=== PATIENT | female | born 2000 | race Caucasian/White ===

== ENCOUNTER → 2019-09-06 09:42 | Outpatient (CLI) | payer OTHER, SELFPAY ==
--- NOTE | 2019-09-06 09:43 | US_ITS ---
PROCEDURE: US OB BIOPHYSICAL PROFILE CLINICAL INDICATION: SGA Small for gestational TECHNIQUE: Age FINDINGS: The following parameters are obtained: Average ultrasound age is Average 36weeks 2days Estimated due date by ultrasound is 10/02/2019. Estimated weight is 2,866g.. This is 15th percentile BPD: 8.90cm 36weeks 1day OFD: 11.32cm 38weeks 2days HC: 36 weeks 1 day AC: 36 weeks 2 days FL: 7.05cm 36weeks 1day heart rate: 125bpm bpm. HC/AC: 0.99 Cephalic index: 0.79 FL/BPD: 0.79 FL/AC: 0.22 Amniotic fluid index: 11.77cm Qualitative AFV: 2 breathing movements: 2 Gross body movements: 2 Tone: 2 Biophysical profile score: 8 The fetus is in cephalic presentation. The cervix is closed measuring 3 cm. Placenta is anterior and grade 2. IMPRESSION: Live IUP which is in cephalic presentation with an average ultrasound age 36 weeks 2 days and an estimated weight of 2866 g which is 15th percentile. Normal amniotic fluid volume with a biophysical profile 8 of 8. Please see above for detail Dictated by: Jose Mcgill MD 09/07/2019 10:26 Electronically signed by Jose Mcgill MD in [place] 09/07/2019 10:26
[2019-09-06 10:41] LABS: Basophils % 0.3 % (0.1-2.0); Eosinophils # 0.2 K/mm3 (0.0-0.4); Eosinophils % 1.7 % (0.1-12.0); Hematocrit 32.4 % (37.0-47.0); Hemoglobin 10.9 g/dL (12.2-16.2); Lymphocytes # 2.3 K/mm3 (0.7-4.5); Lymphocytes % 21.4 % (10-50); Mean Corpuscular HGB Conc 33.6 g/dL (31.8-35.4); Mean Corpuscular Hemoglobin 31.5 pg (27.0-31.2); Mean Corpuscular Volume 93.8 fl (81-99); Mean Platelet Volume 9.4 fl (7.4-10.4); Monocytes # 0.5 K/mm3 (0.1-1.0); Monocytes % 4.3 % (1.7-9.3); Neutrophils # 7.8 K/mm3 (1.8-7.8); Neutrophils % 72.2 % (37.0-80.0); Platelet Count 218 K/mm3 (142-424); Red Blood Count 3.46 M/mm3 (4.20-5.40); Red Cell Distribution Width 13.4 % (11.5-17.5); White Blood Count 10.8 K/mm3 (4.8-10.8)
[2019-09-07 10:01] LABS: HIV Screen 4th Generation wRfx Non Reactive (Non Reactive)
[2019-09-07 12:26] LABS: Hepatitis B Surface Antigen Negative (Negative); Hepatitis C Antibody <0.1 s/co ratio (0.0-0.9); Rapid Plasma Reagin Ab Titer Non Reactive (NonRea<1:1); Rubella Antibodies, IgG 1.25 index (Immune >0.99)
== END ==
PROVIDERS: PCP Family Medicine; Visit Provider Nurse Practitioner Obstetrics & Gynecology
DX: O36.5990 Maternal care for other known or suspected poor fetal growth, unspecified trimester, not applicable or unspecified (principal); Z3A.37 37 weeks gestation of pregnancy
CPT/HCPCS: 36415; 76816; 76819; 85025; 86592; 86703; 86762; 86850; 87340; 87380; G0432

== ENCOUNTER → 2019-09-15 18:06 | Outpatient (CLI) | payer OTHER, SELFPAY | PROVIDERS: Visit Provider Nurse Practitioner Obstetrics & Gynecology | DX: Z34.90 Encounter for supervision of normal pregnancy, unspecified, unspecified trimester (principal) | CPT/HCPCS: 86403 ==

== ENCOUNTER 2019-09-19 07:39 | Outpatient (CLI) | payer OTHER, SELFPAY ==
[2019-09-19 08:00] VITALS: BP 111/67; PULSE 107; RESP 20; TEMP 36.7; O2SAT 100; BMI 29.4
[2019-09-19 08:26] LABS: Microscopic, Urine URINE MICROSCOPIC (MICROSCOPIC)
[2019-09-19 08:27] LABS: Appearance,Urine CLEAR (Clear); Bilirubin,Urine Negative (Negative); Blood, Urine Negative (Negative); Color,Urine YELLOW (Yellow); Glucose,Urine (UA) Negative (Negative); Ketones,Urine Negative (Negative); Leukocyte Esterase,Urine Negative (Negative); Nitrate,Urine Negative (Negative); PH,Urine 6.5 (5.0-8.5); Protein,Urine Negative (Negative); Specific Gravity, Urine 1.025 (1.005-1.030); Urobilinogen,Urine 0.2 EU/dl (0.2)
[2019-09-19 08:34] LABS: Bacteria,Urine 1+ /lpf; Calcium Oxalate Crystals,Urine 1+ /lpf; WBC,Urine Occasional #/hpf (0-3)
[2019-09-19 08:39] LABS: Barbiturates Screen,Urine Negative ng/ml (<200)
[2019-09-19 08:40] LABS: Amphetamine/Metha Screen,Urine Negative ng/ml (<1000); Benzodiazepines Screen,Urine Negative ng/ml (<200)
[2019-09-19 08:41] LABS: Methadone Screen,Urine Negative ng/ml (<300)
[2019-09-19 08:42] LABS: Cannabinoid Screen,Urine Positive ng/ml (<50); Cocaine Screen,Urine Negative ng/ml (<300)
[2019-09-19 08:43] LABS: Opiate Screen,Urine Negative ng/ml (<300)
[2019-09-19 08:44] LABS: Phencyclidine Screen,Urine Negative ng/ml (<25)
== END 2019-09-19 08:45 | disposition home or self-care (01) ==
LOC: OBOUT 07:42 → OB 07:44
PROVIDERS: PCP Family Medicine; Visit Provider Nurse Practitioner Obstetrics & Gynecology
DX: Z34.90 Encounter for supervision of normal pregnancy, unspecified, unspecified trimester (principal)
CPT/HCPCS: 59025; 80305; 81001

== ENCOUNTER 2019-09-20 13:44 | Inpatient (IN) | payer OTHER, SELFPAY ==
[2019-09-20 13:01] VITALS: RESP 20; TEMP 37; O2SAT 100; BMI 29.2
[2019-09-20 13:30] LABS: Basophils % 0.2 % (0.1-2.0); Eosinophils # 0.1 K/mm3 (0.0-0.4); Eosinophils % 0.9 % (0.1-12.0); Hemoglobin 11.8 g/dL (12.2-16.2); Lymphocytes % 15.2 % (10-50); Mean Corpuscular HGB Conc 34.6 g/dL (31.8-35.4); Mean Corpuscular Hemoglobin 32.4 pg (27.0-31.2); Mean Corpuscular Volume 93.8 fl (81-99); Mean Platelet Volume 8.7 fl (7.4-10.4); Monocytes # 0.4 K/mm3 (0.1-1.0); Monocytes % 2.8 % (1.7-9.3); Neutrophils # 10.5 K/mm3 (1.8-7.8); Neutrophils % 80.9 % (37.0-80.0); Platelet Count 307 K/mm3 (142-424); Red Blood Count 3.63 M/mm3 (4.20-5.40); Red Cell Distribution Width 13.9 % (11.5-17.5)
--- NOTE | 2019-09-20 13:56 | HMH.LABNOT ---
Labor Note - Subjective: Date: 09/20/19 Time: 13:56 regular contraction - Objective: NST:: Reactive Contractions:: every 2-3 minutes Cervical Dilation:: 4-5 Effacement:: 100% Station: -1 Membranes: spontaneously ruptured - Fetus: Monitoring?: Yes monitoring type:: Internal and External Comment:: iupc inserted - Assessment: Labor progressing?: Yes Cephalopelvic disproportion?: No Patient Problems: All Active Problems (Acute) - Plan: Anesthesia for epidural?: No Continue to labor down?: Yes Plan for ?: No Continue to monitor?: Yes Start pushing?: No Additional information:: came in in active labor, membranes ruptured at home this am
[2019-09-20 14:07] LABS: Coronavirus 19 IgG Antibody Negative (Negative); Coronavirus 19 IgM Antibody Negative (Negative)
--- NOTE | 2019-09-20 15:09 | HMH.ANESCL ---
[facility] Anesthesia Checklist - Patient Identification Patient Identification: Arm Band - Structural Data Admitted From: Home Planned Operative Procedure/s: labor epidural Consent for Planned Operative Procedure(s) Verified: Yes Verified Documents: Surgical Consent, History and Physical - NPO Status Verified Time NPO: 00:00 - Additional verifications Anesthesia Reactions: No - Airway Assessment C-Spine Mobility Assessed: Yes TMJ Mobility Assessed: Yes Dentition: Good Dentition - Neurological Assessment Level of Consciousness: Awake, Alert - Anesthesia Plan Anesthesia Risk discussed: Yes Anesthesia Plan: Verified ASA Class: II Anesthesia Type: Epidural [facility] History I have reviewed the patient's past medical history: Yes *Have you ever received a pneumonia vaccine?: No *Have you received a flu vaccine this season?: No Anesthesia experience/problems:: nac Other Surgeries: No: Amputation: No Fractures: No - *Social History Smoking Status: Current every day smoker Alcohol Intake: current Alcohol Intake Frequency:: holidays/special occasions only Substance Use Type: marijuana *Occupational Status:: other *Travel in the last 8 weeks: None Family Hx:: No significant family history Para: 0
--- NOTE | 2019-09-20 16:04 | HMH.LABNOT ---
Labor Note - Subjective: Date: 09/20/19 Time: 16:04 regular contraction - Objective: NST:: Reactive Contractions:: every 2-3 minutes Cervical Dilation:: 9-10 Effacement:: 100% Station: +1 Membranes: spontaneously ruptured - Fetus: Monitoring?: Yes monitoring type:: Internal and External - Assessment: Labor progressing?: Yes Cephalopelvic disproportion?: No Patient Problems: All Active Problems (Acute) - Plan: Anesthesia for epidural?: Yes Continue to labor down?: Yes Plan for ?: No Continue to monitor?: Yes Start pushing?: No Comment:: She has an anterior lip. She is progressing well. We will expect a vaginal delivery.
--- NOTE | 2019-09-20 16:05 | HMH.OBAPHP ---
OB - H&P: HPI Antepartum - History of Present Illness Chief complaint: Contractions and ruptured membranes, meconium History of present illness: She is a 19-year-old 1 now para 0 at 40+ weeks gestational age. Her due date was September 17. She complains of contractions. She came in over the weekend with contractions and since this morning has been leaking meconium stained fluid. She has had regular contractions since about midnight. - History of Present Criteria for establishing EDC:: LMP confirmed by 2nd trimester US care: limited care Ultrasounds: normal mid trimester US Obstetrical complications: none Medical complications: none [facility] History I have reviewed the patient's past medical history: Yes *Have you ever received a pneumonia vaccine?: No *Have you received a flu vaccine this season?: No Anesthesia experience/problems:: nac Other Surgeries: No: Amputation: No Fractures: No - *Social History Smoking Status: Current every day smoker Alcohol Intake: current Alcohol Intake Frequency:: holidays/special occasions only Substance Use Type: marijuana *Occupational Status:: other *Travel in the last 8 weeks: None Family Hx:: No significant family history Para: 0 Review of Systems - Review of Systems Review of systems:: pertinent systems reviewed and negative unless documented below Meds Home Medications Medication Instructions Recorded Confirmed Type No Known Home Medications 09/20/19 09/20/19 History Allergies Allergy/AdvReac Type Severity Reaction Status Date / Time ibuprofen Allergy Mild Verified 09/20/19 15:34 Penicillins Allergy Mild Verified 09/20/19 15:36 prednisone Allergy Mild Verified 09/20/19 15:35 red dye Allergy Mild Verified 09/20/19 15:35 OB - H&P: Exam - Physical Exam Vital signs: Temp Resp Pulse Ox 98.6 F 20 100 09/20/19 13:01 09/20/19 13:01 09/20/19 13:01 - Constitutional no acute distress - Routine HEENT Exam Head: Present: normocephalic Eye: Present: EOMI, PERRL ENT: Present: mucous membranes moist - Routine Neck Exam Present: supple, full ROM - Routine Respiratory Exam Absent: accessory muscle use (good air entry bilaterally), respiratory distress, wheezes, crackles - Routine Cardiovascular Exam Present: RRR. Absent: murmur - Routine Abdominal Exam Present: soft, normoactive bowel sounds. Absent: tenderness, distended, guarding - Routine Rectal Exam Patient deferred: visual exam, digital exam - Routine Exam Patient deferred: external exam, groin exam, perineal exam - Routine Extremities Exam Present: full ROM. Absent: cyanosis, edema - Routine Skin Exam Present: intact. Absent: cyanosis - Routine Neurological Exam Present: alert, oriented X3 - Routine Psychiatric Exam Present: normal affect OB - Results - Labs Labs: Short CBC 09/20/19 Range/Units 13:15 WBC 13.0 H (4.8-10.8) K/mm3 Hgb 11.8 L (12.2-16.2) g/dL Hct 34.0 L (37.0-47.0) % Plt Count 307 (142-424) K/mm3 OB - A/P Antepartum (1) Normal delivery Current visit: Yes Status: Acute (2) Meconium stained amniotic fluid, delivered, current hospitalization Current visit: Yes Status: Acute - Additional Plan Planning to breastfeed?: No Plan: expectant management Additional Information:: She is an active labor. She was initially 4 cm on arrival. She is now 9 cm. We will expect a vaginal delivery.
[2019-09-20 16:39] LABS: Microscopic, Urine URINE MICROSCOPIC (MICROSCOPIC)
[2019-09-20 16:50] LABS: Appearance,Urine CLEAR (Clear); Bilirubin,Urine Negative (Negative); Blood, Urine TRACE-I (Negative); Color,Urine YELLOW (Yellow); Glucose,Urine (UA) Negative (Negative); Ketones,Urine Negative (Negative); Leukocyte Esterase,Urine Negative (Negative); Nitrate,Urine Negative (Negative); PH,Urine 7.5 (5.0-8.5); Protein,Urine Negative (Negative); Specific Gravity, Urine 1.015 (1.005-1.030); Urobilinogen,Urine 0.2 EU/dl (0.2)
[2019-09-20 16:55] LABS: Amphetamine/Metha Screen,Urine Negative ng/ml (<1000); Benzodiazepines Screen,Urine Negative ng/ml (<200)
[2019-09-20 16:56] LABS: Barbiturates Screen,Urine Negative ng/ml (<200); RBC,Urine Occasional #/hpf (0-3)
[2019-09-20 16:57] LABS: Cannabinoid Screen,Urine Positive ng/ml (<50); Methadone Screen,Urine Negative ng/ml (<300)
[2019-09-20 16:58] LABS: Cocaine Screen,Urine Negative ng/ml (<300)
[2019-09-20 16:59] LABS: Opiate Screen,Urine Negative ng/ml (<300); Phencyclidine Screen,Urine Negative ng/ml (<25)
--- NOTE | 2019-09-20 19:04 | HMH.DN ---
- Delivery Note Delivery Date:: 09/20/19 Delivery Time:: 18:23 Anesthesia Type: Epidural Was labor medically induced?: No Induction method: none Gestational age (weeks): 40 delivered prior to 39 weeks?: No Justification for early elective delivery:: Active Labor Gender: Male at 1 minute: 8 at 5 minutes: 9 Suction Catheter Type: Sterile Catheter AF:: meconium LAC or MLE?: LAC Delivery Procedure:: She is a 19-year-old 1 now para 0 at 40 and 2 weeks gestational age. She came in in active labor with ruptured membranes. It is not clear how long her membranes had been she thinks she may have ruptured them early this morning. She says she has been leaking for well. The fluid was thick meconium-stained. She was augmented with oxytocin under labor epidural progressed to full dilation. She pushed and was having some deep decelerations with prolonged decelerations into the 50s and 60s. As result of that I elected to place padded Gill forceps in the direct OA position. The bladder was empty. She was at station +4. The baby's head was visible on the perineum with pushing. Using 1 long pull I was able to easily deliver the baby's head. The oropharynx and nasopharynx were suctioned with DeLee suction. I retrieved about 2 cc of thick meconium stained fluid. The baby then cried spontaneously. I further suctioned the baby. The cord was doubly clamped and cut and the infant was handed off to Dr. Salas who assigned Apgars of 8 at 1 minute and 9 at 5 minutes. We then obtained cord blood as well as cord pH. She received IV oxytocin and using gentle traction on the cord and countertraction the fundus I was able to easily deliver the placenta intact. He had a normal three-vessel cord. She had fourth degree tear. I closed the rectum mucosa using interrupted 3-0 Vicryl Rapide suture in a mattress suture style. I then placed 2-0 Vicryl sutures interrupted above this layer reapproximating the muscles. I then closed the vaginal mucosa using running 2-0 Vicryl suture in a locked fashion. The sphincter was then grasped with Allis clamps and I reapproximated the sphincter using interrupted 2-0 PDS suture. I placed 1 suture anteriorly 1 superiorly and one inferiorly. These were individually placed and then tied in the order in which they were placed. I then closed the perineum using interrupted 2-0 Vicryl suture in a subcuticular fashion. I then performed a rectal examination and once again assured that the rectum was completely closed. She has O Rh+ blood, she is rubella immune and was group B streptococcus negative. Her label operator Dr. Salas. Estimated blood loss was approximately 600 cc. All sponge, instrument and needle counts were correct. Laceration:: vaginal Placental Delivery Description: Spontaneous
[2019-09-20 20:00] VITALS: BMI 29.0
[2019-09-21 06:52] LABS: Hematocrit 31.1 % (37.0-47.0)
[2019-09-21 06:53] LABS: Hemoglobin 10.6 g/dL (12.2-16.2)
[2019-09-21 08:00] VITALS: BP 115/59; PULSE 91; RESP 16; TEMP 36.9; O2SAT 99
--- NOTE | 2019-09-21 08:29 | HMH.ACPN2 ---
Internal Medicine - PN: Rocael *Date: 09/21/19 *Time: 08:29 Interval history: She is doing well this morning. She is eating and drinking and ambulating. She is bottlefeeding. Her lochia is normal. Exam Vital signs and Labs for Last 24 Hours: Temp Resp Pulse Ox 98.6 F 20 100 09/20/19 13:01 09/20/19 13:01 09/20/19 13:01 Laboratory Results - last 24 hr 09/20/19 13:15: WBC 13.0 H, RBC 3.63 L, Hgb 11.8 L, Hct 34.0 L, MCV 93.8, MCH 32.4 H, MCHC 34.6, RDW 13.9, Plt Count 307, MPV 8.7, Neut % (Auto) 80.9 H, Lymph % (Auto) 15.2, [place] % (Auto) 2.8, Eos % (Auto) 0.9, Baso % (Auto) 0.2, Neut # (Auto) 10.5 H, Lymph # (Auto) 2.0, [place] # (Auto) 0.4, Eos # (Auto) 0.1, Baso # (Auto) 0.0 09/20/19 13:15: Blood Type O Positive, Antibody Screen Negative 09/20/19 13:15: SARS-CoV-2 IgG Ab (Rapid) Negative, SARS-CoV-2 IgM Ab (Rapid) Negative 09/20/19 16:00: Urine Color Yellow, Urine Appearance Clear, Urine pH 7.5, Ur Specific Ladora 1.015, Urine Protein Negative, Urine Glucose (UA) Negative, Urine Ketones Negative, Urine Blood Trace-i, Urine Nitrate Negative, Urine Bilirubin Negative, Urine Urobilinogen 0.2, Ur Leukocyte Esterase Negative, Urine RBC Occasional, Urine WBC 3-5, Ur Squamous Epith Cells 3-5, Urine Bacteria None 09/20/19 16:00: Urine Opiates Screen Negative, Urine Methadone Screen Negative, Ur Barbituates Screen Negative, Ur Phencyclidine Scrn Negative, Ur Amphetamines Screen Negative, U Benzodiazepines Scrn Negative, Urine Cocaine Screen Negative, U Marijuana (THC) Screen Positive H 09/20/19 18:35: Cord ABG pH 7.30 L 09/21/19 06:21: Hgb 10.6 L D, Hct 31.1 L I & O for Last 24 hours: Intake & Output 09/18/19 09/19/19 09/20/19 09/21/19 11:59 11:59 11:59 11:59 Weight 159 lb - Constitutional no acute distress - *Routine HEENT Exam Head: Present: normocephalic Eye: Present: EOMI, PERRL ENT: Present: mucous membranes moist Assessment and Plan (1) Normal delivery Current visit: Yes Status: Acute Category: Medical Code(s): O80 - Encounter for full-term uncomplicated delivery (2) Meconium stained amniotic fluid, delivered, current hospitalization Current visit: Yes Status: Acute Category: Medical Code(s): O77.0 - Labor and delivery complicated by meconium in amniotic fluid - Assessment and plan all Dx Assessment and Plan for all problems:: She continues to do well. We will plan to send her home tomorrow.
--- NOTE | 2019-09-21 11:09 | SW/DCPLANNER ---
Addendum entered by Karely Duong 09/22/19 09:36: MADE A REPORT TO [facility] AND SPOKE WITH SOHAM AND ID# [id number].... I HAVE INFORMED HER NURSE THAT THE REFERRAL WAS CALLED AND WE ARE WAITING TO SEE IF THEY ARE GOING TO TAKE IT FOR AN INVESTIGATION.... PATIENT IS GOING TO DISCHARGE BUT NOT SURE ABOUT INFANT... Original Note: RECEIVED REFERRAL FOR THIS PATINET THAT ONLY HAD 7 VISITS ADN + FOR THC.... MS NEGRON PRESENTED INTO [facility] IN LABOR AND DELIVERED A LIVE BORN MALE VIA VAGINAL DELIVERY... THIS IS MS NEGRON'S FIRST CHILD, SHE HAD A + FOR THC WHEN SHE PRESENTED IN... SHE NAMED HER ROC ROMERO.... SHE STATED SHE PLANS TO BOTTLE FEED AND IS INTERESTED IN THE HANDS PROGRAM, SHE STATED SHE WAS ENROLLED AND DIDN'T CARE FOR THE HANDS NURSE BUT IS WILLING TO LET THEM TRY AGAIN.. SHE ALSO RECEIVES FOOD STAMPS AND STATED SHE AND BABY'S FATHER ARE LIVING WITH HIS DAD AT THE CURRENT TIME. SHE SAID THEY HAVE EVERYTHING THEY NEED TO TAKE THE INFANT HOME.. SHE HAS A CAR SEAT, BABY BED, DIAPERS AND CLOTHES... SHE HAS CHOSEN DR WATERS THE BABY'S MICROFILM PROCESSOR... 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 I AM CURRENTLY WAITING ON A URINE ON THE INFANT AND IF ITS POSITIVE IT WILL BE REPORTED FOR INVESTIGATION IF ACCEPTED.. ANTICIPATED DISCHARGE FOR PATIENT IS IN THE AM.... PENDING UDS RESULTS....
[2019-09-21 12:00] VITALS: BP 130/81; PULSE 94; O2SAT 100
--- NOTE | 2019-09-22 09:30 | P.DS_ITS ---
General - General Admission date:: 09/20/19 Discharge date: 09/22/19 HPI HPI: She is a 19-year-old 1 now para 1 who was 40 and 2 weeks gestational age. She came in with ruptured membranes and meconium. She was having regular contractions. Hospital Course Hospital Course: She was augmented with oxytocin and progressed to full dilation under labor epidural. She delivered with the assistance of outlet forceps a liveborn male child at 6:23 PM in the evening of September 20, 2019. The baby had Apgars of 8 at 1 minute and 9 at 5 minutes. She had 1/4 degree perineal laceration. She has done well and has remained afebrile throughout her hospitalization. She is eating and drinking and ambulating. She is bottlefeeding. She would like Depo-Provera for control prior to discharge. She will also continue with her Colace. She has O+ blood, she is rubella immune and was group B streptococcus negative. Her irrigation installation specialist is Dr. Livingston. She is discharged home to follow-up with me in approximately 2 weeks time. She was given the usual instructions with respect to limiting her activity, driving and sexual activity. She will continue with her vitamins and iron. Her condition on discharge is stable and improved. Objective Vital signs: Temp Pulse Resp BP Pulse Ox 98.5 F 94 H 16 130/81 100 09/21/19 08:00 09/21/19 12:00 09/21/19 08:00 09/21/19 12:00 09/21/19 12:00 no acute distress - *Routine HEENT Exam Head: Present: normocephalic Eye: Present: EOMI, PERRL ENT: Present: mucous membranes moist DS: Diagnosis - Discharge Diagnosis (1) Normal delivery Status: Acute (2) Meconium stained amniotic fluid, delivered, current hospitalization Status: Acute Discharge Plan - Patient Discharge Instructions ACTIVITY: No heavy lifting DIET: continue same diet Additional Instructions: FOLLOW-UP WITH DR. AVELAR ON NOTHING IN VAGINA FOR 6 WEEKS NO HEAVY LIFTING OR STRENUOUS ACTIVITY NO DRIVING IF TAKING PAIN MEDICATION Patient Instructions: Pre-eclampsia, Depression, Hemorrhage, DI for Labor and Delivery, Vaginal , Preventing the Spread of Coronavirus Discharge Instructions, Post Discharge Instructions - Follow up Plan Disposition: Home, Self-Assisted Medications: Home Medications Medication Instructions Recorded Confirmed Type No Known Home Medications 09/20/19 09/20/19 History Docusate Sodium [Colace 250mg 250 mg PO DAILY #30 cap 09/22/19 Rx capsule] Prescriptions/Medication Reconciliation: New Docusate Sodium [Colace 250mg capsule] 250 mg PO DAILY #30 cap No Action No Known Home Medications - Problem Reconciliation Problems Reviewed?: Yes
== END 2019-09-22 18:03 | disposition home or self-care (01) | DRG 768 ==
LOC: OBOUT 13:44 → OB 13:44
PROVIDERS: Admitting Provider Nurse Practitioner Obstetrics & Gynecology; Visit Provider Nurse Practitioner Obstetrics & Gynecology
DX: O70.3 Fourth degree perineal laceration during delivery (principal); Z37.0 Single live birth; Z3A.40 40 weeks gestation of pregnancy; O66.5 Attempted application of vacuum extractor and forceps; O76 Abnormality in fetal heart rate and rhythm complicating labor and delivery; O77.0 Labor and delivery complicated by meconium in amniotic fluid
CPT/HCPCS: 59409; 36415; 59025; 80305; 81001; 82800; 85014; 85018; 85025; 86328; 86850; C1758; J0595; J1050; J2405

== ENCOUNTER 2023-04-22 12:16 | Outpatient (CLI) | payer OTHER, SELFPAY ==
[2023-04-22 13:55] LABS: HCG,Quantitative < 2 mIU/ml (0-5.42)
[2023-04-23 04:09] LABS: Progesterone 0.2 ng/mL (.)
== END 2023-04-22 23:59 ==
LOC: LAB 12:18
PROVIDERS: Visit Provider Nurse Practitioner Obstetrics & Gynecology
DX: Z32.00 Encounter for pregnancy test, result unknown (principal); N92.6 Irregular menstruation, unspecified
CPT/HCPCS: 36415; 84144; 84702

== ENCOUNTER 2024-04-08 14:56 | Outpatient (CLI) | payer OTHER, SELFPAY ==
--- NOTE | 2024-04-08 15:03 | US_ITS ---
PROCEDURE: US OB <= 14 WEEKS FETUS CLINICAL INDICATION: Dates and Confirmation COMPARISON: No exams were available for comparison FINDINGS: Transvaginal sonographic images of the pelvis were obtained. Her last menstrual period is unknown. The uterus is retroverted. An intrauterine gestational sac is present with a pole with a crown-rump length of 2.43cm This correlates to a gestational age of 9weeks 2days. GEOVANNA 11/09/2024 heart tones are present with an FHR of 169bpm. Yolk sac is noted. The yolk sac measures 5.9mm. A small subchorionic hemorrhage is noted. The right ovary is seen and appears normal. There is a corpus luteum measuring 1.9 cm x 1.2 cm x1.7cm. The left ovary is not visualized. There is no fluid in the cul-de-sac. IMPRESSION: 1. Viable embryo within the uterine cavity. heart rate activity is seen. 2. The uterus is retroverted. 3. Embryo measures 9 weeks 2 days and the GEOVANNA will be 11/09/2024. 4. The left ovary is not visualized. The right ovary contains a corpus luteum measuring 1.9 cm. 5. No fluid in the cul-de-sac. Dictated by: Martell Hsu MD 04/09/2024 09:34 Martell Hsu MD in [facility] 04/09/2024 09:34
[2024-04-08 15:55] LABS: Basophils # 0.1 K/mm3 (0-0.2); Basophils % 0.6 % (0.1-2.0); Eosinophils # 0.1 K/mm3 (0.0-0.4); Eosinophils % 1.6 % (0.1-12.0); Hematocrit 36.7 % (37.0-47.0); Hemoglobin 12.4 g/dL (12.2-16.2); Lymphocytes # 2.1 K/mm3 (0.7-4.5); Lymphocytes % 25.6 % (10-50); Mean Corpuscular HGB Conc 33.8 g/dL (31.8-35.4); Mean Corpuscular Volume 94.6 fl (81-99); Mean Platelet Volume 9.6 fl (7.4-10.4); Monocytes # 0.6 K/mm3 (0.1-1.0); Monocytes % 7.5 % (1.7-9.3); Neutrophils # 5.4 K/mm3 (1.8-7.8); Neutrophils % 64.3 % (37.0-80.0); Platelet Count 275 K/mm3 (142-424); Red Blood Count 3.88 M/mm3 (4.20-5.40); Red Cell Distribution Width 12.1 % (11.5-17.5); White Blood Count 8.3 K/mm3 (4.8-10.8)
[2024-04-08 17:02] LABS: HIV Combo NEGATIVE (Negative)
[2024-04-08 17:10] LABS: Hepatitis C Ab Qual. W/ RFX NEGATIVE (Negative)
[2024-04-08 19:17] LABS: RPR W/RFX Titers Nonreactive (Nonreactive)
[2024-04-09 08:23] LABS: Hepatitis B Surface Antigen Negative (Negative); Rubella Antibodies, IgG 1.54 index (Immune >0.99)
== END 2024-04-08 23:59 | disposition home or self-care (01) ==
PROVIDERS: Visit Provider Nurse Practitioner Obstetrics & Gynecology
DX: Z36.87 Encounter for antenatal screening for uncertain dates (principal); Z36.89 Encounter for other specified antenatal screening; Z3A.09 9 weeks gestation of pregnancy
CPT/HCPCS: 36415; 76801; 85025; 86592; 86762; 86803; 86850; 87340; 87389

== ENCOUNTER 2024-05-27 12:50 | Emergency (ER) | payer OTHER, SELFPAY ==
[2024-05-27 12:52] VITALS: BP 123/68; PULSE 96; RESP 18; TEMP 36.7; O2SAT 100; BMI 25.5
[2024-05-27 13:16] LABS: Microscopic, Urine URINE MICROSCOPIC (MICROSCOPIC)
[2024-05-27 13:18] LABS: Appearance,Urine SL CLOUDY (Clear); Bilirubin,Urine Negative (Negative); Blood, Urine Negative (Negative); Color,Urine ORANGE (Yellow); Glucose,Urine (UA) Negative (Negative); Ketones,Urine 15 (Negative); Leukocyte Esterase,Urine SMALL (Negative); Nitrate,Urine Negative (Negative); Protein,Urine Negative (Negative); Specific Gravity, Urine 1.015 (1.005-1.030); Urobilinogen,Urine 0.2 EU/dl (0.2)
[2024-05-27 13:23] LABS: Bacteria,Urine Trace /lpf; WBC,Urine Occasional #/hpf (0-3)
[2024-05-27 13:57] LABS: Basophils # 0.1 K/mm3 (0-0.2); Basophils % 0.7 % (0.1-2.0); Eosinophils # 0.1 K/mm3 (0.0-0.4); Eosinophils % 1.1 % (0.1-12.0); Hemoglobin 11.6 g/dL (12.2-16.2); Lymphocytes # 1.6 K/mm3 (0.7-4.5); Mean Corpuscular HGB Conc 35.2 g/dL (31.8-35.4); Mean Corpuscular Volume 93.8 fl (81-99); Monocytes # 0.4 K/mm3 (0.1-1.0); Monocytes % 6.1 % (1.7-9.3); Neutrophils # 4.8 K/mm3 (1.8-7.8); Neutrophils % 68.7 % (37.0-80.0); Platelet Count 303 K/mm3 (142-424); Red Blood Count 3.52 M/mm3 (4.20-5.40); Red Cell Distribution Width 12.3 % (11.5-17.5)
[2024-05-27 14:00] VITALS: BP 134/82; PULSE 126; O2SAT 100
--- NOTE | 2024-05-27 14:07 | US_ITS ---
PROCEDURE INFORMATION: Exam: US Duplex Artery and Vein of the Abdominal and/or Reproductive Organs. Complete Ovaries Exam date and time: 05/27/2024 2:08 PM Clinical indication: complicated by abdominal or pelvic pain; Lower; Second trimester (14 weeks 0 days to 27 weeks 6 days); Gestational age or lmp: 16w2d; ; Additional info: Severe lower abd pain/cramping, eval baby/torsion TECHNIQUE: Imaging protocol: Real-time duplex ultrasound scan of the arterial and venous flow with color Doppler flow and spectral waveform analysis with image documentation. Duplex exam was performed to evaluate for torsion and other vascular conditions. COMPARISON: No relevant prior studies available. FINDINGS: Right ovary/adnexa: Duplex color and spectral Doppler demonstrate normal ovarian arterial and venous blood flow. Left ovary/adnexa: Duplex color and spectral Doppler demonstrate normal ovarian arterial and venous blood flow. IMPRESSION: No evidence of ovarian torsion. PROCEDURE INFORMATION: Exam: US After First Trimester, Transabdominal and US , Transvaginal Exam date and time: 05/27/2024 2:08 PM Age: 24 years old Clinical indication: complicated by abdominal or pelvic pain; Lower; Second trimester (14 weeks 0 days to 27 weeks 6 days); Gestational age or lmp: 16w2d; ; Additional info: Severe lower abd pain/cramping, eval baby/torsion TECHNIQUE: Imaging protocol: Real-time transabdominal obstetrical ultrasound of the maternal pelvis and a second or third trimester with image documentation. Transvaginal imaging was used for better evaluation of the fetus, adnexa, and/or cervix. COMPARISON: US OB <= 14 WEEKS FETUS 04/08/2024 3:07 PM FINDINGS: Gestation: Single intrauterine gestation. heart rate: 150 bpm. presentation and position: Breech. Placenta: Placenta is posterior. No evidence of subchorionic hemorrhage. Amniotic fluid (Qualitative): Amniotic fluid is clear and anechoic. Amniotic fluid volume is within normal limits for gestational age. BIOMETRY: Estimated due date (AUA): Estimated due date (LMP): 11/09/2024. MATERNAL: Uterus: Ill-defined retroplacental area of hypoechoic soft tissue thickening in the lower right lateral uterus that appears compatible with a uterine contraction, although was not demonstrated to resolve during the exam. Color Doppler appears to demonstrate no vascularity in a part of this area (series 1, images 17, 18 and 22). The area measures approximately 4 x 3 x 2 cm. Cervix: Cervix measures 3.6 cm in length. No evidence of cervical effacement. Right ovary/adnexa: Right ovary is normal in size for age. Color Doppler demonstrates blood flow in the ovary. Left ovary/adnexa: Left ovary is normal in size for age. Color Doppler demonstrates blood flow in the ovary. IMPRESSION: 1. Single live intrauterine gestation. 2. Ill-defined retroplacental area of hypoechoic soft tissue thickening in the lower right lateral uterus that could represent a transient uterine contraction or partial abruption. Favor uterine contraction, although abruption cannot be excluded.
--- NOTE | 2024-05-27 14:08 | ED_ITS ---
Discharge Plan Disposition Patient Disposition: Left Against Medical Advice Chief Complaint: Abdominal Pain Prescriptions Prescriptions: No Action ondansetron 4 mg tablet,disintegrating 4 mg PO HS Patient Comments: DISSOLVE 1 TABLET ON THE TONGUE EVERY 6 HOURS NEEDED FOR NAUSEA promethazine 12.5 mg suppository 12.[address] Q6H PRN (Reason: nausea and vomiting) Qty: 12 2RF Referrals Follow up/Referrals: Provider,Referral, MD [Primary Care Provider] - See instructions Clinical Impressions Clinical Impression: Abdominal pain affecting Instructions Patient Instructions: DI for Acute Abdominal Pain Print Language Print Language: Luxembour[place] Discharge ED Provider: Kit Moise General Adult HPI <Rachel Haney DO - Last Filed: 05/27/24 15:27> General Chief complaint: Abdominal Pain Stated complaint: 16 weeks -bad cramping Time Seen by Provider: 05/27/24 13:46 Mode of Arrival: Ambulatory Source of Information: Patient Description of Symptoms (Recalled from ER Triage Doc. by RN): Pt presents for evaluation of abdominal cramping that started suddenly at 0200 today. Pt states the pain has been constant and varies from sharp and pressure/cramping. Pt states this is her 4th and has had 2 miscarriages in the past History of Present Illness HPI narrative: This patient is a 24-year-old female at estimated 16 weeks gestation presenting to the emergency department for evaluation concern for severe abdominal cramping that started around 2:00 this morning. She notes that it is all across her lower pelvis on both sides. She states that it is constant and feels like sharp pressure. She notes she was having some pressure yesterday, but this is much more severe. No abnormal vaginal bleeding, she is not sure if she has had any leakage of fluid or not. She notes nausea and vomiting as well. No fevers, diarrhea, constipation, dysuria, hematuria, polyuria, or other concerns. No prior surgical abdominal history. Related Data Home Medications ?Medication ?Instructions ?Recorded ?Confirmed ondansetron 4 mg disintegrating 4 mg PO HS 03/30/24 05/27/24 tablet Previous Rx's ?Medication ?Instructions ?Recorded promethazine 12.5 mg rectal [address] Q6H PRN nausea and 04/20/24 suppository vomiting #12 ea Allergies Allergy/AdvReac Type Severity Reaction Status Date / Time ibuprofen Allergy Mild Other Verified 05/27/24 12:58 Penicillins Allergy Mild Anaphylaxis Verified 05/27/24 12:58 prednisone Allergy Mild Hives Verified 05/27/24 12:58 red dye Allergy Mild Hives Verified 05/27/24 12:58 PFSH <Rachel Haney DO - Last Filed: 05/27/24 15:27> [facility] Disclaimer: The information contained in this section may have been updated after the patient was seen, as this information can be updated by other users. Medical History No significant past medical history Surgical History No significant past surgical history Social History Smoking Status: Never smoker alcohol intake: current alcohol intake frequency: holidays/special occasions only substance use type: marijuana current occupational status: other Travel in the last 8 weeks: None Have you lived/traveled outside [place] in past 30 days?: No Contact w/someone who lives/traveled outside US past 30 days?: No Exposure to someone with infectious disease in past 14 days?: No Do you have a fever (greater than 100.4 F or 38 C)?: No Have you tested positive for COVID-19: No Exposed to someone with COVID-19 in past 14 days?: No Do you have a sore throat?: No Do you have a cough?: No Do you have any weakness?: No Do you have any diarrhea?: No Are you experiencing any unusual bleeding?: No Do you have any muscle aches/pain?: No Do you have any abdominal pain?: Yes Are you experiencing loss of taste or smell?: No Other Medical History Have you received the Flu Vaccine for this season: No Have you received the Pneumonia Vaccine: No <Rachel Haney DO - Last Filed: 05/27/24 15:27> ROS Obtained: Yes All systems reviewed & no additional complaints except as documented Physical Exam <Rachel Haney DO - Last Filed: 05/27/24 15:27> General General appearance: alert and anxious Comment: Actively panicking, very anxious appearing Head Head exam: atraumatic and normocephalic Eye Eye exam: Present normal appearance, PERRL and EOMI ENT ENT exam: Present normal exam, normal oropharynx, mucous membranes moist and normal external ear exam Neck Neck exam: Present normal inspection, full ROM and trachea midline; Absent tenderness Chest Chest inspection: Present normal inspection and symmetric chest wall rise; Absent tenderness Respiratory Respiratory exam: Present normal lung sounds bilaterally; Absent respiratory distress, wheezes, stridor or accessory muscle use Cardiovascular Cardiovascular exam: Present normal rhythm and tachycardia Abdominal Exam Abdominal exam: Present soft and tenderness (All across lower abdomen); Absent distention, guarding, rebound or rigidity Extremities Exam Extremities exam: Present normal inspection, full ROM and normal capillary refill; Absent tenderness or edema Back Exam Back exam: Present normal inspection and full ROM; Absent tenderness Neurological Exam Neurological exam: Present alert, oriented X3, CN II-XII intact and normal gait; Absent motor sensory deficit Psychiatric Psychiatric exam: Present normal affect and normal mood Skin Skin exam: Present warm and dry Medical Decision Making <Rachel Haney, DO - Last Filed: 05/27/24 15:27> Medical Records Medical records reviewed: Yes I reviewed the patient's medical records. Screening: Per USPSTF and CDC recommendations, given the prevalence of disease in our region, it is our hospital?s policy to screen for HIV and viral Hepatitis for all patients aged 18 and over and those with ongoing risk factors. Chuck Inquiry Pt receiving controlled substance: No Vital Signs: 05/27/24 12:52 05/27/24 14:00 05/27/24 15:26 Temperature 98.0 F Temperature Source Temporal Artery Scan Pulse Rate 126 H 88 Pulse Rate [Right] 96 H Respiratory Rate 18 Blood Pressure 134/82 102/51 L Blood Pressure [Right Arm] 123/68 Blood Pressure Mean [Right Arm] 86 Blood Pressure Source [Right Arm] Automatic Cuff Blood Pressure Position [Right Arm] Sitting 02 Sat by Pulse Oximetry 100 100 100 Oxygen Delivery Method Room Air Room Air Room Air 05/27/24 15:30 Temperature Temperature Source Pulse Rate 80 Pulse Rate [Right] Respiratory Rate Blood Pressure 91/57 L Blood Pressure [Right Arm] Blood Pressure Mean [Right Arm] Blood Pressure Source [Right Arm] Blood Pressure Position [Right Arm] 02 Sat by Pulse Oximetry 100 Oxygen Delivery Method Room Air Lab Data Lab results reviewed: Yes I reviewed the patient's lab results. Lab Results 05/27/24 13:02: Urine Color [place], Urine Appearance Sl cloudy, Urine pH 8.0, Ur Specific [place] 1.015, Urine Protein Negative, Urine Glucose (UA) Negative, Urine Ketones 15, Urine Blood Negative, Urine Nitrate Negative, Urine Bilirubin Negative, Urine Urobilinogen 0.2, Ur Leukocyte Esterase Small, Urine RBC None, Urine WBC Occasional, Ur Squamous Epith Cells 5-10, Urine Bacteria Trace, Urine Opiates Screen Negative, Ur Phencyclidine Scrn Negative 05/27/24 13:50: WBC 7.0, RBC 3.52 L, Hgb 11.6 L, Hct 33.0 L, MCV 93.8, MCH 33.0 H, MCHC 35.2, RDW 12.3, Plt Count 303, MPV 10.0, Neut % (Auto) 68.7, Lymph % (Auto) 23.0, [place] % (Auto) 6.1, Eos % (Auto) 1.1, Baso % (Auto) 0.7, Neut # (Auto) 4.8, Lymph # (Auto) 1.6, [place] # (Auto) 0.4, Eos # (Auto) 0.1, Baso # (Auto) 0.1, Sodium 138, Potassium 4.0, Chloride 104, Carbon Dioxide 25, Anion Gap 13.0, BUN 6 L, Creatinine 0.60, Estimated Creat Clear 142, Estimated GFR 121, Est GFR ( Amer) 146, Glucose 97, Calcium 9.9, Total Bilirubin 0.3, AST 23, ALT 11 L, Alkaline Phosphatase 52, Total Protein 7.6, Albumin 4.5, Globulin 3.1, Albumin/Globulin Ratio 1.5, Lipase 29 05/27/24 14:10: C-Reactive Protein 14.7 H 05/27/24 13:50 05/27/24 13:50 Orders (Tests/Meds): ED MEDICATIONS Discontinued Medications Generic Name Dose Route Start Last Admin Trade Name Freq PRN Reason Stop Dose Admin Acetaminophen 1,000 mg 05/27/24 14:07 05/27/24 15:05 Acetaminophen 1,000mg/100ml Vial IV 05/27/24 14:08 Not Given ONCE ONE Lactated Ringer's 1,000 mls @ 999 mls/hr 05/27/24 14:07 05/27/24 15:01 Lactated Ringer's 1000 Ml Bag IV 05/27/24 15:07 999 mls/hr .Q1H1M ONE Administration Ondansetron HCl 4 mg 05/27/24 14:07 05/27/24 15:01 Ondansetron 4mg/2ml Vial IV 05/27/24 14:08 4 mg ONCE ONE Administration ORDERS Category Date Time Status Consult Local Government Legislator [CONS] Routine Cons 05/27/24 15:05 Active CRP [C-Reactive Protein] Stat Lab 05/27/24 14:10 Completed Complete Blood Count Auto Diff Stat Lab 05/27/24 13:50 Completed Comprehensive Metabolic Panel Stat Lab 05/27/24 13:50 Completed Lipase Stat Lab 05/27/24 13:50 Completed UDS [Drug Screen,Urine] Stat Lab 05/27/24 13:02 Results Urinalysis and Microscopic Stat Lab 05/27/24 13:02 Completed Urine Chlam/Gono/Trich, RACHEL Stat Lab 05/27/24 13:22 Received Urine Culture Stat Micro 05/27/24 13:02 Received US OB >= 14 weeks Fetus Stat Ultrasound 05/27/24 14:07 Completed Medical Decision Narrative: In summary, this patient is a 24-year-old female presenting to the Emergency Department for evaluation of lower abdominal pain in the setting of . Differential diagnoses considered include but are not limited to normal physiologic changes of , placental abruption, ovarian cyst, cystitis, appendicitis, ruling out the most morbid conditions drove assessment. I reviewed patient's past medical records and noted ultrasound in April confirming IUP, estimated 9 weeks at the beginning of April at time of ultrasound. Noted blood type is Rh+, no indication for RhoGAM.. On exam, the patient is lying in bed, very anxious appearing and panicking. She initially was panicking about abdominal pain, but after failed attempted IV sticks, her biggest concern was left arm pain. She seems to have hyperalgesia. Lower abdominal exam is actually benign with no localizable tenderness or guarding, exam very reassuring. No abnormal vaginal discharge or bleeding noted per the patient. She is also had no fevers or infectious symptoms. Workup included CBC, CMP, urine gonorrhea, urine chlamydia, urinalysis, pelvic ultrasound to evaluate for possible ovarian/obstetric pathology. Low concern for appendicitis based on reassuring abdominal exam with no significant right lower quadrant tenderness. Patient was given a bolus of IV fluids as well as IV Tylenol and Zofran for symptomatic improvement. Labs obtained demonstrated reassuring CBC with no significant leukocytosis, she does have mild anemia in the setting of which is not concerning. Chemistry is reassuring with normal kidney function, normal liver enzymes, normal bilirubin, normal lipase. Urinalysis is contaminated squamous cells and has trace bacteria in the setting of contamination, occasional white blood cells and small leukocyte esterase but negative nitrates. Patient care signed out to the oncoming provider, Dr. Moise, pending ultrasound and reassessment. <Kit Moise MD - Last Filed: 05/27/24 16:29> Vital Signs: 05/27/24 12:52 05/27/24 14:00 05/27/24 15:26 Temperature 98.0 F Temperature Source Temporal Artery Scan Pulse Rate 126 H 88 Pulse Rate [Right] 96 H Respiratory Rate 18 Blood Pressure 134/82 102/51 L Blood Pressure [Right Arm] 123/68 Blood Pressure Mean [Right Arm] 86 Blood Pressure Source [Right Arm] Automatic Cuff Blood Pressure Position [Right Arm] Sitting 02 Sat by Pulse Oximetry 100 100 100 Oxygen Delivery Method Room Air Room Air Room Air 05/27/24 15:30 Temperature Temperature Source Pulse Rate 80 Pulse Rate [Right] Respiratory Rate Blood Pressure 91/57 L Blood Pressure [Right Arm] Blood Pressure Mean [Right Arm] Blood Pressure Source [Right Arm] Blood Pressure Position [Right Arm] 02 Sat by Pulse Oximetry 100 Oxygen Delivery Method Room Air Lab Data Lab Results 05/27/24 13:02: Urine Color [place], Urine Appearance Sl cloudy, Urine pH 8.0, Ur Specific [place] 1.015, Urine Protein Negative, Urine Glucose (UA) Negative, Urine Ketones 15, Urine Blood Negative, Urine Nitrate Negative, Urine Bilirubin Negative, Urine Urobilinogen 0.2, Ur Leukocyte Esterase Small, Urine RBC None, Urine WBC Occasional, Ur Squamous Epith Cells 5-10, Urine Bacteria Trace, Urine Opiates Screen Negative, Ur Phencyclidine Scrn Negative 05/27/24 13:50: WBC 7.0, RBC 3.52 L, Hgb 11.6 L, Hct 33.0 L, MCV 93.8, MCH 33.0 H, MCHC 35.2, RDW 12.3, Plt Count 303, MPV 10.0, Neut % (Auto) 68.7, Lymph % (Auto) 23.0, [place] % (Auto) 6.1, Eos % (Auto) 1.1, Baso % (Auto) 0.7, Neut # (Auto) 4.8, Lymph # (Auto) 1.6, [place] # (Auto) 0.4, Eos # (Auto) 0.1, Baso # (Auto) 0.1, Sodium 138, Potassium 4.0, Chloride 104, Carbon Dioxide 25, Anion Gap 13.0, BUN 6 L, Creatinine 0.60, Estimated Creat Clear 142, Estimated GFR 121, Est GFR ( Amer) 146, Glucose 97, Calcium 9.9, Total Bilirubin 0.3, AST 23, ALT 11 L, Alkaline Phosphatase 52, Total Protein 7.6, Albumin 4.5, Globulin 3.1, Albumin/Globulin Ratio 1.5, Lipase 29 05/27/24 14:10: C-Reactive Protein 14.7 H Orders (Tests/Meds): ED MEDICATIONS Discontinued Medications Generic Name Dose Route Start Last Admin Trade Name Freq PRN Reason Stop Dose Admin Acetaminophen 1,000 mg 05/27/24 14:07 05/27/24 15:05 Acetaminophen 1,000mg/100ml Vial IV 05/27/24 14:08 Not Given ONCE ONE Lactated Ringer's 1,000 mls @ 999 mls/hr 05/27/24 14:07 05/27/24 15:01 Lactated Ringer's 1000 Ml Bag IV 05/27/24 15:07 999 mls/hr .Q1H1M ONE Administration Ondansetron HCl 4 mg 05/27/24 14:07 05/27/24 15:01 Ondansetron 4mg/2ml Vial IV 05/27/24 14:08 4 mg ONCE ONE Administration ORDERS Category Date Time Status Consult Local Government Legislator [CONS] Routine Cons 05/27/24 15:05 Active CRP [C-Reactive Protein] Stat Lab 05/27/24 14:10 Completed Complete Blood Count Auto Diff Stat Lab 05/27/24 13:50 Completed Comprehensive Metabolic Panel Stat Lab 05/27/24 13:50 Completed Lipase Stat Lab 05/27/24 13:50 Completed UDS [Drug Screen,Urine] Stat Lab 05/27/24 13:02 Results Urinalysis and Microscopic Stat Lab 05/27/24 13:02 Completed Urine Chlam/Gono/Trich, RACHEL Stat Lab 05/27/24 13:22 Received Urine Culture Stat Micro 05/27/24 13:02 Received US OB >= 14 weeks Fetus Stat Ultrasound 05/27/24 14:07 Completed Medical Decision Narrative: In summary, this patient is a 24-year-old female presenting to the Emergency Department for evaluation of lower abdominal pain in the setting of . Differential diagnoses considered include but are not limited to normal physiologic changes of , placental abruption, ovarian cyst, cystitis, appendicitis, ruling out the most morbid conditions drove assessment. I reviewed patient's past medical records and noted ultrasound in April confirming IUP, estimated 9 weeks at the beginning of April at time of ultrasound. Noted blood type is Rh+, no indication for RhoGAM.. On exam, the patient is lying in bed, very anxious appearing and panicking. She initially was panicking about abdominal pain, but after failed attempted IV sticks, her biggest concern was left arm pain. She seems to have hyperalgesia. Lower abdominal exam is actually benign with no localizable tenderness or guarding, exam very reassuring. No abnormal vaginal discharge or bleeding noted per the patient. She is also had no fevers or infectious symptoms. Workup included CBC, CMP, urine gonorrhea, urine chlamydia, urinalysis, pelvic ultrasound to evaluate for possible ovarian/obstetric pathology. Low concern for appendicitis based on reassuring abdominal exam with no significant right lower quadrant tenderness. Patient was given a bolus of IV fluids as well as IV Tylenol and Zofran for symptomatic improvement. Labs obtained demonstrated reassuring CBC with no significant leukocytosis, she does have mild anemia in the setting of which is not concerning. Chemistry is reassuring with normal kidney function, normal liver enzymes, normal bilirubin, normal lipase. Urinalysis is contaminated squamous cells and has trace bacteria in the setting of contamination, occasional white blood cells and small leukocyte esterase but negative nitrates. Patient care signed out to the oncoming provider, Dr. Moise, pending ultrasound and reassessment. [place]: I assumed primary responsibility for this patient after signout from previous physician. On independent to rotation, patient appears very well, but he is in pain, seems to be out of proportion to her physical exam. She is nontachycardic, normotensive and does not appear to be in any acute distress. Workup unremarkable nonactionable CBC or chemistry. Patient's toxicology negative. Transvaginal ultrasound with area of fluid collection versus early abruption, OB was contacted. I spoke to Dr. Rose, she was agreeable to admission for observation and potential serial ultrasounds. I relayed this to patient, she voiced understanding, but wanted to leave and get affairs in order at home prior to admission. It was stated that she will need to leave AMA. The patient left AGAINST MEDICAL ADVICE after a thorough discussion of the risks of doing so, including a discussion of potential alternative plans. These risks include but are not limited to clinical decompensation, shelter disability and . The patient appears capable of making this decision. I have advised the patient to immediately return if there are any further problems or if they change their mind about seeking further care. Patient voiced understanding, I contacted DIRECTOR OF WOMEN'S SERVICES, they are agreeable to patient returning after airing things out at home and being direct admitted to OB Procedures <Rachel Haney DO - Last Filed: 05/27/24 15:27> Miscellaneous Procedure Procedure Performed: PROCEDURE NOTE: IV Placement under Ultrasound Guidance Performed by: Rachel Haney DO Indication: IV access required. Multiple attempts at peripheral IV placement were made by the nursing staff without success Procedure: The area was prepped in the usual fashion. The [R] cephalic was cannulated with a 20 gauge angiocath with use of dynamic ultrasound to identify the vein. The patient tolerated the procedure well. Complications: None Critical Care <Rachel Haney DO - Last Filed: 05/27/24 15:27> Critical Care Time Critical Care Time: No
--- NOTE | 2024-05-27 14:13 | PC.NURSE ---
IV PLACED VIA US BY DR MAYES RIGHT UPPER ARM
[2024-05-27 14:25] LABS: Albumin Level 4.5 g/dl (3.5-5.0); Chloride 104 mmol/L (98-107); Sodium 138 mmol/L (136-145)
[2024-05-27 14:28] LABS: Alanine Aminotransferase 11 U/L (12-78); Albumin/Globulin Ratio 1.5 (1.1-1.8); Alkaline Phosphatase 52 U/L (38-126); Aspartate Amino Transferase 23 U/L (14-36); Bilirubin,Total 0.3 mg/dl (0.2-1.3); Blood Urea Nitrogen 6 mg/dl (7-17); Calcium 9.9 mg/dl (8.4-10.2); Carbon Dioxide 25 mmol/L (22.0-30.0); Creatinine Clearance Estimated 142 mL/min (50-200); Estimated Glomerular Filt Rate 121 ml/min (>60); GFR (African American) 146 ML/MIN (>60); Globulin 3.1 g/dL (1.3-3.2); Glucose 97 mg/dl (74-100); Lipase 29 U/L (23-300); Total Protein,Serum 7.6 g/dl (6.3-8.2)
[2024-05-27 14:34] LABS: C-Reactive Protein 14.7 mg/L (0-4)
--- NOTE | 2024-05-27 14:51 | PC.NURSE ---
pt transported to ultrasound via wheelchair and registered radiologic technologist
--- NOTE | 2024-05-27 14:56 | PC.NURSE ---
PT RETURNED FROM US
[2024-05-27] MEDS: ONDANSETRON 4MG/2ML VIAL 4 MG IV (15:01)
[2024-05-27] MEDS: LACTATED RINGERS 1000ML 1,000 ML 999 ML IV (15:01)
[2024-05-27 15:26] VITALS: BP 102/51; PULSE 88; O2SAT 100
[2024-05-27 15:30] VITALS: BP 91/57; PULSE 80; O2SAT 100
--- NOTE | 2024-05-27 15:44 | PC.NURSE ---
GENNY called to speak with Dr Haney about this pt
[2024-05-27 16:05] LABS: Phencyclidine Screen,Urine Negative ng/ml (<25)
[2024-05-27 16:06] LABS: Opiate Screen,Urine Negative ng/ml (<300)
[2024-05-27 16:48] LABS: Amphetamine/Metha Screen,Urine Negative ng/ml (<1000); Barbiturates Screen,Urine Negative ng/ml (<200)
[2024-05-27 16:49] LABS: Benzodiazepines Screen,Urine Negative ng/ml (<200)
[2024-05-27 16:50] LABS: Cannabinoid Screen,Urine Positive ng/ml (<50); Cocaine Screen,Urine Negative ng/ml (<300)
[2024-05-27 16:51] LABS: Methadone Screen,Urine Negative ng/ml (<300)
--- NOTE | 2024-05-27 16:51 | PC.NURSE ---
discussed plan of care with patient and patient is signing out AMA, going home to get affairs in order and will come back and be directly admitted to OB per . OB and registration aware. IV removed AMA form signed and patient left. pt has been crying tearful and anxious throughout whole ER visit
[2024-05-27 16:54] VITALS: BP 134/79; PULSE 80; RESP 20; TEMP 36.8; O2SAT 98
[2024-05-28 15:25] LABS: Chlamydia trachomatis Negative (Negative); Neisseria gonorrhoeae Negative (Negative); Trichomonas vaginalis Negative (Negative)
--- NOTE | 2024-05-30 10:16 | PC.NURSE ---
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
--- NOTE | 2024-05-31 10:47 | PEERSUPPORT ---
Peer Support Note Patient Information Patient Information: DOS: 05/27/2024 Reason: ED Peer Support Consult Building Rapport: Pt tearfully stated she is very stressed and scared, having pain in stomach. She is with second child, and scared after ultra sound wondering if they heard a heat beat. Doctor is wanting her to admit into the hospital but pt is not able to due to needing to make sure her toddler son his where he needs to be and taken care of by family. She stated she will return to hospital once she has everything in place later this evening. Pt discloses situations and circumstances that are bringing stress to her life. Ps shares personal experience relevant to situation bringing awareness to mental health and emotional health that affects physical health encouraging connection to services for mental and behavioral health for support. Ps informs pt of [facility]. Pt is receptive to ps, stated she is interested in outpatient services and agrees to follow up phone calls with peer support for ongoing support. Pt leaves AMA due to needing to prioritize childcare for her son. Support System: Father; who pt lives with who is supportive. 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 -Ps to follow up through phone calls for positive support and resources. -Pt to discuss with family member to make aware of situation and plan to return to hospital. -Pt has contact information to ps to use as needed or desired.
--- NOTE | 2024-06-02 09:30 | PC.NURSE ---
I notified of urine results suggesting contamination. No changes needed for treatment.
== END 2024-05-27 16:55 | disposition left against medical advice (07) ==
PROVIDERS: Emergency Medicine; Emergency Provider Emergency Medicine; PCP Family Medicine
DX: O26.899 Other specified pregnancy related conditions, unspecified trimester (principal); R10.9 Unspecified abdominal pain; R11.2 Nausea with vomiting, unspecified; Z53.29 Procedure and treatment not carried out because of patient's decision for other reasons; Z3A.16 16 weeks gestation of pregnancy
CPT/HCPCS: 76805; 80053; 80307; 81001; 83690; 85025; 86140; 87086; 87088; 87491; 87591; 87661; 96361; 96374; 96375; 99283; J0131; J2405; J7120

== ENCOUNTER 2024-06-23 13:33 | Outpatient (CLI) | payer OTHER, SELFPAY ==
--- NOTE | 2024-06-23 13:00 | US_ITS ---
PROCEDURE: US OB /MATERNAL DETAIL CLINICAL INDICATION: 20 week Anatomy Scan-US OB Complete COMPARISON: US US OB <= 14 WEEKS FETUS from 04/08/2024 US US OB >= 14 WEEKS FETUS from 05/27/2024 FINDINGS: Transabdominal sonographic images of the pelvis were obtained. From her established due date she is 20 weeks 1 day. Single viable intrauterine gestation. Breech position. Placenta: Posteriorplacenta grade 1. There is an average amount of fluid. The cervix appears satisfactory. Closed and measuring 3.21 cm in length. Complete survey performed and was unremarkable on the submitted images as in PACS. No discrete anomalies identified on survey imaging by technologist. Active fetus. Three-vessel cord with satisfactory umbilical cord insertion. 4- chamber heart noted. Situs, aortic arch, LVOT, RVOT, three-vessel view appear normal. Survey of brain & ventricles Unremarkable. Cerebellum, thalamus, choroid plexus, cisterna magna appear normal. Face and neck survey unremarkable. Profile, nasion, lips and nose appeared normal. Diaphragm and chest views unremarkable. Abdomen: Both kidneys noted and unremarkable. Stomach and bladder noted and satisfactory. Spine: Survey of the spine satisfactory with no anomalies identified nor imaged. Cervical, thoracic, lower spine appear normal. Both arms and legs noted. Amniotic Fluid: Adequate. MVP 3.62 cm Measurements: Average ultrasound age 19weeks 5days. Estimated due date by ultrasound age 0911/12/2024. Estimated weight 313g BPD = 19weeks 3days HC = 19weeks 2days AC = 20weeks 0 days FL = 19weeks 6days Growth Percentile= 27 Heart Rate = 134bpm Cerebellum = 19weeks 1day Humerus = 20weeks 6days HC/AC is 1.12 FL/BPD is 0.71 FL/AC is 0.22 IMPRESSION: 1. Viable fetus in the breech presentation with a posterior placenta grade 1. 2. The fluid is within normal limits with an MVP 3.62 cm. 3. Anatomical scan appears normal. 4. biometry is consistent with the dates. Dictated by: Martell Hsu MD 06/24/2024 04:41 Martell Hsu MD in OV 06/24/2024 04:41
== END 2024-06-23 23:59 | disposition home or self-care (01) ==
LOC: RAD 13:34
PROVIDERS: PCP Family Medicine; Visit Provider Nurse Practitioner Obstetrics & Gynecology
DX: Z36.3 Encounter for antenatal screening for malformations (principal); O26.892 Other specified pregnancy related conditions, second trimester; R10.9 Unspecified abdominal pain; Z3A.20 20 weeks gestation of pregnancy
CPT/HCPCS: 76811

== ENCOUNTER 2024-09-22 12:47 | Outpatient (CLI) | payer MEDICAID, SELFPAY ==
--- OUTSIDE RECORDS SUMMARY | 2003-09-02 | XMS_ITS | Encounter Summary ---
Author Organization [facility] Address [address] [place] [address] Care Team Providers Care Database Tester Name Role Phone Unavailable Primary Care Provider Unavailabl e Encounter Details Date Type Department Care Team (Late st Contact Info) Description 09/02/2003 Hospital Encounter [facility] Department of Radiology [address] [place] [phone] Social History Tobacco Use Types Packs/Day [...]
--- OUTSIDE RECORDS SUMMARY | 2024-09-05 19:18 | XMS_ITS | Encounter Summary ---
Author Organization [place] [address] Care Team Providers Care Risk Control Officer Name Role Phone Mary Greer MD Primary Care Provider +1- [phone] Reason for Visit * Reason Comments Abdominal Pain Encounter Details Date Type Department Care Team (Late st Contact Info) Description 09/05/2024 7:18 PM EDT - 09/05/2024 7:19 PM EDT Emergency [facility] [place] [id number] Discharge Disposition: Left Without Being Seen Social History Tobacco Use Types Packs/Day Years Used Date Smoking Tobacco: Former Cigarettes Smokeless Tobacco: Never Alcohol Use Standard Drinks/Week Comments No 0 (1 standard drink = 0.6 oz pur e alcohol) [facility] Utilities Answer Date Recorded In the past 12 months has [employer] electric, gas, oil, or water company threatened to shut off services in your home? No 02/27/2024 Overall Financial Resource Strain (CARDIA) Answe r Date Recorded How hard is it for you to pa y for the very basics like food, housing, medical care, and heating? Not hard at all 02/27/2024 PHQ-2 Answer Date Recorded PHQ-2 Total Score 0 09/05/2024 [facility] [place] of Occupat ional Health - Occupational Stress [...] things needed for daily living? No 03/28/2020 [facility] IP Transportation Answer D ate Recorded In [...] on filedocumented in this encounter Care Teams Risk Control Officer Relationship Specialty Start Date End Date Mary Greer MD [address] [place] [address] PCP - General Family Medicine 06/14/14 documented as of this encounter
--- OUTSIDE RECORDS SUMMARY | 2024-09-05 19:23 | XMS_ITS | Encounter Summary ---
Author Organization [place] [address] Care Team Providers Care Site Surveyor Name Role Phone Mary Greer MD Primary Care Provider +1- [phone] Reason for Visit * Reason Comments Abdominal Pain [address] Carrillo at [facility] Encounter Details Date Type Department Care Team (Latest Contact Info) Description 09/05/2024 7:23 PM EDT - 09/05/2024 9:31 PM EDT Hospital [facility] [place] [address] Julia Wellington MD [address] [place] [address] Discharge Disposition: Home or Self Care Social History Tobacco Use Types Packs/Day Years Used Date Smoking Tobacco: Former Cigarettes Smokeless Tobacco: Never Alcohol Use Standard Drinks/Week Comments No 0 (1 standard drink = 0.6 oz pur e alcohol) [facility] Utilities Answer Date Recorded In the past 12 months has [employer], gas, oil, or water [employer] threatened to shut off services in your home? No 02/27/2024 Overall Financial Resource Strain (CARDIA) Answe r Date Recorded How hard is it for you to pa y for the very basics like food, housing, medical care, and heating? Not hard at all 02/27/2024 PHQ-2 Answer Date Recorded PHQ-2 Total Score 0 09/05/2024 [facility] of Occupat ional Health - Occupational Stress [...] things needed for daily living? No 03/28/2020 [facility] IP Transportation Answer D ate [...] 09/05/2024 7:47 PM Lynn Fields RN * [place] Suicide Severity Rating Scale (Q shift for [...] Yes Multiple births? N Uterine Activity Mode Palpation;[place] Contraction Frequency 0 Contraction Intensity N/A Resting [...] at , triage anytime prn. Martha Rosario [facility] OB Triage Progress Note S: Pt [...] OB office visit upcoming on 09/08/24 at [facility]YN. Denies LOF and VB. Reports [...] Ibuprofen Hives Omnicef [Cefdinir] Rash Prednisone Rash [place] hyper Antihist [Diphenhydramine Hcl] Naproxen Hives, Itching [...] Ox3; judgement and insight intact; memory both intermediate designer and short term intact. Moodand affect are [...] and discomfort after PO meds. records from [facility] not available in CareEverywhere. Pt seems to be a reliable historian, and does not display drug-seeking behaviors. Reviewed warnings, strongly encouraged to make dietary changes to lessen incidence of acute episodes - she understands the importance of non-fatty and plain, bland foods until surgery . Keep appointment at [facility] 09/08/24 as scheduled. Return to triage [...] POC Yellow Color 09/05/2024 7:40 PM EDT [facility] UA Appear POC Clear Clear 09/05/2024 7:40 PM EDT [facility] UA Blood POC Negative Negative 09/05/2024 7:40 PM EDT [facility] UA pH POC 6.0 5.0 - 8.0 pH 09/05/2024 7:40 PM EDT [facility] UA Urobilinogen POC 0.2 0.2, 1.0 09/05/2024 7:40 PM EDT [facility] UA Nitrite POC Negative Negative 09/05/2024 7:40 PM EDT [facility] UA Leuk Est POC Negative Negative 7:40 PM EDT [facility] UA SG POC >=1.030 1.001 - 1.035 no units 09/05/2024 7:40 PM EDT [facility] UA Gluc POC Negative Negative mg/dL 09/05/2024 7:40 PM EDT [facility] UA Protein POC Negative Negative mg/dL 09/05/2024 7:40 PM EDT [facility] UA Ketones POC Negative Negative mg/dL 09/05/2024 7:40 PM EDT [facility] Urine STRUCTURE OF URINARY TRACT PROPER / Unknown 09/05/2024 7:37 PM EDT 09/05/2024 7:40 PM EDT us Julia March MD POINT OF CARE TEST ORDERA BLES Final Result [facility] [address] [place] [address] documented in this encounter Visit Diagnoses Not [...] 09/05/2024 documented in this encounter Care Teams Site Surveyor Relationship Specialty Start Date End Date Mary Greer MD [address] [place] [address] PCP - General Family Medicine 06/14/14 documented as of this encounter
--- OUTSIDE RECORDS SUMMARY | 2024-09-22 12:50 | XMS_ITS | Encounter Summary ---
Author Organization [facility] Address [address] [place] [address] [place] [address] Phone Care Team Providers Care Horse Stud Worker Name Role Phone Unavailable Primary Care Provider Unavailabl e Reason for Referral * Radiology Services (Routine) - Closed Specialty Diagnoses / Procedures Referred By Kwasi roland Referred To Contact Procedures OB US STANDARD FIRST TRIMESTER HISTORICAL MED Referral ID Status Reason Start Date Expiration Date V isits Requested Visits Authorized [id number] Closed Specialty Services Required 04/03/2019 04/02/2020 150 150 Encounter Details Date Type Department Care Team (Late st Contact Info) Description 04/03/2019 SCAN [facility] [address] [place] [id number] Social History Tobacco Use Types Packs/Day Years Used Date Smoking Tobacco: Never Assessed Comments Unknown Sex and Gender Information Value Date Recorded Sex Assigned at Not on file Legal Sex Female 11:50 AM EST Gender Identity Not on file Sexual Orientation Not on file documented as of this encounter Plan of Treatment Not on file documented as of this encounter Procedures Procedure Name Priority Date/Time Associated Diagnosis Comments OB US STANDARD FIRST TRIMESTER Routine 02/16/2019 documented in this encounter Results * OB US STANDARD FIRST TRIMESTER (02/16/2019) Anatomical Region Laterality Modality Abdomen, Pelvis Ultrasound us Historical Med OBUS Final Result documented in this encounter Visit Diagnoses Not on filedocumented in this encounter
--- OUTSIDE RECORDS SUMMARY | 2024-09-22 12:50 | XMS_ITS | Referral Summary ---
Author Organization [facility] Address [address] [place] [phone] Phone Care Team Providers Care Herbicide Sprayer Name Role Phone Unavailable Primary Care Provider Unavailabl e Social History Tobacco Use Types Packs/Day Years Used Date Smoking Tobacco: Never Assessed Comments Unknown Sex and Gender Information Value Date Recorded Sex Assigned at Not on file Legal Sex Female 11:50 AM EST Gender Identity Not on file Sexual Orientation Not on file Plan of Treatment Not on file
--- OUTSIDE RECORDS SUMMARY | 2024-09-22 12:50 | XMS_ITS | Clinical Summary ---
Author Organization [facility] Address [place] [address] Phone Care Team Providers Care Occupational Health Physician Name Role Phone Mary Greer MD Primary Care Provider [phone] Allergies Active Allergy Reactions Criticality Noted Date Comments Diphenhydramine Hcl Ibuprofen Hives High 11/02/2014 Naproxen Hives,Itching,Rash 11/02/2014 Cefdinir Rash Medium 05/12/2010 Penicillins Rash 03/08/2010 Prednisone Rash Medium 11/07/2015 Harned hyper Red Dye 06/16/2009 Olanzapine Nausea Only 07/25/2015 Medications BREO ELLIPTA 200-25 mcg/dose Inhl Disk with DeviceIndication s:Mild persistent asthma with acute exacerbation INHALE 1 PUFF INTO THE LUNGS ONCE DAILY 60 Each 0 Active Additional Information Patient not taking.Reported on 06/02/2024 omeprazole (PRILOSEC OTC) 20 mg Oral Tablet, Delayed Release (E.C.)Indication s:Abdominal pain, RUQ (right upper quadrant) Take 1 Tab by mouth daily. 30 Tab 2 1 Active Additional Information Patient not taking.Reported on 06/02/2024 diclofenac sodium (VOLTAREN) 50 mg Oral Tablet, Delayed Release (E.C.) Take 1 Tablet by mouth 3 times daily (with meals). 40 Tablet 1 2 Active Additional Information Patient not taking.Reason: Therapy Completed, Reported on 06/02/2024 albuterol (PROVENTIL HFA;VENTOLIN HFA) 90 mcg/actuation Inhl HFA Aerosol InhalerIndicatio ns:Mild persistent asthma with acute exacerbation Inhale 2 Puffs into the lungs every 6 hours as needed. for wheezing 18 g 5 3 Active Additional Information Patient not taking.Reason: Pt electing to not take the medication, Reported on 06/02/2024 loratadine (CLARITIN) 10 mg Oral TabletIndication s:Mild persistent asthma with acute exacerbation Take 1 Tablet by mouth daily as needed (allergies). 30 Tablet 5 3 Active Additional Information Patient not taking.Reported on 06/02/2024 montelukast (SINGULAIR) 10 mg Oral TabletIndication s:Seasonal allergic rhinitis due to pollen,Mild persistent asthma without complication Take 1 Tablet by mouth nightly. 30 Tablet 5 3 Active Additional Information Patient not taking.Reported on 06/02/2024 buPROPion (WELLBUTRIN XL) 150 mg Oral Tablet Sustained Release 24 hrIndications:St ress Take 1 Tablet by mouth every morning. 90 Tablet 1 Active Additional Information Patient not taking.Reported on 06/02/2024 Active Problems Patient Care Coordination No te Formatting of this note migh t be different from the original. CSTA 11/08/11 STIM 11/08/11 Utilization audit completed by Rayne Davidson RN on 06/19/2021. Problem Noted Date Diagnosed Date NST (non-stress test) reactive 09/05/2024 Gallstones 09/05/2024 , location unknown 02/28/2024 Elevated serum hCG 02/28/2024 Abdominal pain 02/27/2024 Assessment & Plan (02/27/2024 7:54 AM EST): US Shows R ovarian abnormality -BHCG slightly above normal -MRI pending -ward assistant eval -Morphine/Zofran PRN -NPO Bilious vomiting with nausea 02/27/2024 Assessment & Plan (02/27/2024 7:54 AM EST): IVF -Morphine Zofran PRN Dental abscess 08/23/2021 Tobacco dependence 02/11/2019 Overview (02/11/2019): Enc cessation during pg Cannabis abuse 02/11/2019 Overview (08/26/2019): Last use 01/28/19-->advised continued cessation during pg + UDS--> re-screen in 3rd trimester-->+cannabis Chronic nonseasonal allergic rhinitis due to sherry crystal 05/29/2017 Mild persistent asthma without complication 05/2016 Assessment & Plan (12/07/2020 2:38 PM EDT): Doing well albuterol needed < 2-3 X/week No longer smoking. Bipolar depression 02/14/2012 Assessment & Plan (01/03/2017 8:15 AM EDT): Doing well even off medication Depression with anxiety 12/07/2011 Assessment & Plan (01/03/2017 8:15 AM EDT): Doing well even off medication Estimated Date of Delivery Comme nts Yes 11/08/2024 Based on Other B asis, GEOVANNA based on pt reporting Resolved Problems Problem Noted Date Diagnosed Date Resolved Date Insufficient care 08/12/2019 0 09/07/2019 Overview (08/12/2019): Several gaps in care. Noncompliant patient 08/12/2019 09/07/2019 Overview (08/26/2019): PNLs + Gct not obtained as of 34 wks(pt contacted) Transferring care as of 36 wks-see note Encounter for supervision of normal first in first trimester 02/11/2019 03/16/2021 Overview (06/21/2019): CNM pt GS:undecided PNLs not done GEOVANNA by approx LMP - changed to US GEOVANNA Anatomy normal GCT ordered related nausea, antepartum 02/11/2019 06/21/2019 Overview (02/11/2019): Phenergan Rx'd PRN Seasonal allergic rhinitis due to pollen 05/29/2017 06/21/2019 Encounter for surveillance o f injectable contraceptive 07/18/2016 02/11/2019 Allergy to NSAIDs 11/02/2014 06/21/2019 ADD (attention deficit disorder) 12/07/2011 Encounters Date Type Department Care Team Description 09/05/2024 7:23 PM EDT - 09/05/2024 9:31 PM EDT Hospital Encounter [facility] [place] [address] [address] Julia Wellington MD Discharge Disposition: Home or Self Care 09/05/2024 7:18 PM EDT - 09/05/2024 7:19 PM EDT Emergency [place] [facility] [place] [address] [address] Discharge Disposition: Left Without Being Seen from Last 3 Months Immunizations Immunization Administration Dates Next Due DTaP 10/13/2002, 0,1998,07/06,1998 HPV Quadrivalent 02/19/2016,09/26/2010 Hepatitis A, Ped/Adol, 2 Dose 02/19/2016 Hepatitis B, Ped/Adol 03/08/1999,1998 Hepatitis B, Unspecified Formulation 03/08/1999, 1998,1998 HiB (PRP-T) 1998 HiB, Unspecified Formulation 06/11/1999, 1998,1998,04/07 IPV 10/13/2002, 9,1998,04/07 Influenza Vaccine Quadrivalent 03/12/2014 Influenza Vaccine, Unspecifi ed Formulation 12/07/2011,01/05/2011 MMR 10/13/2002,06/11/1999 Meningococcal Conjugate 02/19/2016 Meningococcal Polysaccharide 09/26/2010 OPV 1998,1998,1998 Tdap 09/26/2010 Varicella 09/26/2010,03/08/1999 Surgical History Surgery Date Site/Laterality Comments MOUTH SURGERY Medical History Medical History Date Comments ADD (attention deficit disorder) Family History Medical History Relation Name Comments No Known Problems Father Other Maternal Aunt PTSD Cancer Maternal Grandfather Heart Failure Maternal Grandfather Kidney Disease Maternal Grandfather Relation Name Status Comments Father Alive Maternal Aunt Maternal Grandfather Mother Alive Social History Tobacco Use Types Packs/Day Years Used Date Smoking Tobacco: Former Cigarettes Smokeless Tobacco: Never Tobacco Cessation:Counseling Given: Not Answered Alcohol Use Standard Drinks/Week Comments No 0 (1 standard drink = 0.6 oz pur e alcohol) [facility] Utilities Answer Date Recorded In the past 12 months has th e electric, gas, oil, or water company threatened to shut off services in your home? No 02/27/2024 Overall Financial Resource Strain (CARDIA) Answe r Date Recorded How hard is it for you to pa y for the very basics like food, housing, medical care, and heating? Not hard at all 02/27/2024 PHQ-2 Answer Date Recorded PHQ-2 Total Score 0 09/05/2024 [facility] - Occupational Stress [...] things needed for daily living? No 03/28/2020 [facility] IP Transportation Answer D ate [...] on file Sexual Orientation Not on file Obstetrics History Para Term AB IAB SAB Ectopic Multiple Livin g Live Births 2 Date Outcome GA Total Labor Labor/2nd/3rd Weight Sex Type Anes PTL Yolis A1 A5 Name Clin 2020 Vag-Spo nt Current Summary Episode Dates Number of Fetuses Estimated Date of Delivery 09/05/2024 - Present (09/22/2024) 1 11/08/2024 (set by Lynn Cordova RN on 09/05/2024 based on Other Basis) Dating Summary Based On GEOVANNA GA Diff Other Basis 11/08/2024 Working Comment:GEOVANNA based on pt repo rting Last Menstrual Period on 12/25/2023 (Approximate ) 09/30/2024 +5w4d Comment:normally irregular Vitals Date GA Fund Present FHR Mvmt BP Weight Edema Alb Glu Ket Dil/ Eff/Sta 5 30w6d Inpatient data not displayed here. See encounter summary. Notes Progress Notes - Hospital En counter - 09/05/2024 - GA:30w6d 09/06/2024 - 31w0d - Lynn Cordova RN After completion of the Medical Screening Evaluation, it has been determined that a medical emergency does not exist and the patient is not in active labor, and therefore the patient may be discharged home. 09/06/2024 - 31w0d - Lynn Cordova RN Pt presents for abdominal pain, states she has a history of gallstones.In town visiting her dad and was concered with the abdominal pain. denies any VB or LOF. +FM noted. Efm and toco placed. Provider aware of pt arrival. Last Filed Vital Signs Vital Sign Reading Time Taken Comments Blood Pressure 129/48 06/02/2024 7:42 PM EDT Pulse 107 06/06/2024 6:21 AM EDT Temperature 36.7 C (98 F) 09/05/2024 7:35 PM EDT Respiratory Rate 20 09/05/2024 7:35 PM EDT Oxygen Saturation 99% 06/06/2024 6:21 AM EDT Inhaled Oxygen Concentration - - Weight 63.5 kg (140 lb) 06/06/2024 6:21 AM EDT Height 160 cm (5' 3 ) 06/06/2024 6:21 AM EDT Body Mass Index 24.8 06/06/2024 6:21 AM EDT Plan of Treatment Health Maintenance Due Date Last Done Comments Annual Wellness Exam 2001 Pneumococcal Vaccine 0-49 (1 of 2 - PCV) 2017 DTaP/TDaP/Td (7 - Td or Tdap) 09/26/2020 09/26/2010, 10/13/2002, 06/11/1999, Additional history exists Cervical Cancer Screening 02/11/2022 Pap Smear 02/11/2022 02/11/2019 COVID-19 Vaccine ( season) 2023 Influenza Vaccine (#1) 2024 7 (Declined), 12/06/2015 (Declined), 03/12/2014, Additional history exists Hepatitis B Vaccine Completed 03/08/1999, 03/08/1999, 1998, Additional history exists HPV Completed 02/19/2016, 09/26/2010 Chlamydia Screening Discontinued 08/23/2021, 02/11/2019, 03/12/2016, Additional history exists Meningococcal B Vaccine Aged Out No l onger eligible based on patient's age to complete this topic RSV or 60+ (No Doses Required) Completed Goals Goal Patient Goal Type Associated Problems Recent Progress Patient-Stated? Author Maintain a healthy diet, exercise regularly and maintain an ideal body weight General No Monique Weston RMA Stay Tobacco Free Lifestyle No Monique Weston RMA Procedures Procedure Name Priority Date/Time Associated Diagnosis Comments URINALYSIS POC Routine 09/05/2024 7:37 PM EDT CHLAMYDIA/GC BY TMA Routine 08/23/2021 2 :21 PM EDT Screening for chlamydial disease LOSS PREVENTION AUDITOR CYTOLOGY REQUEST (PAP ONLY) Routine 02/11/2019 2:41 PM EST Encounter for supervision of normal first in first trimester from Last 3 Months or Most Recently Relevant to Health Maintenance Results * URINALYSIS POC (09/05/2024 7:37 PM EDT) UA Color POC Yellow Color 09/05/2024 7:40 PM EDT [facility] UA Appear POC Clear Clear 09/05/2024 7:40 PM EDT [facility] UA Blood POC Negative Negative 09/05/2024 7:40 PM EDT [facility] UA pH POC 6.0 5.0 - 8.0 pH 09/05/2024 7:40 PM EDT [facility] UA Urobilinogen POC 0.2 0.2, 1.0 09/05/2024 7:40 PM EDT [facility] UA Nitrite POC Negative Negative 09/05/2024 7:40 PM EDT [facility] UA Leuk Est POC Negative Negative 7:40 PM EDT [facility] UA SG POC >=1.030 1.001 - 1.035 no units 09/05/2024 7:40 PM EDT [facility] UA Gluc POC Negative Negative mg/dL 09/05/2024 7:40 PM EDT [facility] UA Protein POC Negative Negative mg/dL 09/05/2024 7:40 PM EDT [facility] UA Ketones POC Negative Negative mg/dL 09/05/2024 7:40 PM EDT [facility] Urine STRUCTURE OF URINARY TRACT PROPER / Unknown 09/05/2024 7:37 PM EDT 09/05/2024 7:40 PM EDT us Julia March MD POINT OF CARE TEST ORDERA BLES Final Result [facility] [address] [id number] * CHLAMYDIA/GC BY TMA (08/23/2021 2:21 PM EDT) Chlamydia trachomatis Not Detected Not Detected 08/24/2021 3:50 AM EDT [facility] Neisseria gonorrhoeae Not Detected Not Detected 08/24/2021 3:50 AM EDT [facility] Urine URINE SPECIMEN COLLECTION / Unknown 08/23/2021 2:21 PM EDT 08/23/2021 2:21 PM EDT Narrative PREFERRED [facility] - 08/24/2021 3:50 AM EDT Testing methodology is company truck driver mediated amplification (TMA) using the Aptima Combo 2 assay from [employer]. A negative result does not completely rule out a Chlamydia trachomatis or Neisseria gonorrhoeae infection due to potential inhibitors or levels present below the limit of detection by this assay. Results are dependent on proper collection and transport of specimen. This test is indicated for medical purposes only and should not be used for legal or forensic purposes. The performance characteristics of this assay were validated by the testing laboratory. This assay is FDA cleared to test the following specimens: clinician-collected endocervical, vaginal, male urethral swab specimens, rectal swabs, and throat/pharyngeal swabs; patient collected vaginal specimens within a clinic setting; Thin Prep Specimens in PreservCyt Solution; and first-stream, unpreserved male and female urine specimens. Detailed methodology is available upon request. Malvin Yeboah MD MICROBIOLOGY - GENERAL ORDERA BLES Final Result [facility] [address] [facility] , [place] [address] * LOSS PREVENTION AUDITOR CYTOLOGY REQUEST (PAP ONLY) (02/11/2019 2:41 PM EST) CASE REPORT Gynecologic Cytology Report Case: [id number] Authorizing Provider: Myriam Guillen, Collected: 02/11/2019 1441 BIOLOGY RESEARCH ASSISTANT Ordering Location: [facility] Received: 02/11/2019 1441 First Screen: Neha Lockwood, NO Specimen: LIQUID-BASED PAP - CERVICAL/ENDOCERV ICAL, Cervix, Endocervical 02/15/2019 2:21 PM EST [facility] PAP FINAL DIAGNOSIS Negative for intraepithelial lesion or malignancy 02/15/2019 2:21 PM EST [facility] at 1421 EST MICROSCOPIC DESCRIPTION Microscopic examination is performed and the findings corroborate the diagnosis. 02/15/2019 2:21 PM EST [facility] PAP SMEAR ADEQUACY Satisfactory for evaluation 02/15/2019 2:21 PM EST [facility] PAP ORGANISMS NOTED Fungal organisms present consistent with josesito. 02/15/2019 2:21 PM EST [facility] ENDOCERVICAL T-ZONE Transformation zone present 02/15/2019 2:21 PM EST [facility] EMBEDDED IMAGES 9 2:21 PM EST [facility] PAP DISCLAIMER The Pap Smear is a screening test that aids in the detection of cervical cancer and cancer precursors. Both false positive and false negative results can occur. The test should be used at regular intervals, and positive results should be confirmed before definitive therapy. Processed using the [employer]keeper System[employer] Web User Experience Strategist Automated cytology screening device ([employer]Beam). 02/15/2019 2:21 PM EST [facility] Thin Prep ENDOCERVICAL STRUCTURE / Unknown 02/11/2019 2:41 PM EST 02/11/2019 2:41 PM EST Myriam Guillen BIOLOGY RESEARCH ASSISTANT CYTOLOGY ORDERABLES Fi nal Result [facility] [address] [place] [address] from Last 3 Months or Most Recently Relevant to Health Maintenance Advance Directives For more information, please contact: [phone] * Full Code (Latest Code Status on File) Date Activated Date Inactivated Comments 02/27/2024 5:52 AM 02/29/2024 1:40 AM Care Teams Occupational Health Physician Relationship Specialty Start Date End Date Mary Greer MD [address] [place] [address] PCP - General Family Medicine 06/14/14
--- OUTSIDE RECORDS SUMMARY | 2024-09-22 12:50 | XMS_ITS | Clinical Summary ---
Author Organization [facility] Address [address] [place] [id number] Care Team Providers Care Licensed Massage Therapist Name Role Phone Unavailable Primary Care Provider Unavailabl e Source Comments [facility] is fully rolled out with thefollowing exceptions:General Clinical Research [facility] Social History Tobacco Use Types Packs/Day Years Used Date Smoking Tobacco: Never Assessed Comments Unknown Sex and Gender Information Value Date Recorded Sex Assigned at Not on file Legal Sex Female 5:16 AM EST Gender Identity Not on file Sexual Orientation Not on file Plan of Treatment Health Maintenance Due Date Last Done Comments MMR IMMUNIZATION (1 of 1 - S tandard series) 1999 DTAP/Tdap/Td IMMUNIZATION (1 - Tdap) 2005 VARICELLA IMMUNIZATION (1 of 2 - 13+ 2-dose series) 2011 HPV IMMUNIZATION (1 - 3-dose series) 2013 HEPATITIS B IMMUNIZATION (1 of 3 - 19+ 3-dose series) 2017 COVID-19 Vaccine (2023-2 5 season) 2023 AMB SEASONAL FLU VACCINE (#1) 11/01/2024 HIB IMMUNIZATION Aged Out No longer e ligible based on patient's age to complete this topic IPV IMMUNIZATION Aged Out No longer e ligible based on patient's age to complete this topic MCV4 IMMUNIZATION Aged Out No longer eligible based on patient's age to complete this topic MENINGOCOCCAL B VACCINE Aged Out No l onger eligible based on patient's age to complete this topic PNEUMOCOCCAL IMMUNIZATION Aged Out No longer eligible based on patient's age to complete this topic Respiratory Syncytial Virus (RSV) <20mo Aged Out No longer eligible b ased on patient's age to complete this topic
--- OUTSIDE RECORDS SUMMARY | 2024-09-22 12:50 | XMS_ITS | Clinical Summary ---
Author Organization [facility] Address [address] [place] [address] Phone Care Team Providers Care Political Science Instructor Name Role Phone Unavailable Primary Care Provider Unavailabl e Social History Tobacco Use Types Packs/Day Years Used Date Smoking Tobacco: Never Assessed Comments Unknown Sex and Gender Information Value Date Recorded Sex Assigned at Not on file Legal Sex Female 11:50 AM EST Gender Identity Not on file Sexual Orientation Not on file Plan of Treatment Health Maintenance Due Date Last Done Comments Pap Screening 2019 DTap,Tdap,and Td (7 - Td or Tdap) 09/26/2020 09/26/2010, 10/13/2002, 06/11/1999, Additional history exists Influenza Vaccine (#1) 2024 12/07/2011, 2010 RSV Vaccine (60+ or ) (1 - 1-dose 75+ series) 2073 HPV Completed 02/19/2016, 09/26/2010 Meningococcal conjugate valent 4 (MCV4) Aged Out 02/19/2016, 09/26/2010 No longer eligibl e based on patient's age to complete this topic Meningococcal B (MenB) Aged Out No lo nger eligible based on patient's age to complete this topic Pneumococcal 0-49 Aged Out No longer eligible based on patient's age to complete this topic RSV Immunization (<20 months) Aged Out No longer eligible based on patient's age to complete this topic
--- NOTE | 2024-09-22 14:15 | US_ITS ---
PROCEDURE: US OB BIOPHYSICAL PROFILE CLINICAL INDICATION: SGA COMPARISON: US US OB <= 14 WEEKS FETUS from 04/08/2024 US US OB >= 14 WEEKS FETUS from 05/27/2024 US US OB /MATERNAL DETAIL from 06/23/2024 FINDINGS: Transabdominal sonographic images of the uterus were obtained. From her established due date she is 33weeks 1day. The following parameters are obtained: Viable Fetus in the cephalic presentation with a posterior placenta grade 1. A placental Cardona is seen. Average ultrasound age is 31weeks 1day Estimated weight 1,705g, 3 lb 12 oz Cervix measures 2.96 cm. Measurements: heart Rate = 136bpm BPD = 30weeks 3days, <2 percentile HC = 30weeks 6days, <2 percent AC = 31weeks 0 days, 4 percent FL = 31weeks 6days, 10 percentile HC/AC is 1.05 FL/BPD is 0.81 FL/AC is 0.23 4 percentile Amniotic fluid index: 10.77cm, MVP 4.47 cm Qualitative AFV:2 Breathing movements: 2 Gross Body Movements: 2 Tone: 2 Biophysical profile score: 8 Doppler evaluation of the umbilical artery: SD ratio: 3.54-3.74(2.59-3.68 normal) Resistive index: 0.72 No obvious anomalies evident.Kidneys, stomach, bladder, four-chamber heart, three-vessel cord appear normal. IMPRESSION: 1. Viable fetus in the cephalic presentation with a posterior placenta grade 1. A placental Cardona is seen. 2. The fluid is within normal limits with an amniotic fluid index 10.77 cm, MVP 4.47 cm. 3. Biophysical profile is 8/8 with good breathing movement and movement seen. 4. SD ratio is normal 3.54-3.70. 5. Fetus is symmetrically growth restricted and measures 4th percentile. Suggest a maternal medicine consult. 6. Limited anatomical scan appears normal. Dictated by: Martell Hsu MD 09/23/2024 11:59 Martell Hsu MD in OV 09/23/2024 11:59
[2024-09-22 15:00] LABS: Hematocrit 30.8 % (37.0-47.0); Hemoglobin 10.5 g/dL (12.2-16.2); Immature Granulocytes % 0.5 %; Mean Corpuscular HGB Conc 34.1 g/dL (31.8-35.4); Mean Corpuscular Hemoglobin 32.7 pg (27.0-31.2); Mean Corpuscular Volume 96.0 fl (81-99); Nucleated Red Blood Cells % 0 %; Platelet Count 215 K/mm3 (142-424); Red Blood Count 3.21 M/mm3 (4.20-5.40); Red Cell Distribution Width-SD 43.0 fL; White Blood Count 9.4 K/mm3 (4.8-10.8)
[2024-09-22 15:01] LABS: Glucose 1 Hour 105 mg/dL (74-100)
[2024-09-23 12:08] LABS: RPR W/RFX Titers Nonreactive (Nonreactive)
[2024-09-27 05:08] LABS: HSV-1 DNA Negative (Negative); HSV-2 DNA Negative (Negative)
== END 2024-09-22 23:59 | disposition home or self-care (01) ==
LOC: RAD 12:48
PROVIDERS: Obstetrics & Gynecology; PCP Family Medicine; Visit Provider Nurse Practitioner Obstetrics & Gynecology
DX: O36.5930 Maternal care for other known or suspected poor fetal growth, third trimester, not applicable or unspecified (principal); O99.333 Smoking (tobacco) complicating pregnancy, third trimester; F17.200 Nicotine dependence, unspecified, uncomplicated; Z3A.33 33 weeks gestation of pregnancy; Z20.2 Contact with and (suspected) exposure to infections with a predominantly sexual mode of transmission
CPT/HCPCS: 36415; 76816; 76819; 76820; 82947; 85025; 86592; 87389; 87529

== ENCOUNTER 2024-09-29 14:46 | Outpatient (CLI) | payer MEDICAID, SELFPAY ==
--- OUTSIDE RECORDS SUMMARY | 2003-09-02 | XMS_ITS | Encounter Summary ---
Author Organization [facility] Address [address] [place] [address] Care Team Providers Care Services Rep Name Role Phone Unavailable Primary Care Provider Unavailabl e Encounter Details Date Type Department Care Team (Late st Contact Info) Description 09/02/2003 Hospital Encounter [facility] Department of Radiology [address] [place] [phone] Social History Tobacco Use Types Packs/Day [...]
--- OUTSIDE RECORDS SUMMARY | 2024-09-05 19:18 | XMS_ITS | Encounter Summary ---
Author Organization [place] [address] Care Team Providers Care Emergency Room Physician Name Role Phone Mary Greer MD Primary Care Provider [phone]- [phone] Reason for Visit * Reason Comments Abdominal Pain Encounter Details Date Type Department Care Team (Late st Contact Info) Description 09/05/2024 7:18 PM EDT - 09/05/2024 7:19 PM EDT [facility] [place] [id number] Discharge Disposition: Left Without Being Seen Social History Tobacco Use Types Packs/Day Years Used Date Smoking Tobacco: Former Cigarettes Smokeless Tobacco: Never Alcohol Use Standard Drinks/Week Comments No 0 (1 standard drink = 0.6 oz pur e alcohol) [facility] Utilities Answer Date Recorded In the past 12 months has [employer] electric, gas, oil, or water company threatened to shut off services in your home? No 02/27/2024 Overall Financial Resource Strain (CARDIA) Answe r Date Recorded How hard is it for you to pa y for the very basics like food, housing, medical care, and heating? Not hard at all 02/27/2024 PHQ-2 Answer Date Recorded PHQ-2 Total Score 0 09/05/2024 [facility] [place] of Occupat ional Health - Occupational Stress Questionnaire Answer Date Recorded Do you feel stress - tense, restless, nervous, or anxious, or unable to sleep at night because your mind is troubled all the time - these days? Only a little 02/27/2024 Exercise Vital Sign Answer Date Recorde d On average, how many days pe r week do you engage in moderate to strenuous exercise (like a brisk walk)? 3 days 02/27/2024 On average, how many minutes do you engage in exercise at this level? 20 min 02/27/2024 Hunger Vital Sign Answer Date Recorded Within the past 12 months, y ou worried that your food would run out before you got the money to buy more. Never true 02/27/20 24 Within the past 12 months, t he food you bought just didn't last and you didn't have money to get more. Never true 02/27/2024 PRAPARE - Transportation Answer Date Re corded In the past 12 months, has l ack of transportation kept you from medical appointments or from getting medications? No 03/04 In the past 12 months, has l ack of transportation kept you from meetings, work, or from getting things needed for daily living? No 03/28/2020 [facility] IP Transportation Answer D ate Recorded In the past 12 months, has l ack of reliable transportation kept you from medical appointments, meetings, work or from getting things needed for daily living? No 02/27/2024 Sexually Active Control Partners Comments Yes Male Estimated Date of Delivery Comme nts Yes 11/08/2024 Based on Other B asis, GEOVANNA based on pt reporting Sex and Gender Information Value Date Recorded Sex Assigned at Not on file Legal Sex Female 12:49 AM EDT Gender Identity Not on file Sexual Orientation Not on file documented as of this encounter Functional Status * Is the person deaf or does he/she have serious difficulty hearing? Answer Date of Assessment Author No 08/23/2021 2:16 PM ROHANT Jacklyn Bennett MA * Is the person blind or does he/she have serious difficulty seeing even when wearing glasses? Answer Date of Assessment Author No 08/23/2021 2:16 PM EDT Jacklyn Bennett MA * Does this person have serious difficulty walking or climbing stairs? Answer Date of Assessment Author No 08/23/2021 2:16 PM ROHANT Jacklyn Bennett MA * Does this person have difficulty dressing or bathing? Answer Date of Assessment Author No 08/23/2021 2:16 PM ROHANT Jacklyn Bennett MA * Because of a physical, mental or emotional condition, does this person have difficulty doing errands alone such as visiting a doctor's office or shopping? Answer Date of Assessment Author No 08/23/2021 2:16 PM EDT Jacklyn Bennett MA documented as of this encounter Mental Status * Because of a physical, mental or emotional condition, does this person have serious difficulty concentrating, remembering or making decisions? Answer Entry Date Author No 08/23/2021 2:16 PM EDT Jacklyn Bennett MA documented in this encounter Medications at Time of Discharge albuterol (PROVENTIL HFA;VENTOLIN HFA) 90 mcg/actuation Inhl HFA Aerosol InhalerIndications :Mild persistent asthma with acute exacerbation Inhale 2 Puffs into the lungs every 6 hours as needed. for wheezing 18 g 5 05/15/2022 BREO ELLIPTA 200-25 mcg/dose Inhl Disk with DeviceIndications: Mild persistent asthma with acute exacerbation INHALE 1 PUFF INTO THE LUNGS ONCE DAILY 60 Each 06/03/2019 buPROPion (WELLBUTRIN XL) 150 mg Oral Tablet Sustained Release 24 hrIndications:Stre ss Take 1 Tablet by mouth every morning. 90 Tablet 1 05/15/2022 diclofenac sodium (VOLTAREN) 50 mg Oral Tablet, Delayed Release (E.C.) Take 1 Tablet by mouth 3 times daily (with meals). 40 Tablet 1 08/23/2021 loratadine (CLARITIN) 10 mg Oral TabletIndications: Mild persistent asthma with acute exacerbation Take 1 Tablet by mouth daily as needed (allergies). 30 Tablet 5 05/15/2022 montelukast (SINGULAIR) 10 mg Oral TabletIndications: Seasonal allergic rhinitis due to pollen,Mild persistent asthma without complication Take 1 Tablet by mouth nightly. 30 Tablet 5 05/15/2022 omeprazole (PRILOSEC OTC) 20 mg Oral Tablet, Delayed Release (E.C.)Indications: Abdominal pain, RUQ (right upper quadrant) Take 1 Tab by mouth daily. 30 Tab 2 03/11/2020 documented as of this encounter Discharge Disposition Disposition Code Departure Means Destination Left Without Being Seen Home documented in this encounter Plan of Treatment Not on file documented as of this encounter Goals Goal Patient Goal Type Associated Problems Recent Progress Patient-Stated? Author Maintain a healthy diet, exercise regularly and maintain an ideal body weight General No Monique Weston, RMA Stay Tobacco Free Lifestyle No Monique Weston RMA documented as of this encounter Visit Diagnoses Not on filedocumented in this encounter Care Teams Emergency Room Physician Relationship Specialty Start Date End Date Mary Greer MD [address] [place] [address] PCP - General Family Medicine 06/14/14 documented as of this encounter
--- OUTSIDE RECORDS SUMMARY | 2024-09-05 19:23 | XMS_ITS | Encounter Summary ---
Author Organization [place] [address] Care Team Providers Care Movie Critic Name Role Phone Mary Greer MD Primary Care Provider +1- [phone] Reason for Visit * Reason Comments Abdominal Pain [address] Carrillo at [facility] Encounter Details Date Type Department Care Team (Latest Contact Info) Description 09/05/2024 7:23 PM EDT - 09/05/2024 9:31 PM EDT Hospital [facility] [address] Julia Wellington MD [address] [place] [address] Discharge Disposition: Home or Self Care Social History Tobacco Use Types Packs/Day Years Used Date Smoking Tobacco: Former Cigarettes Smokeless Tobacco: Never Alcohol Use Standard Drinks/Week Comments No 0 (1 standard drink = 0.6 oz pur e alcohol) [facility] Utilities Answer Date Recorded In the past 12 months has [employer]), gas, oil, or water [employer] threatened to shut off services in your home? No 02/27/2024 Overall Financial Resource Strain (CARDIA) Answe r Date Recorded How hard is it for you to pa y for the very basics like food, housing, medical care, and heating? Not hard at all 02/27/2024 PHQ-2 Answer Date Recorded PHQ-2 Total Score 0 09/05/2024 [facility] [place] of Occupat ional Health - Occupational Stress [...] for daily living? No 03/28/2020 [facility] IP Transportation Answer D ate Recorded [...] 09/05/2024 7:47 PM Lynn Fields RN * [place] Suicide Severity Rating Scale (Q shift for [...] Yes Multiple births? N Uterine Activity Mode Palpation;[place] Contraction Frequency 0 Contraction Intensity N/A Resting [...] at , triage anytime prn. Martha Rosario [facility] OB Triage Progress Note S: [...] OB office visit upcoming on 09/08/24 at [facility] OBGYN. Denies LOF and [...] Ibuprofen Hives Omnicef [Cefdinir] Rash Prednisone Rash [place] hyper Antihist [Diphenhydramine Hcl] Naproxen Hives, Itching [...] Ox3; judgement and insight intact; memory both lobsterman and short term intact. Moodand affect are [...] and discomfort after PO meds. records from [facility] not available in CareEverywhere. Pt seems to be a reliable historian, and does not display drug-seeking behaviors. Reviewed warnings, strongly encouraged to make dietary changes to lessen incidence of acute episodes - she understands the importance of non-fatty and plain, bland foods until surgery . Keep appointment at [facility] 09/08/24 as scheduled. Return to triage PRN. [...] POC Yellow Color 09/05/2024 7:40 PM EDT [facility] UA Appear POC Clear Clear 09/05/2024 7:40 PM EDT [facility] UA Blood POC Negative Negative 09/05/2024 7:40 PM EDT [facility] UA pH POC 6.0 5.0 - 8.0 pH 09/05/2024 7:40 PM EDT [facility] UA Urobilinogen POC 0.2 0.2, 1.0 09/05/2024 7:40 PM EDT [facility] UA Nitrite POC Negative Negative 09/05/2024 7:40 PM EDT [facility] UA Leuk Est POC Negative Negative 7:40 PM EDT [facility] UA SG POC >=1.030 1.001 - 1.035 no units 09/05/2024 7:40 PM EDT [facility] UA Gluc POC Negative Negative mg/dL 09/05/2024 7:40 PM EDT [facility] UA Protein POC Negative Negative mg/dL 09/05/2024 7:40 PM EDT [facility] UA Ketones POC Negative Negative mg/dL 09/05/2024 7:40 PM EDT [facility] Urine STRUCTURE OF URINARY TRACT PROPER / Unknown 09/05/2024 7:37 PM EDT 09/05/2024 7:40 PM EDT us Julia March MD POINT OF CARE TEST ORDERA BLES Final Result [facility] [address] [place] [address] documented in this encounter Visit Diagnoses Not [...] 09/05/2024 documented in this encounter Care Teams Movie Critic Relationship Specialty Start Date End Date Mary Greer MD [address] [place] [address] PCP - General Family Medicine 06/14/14 documented as of this encounter
--- OUTSIDE RECORDS SUMMARY | 2024-09-28 11:32 | XMS_ITS | Encounter Summary ---
Author Organization [facility] Address [address] [place] [address] Care Team Providers Care Pharmacist Per Diem Name Role Phone Provider, No Known Primary Care Provider Unavail able Reason for Referral * Diagnostic Imaging (Routine) - Closed Specialty Diagnoses / Procedures Referred By Kwasi t Referred To Contact Radiology Diagnoses IUGR (intrauterine growth restriction) affecting care of mother, third trimester, fetus 1 , unspecified gestational age Procedures [facility] [place] Sacha Avelar MD [address] [place] [address] Phone: tel: fax: [facility] US PER DIAG CTR [address] [facility] [address] Phone: tel: Referral ID Status Reason Start Date Expiration Date Visits Re quested Visits Authorized [id number] Closed 09/27/2024 12/27/2025 1 1 Reason for Visit * Diagnostic Imaging (Routine) - Closed Specialty Diagnoses / Procedures Referred By Contac t Referred To Contact Radiology Diagnoses IUGR (intrauterine growth restriction) affecting care of mother, third trimester, fetus 1 , unspecified gestational age Procedures [facility] [place] Sacha Avelar MD [address] [place] [address] Phone: tel: fax: [facility] US PER DIAG CTR [address] [place] [address] Phone: tel: Referral ID Status Reason Start Date Expiration Date Visits Re quested Visits Authorized [id number] Closed 09/27/2024 12/27/2025 1 1 Encounter Details Date Type Department Care Team (Latest Contact Info) Description 09/28/2024 11:32 AM EDT - 09/28/2024 11:59 PM EDT Hospital Encounter [facility] PER DIAG CTR [address] [place] [address] IUGR (intrauterine growth restriction) affecting [...] this encounter Medications at Time of Discharge [place]-3 Fatty Acids (fish oil) 1000 MG capsule [...] Description 10/12/2024 7:30 AM EDT Office Visit [facility] MATERNAL MEDICINE [address] [place] [address] 10/12/2024 7:30 AM EDT Appointment [facility] PER DIAG CTR [address] [place] [address] 10/26/2024 8:45 AM EDT Office Visit [facility] [address] [facility] [address] [place] [address] 10/26/2024 8:45 AM EDT Appointment [facility] US PER DIAG CTR [address] [place] [address] 11/09/2024 7:30 AM EDT Office Visit [facility] [address] [facility] [address] [place] [address] 11/09/2024 7:30 AM EDT Appointment [facility] US PER DIAG CTR [address] [place] [address] documented as of this encounter Procedures Procedure Name Priority Date/Time Associated Diagnosis Comments [facility] Routine 09/28/2024 1:22 PM EDT IUGR (intrauterine growth restriction) affecting care of mother, third trimester, fetus 1 , unspecified gestational age documented in this encounter Results * [facility] (09/28/2024 1:22 PM EDT) Anatomical Region Laterality Modality Ultrasound 09/28/2024 12:3 4 PM EDT Narrative 09/28/2024 1:40 PM EDT PAT NAME: DAVID KHAN [facility] REC#: [id number] DA: [id number] PAT GEND: F PAT TYPE: O EXAM JOSSY: [id number] REF PHYS TORREY AVELARK Comparison Studies There [...] EFW (oz) 4 oz EFW by: Hadlock (CCM-QW-HC-FL) Extended Tibia 51.5 mm 30w 5d 1% Cheryl Fibula 50.1 mm 30w 4d 19% Cheryl Foot 64.2 mm 10% Chitty Radius 44.5 mm 31w 4d 34% Cheryl Ulna 47.1 mm 30w 0d <1% Cheryl Cav. septi pel. tr 6.7 mm Supervisor Border Department 5.1 mm CM 6.4 mm 23% Nicolaides [...] normal IVC: normal 3-vessel view: Appears normal 9-fbemfb-qwasqzg view: Appears normal Rt lung: Appears normal [...] testing in your office. Coding ======= Description: 73190-31 Detailed Ultrasound Description: 31675-49 BPP without NST Description: 18667-85 Doppler Umbilical Artery Drying Machine Operator: Xiomara Garcia RDMS Physician: Luigi Ramos MD, FACOG Electronically signed by: Luigi Ramos MD, FACOG at: 13:40 Procedure Note Luigi Ramos MD - 09/28/2024 PAT NAME: DAVID KHAN [facility] REC#: [id number] DA: [id number] PAT GEND: F PAT TYPE: O EXAM JOSSY: [id number] REF PHYS AVELARSACHA Comparison Studies There are no relevant prior studies to which this study is beingcompared Patient Status Outpatient Indication ======== IUGR Maternal Assessment Uuophk246 cm Height (ft)5 ft Height (in)3 in Aflgup18 kg Weight (lb)172 lb BMI30.09 kg/m Method ======= Transabdominal ultrasound examination. View: Adequate view ========= Aguirre . Number of fetuses: 1 Dating ====== Method of dating:based on stated GEOVANNA GA by prior bobjvlvqsy57 w + 0 d GEOVANNA by prior assessment:11/09/2024 Ultrasound examination on:09/28/2024 GA by U/S based upon:AC, BPD, Femur, HC GA by U/S31 w + 6 d GEOVANNA by U/S:11/24/2024 Assigned:based on stated GEOVANNA, selected on 09/28/2024 Assigned GA34 w + 0 d Assigned GEOVANNA:11/09/2024 gunubm690 d Biometry Standard BPD78.8 mm 31w 4d 3% Hadlock ZSJ953.1 mm 33w 4d 42% Cheryl HC289.0 mm 31w 6d <1% Hadlock Cerebellum tr45.0 mm 34w 4d 41% Hill AC288.4 mm 32w 6d 21% Hadlock Femur60.2 mm 31w 2d 1% Hadlock Bbhqnat24.1 mm 29w 6d <1% Cheryl HC / AC1.00 EFW1,920 g 31w 6d 7% Hadlock EFW (lb)4 lb EFW (oz)4 oz EFW by:Hadlock (TFD-KE-KN-FL) Extended Tibia51.5 mm 30w 5d 1% Cheryl Wzreii07.1 mm 30w 4d 19% Cheryl Foot64.2 mm 10% Chitty Yhiywj08.5 mm 31w 4d 34% Cheryl Ulna47.1 mm 30w 0d <1% Cheryl Cav. septi pel. tr6.7 mm Vp5.1 mm CM6.4 mm 23% Nicolaides Nasal bone12.1 mm Head / Face / Neck Cephalic index0.76 12% Nicolaides Extremities / Bony Struc FL / BPD0.76 FL / HC0.21 FL / AC0.21 Other Structures KIZ459 bpm General Evaluation Cardiac activity present. FHR [...] view:Appears normal SVC:normal IVC:normal 3-vessel view:Appears normal 3-cirvks-garlfcf view:Appears normal Rt lung:Appears normal Lt lung:normal [...] Structures Uterus / Cervix Cervix:Visualized Approach:Transabdominal Cervical woutst26.9 mm Ovaries / Tubes / Adnexa Rt [...] twice weekly testing inyour office. Coding ======= Description:10533-36 Detailed Ultrasound Description:15299-17 BPP without NST Description:31461-52 Doppler Umbilical Artery Drying Machine Operator: Xiomara Garcia RDMS Physician: Luigi Ramos MD, FACOG Electronically signed by: Luigi Ramos MD, FACOG at: 13:40 us Sacha Avelar MD IMG US ORDERABLES Final Resul t documented in this encounter Visit Diagnoses Diagnosis IUGR (intrauterine growth restriction) affecting care of mother, third trimester, fetus 1 , unspecified gestational age documented in this encounter Care Teams Pharmacist Per Diem Relationship Specialty Start Date End Date Provider, [place] [address] PCP - General 09/27/24 documented as of this encounter
--- OUTSIDE RECORDS SUMMARY | 2024-09-28 12:30 | XMS_ITS | Encounter Summary ---
Author Organization [facility] Address [address] [place] [address] Care Team Providers Care Food Truck Caterer Name Role Phone Provider, No Known Primary Care Provider Unavail able Reason for Referral * Diagnostic Imaging (Routine) - Authorized Specialty Diagnoses / Procedures Referred By Contac t Referred To Contact Radiology Diagnoses Poor growth affecting management of mother in third trimester, single or unspecified fetus Procedures [facility] Casie Ramos MD [address] [facility] [address] [place] [address] Phone: tel: fax: Referral ID Status Reason Start Date Expiration Date V isits Requested Visits Authorized Authorized 09/28/2024 12/28/2025 1 1 Reason for Visit * Reason Comments IUGR Encounter Details Date Type Department Care Team (Late st Contact Info) Description 09/28/2024 12:30 PM EDT Office Visit [facility] [address] [place] [address] Casie Ramos MD [address] [facility] [address] [place] [phone] Poor growth affecting management of mother in [...] advanced gestational age. Patient previously declined gen [facility] testing. We discussed how management of growth [...] reports she has had a lot of [place]- Nails contractions,but nothing regular. Pt endorses normal [...] tablet by mouth Daily., Disp: , Rfl: [place]-3 Fatty Acids (fish oil) 1000 MG capsule [...] CVS. Casie Ramos MD, FACOG Maternal Medicine, [facility] documented in this encounter Plan of Treatment Upcoming Encounters Date Type Department Care Team (Late st Contact Info) Description 10/12/2024 7:30 AM EDT Office Visit [facility] [address] [place] [address] 10/12/2024 7:30 AM EDT Appointment [facility] [address] [place] [address] 10/26/2024 8:45 AM EDT Office Visit [facility] [address] [place] [address] 10/26/2024 8:45 AM EDT [facility] [address] [place] [address] 11/09/2024 7:30 AM EDT Office Visit [facility] [address] [facility] [address] [place] [address] 11/09/2024 7:30 AM EDT Appointment [facility] [address] [place] [address] Scheduled Orders Name Type Priority Associated Diagnoses Orde r Schedule [facility] Imaging Routine Poor growth affecting management of mother in third trimester, single or unspecified fetus Expected: 10/03/2024 (Approximate), Expires: 09/28/2025 documented as of this encounter Visit Diagnoses Diagnosis Poor growth affecting management of mother in third trimester, single or unspecified fetus- Primary documented in this encounter Care Teams Food Truck Caterer Relationship Specialty Start Date End Date Provider, [place] [address] PCP - General 09/27/24 documented as of this encounter
--- OUTSIDE RECORDS SUMMARY | 2024-09-29 14:49 | XMS_ITS | Encounter Summary ---
Author Organization [facility] Address [address] [place] [address] Care Team Providers Care Carbon Coating Machine Operator Name Role Phone Provider, No Known Primary Care Provider Unavail able Encounter Details Date Type Department Care Team (Latest Contact Info) Description 09/28/2024 Travel Social History Tobacco Use Types Packs/Day Years [...] Description 10/12/2024 7:30 AM EDT Office Visit [facility] MEDICINE [address] [facility] [address] 10/12/2024 7:30 AM EDT Appointment [facility] US PER DIAG CTR [address] [facility] [place] [address] 10/26/2024 8:45 AM EDT Office Visit [facility] MATERNAL MEDICINE [address] [address] 10/26/2024 8:45 AM EDT Appointment [facility] PER [facility] [address] [facility] [place] [address] 11/09/2024 7:30 AM EDT Office Visit [facility] MATERNAL MEDICINE [address] [place] [address] 11/09/2024 7:30 AM EDT Appointment [facility] US PER DI[facility] [address] [place] [address] documented as of this encounter Visit Diagnoses Not on filedocumented in this encounter Care Teams Carbon Coating Machine Operator Relationship Specialty Start Date End Date Provider, [place] [address] PCP - General 09/27/24 documented as of this encounter
--- OUTSIDE RECORDS SUMMARY | 2024-09-29 14:49 | XMS_ITS | Encounter Summary ---
Author Organization [facility] Address [address] [place] [address] [place] [address] Phone Care Team Providers Care Lumpia Wrapper Maker Name Role Phone Unavailable Primary Care Provider Unavailabl e Reason for Referral * Radiology Services (Routine) - Closed Specialty Diagnoses / Procedures Referred By Kwasi roland Referred To Contact Procedures OB US STANDARD [facility] Referral ID Status Reason Start Date Expiration Date V isits Requested Visits Authorized [id number] Closed Specialty Services Required 04/03/2019 04/02/2020 150 150 Encounter Details Date Type Department Care Team (Late st Contact Info) Description 04/03/2019 SCAN [facility] [address] [place] [phone] Social History Tobacco Use Types Packs/Day Years [...]
--- OUTSIDE RECORDS SUMMARY | 2024-09-29 14:49 | XMS_ITS | Clinical Summary ---
Author Organization [facility] Address [address] [place] [address] Care Team Providers Care Network Operations Technician Name Role Phone Unavailable Primary Care Provider Unavailabl e Source Comments [facility] is fully rolled out with thefollowing exceptions:General Clinical Research [facility] Social History Tobacco Use Types Packs/Day Years [...]
--- OUTSIDE RECORDS SUMMARY | 2024-09-29 14:49 | XMS_ITS | Clinical Summary ---
Author Organization [facility] Address [address] [place] [address] Phone Care Team Providers Care Mushroom Cutter Name Role Phone Unavailable Primary Care Provider [...]
--- OUTSIDE RECORDS SUMMARY | 2024-09-29 14:49 | XMS_ITS | Clinical Summary ---
Author Organization [facility] Address [address] [place] [address] Care Team Providers Care Medical Services Assistant Name Role Phone Provider, No Known Primary Care Provider Unavail able Allergies Active Allergy Reactions Criticality Noted Date Comments Cefdinir Rash Medium 05/12/2010 Diphenhydramine Hcl Anaphylaxis High 09/28/2024 Ibuprofen Hives High 11/02/2014 Naproxen Hives,Itching,Rash Low 11/02/2014 Olanzapine Nausea Only 07/25/2015 Penicillins Anaphylaxis High 03/08/2010 Red Dye #17 (Leonard Red) Anaphylaxis High 06/16/2009 In medication only, pt reports it is ok in food Medications terconazole (TERAZOL 7) 0.4 % vaginal cream Insert 1 applicator into the vagina Every Night. Active Vit-Fe Fumarate-FA ( vitamin 27-0.8) 27-0.8 MG tablet tablet Take 1 tablet by mouth Daily. Active [place]-3 Fatty Acids (fish oil) 1000 MG capsule capsule Take 1 capsule by mouth Daily With Breakfast. Active Active Problems Problem Noted Date Diagnosed Date Poor growth affecting management of mother in third trimester 09/28/2024 Assessment & Plan (09/28/2024 1:29 PM EDT): Growth today reveals overall EFW at 7%ile, though AC at 21%ile giving diagnosis of growth restriction, some long bones and head measurements are <1%ile skewing the EFW. Reassuringly the amniotic fluid and umbilical artery cord Doppler are both normal today. We discussed the various etiologies for growth restriction including: Infection, genetic factors such as aneuploidy, placental abnormalities, constitutional, and maternal vascular/autoimmune disease. No sonographic markers for infection were seen today. No congenital anomalies were seen today however anatomic survey was limited secondary to advanced gestational age. Patient previously declined genetic testing. We discussed how management of growth restriction is essentially the same regardless of etiology with close monitoring. Plan for follow up in 2 weeks. We discussed potential improvement with increased nutrition, decreased activity and smoking cessation. We discussed careful return precautions regarding decreased movement. Recommend continue twice-weekly testing in your office. We discussed recommendation for delivery will be made with next visit giving somewhat conflicting growth parameters noted today Estimated Date of Delivery Comme nts Yes 11/09/2024 Date entered flavio or to episode creation Encounters Date Type Department Care Team Description 09/28/2024 12:30 PM EDT [facility] [address] [facility] [address] [place] [address] Luigi Ramos MD Poor growth affecting management of mother in third trimester, single or unspecified fetus (Primary Dx) 09/28/2024 11:32 AM EDT - 09/28/2024 11:59 PM EDT Hospital Encounter [facility] US PER DIAG CTR [address] [place] [phone] IUGR (intrauterine growth restriction) affecting care of mother, third trimester, fetus 1; , unspecified gestational age Discharge Disposition: Home or Self Care 09/28/2024 Travel from Last 3 Months Social History Tobacco Use Types Packs/Day Years [...] on file Sexual Orientation Not on file Last Filed Vital Signs Vital Sign Reading [...] Mass Index 29.99 09/28/2024 12:22 PM EDT Plan of Treatment Upcoming Encounters Date Type Department Care Team (Late st Contact Info) Description 10/12/2024 7:30 AM EDT Office Visit [facility]NAL MEDICINE [address] [facility] [address] [place] [address] 10/12/2024 7:30 AM EDT Appointment [facility] US PER DIAG CTR [address] [place] [address] 10/26/2024 8:45 AM EDT Office Visit [facility] MATERNAL MEDICINE [address] [address] 10/26/2024 8:45 AM EDT Appointment [facility] US PER DIAG CTR [address] [place] [address] 11/09/2024 7:30 AM EDT Office Visit [facility] [address] [facility] [address] 11/09/2024 7:30 AM EDT Appointment [facility] US PER DIAG CTR [address] [place] [address] Health Maintenance Due Date Last Done Comments Annual Gynecologic Pelvic an d Breast Exam 1998 Pneumococcal Vaccine 0-49 (1 of 2 - PCV) 2017 TDAP/TD VACCINES (2 - Td or Tdap) 09/26/2020 011 PAP SMEAR 02/11/2022 02/11/2019 COVID-19 Vaccine (1 - 2023-2 5 season) 2023 ANNUAL PHYSICAL 09/27/2024 HEPATITIS C SCREENING 09/27/2024 INFLUENZA VACCINE 12/01/2024 03/12/2014, , 01/05/2011, Additional history exists HPV VACCINES Completed 02/19/2016, 09/26/2010 RSV Vaccine - Adults (No Dos es Required) Completed Procedures Procedure Name Priority Date/Time Associated Diagnosis Comments [facility] Routine 09/28/2024 1:22 PM EDT IUGR (intrauterine growth restriction) affecting care of mother, third trimester, fetus 1 , unspecified gestational age from Last 3 Months Results * [facility] (09/28/2024 1:22 PM EDT) Anatomical Region Laterality Modality Ultrasound 09/28/2024 12:3 4 PM EDT Narrative 09/28/2024 1:40 PM EDT PAT NAME: RO KHAN [facility] REC#: [id number] DA: [id number] PAT GEND: F PAT TYPE: O EXAM JOSSY: [id number] REF PHYS SACHA AVELAR Comparison Studies There [...] EFW (oz) 4 oz EFW by: Hadlock (BPS-BY-MJ-FL) Extended Tibia 51.5 mm 30w 5d 1% Cheryl Fibula 50.1 mm 30w 4d 19% Cheryl Foot 64.2 mm 10% Chitty Radius 44.5 mm 31w 4d 34% Cheryl Ulna 47.1 mm 30w 0d <1% Cheryl Cav. septi pel. tr 6.7 mm Assistant Produce Manager 5.1 mm CM 6.4 mm 23% [...] normal IVC: normal 3-vessel view: Appears normal 6-jgraxz-fxcjcjq view: Appears normal Rt lung: Appears normal [...] testing in your office. Coding ======= Description: 93897-55 Detailed Ultrasound Description: 63846-89 BPP without NST Description: 91924-55 Doppler Umbilical Artery Collect On Delivery Clerk: Xiomara Garcia RDMS Physician: Luigi Ramos MD, FACOG Electronically signed by: Luigi Ramos MD, FACOG at: 13:40 Procedure Note Luigi Ramos MD - 09/28/2024 PAT NAME: RO KHAN [facility] REC#: [id number] DA: [id number] PAT GEND: F PAT TYPE: O EXAM JOSSY: [id number] REF PHYS SACHA AVELAR Comparison Studies There are no relevant prior studies to which this study is beingcompared Patient Status Outpatient Indication ======== IUGR Maternal Assessment Tvbdsg540 cm Height (ft)5 ft Height (in)3 in Cxqtfz46 kg Weight (lb)172 lb BMI30.09 kg/m Method ======= Transabdominal ultrasound examination. View: Adequate view ========= Aguirre . Number of fetuses: 1 Dating ====== Method of dating:based on stated GEOVANNA GA by prior [id number] w + 0 d GEOVANNA by prior assessment:11/09/2024 Ultrasound examination on:09/28/2024 GA by U/S based upon:AC, BPD, Femur, HC GA by U/S31 w + 6 d GEOVANNA by U/S:11/24/2024 Assigned:based on stated GEOVANNA, selected on 09/28/2024 Assigned GA34 w + 0 d Assigned GEOVANNA:11/09/2024 [id number] d Biometry Standard BPD78.8 mm 31w 4d 3% Hadlock KQZ394.1 mm 33w 4d 42% Cheryl HC289.0 mm 31w 6d <1% Hadlock Cerebellum tr45.0 mm 34w 4d 41% Hill AC288.4 mm 32w 6d 21% Hadlock Femur60.2 mm 31w 2d 1% Hadlock Njtpmew08.1 mm 29w 6d <1% Cheryl HC / AC1.00 EFW1,920 g 31w 6d 7% Hadlock EFW (lb)4 lb EFW (oz)4 oz EFW by:Hadlock (LWS-NI-AD-FL) Extended Tibia51.5 mm 30w 5d 1% Cheryl Kcviod72.1 mm 30w 4d 19% Cheryl Foot64.2 mm 10% Chitty Gpnetu31.5 mm 31w 4d 34% Cheryl Ulna47.1 mm 30w 0d <1% Cheryl Cav. septi pel. tr6.7 mm Vp5.1 mm CM6.4 mm 23% Nicolaides Nasal bone12.1 mm Head / Face / Neck Cephalic index0.76 12% Nicolaides Extremities / Bony Struc FL / BPD0.76 FL / HC0.21 FL / AC0.21 Other Structures VIN016 bpm General Evaluation Cardiac activity present. FHR [...] view:Appears normal SVC:normal IVC:normal 3-vessel view:Appears normal 1-uycvmz-skyzfhu view:Appears normal Rt lung:Appears normal Lt lung:normal [...] Structures Uterus / Cervix Cervix:Visualized Approach:Transabdominal Cervical epxnom72.9 mm Ovaries / Tubes / Adnexa Rt [...] twice weekly testing inyour office. Coding ======= Description:04355-35 Detailed Ultrasound Description:57235-96 BPP without NST Description:05762-38 Doppler Umbilical Artery Collect On Delivery Clerk: Xiomara Garcia RDMS Physician: Luigi Ramos MD, FACOG Electronically signed by: Luigi Ramos MD, FACOG at: 13:40 us Sacha Avelar MD [facility] ORDERABLES Final Resul t from Last 3 Months Insurance [employer] [address] Care Teams Medical Services Assistant Relationship Specialty Start Date End Date Provider, No Known [facility] [place] [address] PCP - General 09/27/24
--- OUTSIDE RECORDS SUMMARY | 2024-09-29 14:49 | XMS_ITS | Clinical Summary ---
Author Organization [facility] Address [place] [address] Phone Care Team Providers Care Zigzag Topstitcher Name Role Phone Mary Greer MD Primary Care Provider +1- [phone] Allergies Active Allergy Reactions Criticality Noted Date Comments Diphenhydramine Hcl Ibuprofen Hives High 11/02/2014 Naproxen Hives,Itching,Rash 11/02/2014 Cefdinir Rash Medium 05/12/2010 Penicillins Rash 03/08/2010 Prednisone Rash Medium 11/07/2015 [place] hyper Red Dye 06/16/2009 Olanzapine Nausea Only [...] abnormality -BHCG slightly above normal -MRI pending -dimensional integration engineer eval -Morphine/Zofran PRN -NPO Bilious vomiting with [...] Encounters Date Type Department Care Team Description 09/23/2024 Abstract SEP [facility] [address] [place] [address] Monique Ozuna MA 09/05/2024 7:23 PM EDT - 09/05/2024 9:31 PM EDT Hospital Encounter EDG [facility]DRP [facility] [address] [place] [id number] Julia Wellington MD Discharge Disposition: Home or Self Care 09/05/2024 7:18 PM EDT - 09/05/2024 7:19 PM EDT Emergency [place] [facility] [place] [address] Discharge Disposition: Left Without Being Seen from [...] drink = 0.6 oz pur e alcohol) [facility] Utilities Answer Date Recorded In the past [...] Date Recorded PHQ-2 Total Score 0 09/05/2024 [facility] of Occupat ional Health - Occupational Stress [...] things needed for daily living? No 03/28/2020 [facility] IP Transportation Answer D ate Recorded [...] Estimated Date of Delivery 09/05/2024 - Present (09/29/2024) 1 11/08/2024 (set by Lynn Cordova RN [...] Procedure Name Priority Date/Time Associated Diagnosis Comments CBC Routine 09/22/2024 URINALYSIS POC Routine 09/05/2024 7:37 PM EDT CHLAMYDIA/GC BY TMA Routine 08/23/2021 2 :21 PM EDT Screening for chlamydial disease NURSING INFORMATICS SPECIALIST CYTOLOGY REQUEST (PAP ONLY) Routine 02/11/2019 2:41 PM EST Encounter for supervision of normal first in first trimester from Last 3 Months or Most Recently Relevant to Health Maintenance Results * (ABNORMAL) CBC (09/22/2024) WBC 9.4 X10(3)/MCL SEP OFFICE RBC 3.21(A) 4.00 - 5.20 X10(6)/MCL SEP OFFICE Hgb 10.5(A) 12.0 - 16.0 GM/DL SEP OFFICE Hct 30.8(A) 36 - 46 % SEP OFFICE MCV 96.0 82.0 - 108.0 FL SEP OFFICE MCH 32.7 26.0 - 34.0 PG SEP OFFICE MCHC 34 30 - 37 GM/DL SEP OFFICE Platelet 215 150 - 399 X10(3)/MCL SEP OFFICE Blood VENOUS BLOOD / Unknown 09/22/2024 us Historical Provider HEMATOLOGY ORDERABLES Final Result SEP OFFICE * URINALYSIS POC (09/05/2024 7:37 PM EDT) UA Color POC Yellow Color 09/05/2024 7:40 PM EDT [facility] UA Appear POC Clear Clear 09/05/2024 7:40 PM EDT [facility] UA Blood POC Negative Negative 09/05/2024 7:40 PM EDT [facility] UA pH POC 6.0 5.0 - 8.0 pH 09/05/2024 7:40 PM EDT [facility] UA Urobilinogen POC 0.2 0.2, 1.0 09/05/2024 7:40 PM EDT [facility] UA Nitrite POC Negative Negative 09/05/2024 7:40 PM EDT [facility] UA Leuk Est POC Negative Negative 7:40 PM EDT [facility] UA SG POC >=1.030 1.001 - 1.035 no units 09/05/2024 7:40 PM EDT [facility] UA Gluc POC Negative Negative mg/dL 09/05/2024 7:40 PM EDT [facility] UA Protein POC Negative Negative mg/dL 09/05/2024 7:40 PM EDT [facility] UA Ketones POC Negative Negative mg/dL 09/05/2024 7:40 PM EDT [facility] Urine STRUCTURE OF URINARY TRACT PROPER / Unknown 09/05/2024 7:37 PM EDT 09/05/2024 7:40 PM EDT us Julia March MD POINT OF CARE TEST [place] [address] * CHLAMYDIA/GC BY TMA (08/23/2021 2:21 PM EDT) Pathologist [facility] Chlamydia trachomatis Not Detected Not Detected 08/24/2021 3:50 AM EDT [facility] Neisseria gonorrhoeae Not Detected Not Detected 08/24/2021 3:50 AM EDT [facility] Urine URINE SPECIMEN COLLECTION / Unknown 08/23/2021 2:21 PM EDT 08/23/2021 2:21 PM EDT Narrative [facility] - 08/24/2021 3:50 AM EDT Testing methodology is shuttleless loom weaver mediated amplification (TMA) using the Aptima Combo 2 assay from [employer]. A negative result does not completely rule [...] MICROBIOLOGY - GENERAL ORDERA BLES Final Result [facility]REFERRED [email or web address] [address] [facility] , [address] [place], [place] [id number] * NURSING INFORMATICS SPECIALIST CYTOLOGY REQUEST (PAP ONLY) (02/11/2019 2:41 PM EST) CASE REPORT Gynecologic Cytology Report Case: [id number] Authorizing Provider: Myriam Guillen, Collected: 02/11/2019 1441 SKIDWAY MAN Ordering Location: [facility] Received: 02/11/2019 1441 First Screen: Neha Lockwood CT Specimen: LIQUID-BASED PAP - CERVICAL/ENDOCERV ICAL, Cervix, Endocervical 02/15/2019 2:21 PM EST [facility] PAP FINAL DIAGNOSIS Negative for intraepithelial lesion or malignancy 02/15/2019 2:21 PM [facility] at 1421 EST MICROSCOPIC DESCRIPTION Microscopic examination is performed and the findings corroborate the diagnosis. 02/15/2019 2:21 PM EST [facility] PAP SMEAR ADEQUACY Satisfactory for evaluation 02/15/2019 2:21 PM [facility] PAP ORGANISMS NOTED Fungal organisms present consistent with josesito. 02/15/2019 2:21 PM EST [facility] ENDOCERVICAL T-ZONE Transformation zone present 02/15/2019 2:21 PM [facility] EMBEDDED IMAGES 9 2:21 PM [facility] PAP DISCLAIMER The Pap Smear is a screening test that aids in the detection of cervical cancer and cancer precursors. Both false positive and false negative results can occur. The test should be used at regular intervals, and positive results should be confirmed before definitive therapy. Processed using the Perfect[employer] Splitting Machine Tender Automated cytology screening device ([employer]). 02/15/2019 2:21 PM EST [facility] Thin Prep ENDOCERVICAL STRUCTURE / Unknown 02/11/2019 2:41 PM EST 02/11/2019 2:41 PM EST us Myriam Floresrazasanjay SKIDWAY MAN CYTOLOGY ORDERABLES Fi nal Result [facility] [address] [place] [address] from Last 3 Months or Most Recently Relevant to Health Maintenance Advance Directives For more information, please contact: [phone] * Full Code (Latest Code Status on File) Date Activated Date Inactivated Comments 02/27/2024 5:52 AM 02/29/2024 1:40 AM Care Teams Zigzag Topstitcher Relationship Specialty Start Date End Date Mary Greer MD [address] [place] [address] PCP - General Family Medicine 06/14/14
--- OUTSIDE RECORDS SUMMARY | 2024-09-29 14:49 | XMS_ITS | Encounter Summary ---
Author Organization [place] [address] Care Team Providers Care Finish Mill Operator Name Role Phone aMry Greer MD Primary Care Provider +1- [phone] Encounter Details Date Type Department Care Team (Late st Contact Info) Description 09/23/2024 Abstract SEP [facility] [address] [place] [id number] Monique Ozuna MA Social History Tobacco Use Types Packs/Day Years Used Date Smoking Tobacco: Former Cigarettes Smokeless Tobacco: Never Alcohol Use Standard Drinks/Week Comments No 0 (1 standard drink = 0.6 oz pur e alcohol) [facility] Utilities Answer Date Recorded In the past 12 months has [employer] electric, gas, oil, or water company threatened to shut off services in your home? No 02/27/2024 Overall Financial Resource Strain (CARDIA) Answe r Date Recorded How hard is it for you to pa y for the very basics like food, housing, medical care, and heating? Not hard at all 02/27/2024 PHQ-2 Answer Date Recorded PHQ-2 Total Score 0 09/05/2024 [facility] of Occupat ional Health - Occupational Stress [...] things needed for daily living? No 03/28/2020 [facility] IP Transportation Answer D ate Recorded In [...] Entry Date Author No 08/23/2021 2:16 PM Jacklyn Daigle MA documented in this encounter Plan of Treatment [...] Date/Time Associated Diagnosis Comments CBC Routine 09/22/2024 documented in this encounter Results * (ABNORMAL) CBC (09/22/2024) WBC 9.4 [...] Provider HEMATOLOGY ORDERABLES Final Result SEP OFFICE documented in this encounter Visit Diagnoses Not on filedocumented in this encounter Care Teams Finish Mill Operator Relationship Specialty Start Date End Date Mary Greer MD [address] [place] [address] PCP - General Family Medicine 06/14/14 documented as of this encounter
--- OUTSIDE RECORDS SUMMARY | 2024-09-29 14:49 | XMS_ITS | Referral Summary ---
Author Organization [facility] Address [address] [place] [phone] Phone Care Team Providers Care Jacket Changer Name Role Phone Unavailable Primary Care Provider [...]
[2024-09-29 15:01] VITALS: BP 110/66; PULSE 66; RESP 18; TEMP 37.1; O2SAT 100; BMI 13.6; BMI 30.2
[2024-09-29 15:10] LABS: Microscopic, Urine URINE MICROSCOPIC (MICROSCOPIC)
[2024-09-29 15:28] LABS: Bilirubin,Urine Negative (Negative); Color,Urine YELLOW (Yellow); Glucose,Urine (UA) Negative (Negative); Ketones,Urine 1+ (Negative); Leukocyte Esterase,Urine Negative (Negative); PH,Urine 7.0 (5.0-8.5); Protein,Urine Negative (Negative); Specific Gravity, Urine 1.020 (1.005-1.030); Urobilinogen,Urine 0.2 EU/dl (0.2)
[2024-09-29 15:55] LABS: Bacteria,Urine 2+ /lpf; Squamous Epithelial Cell,Urine 20-50 #/hpf (0-5)
--- NOTE | 2024-09-29 15:57 | US_ITS ---
PROCEDURE INFORMATION: Exam: US Biophysical Profile Without Non-Stress Test Exam date and time: 09/29/2024 4:04 PM Age: 24 years old Clinical indication: Other: Dec movement; ; Additional info: Decreased movement, iugr TECHNIQUE: Imaging protocol: US biophysical profile without non-stress testing. COMPARISON: US OB BIOPHYSICAL PROFILE 09/22/2024 1:36 PM FINDINGS: Gestation: Aguirre living intrauterine gestation. heart rate: 135 bpm Amniotic fluid index: DANO is 10.51 cm. BIOPHYSICAL PROFILE: breathing (BPP): 2 /2 gross body movement (BPP): 2 /2 tone (BPP): 2 /2 Amniotic fluid (BPP): 2 /2 Biophysical profile score (BPP): 8 /8 IMPRESSION: 1. Aguirre living intrauterine gestation. 2. DANO and BPP within normal limits.
[2024-09-29] MEDS: LACTATED RINGERS 1000ML 1,000 ML 999 ML IV (16:15)
== END 2024-09-29 17:00 | disposition home or self-care (01) ==
LOC: OBOUT 14:47 → OB 14:48
PROVIDERS: PCP Family Medicine; Visit Provider Obstetrics & Gynecology
DX: O36.8130 Decreased fetal movements, third trimester, not applicable or unspecified (principal); O36.5930 Maternal care for other known or suspected poor fetal growth, third trimester, not applicable or unspecified; O99.333 Smoking (tobacco) complicating pregnancy, third trimester; Z72.51 High risk heterosexual behavior; Z3A.33 33 weeks gestation of pregnancy
CPT/HCPCS: 59025; 76819; 81001; 87086; 96360; J7120

== ENCOUNTER 2024-09-30 11:08 | Outpatient (CLI) | payer MEDICAID, SELFPAY ==
--- OUTSIDE RECORDS SUMMARY | 2003-09-02 | XMS_ITS | Encounter Summary ---
Author Organization [facility] Address [address] [place] [address] Care Team Providers Care Injection Molding Operator Name Role Phone Unavailable Primary Care Provider Unavailabl e Encounter Details Date Type Department Care Team (Late st Contact Info) Description 09/02/2003 Hospital Encounter [facility] Department of Radiology [address] [place] [phone] Social History Tobacco Use Types Packs/Day [...]
--- OUTSIDE RECORDS SUMMARY | 2024-09-05 19:18 | XMS_ITS | Encounter Summary ---
Author Organization [place] [address] Care Team Providers Care Industrial Gas Fitter Helper Name Role Phone Mary Greer MD Primary Care Provider +1- [phone] Reason for Visit * Reason Comments Abdominal Pain Encounter Details Date Type Department Care Team (Late st Contact Info) Description 09/05/2024 7:18 PM EDT - 09/05/2024 7:19 PM EDT Emergency [facility] [place] [id number] Discharge Disposition: Left Without Being Seen Social History Tobacco Use Types Packs/Day Years Used Date Smoking Tobacco: Former Cigarettes Smokeless Tobacco: Never Alcohol Use Standard Drinks/Week Comments No 0 (1 standard drink = 0.6 oz pur e alcohol) [facility] Utilities Answer Date Recorded In the past 12 months has [employer] electric, gas, oil, or water company threatened to shut off services in your home? No 02/27/2024 Overall Financial Resource Strain (CARDIA) Answe r Date Recorded How hard is it for you to pa y for the very basics like food, housing, medical care, and heating? Not hard at all 02/27/2024 PHQ-2 Answer Date Recorded PHQ-2 Total Score 0 09/05/2024 [facility] [place] of Occupat ional Health - Occupational Stress [...] things needed for daily living? No 03/28/2020 [facility] IP Transportation Answer D ate Recorded In [...] on filedocumented in this encounter Care Teams Industrial Gas Fitter Helper Relationship Specialty Start Date End Date Mary Greer MD [address] [place] [address] PCP - General Family Medicine 06/14/14 documented as of this encounter
--- OUTSIDE RECORDS SUMMARY | 2024-09-05 19:23 | XMS_ITS | Encounter Summary ---
Author Organization [place] [address] Care Team Providers Care Gas Dispatcher Name Role Phone Mary Greer MD Primary Care Provider [phone]- [phone] Reason for Visit * Reason Comments Abdominal Pain [address] Carrillo at [facility] Encounter Details Date Type Department Care Team (Latest Contact Info) Description 09/05/2024 7:23 PM EDT - 09/05/2024 9:31 PM EDT Hospital [facility] [place] [address] Julia Wellington MD [address] [place] [address] Discharge Disposition: Home or Self Care Social History Tobacco Use Types Packs/Day Years Used Date Smoking Tobacco: Former Cigarettes Smokeless Tobacco: Never Alcohol Use Standard Drinks/Week Comments No 0 (1 standard drink = 0.6 oz pur e alcohol) [facility] Utilities Answer Date Recorded In the past 12 months has [employer], gas, oil, or water [employer] threatened to shut off services in your home? No 02/27/2024 Overall Financial Resource Strain (CARDIA) Answe r Date Recorded How hard is it for you to pa y for the very basics like food, housing, medical care, and heating? Not hard at all 02/27/2024 PHQ-2 Answer Date Recorded PHQ-2 Total Score 0 09/05/2024 [facility] [place] of Occupat ional Health - Occupational Stress [...] things needed for daily living? No 03/28/2020 [facility] IP Transportation Answer D ate Recorded In [...] on file documented as of this encounter Last Filed Vital Signs Vital Sign Reading Time Taken Comments Blood Pressure - - Pulse - - Temperature 36.7 C (98 F) 09/05/2024 7:35 PM EDT Respiratory Rate 20 09/05/2024 7:35 PM EDT Oxygen Saturation - - Inhaled Oxygen Concentration - - Weight - - Height - - Body Mass Index - - documented in this encounter Functional Status * Alcohol Screening Score Answer Date of Assessment Author 0 09/05/2024 7:46 PM EDT Lynn Cordova, NIDA * Drug Screening Score Answer Date of Assessment Author 0 09/05/2024 7:46 PM EDT Lynn Cordova, NIDA * Question Answer Date of Assessment Author How often do you have a drin k containing alcohol? 0 09/05/2024 7:46 PM EDT Lynn Cordova RN How many drinks containing alcohol do you have on a typical day when you are drinking? 0 09/05/2024 7:46 PM EDT Lynn Cordova RN How often do you have six or more drinks on one occasion? 0 09/05/2024 7:46 PM EDT Lynn Cordova RN AUDIT-C to Determine Rows 4-10 0 09/05/2024 7:46 PM EDT Lynn Cordova RN * Is the person deaf or does he/she have serious difficulty hearing? Answer Date of Assessment Author No 08/23/2021 2:16 PM EDT Jacklyn Bennett MA * Is the person [...] 2:16 PM EDT Jacklyn Bennett MA * Because of a physical, mental or emotional condition, does this person have difficulty doing errands alone such as visiting a doctor's office or shopping? Answer Date of Assessment Author No 08/23/2021 2:16 PM EDT Jacklyn Bennett MA * PHQ-9 Total Score Answer Date of Assessment Author 0 09/05/2024 7:47 PM EDT Lynn Cordova RN * Question Answer Date of Assessment Author Little interest or pleasure in doing things 0 09/05/2024 7:47 PM ROHANT Lynn Cordova RN Feeling down, depressed, or hopeless 0 09/05/2024 7:47 PM EDT Lynn Cordova RN PHQ-2 Total Score 0 09/05/2024 7:47 PM EDT Lynn Cordova RN * PHQ-2 Total Score Answer Date of Assessment Author 0 09/05/2024 7:47 PM ROHANT Lynn Cordova RN * Question Answer Date of Assessment Author Feeling Nervous, Anxious, or on Edge 0 09/05/2024 7:47 PM EDT Lynn Cordova RN Not Being Able to Stop or Control Worrying 0 09/05/2024 7:47 PM EDT Lynn Cordova RN Worrying too Much About Different Things 0 09/05/2024 7:47 PM ROHANT Lynn Cordova RN Trouble Relaxing 0 09/05/2024 7:47 PM EDT Lynn Sesay RN Being so Restless That it is Hard to Sit Still 0 09/05/2024 7:47 PM EDT Lynn Cordova RN Becoming Easily Annoyed or Irritable 0 09/05/2024 7:47 PM EDT Lynn Cordova RN Feeling Afraid as if Something Awful Might Happen 0 09/05/2024 7:47 PM ROHANT Lynn Cordova RN CARRIE-7 Total Score 0 09/05/2024 7:47 PM EDT Lynn Cordova RN * Suicide Severity Rating Answer Date of Assessment Author No Risk 09/05/2024 7:47 PM Lynn Fields RN * [place] Suicide Severity Rating Scale (Q shift for moderate and high) Question Answer Date of Assessment Author 1. In the past month, have you wished you were or wished you could go to sleep and not wake up? 0 09/05/2024 7:47 PM Lynn Fields RN 2. In the past month, have you actually had any thoughts of killing yourself? (If no, skip to question 6) 0 09/05/2024 7:47 PM Lynn Fields RN 6. Have you ever done anything, started to do anything, or prepared to do anything to end your life? 0 09/05/2024 7:47 PM ROHANT Jacklyn Cordova RN documented as of this encounter Mental Status [...] Discharge Disposition Disposition Code Departure Means Destination Comment s Home or Self Care Car Home documented in this encounter Progress Notes * Lynn Cordova RN - 09/05/2024 9:30 PM EDT After completion of the Medical Screening Evaluation, it has been determined that a medical emergency does not exist and the patient is not in active labor, and therefore the patient may be discharged home. * Lynn Cordova RN - 09/05/2024 8:12 PM EDT Pt presents for abdominal pain, states she has a history of gallstones.In town visiting her dad andwas concered with the abdominal pain. denies any VB or LOF. +FM noted. Efm and toco placed. Provider aware of pt arrival. * Martha Rosario CNM - 09/05/2024 7:56 PM EDT 09/05/241954 Heart Rate Mode External US Baseline Rate 125 bpm Baseline Classification Normal Variability Moderate Pattern A Movement Present RN assessed heart tracing? Yes Multiple births? N Uterine Activity Mode Palpation;[place] Contraction Frequency 0 Contraction Intensity N/A Resting Tone Palpated Soft NST NST Performed? Yes $ NST charge Yes Nonstress Test Uterine Findings Uterine Irritability No Contractions Not present Nonstress Test Fetus A Variability Moderate Decelerations None Accelerations Yes Acoustic Stimulator No Interpretation Fetus A Nonstress Test Interpretation Reactive Cosigned by Julia Wellington MD at 09/06/2024 1:37 AM EDT Associated attestation - Julia Wellington MD - 09/06/2024 1:37 AM EDT Nst interpretation per BEA documented in this encounter Nursing Notes * Martha Rosario CNM - 09/05/2024 9:20 PM EDT Pt seen and evaluated with Sriram BURTON. I agree with his assessment and we jointly developed the plan. Ro feeling significantly better after zofran and dilaudid 2mg. Reviewed warnings, fm, 3rd tri, and importance of dietary changes to decrease acute episodes. She verbalized understanding. Has f/u at , triage anytime prn. Martha Rosario [facility] OB Triage Progress Note S: Pt is a 24 y.o. at 30w6d with Estimated Date of Delivery: 11/08/24 presents to triage c/o abdominal pain. Pt reports a history of gallstones and gallbladder issues prior to current , but unable to perform any procedures due to . Reports this episode of abdominal pain occurred after eating a largely fatty meal during the holidays while visiting father. Reports next OB office visit upcoming on 09/08/24 at [facility]. Denies LOF and VB. Reports good movement, denies contractions.Reports has taken Zofran PRN and has received Dilaudid for acute pain. OB History 2 Para Term AB Living SAB IAB Ectopic Multiple Live Births Prior to Admission medications Medication Sig Start Date End Date Last Dose Authorizing Provider albuterol (PROVENTIL HFA;VENTOLIN HFA) 90 mcg/actuation Inhl HFA Aerosol Inhaler Inhale 2 Puffs into the lungs every 6 hours as needed. for wheezing Patient not taking: Reported on 06/02/2024 05/15/22 Mary Greer MD BREO ELLIPTA 200-25 mcg/dose Inhl Disk with Device INHALE 1 PUFF INTO THE LUNGS ONCE DAILY Patient not taking: Reported on 06/02/2024 06/03/19 Mary Greer MD buPROPion (WELLBUTRIN XL) 150 mg Oral Tablet Sustained Release 24 hr Take 1 Tablet by mouth every morning. Patient not taking: Reported on 06/02/2024 05/15/22 Mary Greer MD diclofenac sodium (VOLTAREN) 50 mg Oral Tablet, Delayed Release (E.C.) Take 1 Tablet by mouth 3 times daily (with meals). Patient not taking: Reported on 10/15/2023 08/23/21 Malvin Yeboah MD loratadine (CLARITIN) 10 mg Oral Tablet Take 1 Tablet by mouth daily as needed (allergies). Patient not taking: Reported on 06/02/2024 05/15/22 Mary Greer MD montelukast (SINGULAIR) 10 mg Oral Tablet Take 1 Tablet by mouth nightly. Patient not taking: Reported on 06/02/2024 05/15/22 Mary Greer MD omeprazole (PRILOSEC OTC) 20 mg Oral Tablet, Delayed Release (E.C.) Take 1 Tab by mouth daily. Patient not taking: Reported on 06/02/2024 03/11/20 Mary Greer MD Past Medical History: Diagnosis Date ADD (attention deficit disorder) Past Surgical History: Procedure Laterality Date MOUTH SURGERY reports that she has quit smoking. Her smoking use included cigarettes. She has never used smokeless tobacco. She reports current drug use. Frequency: 2.00 times per week. Drug: Marijuana. She reports that she does not drink alcohol. Family History Problem Relation Age of Onset Other Maternal Aunt PTSD No Known Problems Father Cancer Maternal Grandfather Heart Failure Maternal Grandfather Kidney Disease Maternal Grandfather Allergies Allergen Reactions Ibuprofen Hives Omnicef [Cefdinir] Rash Prednisone Rash [place] hyper Antihist [Diphenhydramine Hcl] Naproxen Hives, Itching and Rash Penicillins Rash Red Dye Zyprexa [Olanzapine] Nausea Only ROS: No vaginal bleeding, leakage of fluid. Patient reports good movement. All other ROS reviewed and reported as negative. O: Temp 98 ??F (36.7 ??C) (Oral) Resp 20 LMP 12/25/2023 (Approximate) Comment: normally irregular Gen: alert, appears stated age, and cooperative, appears uncomfortable Abd: soft, gravid; FHT present Psych: A & Ox3; judgement and insight intact; memory both supervisor intermediates and short term intact. Moodand affect are appropriate. Heart Tones: Baseline: 125 bpm, Variability: moderate, Accelerations: Reactive, and Decelerations: Absent Uterine Activity: Frequency: not in labor Cervix: deferred UA POC: Lab Results Component Value Date UACOLORPOC Yellow 09/05/2024 UAAPPEARPOC Clear 09/05/2024 UAGLUCPOC Negative 09/05/2024 UAKETONESPOC Negative 09/05/2024 UABLOODPOC Negative 09/05/2024 UAPHPOC 6.0 09/05/2024 UAPROTEINPOC Negative 09/05/2024 UALEUKESTPOC Negative 09/05/2024 UASGPOC >=1.030 09/05/2024 Speculum: Not done A/P: 24 y.o. 30w6d Pt presents with abdominal pain after eating, hx of gallbladder issues, given Zofran and dilaudid 2mg PO. Significant improvement in pain and discomfort after PO meds. records from [facility] not available in CareEverywhere. Pt seems to be a reliable historian, and does not display drug-seeking behaviors. Reviewed warnings, strongly encouraged to make dietary changes to lessen incidence of acute episodes - she understands the importance of non-fatty and plain, bland foods until surgery . Keep appointment at [facility] 09/08/24 as scheduled. Return to triage PRN. After completion of the Medical Screening Evaluation, it has been determined that a medical emergency does not exist and the patient is not in active labor, and therefore the patient may be discharged home. Sriram Gifford, Medical Student documented in this encounter Plan of Treatment Not on file documented as of this encounter Goals Goal Patient Goal Type Associated Problems Recent Progress Patient-Stated? Author Maintain a healthy diet, exercise regularly and maintain an ideal body weight General No Monique Weston RMA Stay Tobacco Free Lifestyle No Monique Weston RMA documented as of this encounter Procedures Procedure Name Priority Date/Time Associated Diagnosis Comments URINALYSIS POC Routine 09/05/2024 7:37 PM EDT documented in this encounter Results * URINALYSIS POC (09/05/2024 7:37 PM EDT) UA Color POC Yellow Color 09/05/2024 7:40 PM EDT [facility] UA Appear POC Clear Clear 09/05/2024 7:40 PM EDT [facility] UA Blood POC Negative Negative 09/05/2024 7:40 PM EDT [facility] UA pH POC 6.0 5.0 - 8.0 pH 09/05/2024 7:40 PM EDT [facility] UA Urobilinogen POC 0.2 0.2, 1.0 09/05/2024 7:40 PM EDT [facility] UA Nitrite POC Negative Negative 09/05/2024 7:40 PM EDT [facility] UA Leuk Est POC Negative Negative 7:40 PM EDT [facility] UA SG POC >=1.030 1.001 - 1.035 no units 09/05/2024 7:40 PM EDT [facility] UA Gluc POC Negative Negative mg/dL 09/05/2024 7:40 PM EDT [facility] UA Protein POC Negative Negative mg/dL 09/05/2024 7:40 PM EDT [facility] UA Ketones POC Negative Negative mg/dL 09/05/2024 7:40 PM EDT [facility] Urine STRUCTURE OF URINARY TRACT PROPER / Unknown 09/05/2024 7:37 PM EDT 09/05/2024 7:40 PM EDT us Julia March MD POINT OF CARE TEST ORDERA BLES Final Result [facility] [address] [place] [address] documented in this encounter Visit Diagnoses Not on filedocumented in this encounter Administered Medications Inactive Administered Medications - up to 1 most recent administrations Medication Order MAR Action Action Date Dose Rate Site HYDROmorphone (DILAUDID) tablet 2 mg 2 mg, Oral, ONCE, 1 dose, On 09/05/24 at 2014 Given 09/05/2024 8:58 PM EDT 2 mg ondansetron (ZOFRAN) tablet 8 mg 8 mg, Oral, ONCE, 1 dose, On 09/05/24 at 2014 Given 09/05/2024 8:25 PM EDT 8 mg documented in this encounter Active and Recently Administered Medications Times are shown in EDT. Scheduled Medication Order 09/03/2024 09/04/2024 09/05/2024 HYDROmorphone (DILAUDID) tablet 2 mg (COMPLETED) 2 mg, Oral, ONCE, 1 dose, On 09/05/24 at 2014 2057 (Given - Provid er: Lynn Cordova RN) ondansetron (ZOFRAN) tablet 8 mg (COMPLETED) 8 mg, Oral, ONCE, 1 dose, On 09/05/24 at 2014 2024 (Given - Provid er: Lynn Cordova RN) documented in this encounter Orders Discharge Count Last Ordered Date First Orde red Date DISCHARGE PATIENT 1 09/05/2024 documented in this encounter Care Teams Gas Dispatcher Relationship Specialty Start Date End Date Mary Greer MD [address] [place] [address] PCP - General Family Medicine 06/14/14 documented as of this encounter
--- OUTSIDE RECORDS SUMMARY | 2024-09-28 11:32 | XMS_ITS | Encounter Summary ---
Author Organization [facility] Address [address] [place] [address] Care Team Providers Care Aviculturist Name Role Phone Provider, No Known Primary Care Provider Unavail able Reason for Referral * Diagnostic Imaging (Routine) - Closed Specialty Diagnoses / Procedures Referred By Kwasi t Referred To Contact Radiology Diagnoses IUGR (intrauterine growth restriction) affecting care of mother, third trimester, fetus 1 , unspecified gestational age Procedures US [facility] Diagnostic [place] Sacha Avelar MD [address] [place] [address] Phone: tel: fax: [facility] US PER DIAG CTR [address] [facility] [place] [place] [address] Phone: tel: Referral ID Status Reason Start Date Expiration Date Visits Re quested Visits Authorized [id number] Closed 09/27/2024 12/27/2025 1 1 Reason for Visit * Diagnostic Imaging (Routine) - Closed Specialty Diagnoses / Procedures Referred By Contac t Referred To Contact Radiology Diagnoses IUGR (intrauterine growth restriction) affecting care of mother, third trimester, fetus 1 , unspecified gestational age Procedures US [facility] Diagnostic [place] Sacha Avelar MD [address] [place] [address] Phone: tel: fax: [facility] US PER DIAG CTR [address] [place] [address] Phone: tel: Referral ID Status Reason Start Date Expiration Date Visits Re quested Visits Authorized [id number] Closed 09/27/2024 12/27/2025 1 1 Encounter Details Date Type Department Care Team (Latest Contact Info) Description 09/28/2024 11:32 AM EDT - 09/28/2024 11:59 PM EDT Hospital Encounter [facility] PER DIAG CTR [address] [place] [address] IUGR (intrauterine growth restriction) affecting care of mother, third trimester, fetus 1; , unspecified gestational age Discharge Disposition: Home or Self Care Social History Tobacco Use Types Packs/Day Years Used Date Smoking Tobacco: Every Day Cigarettes 1 13.6 Started: 03/03/2011 Smokeless Tobacco: Never Alcohol Use Standard Drinks/Week Comments Not Currently 0 (1 standard drink = 0.6 oz pur e alcohol) Estimated Date of Delivery Comme nts Yes 11/09/2024 Date entered flavio or to episode creation Sex and Gender Information Value Date Recorded Sex Assigned at Not on file Legal Sex Female 3:31 PM EDT Gender Identity Not on file Sexual Orientation Not on file documented as of this encounter Medications at Time of Discharge [place]-3 Fatty Acids (fish oil) 1000 MG capsule capsule Take 1 capsule by mouth Daily With Breakfast. Vit-Fe Fumarate-FA ( vitamin 27-0.8) 27-0.8 MG tablet tablet Take 1 tablet by mouth Daily. terconazole (TERAZOL 7) 0.4 % vaginal cream Insert 1 applicator into the vagina Every Night. 09/15/2024 documented as of this encounter Plan of Treatment Upcoming Encounters Date Type Department Care Team (Late st Contact Info) Description 10/12/2024 7:30 AM EDT Office Visit [facility] MATERNAL MEDICINE [address] [place] [address] 10/12/2024 7:30 AM EDT Appointment [facility] PER DIAG CTR [address] [place] [address] 10/26/2024 8:45 AM EDT Office Visit [facility] [address] [facility] [address] [place] [address] 10/26/2024 8:45 AM EDT Appointment [facility] US PER DIAG CTR [address] [place] [address] 11/09/2024 7:30 AM EDT Office Visit [facility] [address] [facility] [address] [address] [place] [address] 11/09/2024 7:30 AM EDT Appointment [facility] US PER DIAG CTR [address] [place] [address] documented as of this encounter Procedures Procedure Name Priority Date/Time Associated Diagnosis Comments [facility] Routine 09/28/2024 1:22 PM EDT IUGR (intrauterine growth restriction) affecting care of mother, third trimester, fetus 1 , unspecified gestational age documented in this encounter Results * [facility] (09/28/2024 1:22 PM EDT) Anatomical Region Laterality Modality Ultrasound 09/28/2024 12:3 4 PM EDT Narrative 09/28/2024 1:40 PM EDT PAT NAME: DAVID KHAN [facility] REC#: [id number] DA: [id number] PAT GEND: F PAT TYPE: O EXAM JOSSY: [id number] REF PHYS TORREY AVELARK Comparison Studies There are no relevant prior studies to which this study is being compared Patient Status Outpatient Indication ======== IUGR Maternal Assessment Height 161 cm Height (ft) 5 ft Height (in) 3 in Weight 78 kg Weight (lb) 172 lb BMI 30.09 kg/m Method ======= Transabdominal ultrasound examination. View: Adequate view ========= Aguirre . Number of fetuses: 1 Dating ====== Method of dating: based on stated GEOVANNA GA by prior assessment 34 w + 0 d GEOVANNA by prior assessment: 11/09/2024 Ultrasound examination on: 09/28/2024 GA by U/S based upon: AC, BPD, Femur, HC GA by U/S 31 w + 6 d GEOVANNA by U/S: 11/24/2024 Assigned: based on stated GEOVANNA, selected on 09/28/2024 Assigned GA 34 w + 0 d Assigned GEOVANNA: 11/09/2024 length 280 d Biometry Standard BPD 78.8 mm 31w 4d 3% Hadlock OFD 103.1 mm 33w 4d 42% Cheryl HC 289.0 mm 31w 6d <1% Hadlock Cerebellum tr 45.0 mm 34w 4d 41% Hill AC 288.4 mm 32w 6d 21% Hadlock Femur 60.2 mm 31w 2d 1% Hadlock Humerus 51.1 mm 29w 6d <1% Cheryl HC / AC 1.00 EFW 1,920 g 31w 6d 7% Hadlock EFW (lb) 4 lb EFW (oz) 4 oz EFW by: Hadlock (PAL-LV-HW-FL) Extended Tibia 51.5 mm 30w 5d 1% Cheryl Fibula 50.1 mm 30w 4d 19% Cheryl Foot 64.2 mm 10% Chitty Radius 44.5 mm 31w 4d 34% Cheryl Ulna 47.1 mm 30w 0d <1% Cheryl Cav. septi pel. tr 6.7 mm Ob/Gyn Doctor 5.1 mm CM 6.4 mm 23% Nicolaides Nasal bone 12.1 mm Head / Face / Neck Cephalic index 0.76 12% Nicolaides Extremities / Bony Struc FL / BPD 0.76 FL / HC 0.21 FL / AC 0.21 Other Structures FHR 143 bpm General Evaluation Cardiac activity present. FHR 143 bpm. movements present. Presentation cephalic. Placenta Placental site: posterior. Umbilical cord Cord vessels: 3 vessel cord. Insertion site: placental insertion: normal. Amniotic fluid Amount of AF: normal. MVP 3.5 cm. DANO 12.4 cm. Q1 3.0 cm, Q2 3.0 cm, Q3 3.0 cm, Q4 3.5 cm. Anatomy Cranium: Appears normal Midline falx: Appears normal Cavum septi pellucidi: Appears normal Cerebellum: Appears normal Cisterna magna: Appears normal Head / Neck Rt lateral ventricle: Appears normal Lt lateral ventricle: Appears normal Rt choroid plexus: Appears normal Lt choroid plexus: Appears normal Vermis: Appears normal Neck: Appears normal Lips: Appear normal Profile: Appears normal Nose: Appears normal Face Nose: Nasal bone present Palate: Appears normal Orbits: Appears normal Lens: Normal 4-chamber view: Appears normal RVOT view: Appears normal LVOT view: Appears normal Heart / Thorax Aortic arch view: Appears normal Ductal arch view: Appears normal SVC: normal IVC: normal 3-vessel view: Appears normal 5-umvzfd-lbxvlsd view: Appears normal Rt lung: Appears normal Lt lung: normal Diaphragm: Appears normal Diaphragm: Intact Cord insertion: Appears normal Stomach: Appears normal Bladder: Appears normal Abdomen Rt kidney: normal Lt kidney: normal Liver: normal Small bowel: normal Large bowel: normal Cervical spine: Appears normal Thoracic spine: Appears normal Lumbar spine: Appears normal Sacral spine: Appears normal Arms: Appears normal Legs: Appears normal Rt upper arm: Appears normal Rt forearm: Appears normal Rt hand: Appears normal Lt upper arm: Appears normal Lt forearm: Appears normal Lt hand: Appears normal Rt upper leg: Appears normal Rt lower leg: Appears normal Rt foot: Appears normal Lt upper leg: Appears normal Lt lower leg: Appears normal Lt foot: Appears normal Gender: female Wants to know gender: yes Doppler Arterial Umbilical A PI 1.26 97% Get Umbilical A RI 0.71 92% Get Umbilical A PS 53.15 cm/s 68% Ebbing Umbilical A ED 17.85 cm/s Umbilical A TAmax 29.84 cm/s 32% Ebbing Umbilical A MD 14.65 cm/s Umbilical A S / D 3.54 93% Get Umbilical A HR 153 bpm Biophysical Profile 2: breathing movements 2: Gross body movements 2: tone 2: Amniotic fluid volume 10/08 Biophysical profile score Maternal Structures Uterus / Cervix Cervix: Visualized Approach: Transabdominal Cervical length 46.9 mm Ovaries / Tubes / Adnexa Rt ovary: Visualized Lt ovary: Visualized Consultation / Office Visit Office note to follow Impression Today's exam reveals a SIUP in cephalic presentation with biometry inconsistent with dates, EFW at the 7%ile. Small EFW driven by small head measurements and small long bone measurements (though do not reflect a particular pattern). Limited anatomic survey appears normal. The DANO, UA dopplers and BPP are normal. Recommendation Follow up here in 2 weeks. Recommend twice weekly testing in your office. Coding ======= Description: 27484-06 Detailed Ultrasound Description: 68220-78 BPP without NST Description: 76711-04 Doppler Umbilical Artery Communications Intern: Xiomara Garcia RDMS Physician: Luigi Ramos MD, FACOG Electronically signed by: Luigi Ramos MD, FACOG at: 13:40 Procedure Note Luigi Ramos MD - 09/28/2024 PAT NAME: DAVID KHAN [facility] REC#: [id number] DA: [id number] PAT GEND: F PAT TYPE: O EXAM JOSSY: [id number] REF PHYS AVELARSACHA Comparison Studies There are no relevant prior studies to which this study is beingcompared Patient Status Outpatient Indication ======== IUGR Maternal Assessment Ezudtg991 cm Height (ft)5 ft Height (in)3 in Ilglgd34 kg Weight (lb)172 lb BMI30.09 kg/m Method ======= Transabdominal ultrasound examination. View: Adequate view ========= Aguirre . Number of fetuses: 1 Dating ====== Method of dating:based on stated GEOVANNA GA by prior [id number] w + 0 d GEOVANNA by prior assessment:11/09/2024 Ultrasound examination on:09/28/2024 GA by U/S based upon:AC, BPD, Femur, HC GA by U/S31 w + 6 d GEOVANNA by U/S:11/24/2024 Assigned:based on stated GEOVANNA, selected on 09/28/2024 Assigned GA34 w + 0 d Assigned GEOVANNA:11/09/2024 [id number] d Biometry Standard BPD78.8 mm 31w 4d 3% Hadlock KWF822.1 mm 33w 4d 42% Cheryl HC289.0 mm 31w 6d <1% Hadlock Cerebellum tr45.0 mm 34w 4d 41% Hill AC288.4 mm 32w 6d 21% Hadlock Femur60.2 mm 31w 2d 1% Hadlock Nuhltrb48.1 mm 29w 6d <1% Cheryl HC / AC1.00 EFW1,920 g 31w 6d 7% Hadlock EFW (lb)4 lb EFW (oz)4 oz EFW by:Hadlock (WBN-LI-LN-FL) Extended Tibia51.5 mm 30w 5d 1% Cheryl Nnanaq99.1 mm 30w 4d 19% Cheryl Foot64.2 mm 10% Chitty Qgzkpq89.5 mm 31w 4d 34% Cheryl Ulna47.1 mm 30w 0d <1% Cheryl Cav. septi pel. tr6.7 mm Vp5.1 mm CM6.4 mm 23% Nicolaides Nasal bone12.1 mm Head / Face / Neck Cephalic index0.76 12% Nicolaides Extremities / Bony Struc FL / BPD0.76 FL / HC0.21 FL / AC0.21 Other Structures RAJ163 bpm General Evaluation Cardiac activity present. FHR 143 bpm. movements present. Presentation cephalic. Placenta Placental site: posterior. Umbilical cord Cord vessels: 3 vessel cord. Insertion site: placentalinsertion: normal. Amniotic fluid Amount of AF: normal. MVP 3.5 cm. DANO 12.4 cm. Q1 3.0 cm,Q2 3.0 cm, Q3 3.0 cm, Q4 3.5 cm. Anatomy Cranium:Appears normal Midline falx:Appears normal Cavum septi pellucidi:Appears normal Cerebellum:Appears normal Cisterna magna:Appears normal Head / Neck Rt lateral ventricle:Appears normal Lt lateral ventricle:Appears normal Rt choroid plexus:Appears normal Lt choroid plexus:Appears normal Vermis:Appears normal Neck:Appears normal Lips:Appear normal Profile:Appears normal Nose:Appears normal Face Nose:Nasal bone present Palate:Appears normal Orbits:Appears normal Lens:Normal 4-chamber view:Appears normal RVOT view:Appears normal LVOT view:Appears normal Heart / Thorax Aortic arch view:Appears normal Ductal arch view:Appears normal SVC:normal IVC:normal 3-vessel view:Appears normal 8-hcxsya-pjnnyqw view:Appears normal Rt lung:Appears normal Lt lung:normal Diaphragm:Appears normal Diaphragm:Intact Cord insertion:Appears normal Stomach:Appears normal Bladder:Appears normal Abdomen Rt kidney:normal Lt kidney:normal Liver:normal Small bowel:normal Large bowel:normal Cervical spine:Appears normal Thoracic spine:Appears normal Lumbar spine:Appears normal Sacral spine:Appears normal Arms:Appears normal Legs:Appears normal Rt upper arm:Appears normal Rt forearm:Appears normal Rt hand:Appears normal Lt upper arm:Appears normal Lt forearm:Appears normal Lt hand:Appears normal Rt upper leg:Appears normal Rt lower leg:Appears normal Rt foot:Appears normal Lt upper leg:Appears normal Lt lower leg:Appears normal Lt foot:Appears normal Gender:female Wants to know gender:yes Doppler Arterial Umbilical A PI1.26 97% Get Umbilical A RI0.71 92% Get Umbilical A PS53.15 cm/s 68% Ebbing Umbilical A ED17.85 cm/s Umbilical A TAmax29.84 cm/s 32% Ebbing Umbilical A MD14.65 cm/s Umbilical A S / D3.54 93% Get Umbilical A HR153 bpm Biophysical Profile 2: breathing movements 2: Gross body movements 2: tone 2: Amniotic fluid volume 10/08 Biophysical profile score Maternal Structures Uterus / Cervix Cervix:Visualized Approach:Transabdominal Cervical yedooh98.9 mm Ovaries / Tubes / Adnexa Rt ovary:Visualized Lt ovary:Visualized Consultation / Office Visit Office note to follow Impression Today's exam reveals a SIUP in cephalic presentation with biometryinconsistent with dates, EFW at the 7%ile. Small EFW driven by small headmeasurements and small long bone measurements (though do not reflect a particular pattern).Limited anatomic survey appears normal. The DANO, UA dopplers and BPPare normal. Recommendation Follow up here in 2 weeks. Recommend twice weekly testing inyour office. Coding ======= Description:39669-93 Detailed Ultrasound Description:30568-76 BPP without NST Description:51939-78 Doppler Umbilical Artery Communications Intern: Xiomraa Garcia RDMS Physician: Luigi Ramos MD, FACOG Electronically signed by: Luigi Ramos MD, FACOG at: 13:40 us Sacha Avelar MD IMG US ORDERABLES Final Resul t documented in this encounter Visit Diagnoses Diagnosis IUGR (intrauterine growth restriction) affecting care of mother, third trimester, fetus 1 , unspecified gestational age documented in this encounter Care Teams Aviculturist Relationship Specialty Start Date End Date Provider, [place] [address] PCP - General 09/27/24 documented as of this encounter
--- OUTSIDE RECORDS SUMMARY | 2024-09-28 12:30 | XMS_ITS | Encounter Summary ---
Author Organization [facility] Address [address] [place] [address] Care Team Providers Care Cane Flume Watcher Name Role Phone Provider, No Known Primary Care Provider Unavail able Reason for Referral * Diagnostic Imaging (Routine) - Authorized Specialty Diagnoses / Procedures Referred By Contac t Referred To Contact Radiology Diagnoses Poor growth affecting management of mother in third trimester, single or unspecified fetus Procedures [facility] Casie Ramos MD [address] [facility] [address] [place] [address] Phone: tel: fax: Referral ID Status Reason Start Date Expiration Date V isits Requested Visits Authorized Authorized 09/28/2024 12/28/2025 1 1 Reason for Visit * Reason Comments IUGR Encounter Details Date Type Department Care Team (Late st Contact Info) Description 09/28/2024 12:30 PM EDT Office Visit [facility] [address] [place] [address] Casie Ramos MD [address] [facility] [address] [place] [id number] Poor growth affecting management of mother in third trimester, single or unspecified fetus (Primary Dx) Social History Tobacco Use Types Packs/Day Years Used Date Smoking Tobacco: Every Day Cigarettes 1 13.6 Started: 03/03/2011 Smokeless Tobacco: Never Tobacco Cessation:Ready to Q uit: Yes; Counseling Given: Yes Alcohol Use Standard Drinks/Week Comments Not Currently [...] Sign Reading Time Taken Comments Blood Pressure 98/55 09/28/2024 12:22 PM EDT Pulse - - Temperature - - Respiratory Rate - - Oxygen Saturation - - Inhaled Oxygen Concentration - - Weight 78 kg (172 lb) 09/28/2024 12:22 PM EDT Height 161.3 cm (5' 3.5 ) 09/28/2024 12:25 PM ED T Body Mass Index 29.99 09/28/2024 12:22 PM EDT documented in this encounter Progress Notes * Casie Ramos MD - 09/28/2024 1:29 PM EDTAssociated Problem(s): Poor growth affecting management of mother in third trimester Growth today reveals overall EFW at 7%ile, though AC at 21%ile giving diagnosis of growth restriction, some long bones and head measurements are <1%ile skewing the EFW. Reassuringly the amniotic fluid and umbilical artery cord Doppler are both normal today. We discussed the various etiologies for growth restriction including: Infection, genetic factors such as aneuploidy, placental abnormalities, constitutional, and maternal vascular/autoimmune disease.No sonographic markers for infection were seen today. No congenital anomalies were seen today however anatomic survey was limited secondary to advanced gestational age. Patient previously declined gen [facility] testing. We discussed how management of growth restriction is essentially the same regardless of etiology with close monitoring. Plan for follow up in 2 weeks. We discussed potential improvement with increased nutrition, decreased activity and smoking cessation. We discussed careful return precautions regarding decreased movement. Recommend continue twice-weekly testingin your office. We discussed recommendation for delivery will be made with next visit giving somewhat conflicting growth parameters noted today * Casie Ramos MD - 09/28/2024 12:30 PM EDTAddended by: CASIE RAMOS on: 09/28/2024 02:46 PM Modules accepted: Orders * Harleen Devi RN - 09/28/2024 12:30 PM EDT Denies vaginal bleeding, leaking fluid. Pt reports she has had a lot of Hand- Nails contractions,but nothing regular. Pt endorses normal movement. NIPT declined. Next OB follow-up appointment with Dr. Hsu on 09/30/2024. * Casie Ramos MD - 09/28/2024 12:30 PM EDT Images from the original note were not included. Maternal/ Medicine Consult Note Date: 09/28/2024 Name: Ro Khan : 2000 Referring Provider: Martell Hsu MD Chief Complaint IUGR Subjective History of Present Illness: Ro Khan is a 24 y.o. 34w0d who presents today for IUGR GEOVANNA: Estimated Date of Delivery: 11/09/24 ROS: Otherwise Noted in HPI Past Medical History: Diagnosis Date UTI (urinary tract infection) pt reports frequent UTIs, recently took antibiotics for UTI related to drinking a dye for a test Past Surgical History: Procedure Laterality Date MOUTH SURGERY TONSILLECTOMY AND ADENOIDECTOMY OB History 5 Para 1 Term 1 AB 3 Living 1 SAB 3 IAB Ectopic Molar Multiple Live Births 1 Current Outpatient Medications: Vit-Fe Fumarate-FA ( vitamin 27-0.8) 27-0.8 MG tablet tablet, Take 1 tablet by mouth Daily., Disp: , Rfl: [place]-3 Fatty Acids (fish oil) 1000 MG capsule capsule, Take 1 capsule by mouth Daily With Breakfast., Disp: , Rfl: terconazole (TERAZOL 7) 0.4 % vaginal cream, Insert 1 applicator into the vagina Every Night. (Patient not taking: Reported on 09/28/2024), Disp: , Rfl: Objective Vital Signs BP 98/55 Ht 161.3 cm (63.5 ) Wt 78 kg (172 lb) Estimated body mass index is 29.99 kg/m?? as calculated from the following: Height as of this encounter: 161.3 cm (63.5 ). Weight as of this encounter: 78 kg (172 lb). Ultrasound Impression: See Viewpoint Assessment and Plan Ro Khan is a 24 y.o. 34w0d who presents today for IUGR Diagnoses and all orders for this visit: 1. Poor growth affecting management of mother in third trimester, single or unspecified fetus(Primary) Assessment & Plan: Growth today reveals overall EFW at 7%ile, though AC at 21%ile giving diagnosis of growth restriction, some long bones and head measurements are <1%ile skewing the EFW. Reassuringly the amniotic fluid and umbilical artery cord Doppler are both normal today. We discussed the various etiologies for growth restriction including: Infection, genetic factors such as aneuploidy, placental abnormalities, constitutional, and maternal vascular/autoimmune disease.No sonographic markers for infection were seen today. No congenital anomalies were seen today however anatomic survey was limited secondary to advanced gestational age. Patient previously declined gen etic testing. We discussed how management of growth restriction is essentially the same regardless of etiology with close monitoring. Plan for follow up in 2 weeks. We discussed potential improvement with increased nutrition, decreased activity and smoking cessation. We discussed careful return precautions regarding decreased movement. Recommend continue twice-weekly testingin your office. We discussed recommendation for delivery will be made with next visit giving somewhat conflicting growth parameters noted today Follow Up 2 weeks I spent 15 minutes caring for the patient on the day of service. This included: obtaining or reviewing a separately obtained medical history, reviewing patient records, performing a medically appropriate exam and/or evaluation, counseling or educating the patient/family/caregiver, ordering medications, labs, and/or procedures and documenting such in the medical record. This does not include time spent on review and interpretation of other tests such as ultrasound or the performance of other procedures such as amniocentesis or CVS. Casie Ramos MD, FACOG Maternal Medicine, [facility] documented in this encounter Plan of Treatment Upcoming Encounters Date Type Department Care Team (Late st Contact Info) Description 10/12/2024 7:30 AM EDT Office Visit [facility] [address] [place] [address] 10/12/2024 7:30 AM EDT Appointment [facility] [address] [place] [address] 10/26/2024 8:45 AM EDT Office Visit [facility] [address] [place] [address] 10/26/2024 8:45 AM EDT Appointment [facility] [address] [place] [address] 11/09/2024 7:30 AM EDT Office Visit [facility] [address] [facility] [address] [place] [address] 11/09/2024 7:30 AM EDT Appointment [facility] [address] [place] [address] Scheduled Orders Name Type Priority Associated Diagnoses Orde r Schedule [facility] Imaging Routine Poor growth affecting management of mother in third trimester, single or unspecified fetus Expected: 10/03/2024 (Approximate), Expires: 09/28/2025 documented as of this encounter Visit Diagnoses Diagnosis Poor growth affecting management of mother in third trimester, single or unspecified fetus- Primary documented in this encounter Care Teams Cane Flume Watcher Relationship Specialty Start Date End Date Provider, [place] [address] PCP - General 09/27/24 documented as of this encounter
--- OUTSIDE RECORDS SUMMARY | 2024-09-30 11:12 | XMS_ITS | Encounter Summary ---
[facility] Address [address] [place] [address] Care Team Providers Care Family Resource Coordinator Name Role Phone Provider, No Known Primary [...] Description 10/12/2024 7:30 AM EDT Office Visit [facility] [address] [address] 10/12/2024 7:30 AM EDT Appointment [facility] [address] [place] [address] 10/26/2024 8:45 AM EDT Office Visit [facility] [address] [address] 10/26/2024 8:45 AM EDT Appointment [facility] [address] [place] [address] 11/09/2024 7:30 AM EDT Office Visit [facility] [address] [place] [address] 11/09/2024 7:30 AM EDT Appointment [facility] [address] [place] [address] documented as of this encounter Visit Diagnoses Not on filedocumented in this encounter Care Teams Family Resource Coordinator Relationship Specialty Start Date End Date Provider, [place] [address] PCP - General 09/27/24 documented as of this encounter
--- OUTSIDE RECORDS SUMMARY | 2024-09-30 11:12 | XMS_ITS | Encounter Summary ---
Author Organization [place] [address] Care Team Providers Care Commodities Broker Name Role Phone Mary Greer MD Primary Care Provider +1- [phone] Encounter Details Date Type Department Care Team (Late st Contact Info) Description 09/23/2024 Abstract SEP [facility] [address] [facility] [phone] Monique Ozuna MA Social History Tobacco Use Types Packs/Day Years Used Date Smoking Tobacco: Former Cigarettes Smokeless Tobacco: Never Alcohol Use Standard Drinks/Week Comments No 0 (1 standard drink = 0.6 oz pur e alcohol) [facility] Utilities Answer Date Recorded In the past 12 months has [employer] electric, gas, oil, or water company threatened to shut off services in your home? No 02/27/2024 Overall Financial Resource Strain (CARDIA) Answe r Date Recorded How hard is it for you to pa y for the very basics like food, housing, medical care, and heating? Not hard at all 02/27/2024 PHQ-2 Answer Date Recorded PHQ-2 Total Score 0 09/05/2024 [facility] of Occupat ional Health - Occupational Stress [...] things needed for daily living? No 03/28/2020 [facility] IP Transportation Answer D ate Recorded [...] on filedocumented in this encounter Care Teams Commodities Broker Relationship Specialty Start Date End Date Mary Greer MD [address] [facility] [place] [address] PCP - General Family Medicine 06/14/14 documented as of this encounter
--- OUTSIDE RECORDS SUMMARY | 2024-09-30 11:12 | XMS_ITS | Encounter Summary ---
Author Organization [facility] Address [address] [place] [address] [place] [address] Phone Care Team Providers Care Hot Stick Man Name Role Phone Unavailable Primary Care Provider Unavailabl e Reason for Referral * Radiology Services (Routine) - Closed Specialty Diagnoses / Procedures Referred By Kwasi roland Referred To Contact Procedures OB [facility] Referral ID Status Reason Start Date Expiration Date V isits Requested Visits Authorized [id number] Closed Specialty Services Required 04/03/2019 04/02/2020 150 150 Encounter Details Date Type Department Care Team (Late st Contact Info) Description 04/03/2019 SCAN [facility] [address] [place] [id number] Social History Tobacco Use Types Packs/Day Years [...]
--- OUTSIDE RECORDS SUMMARY | 2024-09-30 11:12 | XMS_ITS | Clinical Summary ---
Author Organization [facility] Address [address] [place] [address] Phone Care Team Providers Care Tinning Machine Set Up Operator Name Role Phone Unavailable Primary Care [...]
--- OUTSIDE RECORDS SUMMARY | 2024-09-30 11:12 | XMS_ITS | Clinical Summary ---
Author Organization [facility] Address [place] [address] Phone Care Team Providers Care Senior Fire Protection Engineer Name Role Phone Mary Greer MD Primary Care Provider +1- [phone] Allergies Active Allergy Reactions Criticality Noted Date Comments Diphenhydramine Hcl Ibuprofen Hives High 11/02/2014 Naproxen Hives,Itching,Rash 11/02/2014 Cefdinir Rash Medium 05/12/2010 Penicillins Rash 03/08/2010 Prednisone Rash Medium 11/07/2015 [place] hyper Red Dye 06/16/2009 Olanzapine Nausea Only [...] abnormality -BHCG slightly above normal -MRI pending -entry level mechanical engineer eval -Morphine/Zofran PRN -NPO Bilious vomiting [...] Department Care Team Description 09/23/2024 Abstract SEP [facility] [address] [place] [address] Monique Ozuna MA 09/05/2024 7:23 PM EDT - 09/05/2024 9:31 PM EDT Hospital Encounter EDG LDRP [facility] [address] [place] [id number] Julia Wellington MD Discharge Disposition: Home or Self Care 09/05/2024 7:18 PM EDT - 09/05/2024 7:19 PM EDT Emergency [place] [facility] [place] [address] Discharge Disposition: Left Without Being Seen [...] drink = 0.6 oz pur e alcohol) [facility] Utilities Answer Date Recorded In the [...] Date Recorded PHQ-2 Total Score 0 09/05/2024 [facility] of Occupat ional Health - Occupational Stress [...] things needed for daily living? No 03/28/2020 [facility] IP Transportation Answer D ate [...] Labor Labor/2nd/3rd Weight Sex Type Anes PTL Yolsi A1 A5 Name Clin 2020 Vag-Spo nt Current Summary Episode Dates Number of Fetuses Estimated Date of Delivery 09/05/2024 - Present (09/30/2024) 1 11/08/2024 (set by Lynn Cordova RN [...] :21 PM EDT Screening for chlamydial disease ANCHOR OPERATOR CYTOLOGY REQUEST (PAP ONLY) Routine 02/11/2019 2:41 [...] POC Yellow Color 09/05/2024 7:40 PM EDT [facility] UA Appear POC Clear Clear 09/05/2024 7:40 PM EDT [facility] UA Blood POC Negative Negative 09/05/2024 7:40 PM EDT [facility] UA pH POC 6.0 5.0 - 8.0 pH 09/05/2024 7:40 PM EDT [facility] UA Urobilinogen POC 0.2 0.2, 1.0 09/05/2024 7:40 PM EDT [facility] UA Nitrite POC Negative Negative 09/05/2024 7:40 PM EDT [facility] UA Leuk Est POC Negative Negative 7:40 PM EDT [facility] UA SG POC >=1.030 1.001 - 1.035 no units 09/05/2024 7:40 PM EDT [facility] UA Gluc POC Negative Negative mg/dL 09/05/2024 7:40 PM EDT [facility] UA Protein POC Negative Negative mg/dL 09/05/2024 7:40 PM EDT [facility] UA Ketones POC Negative Negative mg/dL 09/05/2024 7:40 PM EDT [facility] Urine STRUCTURE OF URINARY TRACT PROPER / Unknown 09/05/2024 7:37 PM EDT 09/05/2024 7:40 PM EDT us Julia March MD POINT OF CARE TEST [place] [address] * CHLAMYDIA/GC BY TMA (08/23/2021 2:21 PM EDT) Pathologist [facility] Chlamydia trachomatis Not Detected Not Detected 08/24/2021 3:50 AM EDT [facility] Neisseria gonorrhoeae Not Detected Not Detected 08/24/2021 3:50 AM EDT [facility] Urine URINE SPECIMEN COLLECTION / Unknown 08/23/2021 2:21 PM EDT 08/23/2021 2:21 PM EDT Narrative [facility] - 08/24/2021 3:50 AM EDT Testing methodology is political science faculty member mediated amplification (TMA) using the Aptima Combo 2 assay from [employer]. A negative result does not completely rule [...] - GENERAL ORDERA BLES Final Result [facility] [employer] [address] [facility] [facility] , [address] [place], [place] [id number] * ANCHOR OPERATOR CYTOLOGY REQUEST (PAP ONLY) (02/11/2019 2:41 PM EST) CASE REPORT Gynecologic Cytology Report Case: [id number] Authorizing Provider: Myriam Guillen, Collected: 02/11/2019 1441 HOLISTIC HEALTH PRACTITIONER Ordering Location: [facility] Received: 02/11/2019 1441 First Screen: Neha Lockwood CT Specimen: LIQUID-BASED PAP - CERVICAL/ENDOCERV ICAL, Cervix, Endocervical 02/15/2019 2:21 PM EST [facility] PAP FINAL DIAGNOSIS Negative for intraepithelial lesion or malignancy 02/15/2019 2:21 PM [facility] at 1421 EST MICROSCOPIC DESCRIPTION Microscopic examination is performed and the findings corroborate the diagnosis. 02/15/2019 2:21 PM EST [facility] PAP SMEAR ADEQUACY Satisfactory for evaluation 02/15/2019 2:21 PM [facility] PAP ORGANISMS NOTED Fungal organisms present consistent with josesito. 02/15/2019 2:21 PM EST [facility] ENDOCERVICAL T-ZONE Transformation zone present 02/15/2019 2:21 PM [facility] EMBEDDED IMAGES 9 2:21 PM [facility] PAP DISCLAIMER The Pap Smear is a screening test that aids in the detection of cervical cancer and cancer precursors. Both false positive and false negative results can occur. The test should be used at regular intervals, and positive results should be confirmed before definitive therapy. Processed using the [employer] Metal Door Assembler Automated cytology screening device ([employer]). 02/15/2019 2:21 PM EST [facility] Thin Prep ENDOCERVICAL STRUCTURE / Unknown 02/11/2019 2:41 PM EST 02/11/2019 2:41 PM EST us Myriam Floresrazasanjay HOLISTIC HEALTH PRACTITIONER CYTOLOGY ORDERABLES Fi nal Result [facility] [address] [place] [address] from Last 3 Months or Most Recently Relevant to Health Maintenance Advance Directives For more information, please contact: [phone] * Full Code (Latest Code Status on File) Date Activated Date Inactivated Comments 02/27/2024 5:52 AM 02/29/2024 1:40 AM Care Teams Senior Fire Protection Engineer Relationship Specialty Start Date End Date Mary Greer MD [address] [place] [address] PCP - General Family Medicine 06/14/14
--- OUTSIDE RECORDS SUMMARY | 2024-09-30 11:12 | XMS_ITS | Clinical Summary ---
Author Organization [facility] Address [address] [place] [address] Care Team Providers Care Fleece Tier Name Role Phone Provider, No Known Primary [...] Take 1 tablet by mouth Daily. Active [place]-3 Fatty Acids (fish oil) 1000 MG capsule [...] Description 09/28/2024 12:30 PM EDT Office Visit [facility] [address] [facility] [address] [place] [address] Luigi Ramos MD Poor growth affecting management of mother in third trimester, single or unspecified fetus (Primary Dx) 09/28/2024 11:32 AM EDT - 09/28/2024 11:59 PM EDT Hospital Encounter [facility] [address] [place] [phone] IUGR (intrauterine growth restriction) affecting care of [...] 10/12/2024 7:30 AM EDT [facility] [address] [facility] [address] [place] [address] 10/12/2024 7:30 AM EDT Appointment [facility] [address] [place] [address] 10/26/2024 8:45 AM EDT Office Visit [facility] [address] [address] 10/26/2024 8:45 AM EDT Appointment [facility] [address] [place] [address] 11/09/2024 7:30 AM EDT Office Visit [facility] [address] [address] 11/09/2024 7:30 AM EDT Appointment [facility] [address] [place] [address] Health Maintenance Due Date Last Done Comments [...] Name Priority Date/Time Associated Diagnosis Comments [facility] Routine 09/28/2024 1:22 PM EDT IUGR (intrauterine growth restriction) affecting care of mother, third trimester, fetus 1 , unspecified gestational age from Last 3 Months Results * [facility] (09/28/2024 1:22 PM EDT) Anatomical Region Laterality Modality Ultrasound 09/28/2024 12:3 4 PM EDT Narrative 09/28/2024 1:40 PM EDT PAT NAME: RO KHAN [facility] REC#: [id number] DA: [id number] PAT GEND: F PAT TYPE: O EXAM JOSSY: [id number] REF PHYS SACHA AVELAR Comparison Studies There [...] EFW (oz) 4 oz EFW by: Hadlock (RUF-EA-GS-FL) Extended Tibia 51.5 mm 30w 5d 1% Cheryl Fibula 50.1 mm 30w 4d 19% Cheryl Foot 64.2 mm 10% Chitty Radius 44.5 mm 31w 4d 34% Cheryl Ulna 47.1 mm 30w 0d <1% Cheryl Cav. septi pel. tr 6.7 mm Building Maintenance Supervisor 5.1 mm CM 6.4 mm 23% Nicolaides [...] normal IVC: normal 3-vessel view: Appears normal 7-vasdax-wnebalh view: Appears normal Rt lung: Appears normal [...] testing in your office. Coding ======= Description: 88784-97 Detailed Ultrasound Description: 14510-52 BPP without NST Description: 80094-00 Doppler Umbilical Artery Backpackers Manager: Xiomara Garcia RDMS Physician: Luigi Ramos MD, FACOG Electronically signed by: Luigi Ramos MD, FACOG at: 13:40 Procedure Note Luigi Ramos MD - 09/28/2024 PAT NAME: RO KHAN [facility] REC#: [id number] DA: [id number] PAT GEND: F PAT TYPE: O EXAM JOSSY: [id number] REF PHYS SACHA AVELAR Comparison Studies There are no relevant prior studies to which this study is beingcompared Patient Status Outpatient Indication ======== IUGR Maternal Assessment Arzocw053 cm Height (ft)5 ft Height (in)3 in Jjukml22 kg Weight (lb)172 lb BMI30.09 kg/m Method ======= Transabdominal ultrasound examination. View: Adequate view ========= Aguirre . Number of fetuses: 1 Dating ====== Method of dating:based on stated GEOVANNA GA by prior zzixfwlzil29 w + 0 d GEOVANNA by prior assessment:11/09/2024 Ultrasound examination on:09/28/2024 GA by U/S based upon:AC, BPD, Femur, HC GA by U/S31 w + 6 d GEOVANNA by U/S:11/24/2024 Assigned:based on stated GEOVANNA, selected on 09/28/2024 Assigned GA34 w + 0 d Assigned GEOVANNA:11/09/2024 lmhzys446 d Biometry Standard BPD78.8 mm 31w 4d 3% Hadlock HTL360.1 mm 33w 4d 42% Cheryl HC289.0 mm 31w 6d <1% Hadlock Cerebellum tr45.0 mm 34w 4d 41% Hill AC288.4 mm 32w 6d 21% Hadlock Femur60.2 mm 31w 2d 1% Hadlock Ttzeqic49.1 mm 29w 6d <1% Cheryl HC / AC1.00 EFW1,920 g 31w 6d 7% Hadlock EFW (lb)4 lb EFW (oz)4 oz EFW by:Hadlock (THL-TK-VW-FL) Extended Tibia51.5 mm 30w 5d 1% Cheryl Ybqwjv62.1 mm 30w 4d 19% Cheryl Foot64.2 mm 10% Chitty Eicqji32.5 mm 31w 4d 34% Cheryl Ulna47.1 mm 30w 0d <1% Cheryl Cav. septi pel. tr6.7 mm Vp5.1 mm CM6.4 mm 23% Nicolaides Nasal bone12.1 mm Head / Face / Neck Cephalic index0.76 12% Nicolaides Extremities / Bony Struc FL / BPD0.76 FL / HC0.21 FL / AC0.21 Other Structures OPO520 bpm General Evaluation Cardiac activity present. FHR [...] view:Appears normal SVC:normal IVC:normal 3-vessel view:Appears normal 5-dqktan-tyoowik view:Appears normal Rt lung:Appears normal Lt lung:normal [...] twice weekly testing inyour office. Coding ======= Description:51401-47 Detailed Ultrasound Description:48021-69 BPP without NST Description:71188-92 Doppler Umbilical Artery Backpackers Manager: Xiomara Garcia RDMS Physician: Luigi Ramos MD, FACOG Electronically signed by: Luigi Ramos MD, FACOG at: 13:40 us Sacha Avelar MD [facility] ORDERABLES Final Resul t from Last 3 Months Insurance [employer] [address] Care Teams Fleece Tier Relationship Specialty Start Date End Date Provider, No Known [facility] [place] [address] PCP - General 09/27/24
--- OUTSIDE RECORDS SUMMARY | 2024-09-30 11:12 | XMS_ITS | Clinical Summary ---
Author Organization [facility] Address [address] [place] [address] Care Team Providers Care Motor Tune Up Specialist Name Role Phone Unavailable Primary Care Provider Unavailabl e Source Comments [facility] is fully rolled out with thefollowing exceptions:General Clinical Research [facility] Social History Tobacco Use Types [...]
--- OUTSIDE RECORDS SUMMARY | 2024-09-30 11:12 | XMS_ITS | Referral Summary ---
Author Organization [facility] Address [address] [place] [address] Phone Care Team Providers Care Senior Technical Writer Name Role Phone Unavailable Primary Care Provider [...]
[2024-09-30 12:42] VITALS: BMI 29.7
== END 2024-09-30 12:10 | disposition home or self-care (01) ==
LOC: OBOUT 11:10 → OB 11:10
PROVIDERS: PCP Family Medicine; Visit Provider Obstetrics & Gynecology
DX: O28.8 Other abnormal findings on antenatal screening of mother (principal); Z3A.34 34 weeks gestation of pregnancy
CPT/HCPCS: 59025; 99212; G0463

== ENCOUNTER 2024-10-11 09:05 | Outpatient (CLI) | payer MEDICAID, SELFPAY ==
--- OUTSIDE RECORDS SUMMARY | 2003-09-02 | XMS_ITS | Encounter Summary ---
Author Organization [facility] Address [address] [place] [address] Care Team Providers Care Burnishing Machine Operator Name Role Phone Unavailable Primary Care Provider Unavailabl e Encounter Details Date Type Department Care Team (Late st Contact Info) Description 09/02/2003 Hospital Encounter [facility] Department of Radiology [address] [place] [phone] Social History Tobacco Use Types Packs/Day [...]
--- OUTSIDE RECORDS SUMMARY | 2024-09-05 19:18 | XMS_ITS | Encounter Summary ---
Author Organization [place] [address] Care Team Providers Care Casino Attendant Name Role Phone Mary Greer MD Primary Care Provider +1- [phone] Reason for Visit * Reason Comments Abdominal Pain Encounter Details Date Type Department Care Team (Late st Contact Info) Description 09/05/2024 7:18 PM EDT - 09/05/2024 7:19 PM EDT Emergency [facility] [place] [phone] Discharge Disposition: Left Without Being Seen Social History Tobacco Use Types Packs/Day Years Used Date Smoking Tobacco: Former Cigarettes Smokeless Tobacco: Never Alcohol Use Standard Drinks/Week Comments No 0 (1 standard drink = 0.6 oz pur e alcohol) [facility] Utilities Answer Date Recorded In the past 12 months has [employer] electric, gas, oil, or water company threatened to shut off services in your home? No 02/27/2024 Overall Financial Resource Strain (CARDIA) Answe r Date Recorded How hard is it for you to pa y for the very basics like food, housing, medical care, and heating? Not hard at all 02/27/2024 PHQ-2 Answer Date Recorded PHQ-2 Total Score 0 09/05/2024 [facility] [place] of Occupat ional Health - Occupational Stress [...] things needed for daily living? No 03/28/2020 [facility] IP Transportation Answer D ate Recorded In [...] on filedocumented in this encounter Care Teams Casino Attendant Relationship Specialty Start Date End Date Mary Greer MD [address] [place] [address] PCP - General Family Medicine 06/14/14 documented as of this encounter
--- OUTSIDE RECORDS SUMMARY | 2024-09-05 19:23 | XMS_ITS | Encounter Summary ---
Author Organization [place] [address] Care Team Providers Care Roll Scale Worker Name Role Phone Mary Greer MD Primary Care Provider +1- [phone] Reason for Visit * Reason Comments Abdominal Pain [address] Carrillo at [facility] Encounter Details Date Type Department Care Team (Latest Contact Info) Description 09/05/2024 7:23 PM EDT - 09/05/2024 9:31 PM EDT [facility] [place] [address] Julia Wellington MD [address] [place] [address] Discharge Disposition: Home or Self Care Social History Tobacco Use Types Packs/Day Years Used Date Smoking Tobacco: Former Cigarettes Smokeless Tobacco: Never Alcohol Use Standard Drinks/Week Comments No 0 (1 standard drink = 0.6 oz pur e alcohol) [facility] Utilities Answer Date Recorded In the past 12 months has [employer], gas, oil, or water [employer] threatened to shut off services in your home? No 02/27/2024 Overall Financial Resource Strain (CARDIA) Answe r Date Recorded How hard is it for you to pa y for the very basics like food, housing, medical care, and heating? Not hard at all 02/27/2024 PHQ-2 Answer Date Recorded PHQ-2 Total Score 0 09/05/[address] [facility] [place] of Occupat ional Health - Occupational Stress [...] things needed for daily living? No 03/28/2020 [facility] IP Transportation Answer D ate Recorded In [...] 09/05/2024 7:47 PM Lynn Fields RN * [place] Suicide Severity Rating Scale (Q shift for [...] Yes Multiple births? N Uterine Activity Mode Palpation;[place] Contraction Frequency 0 Contraction Intensity N/A Resting [...] at , triage anytime prn. Martha Rosario [facility] OB Triage Progress Note S: Pt is [...] OB office visit upcoming on 09/08/[address] [facility] OBGYN. Denies LOF and VB. Reports [...] Ibuprofen Hives Omnicef [Cefdinir] Rash Prednisone Rash [place] hyper Antihist [Diphenhydramine Hcl] Naproxen Hives, Itching [...] Ox3; judgement and insight intact; memory both mcc and short term intact. Moodand affect are [...] and discomfort after PO meds. records from [facility] not available in CareEverywhere. Pt seems to be a reliable historian, and does not display drug-seeking behaviors. Reviewed warnings, strongly encouraged to make dietary changes to lessen incidence of acute episodes - she understands the importance of non-fatty and plain, bland foods until surgery . Keep appointment at [facility] 09/08/24 as scheduled. Return to triage [...] POC Yellow Color 09/05/2024 7:40 PM EDT [facility] UA Appear POC Clear Clear 09/05/2024 7:40 PM EDT [facility] UA Blood POC Negative Negative 09/05/2024 7:40 PM EDT [facility] UA pH POC 6.0 5.0 - 8.0 pH 09/05/2024 7:40 PM EDT [facility] UA Urobilinogen POC 0.2 0.2, 1.0 09/05/2024 7:40 PM EDT [facility] UA Nitrite POC Negative Negative 09/05/2024 7:40 PM EDT [facility] UA Leuk Est POC Negative Negative 7:40 PM EDT [facility] UA SG POC >=1.030 1.001 - 1.035 no units 09/05/2024 7:40 PM EDT [facility] UA Gluc POC Negative Negative mg/dL 09/05/2024 7:40 PM EDT [facility] UA Protein POC Negative Negative mg/dL 09/05/2024 7:40 PM EDT [facility] UA Ketones POC Negative Negative mg/dL 09/05/2024 7:40 PM EDT [facility] Urine STRUCTURE OF URINARY TRACT PROPER / Unknown 09/05/2024 7:37 PM EDT 09/05/2024 7:40 PM EDT us Julia March MD POINT OF CARE TEST ORDERA BLES Final Result [facility] [address] [place] [address] documented in this encounter Visit Diagnoses Not [...] 09/05/2024 documented in this encounter Care Teams Roll Scale Worker Relationship Specialty Start Date End Date Mary Greer MD [address] [place] [address] PCP - General Family Medicine 06/14/14 documented as of this encounter
--- OUTSIDE RECORDS SUMMARY | 2024-09-28 11:32 | XMS_ITS | Encounter Summary ---
Author Organization [facility] Address [address] [place] [address] Care Team Providers Care Component Prep Operator Name Role Phone Provider, No Known Primary Care Provider Unavail able Reason for Referral * Diagnostic Imaging (Routine) - Closed Specialty Diagnoses / Procedures Referred By Contac t Referred To Contact Radiology Diagnoses IUGR (intrauterine growth restriction) affecting care of mother, third trimester, fetus 1 , unspecified gestational age Procedures US [facility] Sacha Avelar MD [address] [place] [address] Phone: tel: fax: [facility] US PER DIAG CTR [address] [place] [address] Phone: tel: Referral ID Status Reason Start Date Expiration Date Visits Re quested Visits Authorized [id number] Closed 09/27/2024 12/27/2025 1 1 Reason for Visit * Diagnostic Imaging (Routine) - Closed Specialty Diagnoses / Procedures Referred By Contac t Referred To Contact Radiology Diagnoses IUGR (intrauterine growth restriction) affecting care of mother, third trimester, fetus 1 , unspecified gestational age Procedures [facility] Sacha Avelar MD [address] [place] [address] Phone: tel: fax: [facility] US PER DIAG CTR [address] [place] [id number] Phone: tel: Referral ID Status Reason Start Date Expiration Date Visits Re quested Visits Authorized [id number] Closed 09/27/2024 12/27/2025 1 1 Encounter Details Date Type Department Care Team (Latest Contact Info) Description 09/28/2024 11:32 AM EDT - 09/28/2024 11:59 PM EDT Hospital Encounter [facility] US PER DIAG CTR [address] [place] [address] Sacha Avelar MD [address] [facility] [address] [place] [address] IUGR (intrauterine growth restriction) affecting [...] this encounter Medications at Time of Discharge [place]-3 Fatty Acids (fish oil) 1000 MG capsule [...] Description 10/26/2024 8:45 AM EDT Office Visit [facility] MATERNAL MEDICINE [address] [place] [address] 10/26/2024 8:45 AM EDT Appointment [facility] US PER DIAG CTR [address] [place] [address] 11/09/2024 7:30 AM EDT Office Visit [facility] MATERNAL MEDICINE [address] [place] [address] 11/09/2024 7:30 AM EDT Appointment [facility] US PER DIAG CTR [address] [place] [address] documented as of this encounter Procedures Procedure Name Priority Date/Time Associated Diagnosis Comments [facility] Routine 09/28/2024 1:22 PM EDT IUGR (intrauterine growth restriction) affecting care of mother, third trimester, fetus 1 , unspecified gestational age documented in this encounter Results * [facility] (09/28/2024 1:22 PM EDT) Anatomical Region Laterality Modality Ultrasound 09/28/2024 12:3 4 PM EDT Narrative 09/28/2024 1:40 PM EDT PAT NAME: DAVID KHAN [facility] REC#: [id number] DA: [id number] PAT GEND: F PAT TYPE: O EXAM JOSSY: [id number] REF PHYS SACHA AVELAR Comparison Studies There [...] EFW (oz) 4 oz EFW by: Hadlock (COR-TL-BE-FL) Extended Tibia 51.5 mm 30w 5d 1% Cheryl Fibula 50.1 mm 30w 4d 19% Cheryl Foot 64.2 mm 10% Chitty Radius 44.5 mm 31w 4d 34% Cheryl Ulna 47.1 mm 30w 0d <1% Cheryl Cav. septi pel. tr 6.7 mm Rotary Surface Grinder 5.1 mm CM 6.4 mm 23% Nicolaides [...] normal IVC: normal 3-vessel view: Appears normal 1-biaujt-ulodjqz view: Appears normal Rt lung: Appears normal [...] pattern). Limited anatomic survey appears normal. The DNAO, UA dopplers and BPP are normal. Recommendation Follow up here in 2 weeks. Recommend twice weekly testing in your office. Coding ======= Description: 30179-58 Detailed Ultrasound Description: 75240-26 BPP without NST Description: 84535-52 Doppler Umbilical Artery Teacher Vocal: Xiomara Garcia RDMS Physician: Luigi Ramos MD, FACOG Electronically signed by: Luigi Ramos MD, FACOG at: 13:40 Procedure Note Luigi Ramos MD - 09/28/2024 PAT NAME: DAVID KHAN [facility] REC#: [id number] DA: [id number] PAT GEND: F PAT TYPE: O EXAM JOSSY: [id number] REF PHYS SACHA AVELAR Comparison Studies There are no relevant prior studies to which this study is beingcompared Patient Status Outpatient Indication ======== IUGR Maternal Assessment Alisjy998 cm Height (ft)5 ft Height (in)3 in Ecqtez26 kg Weight (lb)172 lb BMI30.09 kg/m Method ======= Transabdominal ultrasound examination. View: Adequate view ========= Aguirre . Number of fetuses: 1 Dating ====== Method of dating:based on stated GEOVANNA GA by prior gjswvuylxx23 w + 0 d GEOVANNA by prior assessment:11/09/2024 Ultrasound examination on:09/28/2024 GA by U/S based upon:AC, BPD, Femur, HC GA by U/S31 w + 6 d GEOVANNA by U/S:11/24/2024 Assigned:based on stated GEOVANNA, selected on 09/28/2024 Assigned GA34 w + 0 d Assigned GEOVANNA:11/09/2024 d Biometry Standard BPD78.8 mm 31w 4d 3% Hadlock WAH170.1 mm 33w 4d 42% Cheryl HC289.0 mm 31w 6d <1% Hadlock Cerebellum tr45.0 mm 34w 4d 41% Hill AC288.4 mm 32w 6d 21% Hadlock Femur60.2 mm 31w 2d 1% Hadlock Heqexuy12.1 mm 29w 6d <1% Cheryl HC / AC1.00 EFW1,920 g 31w 6d 7% Hadlock EFW (lb)4 lb EFW (oz)4 oz EFW by:Hadlock (TIK-UW-BK-FL) Extended Tibia51.5 mm 30w 5d 1% Cheryl Szaunn66.1 mm 30w 4d 19% Cheryl Foot64.2 mm 10% Chitty Gvemnu63.5 mm 31w 4d 34% Cheryl Ulna47.1 mm 30w 0d <1% Cheryl Cav. septi pel. tr6.7 mm Vp5.1 mm CM6.4 mm 23% Nicolaides Nasal bone12.1 mm Head / Face / Neck Cephalic index0.76 12% Nicolaides Extremities / Bony Struc FL / BPD0.76 FL / HC0.21 FL / AC0.21 Other Structures HTU411 bpm General Evaluation Cardiac activity present. FHR [...] view:Appears normal SVC:normal IVC:normal 3-vessel view:Appears normal 8-dadjqp-eiwxrae view:Appears normal Rt lung:Appears normal Lt lung:normal [...] Structures Uterus / Cervix Cervix:Visualized Approach:Transabdominal Cervical wwmarw13.9 mm Ovaries / Tubes / Adnexa Rt [...] twice weekly testing inyour office. Coding ======= Description:92702-65 Detailed Ultrasound Description:66782-88 BPP without NST Description:60919-77 Doppler Umbilical Artery Teacher Vocal: Xiomara Garcia RDMS Physician: Luigi Ramos MD, FACOG Electronically signed by: Luigi Ramos MD, FACOG at: 13:40 us Sacha Avelar MD G US ORDERABLES Final Resul t documented in this encounter Visit Diagnoses Diagnosis IUGR (intrauterine growth restriction) affecting care of mother, third trimester, fetus 1 , unspecified gestational age documented in this encounter Care Teams Component Prep Operator Relationship Specialty Start Date End Date Provider, [place] [address] PCP - General 09/27/24 documented as of this encounter
--- OUTSIDE RECORDS SUMMARY | 2024-09-28 12:30 | XMS_ITS | Encounter Summary ---
Author Organization [facility] Address [address] [place] [address] Care Team Providers Care Pen Tester Name Role Phone Provider, No Known Primary Care Provider Unavail able Reason for Referral * Diagnostic Imaging (Routine) - Closed Specialty Diagnoses / Procedures Referred By Contac t Referred To Contact Radiology Diagnoses Poor growth affecting management of mother in third trimester, single or unspecified fetus Procedures [facility] Casie Ramos MD [address] [facility] [address] [place], [place] [address] Phone: tel: fax: Referral ID Status Reason Start Date Expiration Date Visits Re quested Visits Authorized Closed 09/28/2024 12/28/2025 1 1 Reason for Visit * Reason Comments IUGR Encounter Details Date Type Department Care Team (Late Contact Info) Description 09/28/2024 12:30 PM EDT Office Visit [facility] MATERNAL MEDICINE [address] [place] [address] Casie Ramos MD [address] [place] [address] Poor growth affecting management of mother in [...] reports she has had a lot of [place]- Nails contractions,but nothing regular. Pt endorses normal [...] tablet by mouth Daily., Disp: , Rfl: [place]-3 Fatty Acids (fish oil) 1000 MG capsule [...] [facility]. Casie Ramos MD, FACOG Maternal Medicine, [facility] documented in this encounter Plan of Treatment Upcoming Encounters Date Type Department Care Team (Late st Contact Info) Description 10/26/2024 8:45 AM EDT Office Visit [facility]ERNAL MEDICINE [address] [facility] [address] [place] [phone] 10/26/2024 8:45 AM EDT Appointment [facility] US PER DIAG CTR [address] [place] [address] 11/09/2024 7:30 AM EDT Office Visit [facility]ERNAL MEDICINE [address] [facility] [address] [place] [address] 11/09/2024 7:30 AM EDT Appointment [facility] US PER DIAG CTR [address] [place] [address] documented as of this encounter Results * [facility] (10/12/2024 7:55 AM EDT) Anatomical Region Laterality Modality Ultrasound 10/12/2024 7:36 AM EDT Narrative 10/12/2024 8:18 AM EDT PAT NAME: DAVID KHAN [facility] REC#: [id number] DA: [id number] PAT GEND: F PAT TYPE: O EXAM JOSSY: [id number] REF PHYS SACHA AVELAR Comparison Studies The [...] EFW (oz) 14 oz EFW by: Hadlock (GQL-QK-NC-FL) Extended Cav. septi pel. tr 8.6 mm [...] Normal Heart / Thorax 3-vessel view: Normal 0-uhssxv-pqolsqj view: normal Cord insertion: Normal Stomach: Appears [...] recommend proceeding with delivery. Coding ======= Description: 91622-07 Follow Up Ultrasound Description: 71701-11 BPP without NST Description: 04525-64 Doppler Umbilical Artery Cutter Finisher: Xiomara Garcia RDMS Physician: Casie Ramos MD, FACOG Electronically signed by: Casie Ramos MD, FACOG at: 08:18 Procedure Note Casie Ramos MD - 10/12/2024 PAT NAME: DAVID KHAN [facility] REC#: [id number] DA: 2000 PAT GEND: F PAT TYPE: O EXAM JOSSY: [id number] REF PHYS SACHA AVELAR Comparison Studies The findings of this study are compared to the prior ultrasound studydated 09/28/24 Patient Status Outpatient Indication ======== IUGR Maternal Assessment Ymvond666 cm Height (ft)5 ft Height (in)3 in Ioczso11 kg Weight (lb)168 lb BMI29.32 kg/m Method ======= Transabdominal ultrasound examination. View: Suboptimal view: limited byfetal position ========= Aguirre . Number of fetuses: 1 Dating ====== GA by prior w + 0 d GEOVANNA by prior [...] GA36 w + 0 d Assigned GEOVANNA:11/09/2024 [id number] d Biometry Standard BPD80.1 mm 32w 1d <1% Hadlock OFD98.2 mm 31w 5d <1% Cheryl HC285.2 mm 31w 2d <1% Hadlock Cerebellum tr45.6 mm 34w 6d 22% Hill AC301.2 mm 34w 1d 12% Hadlock Femur65.7 mm 33w 6d 5% Hadlock Iamuarx38.8 mm 30w 5d <1% Cheryl HC / AC0.95 EFW2,217 g 33w 2d 5% Hadlock EFW (lb)4 lb EFW (oz)14 oz EFW by:Hadlock (MSU-ME-DS-FL) Extended Cav. septi pel. tr8.6 mm CM7.5 mm 49% Nicolaides Head / Face / Neck Cephalic index0.82 53% Nicolaides Extremities / Bony Struc FL / BPD0.82 FL / HC0.23 FL / AC0.22 Other Structures UJU479 bpm General Evaluation Cardiac activity present. FHR [...] LVOT view:Normal Heart / Thorax 3-vessel view:Normal 8-edvfmg-laxihzj view:normal Cord insertion:Normal Stomach:Appears normal Kidneys:Appears normal [...] movement would recommendproceeding with delivery. Coding ======= Description:75951-45 Follow Up Ultrasound Description:53827-59 BPP without NST Description:15856-80 Doppler Umbilical Artery Cutter Finisher: Xiomara Garcia RDMS Physician: Casie Ramos MD, [...] fetus documented in this encounter Care Teams Pen Tester Relationship Specialty Start Date End Date Provider, [place] [address] PCP - General 09/27/24 documented as of this encounter
--- OUTSIDE RECORDS SUMMARY | 2024-10-12 07:11 | XMS_ITS | Encounter Summary ---
Author Organization [facility] Address [address] [place] [address] Care Team Providers Care Equities Trader Name Role Phone Provider, No Known Primary Care Provider Unavail able Reason for Referral * Diagnostic Imaging (Routine) - Closed Specialty Diagnoses / Procedures Referred By Contac t Referred To Contact Radiology Diagnoses Poor growth affecting management of mother in third trimester, single or unspecified fetus Procedures US [facility] Diagnostic [place] Luigi Ramos MD [address] [facility] [address] [place], [place] [address] Phone: tel: fax: Referral ID Status Reason Start Date Expiration Date Visits Re quested Visits Authorized Closed 09/28/2024 12/28/2025 1 1 Reason for Visit * Diagnostic Imaging (Routine) - Closed Specialty Diagnoses / Procedures Referred By Contac t Referred To Contact Radiology Diagnoses Poor growth affecting management of mother in third trimester, single or unspecified fetus Procedures US [facility] Diagnostic [place] Luigi Ramos MD [address] [facility] [address] [place] [address] Phone: tel: fax: Referral ID Status Reason Start Date Expiration Date Visits Re quested Visits Authorized Closed 09/28/2024 12/28/2025 1 1 Encounter Details Date Type Department Care Team (Latest Contact Info) Description 10/12/2024 7:11 AM EDT - 10/12/2024 11:59 PM EDT Hospital Encounter [facility] [address] [place] [address] Poor growth affecting management of mother in third trimester, single or unspecified fetus Discharge Disposition: Home or Self Care Social [...] this encounter Medications at Time of Discharge [place]-3 Fatty Acids (fish oil) 1000 MG capsule [...] Description 10/26/2024 8:45 AM EDT Office Visit [facility] MATERNAL MEDICINE [address] [address] 10/26/2024 8:45 AM EDT Appointment [facility] [address] [place] [address] 11/09/2024 7:30 AM EDT Office Visit [facility]ICINE [address] [facility] [address] 11/09/2024 7:30 AM EDT Appointment [facility] [address] [place] [address] documented as of this encounter Procedures Procedure Name Priority Date/Time Associated Diagnosis Comments [facility] Routine 10/12/2024 7:55 AM EDT Poor growth affecting management of mother in third trimester, single or unspecified fetus documented in this encounter Results * [facility] Center (10/12/2024 7:55 AM EDT) Anatomical Region Laterality Modality Ultrasound 10/12/2024 7:36 AM EDT Narrative 10/12/2024 8:18 AM EDT PAT NAME: DAVID KHAN [facility] REC#: [id number] DA: [id number] PAT GEND: F PAT TYPE: O EXAM JOSSY: [id number] REF PHYS SACHA AVELAR Comparison Studies The [...] EFW (oz) 14 oz EFW by: Hadlock (WIT-HM-BY-FL) Extended Cav. septi pel. tr 8.6 mm [...] Normal Heart / Thorax 3-vessel view: Normal 1-hoivwg-qpahhzj view: normal Cord insertion: Normal Stomach: Appears [...] recommend proceeding with delivery. Coding ======= Description: 96752-82 Follow Up Ultrasound Description: 11229-34 BPP without NST Description: 80577-96 Doppler Umbilical Artery Manager Strategic Alliances: Xiomara Garcia RDMS Physician: Luigi Ramos MD, FACOG Electronically signed by: Luigi Ramos MD, FACOG at: 08:18 Procedure Note Luigi Ramos MD - 10/12/2024 PAT NAME: DAVID KHAN [facility] REC#: [id number] DA: 2000 PAT GEND: F PAT TYPE: O EXAM JOSSY: [id number] REF PHYS AVELARSACHA Comparison Studies The findings of this study are compared to the prior ultrasound studydated 09/28/24 Patient Status Outpatient Indication ======== IUGR Maternal Assessment Jfkmuf406 cm Height (ft)5 ft Height (in)3 in Qbbvjt60 kg Weight (lb)168 lb BMI29.32 kg/m Method ======= Transabdominal ultrasound examination. View: Suboptimal view: limited byfetal position ========= Aguirre . Number of fetuses: 1 Dating ====== GA by prior pzhphdaira24 w + 0 d GEOVANNA by prior [...] Hadlock Femur65.7 mm 33w 6d 5% Hadlock Hmfelaw13.8 mm 30w 5d <1% Cheryl HC / AC0.95 EFW2,217 g 33w 2d 5% Hadlock EFW (lb)4 lb EFW (oz)14 oz EFW by:Hadlock (UAJ-EK-QU-FL) Extended Cav. septi pel. tr8.6 mm CM7.5 mm 49% Nicolaides Head / Face / Neck Cephalic index0.82 53% Nicolaides Extremities / Bony Struc FL / BPD0.82 FL / HC0.23 FL / AC0.22 Other Structures FYC510 bpm General Evaluation Cardiac activity present. FHR [...] LVOT view:Normal Heart / Thorax 3-vessel view:Normal 0-ffqcdk-iyuwfzp view:normal Cord insertion:Normal Stomach:Appears normal Kidneys:Appears normal [...] Amniotic fluid volume 8/8 Biophysical profile score Consultation / Office Visit [...] movement would recommendproceeding with delivery. Coding ======= Description:95852-58 Follow Up Ultrasound Description:29009-25 BPP without NST Description:69474-85 Doppler Umbilical Artery Manager Strategic Alliances: Xiomara Garcia RDMS Physician: Luigi Ramos MD, FACOG Electronically signed by: Luigi Ramos MD, SETHOG at: 08:18 us Luigi Ramos MD G US ORDERABLES Final Result documented in this encounter Visit Diagnoses Diagnosis Poor growth affecting management of mother in third trimester, single or unspecified fetus documented in this encounter Care Teams Equities Trader Relationship Specialty Start Date End Date Provider, [place] [address] PCP - General 09/27/24 documented as of this encounter
--- OUTSIDE RECORDS SUMMARY | 2024-10-12 07:30 | XMS_ITS | Encounter Summary ---
Author Organization [facility] Address [address] [place] [address] Care Team Providers Care Monorail Car Operator Name Role Phone Provider, No Known Primary Care Provider Unavail able Reason for Visit * Reason Comments IUGR, short extr. & HC Encounter Details Date Type Department Care Team (Late st Contact Info) Description 10/12/2024 7:30 AM EDT Office Visit [facility] MATERNAL MEDICINE [address] [place] [phone] Luigi Ramos MD [address] [facility] [address] [place] [address] Poor growth affecting management of mother in [...] Sign Reading Time Taken Comments Blood Pressure 103/65 10/12/2024 7:32 AM EDT Pulse - - Temperature - - Respiratory Rate - - Oxygen Saturation - - Inhaled Oxygen Concentration - - Weight 76.3 kg (168 lb 3.2 oz) 10/12/2024 7:32 A M EDT Height - - Body Mass Index 29.33 09/28/2024 12:25 PM EDT documented in this encounter Progress Notes * Luigi Ramos MD - 10/12/2024 8:16 AM EDTAssociated Problem(s): Poor growth affecting management of mother in third trimester Patient presents for follow-up growth ultrasound secondary to IUGR. Today's ultrasound shows overall growth at the 5th percentile. Abdominal circumference is at the 12th percentile. Growth restriction is once again dictated secondary to small head and shortened long bones though those me asurements are slightly improved. DANO and BPP are normal. Umbilical artery Dopplers are elevated though with continuous forward flow. We discussed continued recommendation for delivery at 37 weeks given stability of growth. We did discuss decreased movement and strict return precautions. If patient were to present before induction of labor with decreased movement with recommend proceeding with delivery. * Harleen Devi RN - 10/12/2024 7:30 AM EDT Denies vaginal bleeding, leaking fluid. Patient reports frequent Carlton-Nails contractions. Endorses normal movement. NIPT declined. Next OB follow-up appointment with Dr. Carrillo on 10/14/2024. * Luigi Ramos MD - 10/12/2024 7:30 AM EDT Maternal/ Medicine Consult Note Date: 10/12/2024 Name: Ro Khan : 2000 Referring Provider: Martell Hsu MD Chief Complaint IUGR, short extr. & HC Subjective History of Present Illness: Ro Khan is a 24 y.o. 36w0d who presents today for IUGR GEOVANNA: Estimated Date of Delivery: 11/09/24 ROS: Otherwise Noted in HPI Current Outpatient Medications: Coy-3 Fatty Acids (fish oil) 1000 MG capsule capsule, Take 1 capsule by mouth Daily With Breakfast., Disp: , Rfl: Vit-Fe Fumarate-FA ( vitamin 27-0.8) 27-0.8 MG tablet tablet, Take 1 tablet by mouth Daily., Disp: , Rfl: terconazole (TERAZOL 7) 0.4 % vaginal cream, Insert 1 applicator into the vagina Every Night. (Patient not taking: Reported on 10/12/2024), Disp: , Rfl: Objective Vital Signs BP 103/65 Wt 76.3 kg (168 lb 3.2 oz) Estimated body mass index is 29.33 kg/m?? as calculated from the following: Height as of 09/28/24: 161.3 cm (63.5 ). Weight as of this encounter: 76.3 kg (168 lb 3.2 oz). Ultrasound Impression: See Viewpoint Assessment and Plan Ro Khan is a 24 y.o. 36w0d who presents today for IUGR Diagnoses and all orders for this visit: 1. Poor growth affecting management of mother in third trimester, single or unspecified fetus(Primary) Assessment & Plan: Patient presents for follow-up growth ultrasound secondary to IUGR. Today's ultrasound shows overall growth at the 5th percentile. Abdominal circumference is at the 12th percentile. Growth restriction is once again dictated secondary to small head and shortened long bones though those me asurements are slightly improved. DANO and BPP are normal. Umbilical artery Dopplers are elevated though with continuous forward flow. We discussed continued recommendation for delivery at 37 weeks given stability of growth. We did discuss decreased movement and strict return precautions. If patient were to present before induction of labor with decreased movement with recommend proceeding with delivery. Follow Up No follow-ups on file. I spent 10 minutes caring for the patient on the [...] other procedures such as amniocentesis or CVS. Luigi Ramos MD, FACOG Maternal Medicine, [facility] documented in this encounter Plan of Treatment Upcoming Encounters Date Type Department Care Team (Late st Contact Info) Description 10/26/2024 8:45 AM EDT Office Visit [facility] MATERNAL MEDICINE [address] [address] 10/26/2024 8:45 AM EDT Appointment [facility] US PER DIAG CTR [address] [place] [address] 11/09/2024 7:30 AM EDT Office Visit [facility] MATERNAL MEDICINE [address] [address] 11/09/2024 7:30 AM EDT Appointment [facility] US PER DIAG [facility] [address] [place] [address] documented as of this encounter Visit Diagnoses Diagnosis Poor growth affecting management of mother in third trimester, single or unspecified fetus- Primary documented in this encounter Care Teams Monorail Car Operator Relationship Specialty Start Date End Date Provider, [place] [address] PCP - General 09/27/24 documented as of this encounter
--- OUTSIDE RECORDS SUMMARY | 2024-10-14 09:10 | XMS_ITS | Clinical Summary ---
Author Organization [facility] Address [address] [place] [address] Phone Care Team Providers Care Deputy K 9 Name Role Phone Unavailable Primary Care Provider [...]
--- OUTSIDE RECORDS SUMMARY | 2024-10-14 09:10 | XMS_ITS | Encounter Summary ---
Author Organization [facility] Address [address] [place] [address] [place] [address] Phone Care Team Providers Care Supervisor Tunnel Heading Name Role Phone Unavailable Primary Care Provider Unavailabl e Reason for Referral * Radiology Services (Routine) - Closed Specialty Diagnoses / Procedures Referred By Kwasi roland Referred To Contact Procedures OB US STANDARD FIRST TRIMESTER HISTORICAL MED Referral ID Status Reason Start Date Expiration Date V isits Requested Visits Authorized [id number] Closed Specialty Services Required 04/03/2019 04/02/2020 150 150 Encounter Details Date Type Department Care Team (Late st Contact Info) Description 04/03/2019 SCAN [facility] [address] [place] [phone] Social History Tobacco Use Types Packs/Day Years [...]
--- OUTSIDE RECORDS SUMMARY | 2024-10-14 09:10 | XMS_ITS | Referral Summary ---
Author Organization [facility] Address [address] [place] [phone] Phone Care Team Providers Care Die Tester Name Role Phone Unavailable Primary Care [...]
--- OUTSIDE RECORDS SUMMARY | 2024-10-14 09:10 | XMS_ITS | Clinical Summary ---
Author Organization [facility] Address [place] [address] Phone Care Team Providers Care Coil Taper Name Role Phone Mary Greer MD Primary Care Provider [phone]- [phone] Allergies Active Allergy Reactions Criticality Noted Date Comments Diphenhydramine Hcl Ibuprofen Hives High 11/02/2014 Naproxen Hives,Itching,Rash 11/02/2014 Cefdinir Rash Medium 05/12/2010 Penicillins Rash 03/08/2010 Prednisone Rash Medium 11/07/2015 Decker hyper Red Dye 06/16/2009 Olanzapine Nausea Only [...] abnormality -BHCG slightly above normal -MRI pending -drugless physician eval -Morphine/Zofran PRN -NPO Bilious vomiting with [...] Department Care Team Description 09/23/2024 Abstract SEP [facility] [address] [place] [address] Monique Ozuna MA 09/05/2024 7:23 PM EDT - 09/05/2024 9:31 PM EDT Hospital Encounter EDG [facility]DR[facility] [address] [place] [id number] Julia Wellington MD Discharge Disposition: Home or Self Care 09/05/2024 7:18 PM EDT - 09/05/2024 7:19 PM EDT Emergency [place] Emergency [facility] [address] Discharge Disposition: Left Without Being Seen [...] drink = 0.6 oz pur e alcohol) [facility] Utilities Answer Date Recorded In the [...] Date Recorded PHQ-2 Total Score 0 09/05/2024 [facility] - Occupational [...] things needed for daily living? No [facility]28[facility]2020 [facility] IP Transportation Answer D ate [...] Estimated Date of Delivery 09/05/2024 - Present (10/14/2024) 1 11/08/2024 (set by Lynn Cordova RN [...] Procedure Name Priority Date/Time Associated Diagnosis Comments SCANNED LABS 10/05/2024 10:12 PM EDT SCANNED LABS 10/05/2024 9:31 PM EDT SCANNED LABS 10/05/2024 7:02 PM EDT CBC Routine 09/22/2024 URINALYSIS POC Routine 09/05/2024 7:37 PM EDT CHLAMYDIA/GC BY TMA Routine 08/23/2021 2 :21 PM EDT Screening for chlamydial disease ECOLOGY PROFESSOR CYTOLOGY REQUEST (PAP ONLY) Routine 02/11/2019 2:41 PM EST Encounter for supervision of normal first in first trimester from Last 3 Months or Most Recently Relevant to Health Maintenance Results * SCANNED LABS (10/05/2024 10:12 PM EDT) Only the most recent of3 resultswithin the time period is included. 10/05/2024 10:1 2 PM EDT us Unknown Provider HEMATOLOGY ORDERABLES Final Res ult * (ABNORMAL) CBC (09/22/2024) WBC 9.4 X10(3)/MCL [...] POC Yellow Color 09/05/2024 7:40 PM EDT [facility] UA Appear POC Clear Clear 09/05/2024 7:40 PM EDT [facility] UA Blood POC Negative Negative 09/05/2024 7:40 PM EDT [facility] UA pH POC 6.0 5.0 - 8.0 pH 09/05/2024 7:40 PM EDT [facility] UA Urobilinogen POC 0.2 0.2, 1.0 09/05/2024 7:40 PM EDT [facility] UA Nitrite POC Negative Negative 09/05/2024 7:40 PM EDT [facility] UA Leuk Est POC Negative Negative 7:40 PM EDT [facility] UA SG POC >=1.030 1.001 - 1.035 no units 09/05/2024 7:40 PM EDT [facility] UA Gluc POC Negative Negative mg/dL 09/05/2024 7:40 PM EDT [facility] UA Protein POC Negative Negative mg/dL 09/05/2024 7:40 PM EDT [facility] UA Ketones POC Negative Negative mg/dL 09/05/2024 7:40 PM EDT [facility] Urine STRUCTURE OF URINARY TRACT PROPER / Unknown 09/05/2024 7:37 PM EDT 09/05/2024 7:40 PM EDT us Julia March MD POINT OF CARE TEST ORDERA BLES Final Result [address] [id number] * CHLAMYDIA/GC BY TMA (08/23/2021 2:21 PM EDT) Chlamydia trachomatis Not Detected Not Detected 08/24/2021 3:50 AM EDT [facility] Neisseria gonorrhoeae Not Detected Not Detected 08/24/2021 3:50 AM EDT [facility] Urine URINE SPECIMEN COLLECTION / Unknown 08/23/2021 2:21 PM EDT 08/23/2021 2:21 PM EDT Narrative [facility] Koemei - 08/24/2021 3:50 AM EDT Testing methodology is cost coordinator mediated amplification (TMA) using the Aptima Combo 2 assay from [employer]. A negative result does not completely rule [...] Malvin Yeboah MD MICROBIOLOGY - GENERAL ORDERA [facility] Final Result [employer] [address] [facility] , [place] [address] * ECOLOGY PROFESSOR CYTOLOGY REQUEST (PAP ONLY) (02/11/2019 2:41 PM EST) CASE REPORT Gynecologic Cytology Report Case: [id number] Authorizing Provider: Myriam Guillen, Collected: 02/11/2019 1441 HEARING AID CONSULTANT Ordering Location: [facility] Received: 02/11/2019 1441 First Screen: Neha Lockwood CT Specimen: LIQUID-BASED PAP - CERVICAL/ENDOCERV ICAL, Cervix, Endocervical 02/15/2019 2:21 PM EST [facility] PAP FINAL DIAGNOSIS Negative for intraepithelial lesion or malignancy 02/15/2019 2:21 PM [facility] at 1421 EST MICROSCOPIC DESCRIPTION Microscopic examination is performed and the findings corroborate the diagnosis. 02/15/2019 2:21 PM EST [facility] PAP SMEAR ADEQUACY Satisfactory for evaluation 02/15/2019 2:21 PM EST [facility] PAP ORGANISMS NOTED Fungal organisms present consistent with josesito. 02/15/2019 2:21 PM EST [facility] ENDOCERVICAL T-ZONE Transformation zone present 02/15/2019 2:21 PM EST [facility] EMBEDDED IMAGES 9 2:21 PM EST [facility] PAP DISCLAIMER The Pap Smear is a screening test that aids in the detection of cervical cancer and cancer precursors. Both false positive and false negative results can occur. The test should be used at regular intervals, and positive results should be confirmed before definitive therapy. Processed using the AmeristreamPrep Second Watch Sergeant Automated cytology screening device (Optaros). 02/15/2019 2:21 PM EST [facility] Thin Prep ENDOCERVICAL STRUCTURE / Unknown 02/11/2019 2:41 PM EST 02/11/2019 2:41 PM EST Myriam Guillen HEARING AID CONSULTANT CYTOLOGY ORDERABLES Fi nal Result [facility] [address] [place] [address] from Last 3 Months or Most Recently Relevant to Health Maintenance Advance Directives For more information, please contact: [phone] * Full Code (Latest Code Status on File) Date Activated Date Inactivated Comments 02/27/2024 5:52 AM 02/29/2024 1:40 AM Care Teams Coil Taper Relationship Specialty Start Date End Date Mary Greer MD [address] [place] [phone] PCP - General Family Medicine 06/14/14
--- OUTSIDE RECORDS SUMMARY | 2024-10-14 09:10 | XMS_ITS | Encounter Summary ---
[facility] Address [address] [place] [phone] Care Team Providers Care Riveting Machine Operator Automatic Name Role Phone Provider, No Known Primary Care Provider Unavail able Encounter Details Date Type Department Care Team (Latest Contact Info) Description 10/12/2024 Travel Social History Tobacco Use Types Packs/Day [...] [facility] MATER[facility] MEDICINE [address] [address] 10/26/2024 8:45 AM EDT Appointment [facility] US PER DIAG CTR [address] [place] [address] 11/09/2024 7:30 AM EDT Office Visit [facility] [address] [facility] [address] 11/09/2024 7:30 AM EDT Appointment [facility] US PER DIAG [facility] [address] [place] [address] documented as of this encounter Visit Diagnoses Not on filedocumented in this encounter Care Teams Riveting Machine Operator Automatic Relationship Specialty Start Date End Date Provider, [place] [address] PCP - General 09/27/24 documented as of this encounter
--- OUTSIDE RECORDS SUMMARY | 2024-10-14 09:10 | XMS_ITS | Encounter Summary ---
[facility] Address [address] [place] [phone] Care Team Providers Care Gear Repair Supervisor Name Role Phone Provider, No Known Primary [...] Delivery Comme nts Yes 11/09/2024 Date entered flavoi or to episode creation Sex and Gender Information Value Date Recorded Sex Assigned at Not on file Legal Sex Female 3:31 PM EDT Gender Identity Not on file Sexual Orientation Not on file documented as of this encounter Plan of Treatment Upcoming Encounters Date Type Department Care Team (Late st Contact Info) Description 10/26/2024 8:45 AM EDT Office Visit [facility] MATERNAL MEDICINE [address] [address] 10/26/2024 8:45 AM EDT Appointment [facility] US PER DIAG CTR [address] [place] [address] 11/09/2024 7:30 AM EDT Office Visit [facility] [address] [address] 11/09/2024 7:30 AM EDT Appointment [facility] US PER DIAG CTR [address] [place] [address] documented as of this encounter Visit Diagnoses Not on filedocumented in this encounter Care Teams Gear Repair Supervisor Relationship Specialty Start Date End Date Provider, [place] [address] PCP - General 09/27/24 documented as of this encounter
--- OUTSIDE RECORDS SUMMARY | 2024-10-14 09:10 | XMS_ITS | Encounter Summary ---
Author Organization [place] [address] Care Team Providers Care Paint Maker Name Role Phone Mary Greer MD Primary Care Provider +1- [phone] Encounter Details Date Type Department Care Team (Late st Contact Info) Description 09/23/2024 Abstract SEP [facility] [address] [facility] [place] [id number] Monique Ozuna MA Social History Tobacco Use Types Packs/Day Years Used Date Smoking Tobacco: Former Cigarettes Smokeless Tobacco: Never Alcohol Use Standard Drinks/Week Comments No 0 (1 standard drink = 0.6 oz pur e alcohol) [facility] Utilities Answer Date Recorded In the past 12 months has [employer] electric, gas, oil, or water company threatened to shut off services in your home? No 02/27/2024 Overall Financial Resource Strain (CARDIA) Answe r Date Recorded How hard is it for you to pa y for the very basics like food, housing, medical care, and heating? Not hard at all 02/27/2024 PHQ-2 Answer Date Recorded PHQ-2 Total Score 0 09/05/2024 [facility] [place] [facility] Occupat ional Health - Occupational Stress [...] things needed for daily living? No 03/28/2020 [facility] IP Transportation Answer D ate Recorded [...] on filedocumented in this encounter Care Teams Paint Maker Relationship Specialty Start Date End Date Mary Greer MD [address] [facility] [place] [address] PCP - General Family Medicine 06/14/14 documented as of this encounter
--- OUTSIDE RECORDS SUMMARY | 2024-10-14 09:10 | XMS_ITS | Clinical Summary ---
Author Organization [facility] Address [address] [place] [id number] Care Team Providers Care Banking And Finance Instructor Name Role Phone Provider, No Known Primary [...] Take 1 tablet by mouth Daily. Active [place]-3 Fatty Acids (fish oil) 1000 MG capsule capsule Take 1 capsule by mouth Daily With Breakfast. Active Active Problems Problem Noted Date Diagnosed Date Poor growth affecting management of mother in third trimester 09/28/2024 Assessment & Plan (10/12/2024 8:16 AM EDT): Patient presents for follow-up growth ultrasound secondary to IUGR. Today's ultrasound shows overall growth at the 5th percentile. Abdominal circumference is at the 12th percentile. Growth restriction is once again dictated secondary to small head and shortened long bones though those measurements are slightly improved. DANO and BPP are normal. Umbilical artery Dopplers are elevated though with continuous forward flow. We discussed continued recommendation for delivery at 37 weeks given stability of growth. We did discuss decreased movement and strict return precautions. If patient were to present before induction of labor with decreased movement with recommend proceeding with delivery. Assessment & Plan (09/28/2024 1:29 PM EDT): [...] Encounters Date Type Department Care Team Description 10/12/2024 7:30 AM EDT Office Visit [facility] MATERNAL MEDICINE [address] [place] [address] Luigi Ramos MD Poor growth affecting management of mother in third trimester, single or unspecified fetus (Primary Dx) 10/12/2024 7:11 AM EDT - 10/12/2024 11:59 PM EDT Hospital Encounter [facility] US PER DIAG [facility] [address] [place] [address] Poor growth affecting management of mother in third trimester, single or unspecified fetus Discharge Disposition: Home or Self Care 10/12/2024 Travel 09/28/2024 12:30 PM EDT Office Visit [facility] MATERNAL MEDICINE [address] [place] [address] Luigi Ramos MD Poor growth affecting management of mother in third trimester, single or unspecified fetus (Primary Dx) 09/28/2024 11:32 AM EDT - 09/28/2024 11:59 PM EDT Hospital Encounter [facility] PER DIAG [facility] [address] [place] [address] Sacha Avelar MD IUGR (intrauterine growth restriction) affecting care of [...] oz) 10/12/2024 7:32 A M EDT Height 161.3 cm (5' 3.5 ) 09/28/2024 12:25 PM ED T Body Mass Index 29.33 09/28/2024 12:25 PM EDT Plan of Treatment Upcoming Encounters Date Type Department Care Team (Late st Contact Info) Description 10/26/2024 8:45 AM EDT Office Visit [facility] MEDICAL [facility] MATERNAL MEDICINE [address] [facility] [address] [place] [address] 10/26/2024 8:45 AM EDT Appointment [facility] US PER DIAG [facility] [address] [place] [address] 11/09/2024 7:30 AM EDT Office Visit [facility] MATERNAL MEDICINE [address] [place] [address] 11/09/2024 7:30 AM EDT Appointment [facility] [address] [place] [address] Health Maintenance Due Date Last Done Comments Annual Gynecologic Pelvic an d Breast Exam 1998 Pneumococcal Vaccine 0-49 (1 of 2 - PCV) 2017 TDAP/TD VACCINES (2 - Td or Tdap) 09/26/2020 011 PAP SMEAR 02/11/2022 02/11/2019 COVID-19 Vaccine ( - 2023-2 5 season) 2023 ANNUAL PHYSICAL 09/27/2024 HEPATITIS C SCREENING 09/27/2024 INFLUENZA VACCINE 12/01/2024 03/12/2014, , 01/05/2011, Additional history exists HPV VACCINES Completed 02/19/2016, 09/26/2010 RSV Vaccine - Adults (No Dos es Required) Completed Procedures Procedure Name Priority Date/Time Associated Diagnosis Comments [facility] Routine 10/12/2024 7:55 AM EDT Poor growth affecting management of mother in third trimester, single or unspecified fetus [facility] Routine 09/28/2024 1:22 PM EDT IUGR (intrauterine growth restriction) affecting care of mother, third trimester, fetus 1 , unspecified gestational age from Last 3 Months Results * [facility] (10/12/2024 7:55 AM EDT) Only the most recent of2 resultswithin the time period is included. Anatomical Region Laterality Modality Ultrasound 10/12/2024 7:36 AM EDT Narrative 10/12/2024 8:18 AM EDT PAT NAME: JAMIL DAVID [facility] REC#: [id number] DA: [id number] PAT GEND: F PAT TYPE: O EXAM JOSSY: [id number] REF PHYS SACHA AVELAR Comparison Studies The [...] EFW (oz) 14 oz EFW by: Hadlock (SRQ-LS-DI-FL) Extended Cav. septi pel. tr 8.6 mm [...] Normal Heart / Thorax 3-vessel view: Normal 0-katogj-msftbkw view: normal Cord insertion: Normal Stomach: Appears [...] recommend proceeding with delivery. Coding ======= Description: 83947-90 Follow Up Ultrasound Description: 36738-52 BPP without NST Description: 47626-14 Doppler Umbilical Artery Generator Operator Straight Bevel Gear: Xiomara Garcia RDMS Physician: Luigi Ramos MD, FACOG Electronically signed by: Luigi Ramos MD, FACOG at: 08:18 Procedure Note Luigi Ramos MD - 10/12/2024 PAT NAME: DAVID KHAN [facility] REC#: [id number] DA: 2000 PAT GEND: F PAT TYPE: O EXAM JOSSY: [id number] REF PHYS SACHA AVELAR Comparison Studies The findings of this study are compared to the prior ultrasound studydated 09/28/24 Patient Status Outpatient Indication ======== IUGR Maternal Assessment Modcak349 cm Height (ft)5 ft Height (in)3 in Fezqvz16 kg Weight (lb)168 lb BMI29.32 kg/m Method ======= Transabdominal ultrasound examination. View: Suboptimal view: limited byfetal position ========= Aguirre . Number of fetuses: 1 Dating ====== GA by prior [id number] w + 0 d GEOVANNA by prior [...] GA36 w + 0 d Assigned GEOVANNA:11/09/2024 [id number] d Biometry Standard BPD80.1 mm 32w 1d <1% Hadlock OFD98.2 mm 31w 5d <1% Cheryl HC285.2 mm 31w 2d <1% Hadlock Cerebellum tr45.6 mm 34w 6d 22% Hill AC301.2 mm 34w 1d 12% Hadlock Femur65.7 mm 33w 6d 5% Hadlock Jcogwru00.8 mm 30w 5d <1% Cheryl HC / AC0.95 EFW2,217 g 33w 2d 5% Hadlock EFW (lb)4 lb EFW (oz)14 oz EFW by:Hadlock (BMI-FT-ZF-FL) Extended Cav. septi pel. tr8.6 mm CM7.5 mm 49% Nicolaides Head / Face / Neck Cephalic index0.82 53% Nicolaides Extremities / Bony Struc FL / BPD0.82 FL / HC0.23 FL / AC0.22 Other Structures SHK245 bpm General Evaluation Cardiac activity present. FHR [...] LVOT view:Normal Heart / Thorax 3-vessel view:Normal 7-elsdpd-nadfopu view:normal Cord insertion:Normal Stomach:Appears normal Kidneys:Appears normal [...] movement would recommendproceeding with delivery. Coding ======= Description:13527-21 Follow Up Ultrasound Description:89171-94 BPP without NST Description:96897-23 Doppler Umbilical Artery Generator Operator Straight Bevel Gear: Xiomara Garcia RDMS Physician: Luigi Ramos MD, FACOG Electronically signed by: Luigi Ramos MD, FACOG at: 08:18 us Luigi Ramos MD [facility] ORDERABLES Final Result from Last 3 Months Insurance [employer] [place] Care Teams Banking And Finance Instructor Relationship Specialty Start Date End Date Provider, [place] [address] PCP - General 09/27/24
--- OUTSIDE RECORDS SUMMARY | 2024-10-14 09:10 | XMS_ITS | Clinical Summary ---
Author Organization [facility] Address [address] [place] [address] Care Team Providers Care Bell Person Name Role Phone Unavailable Primary Care Provider Unavailabl e Source Comments [facility] is fully rolled out with thefollowing exceptions:General Clinical Research [facility] Social History Tobacco Use Types Packs/Day Years [...]
== END 2024-10-11 23:59 | disposition home or self-care (01) ==
LOC: LAB.DROPOF 10-14 09:06
PROVIDERS: Visit Provider Nurse Practitioner Obstetrics & Gynecology
DX: O36.5990 Maternal care for other known or suspected poor fetal growth, unspecified trimester, not applicable or unspecified (principal); Z3A.00 Weeks of gestation of pregnancy not specified
CPT/HCPCS: 86403

== ENCOUNTER 2024-10-20 04:57 | Inpatient (IN) | payer MEDICAID, SELFPAY ==
--- OUTSIDE RECORDS SUMMARY | 2003-09-02 | XMS_ITS | Encounter Summary ---
Author Organization [facility] Address [address] [place] [address] Care Team Providers Care Tank House Supervisor Name Role Phone Unavailable Primary Care Provider Unavailabl e Encounter Details Date Type Department Care Team (Late st Contact Info) Description 09/02/2003 Hospital Encounter [facility] Department of Radiology [address] [place] [phone] Social History Tobacco Use Types Packs/Day [...]
--- OUTSIDE RECORDS SUMMARY | 2024-09-05 19:18 | XMS_ITS | Encounter Summary ---
Author Organization [place] [address] Care Team Providers Care Roll Panner Name Role Phone Mary Greer MD Primary Care Provider +1- [phone] Reason for Visit * Reason Comments Abdominal Pain Encounter Details Date Type Department Care Team (Late st Contact Info) Description 09/05/2024 7:18 PM EDT - 09/05/2024 7:19 PM EDT Emergency [facility] [place] [id number] Discharge Disposition: Left Without Being Seen Social History Tobacco Use Types Packs/Day Years Used Date Smoking Tobacco: Former Cigarettes Smokeless Tobacco: Never Alcohol Use Standard Drinks/Week Comments No 0 (1 standard drink = 0.6 oz pur e alcohol) [facility] Utilities Answer Date Recorded In the past 12 months has [employer] electric, gas, oil, or water company threatened to shut off services in your home? No 02/27/2024 Overall Financial Resource Strain (CARDIA) Answe r Date Recorded How hard is it for you to pa y for the very basics like food, housing, medical care, and heating? Not hard at all 02/27/2024 PHQ-2 Answer Date Recorded PHQ-2 Total Score 0 09/05/2024 [facility] [place] of Occupat ional Health - Occupational Stress [...] things needed for daily living? No 03/28/2020 [facility] IP Transportation Answer D ate Recorded In [...] on filedocumented in this encounter Care Teams Roll Panner Relationship Specialty Start Date End Date Mary Greer MD [address] [place] [address] PCP - General Family Medicine 06/14/14 documented as of this encounter
--- OUTSIDE RECORDS SUMMARY | 2024-09-05 19:23 | XMS_ITS | Encounter Summary ---
Author Organization [place] [address] Care Team Providers Care Refractory Mixer Name Role Phone Mary Greer MD Primary Care Provider [phone]- [phone] Reason for Visit * Reason Comments Abdominal Pain [address] [facility] Encounter Details Date Type Department Care Team (Latest Contact Info) Description 09/05/2024 7:23 PM EDT - 09/05/2024 9:31 PM EDT [facility] [place] [address] Julia Wellington MD [address] [place] [address] Discharge Disposition: Home or Self Care Social History Tobacco Use Types Packs/Day Years Used Date Smoking Tobacco: Former Cigarettes Smokeless Tobacco: Never Alcohol Use Standard Drinks/Week Comments No 0 (1 standard drink = 0.6 oz pur e alcohol) [facility] Utilities Answer Date Recorded In the past 12 months has [employer], gas, oil, or water [employer] threatened to shut off services in your home? No 02/27/2024 Overall Financial Resource Strain (CARDIA) Answe r Date Recorded How hard is it for you to pa y for the very basics like food, housing, medical care, and heating? Not hard at all 02/27/2024 PHQ-2 Answer Date Recorded PHQ-2 Total Score 0 09/05/2024 [facility] [place] of Occupat ional Health - Occupational Stress [...] things needed for daily living? No 03/28/2020 [facility] H[facility]N [facility] IP Transportation Answer D ate Recorded [...] Author No Risk 09/05/2024 7:47 PM Lynn Feilds RN * [place] Suicide Severity Rating Scale (Q shift for [...] Yes Multiple births? N Uterine Activity Mode Palpation;[place] Contraction Frequency 0 Contraction Intensity N/A Resting [...] at , triage anytime prn. Martha Rosario [facility] OB Triage Progress Note S: Pt [...] OB office visit upcoming on 09/08/24 at [facility]. Denies LOF and VB. Reports good [...] Ibuprofen Hives Omnicef [Cefdinir] Rash Prednisone Rash [place] hyper Antihist [Diphenhydramine Hcl] Naproxen Hives, Itching [...] Ox3; judgement and insight intact; memory both shelter and short term intact. Moodand affect are [...] and discomfort after PO meds. records from [facility] not available in CareEverywhere. Pt seems to be a reliable historian, and does not display drug-seeking behaviors. Reviewed warnings, strongly encouraged to make dietary changes to lessen incidence of acute episodes - she understands the importance of non-fatty and plain, bland foods until surgery . Keep appointment at [facility] 09/08/24 as scheduled. Return to triage [...] POC Yellow Color 09/05/2024 7:40 PM EDT [facility] UA Appear POC Clear Clear 09/05/2024 7:40 PM EDT [facility] UA Blood POC Negative Negative 09/05/2024 7:40 PM EDT [facility] UA pH POC 6.0 5.0 - 8.0 pH 09/05/2024 7:40 PM EDT [facility] UA Urobilinogen POC 0.2 0.2, 1.0 09/05/2024 7:40 PM EDT [facility] UA Nitrite POC Negative Negative 09/05/2024 7:40 PM EDT [facility] UA Leuk Est POC Negative Negative 7:40 PM EDT [facility] UA SG POC >=1.030 1.001 - 1.035 no units 09/05/2024 7:40 PM EDT [facility] UA Gluc POC Negative Negative mg/dL 09/05/2024 7:40 PM EDT [facility] UA Protein POC Negative Negative mg/dL 09/05/2024 7:40 PM EDT [facility] UA Ketones POC Negative Negative mg/dL 09/05/2024 7:40 PM EDT [facility] Urine STRUCTURE OF URINARY TRACT PROPER / Unknown 09/05/2024 7:37 PM EDT 09/05/2024 7:40 PM EDT us Julia March MD POINT OF CARE TEST ORDERA BLES Final Result [facility] [address] [place] [address] documented in this encounter Visit Diagnoses Not [...] 09/05/2024 documented in this encounter Care Teams Refractory Mixer Relationship Specialty Start Date End Date Mary Greer MD [address] [place] [address] PCP - General Family Medicine 06/14/14 documented as of this encounter
--- OUTSIDE RECORDS SUMMARY | 2024-09-28 11:32 | XMS_ITS | Encounter Summary ---
Author Organization [facility] Address [address] [place] [address] Care Team Providers Care Plunger Shovel Operator Name Role Phone Provider, No Known Primary Care Provider Unavail able Reason for Referral * Diagnostic Imaging (Routine) - Closed Specialty Diagnoses / Procedures Referred By Contac t Referred To Contact Radiology Diagnoses IUGR (intrauterine growth restriction) affecting care of mother, third trimester, fetus 1 , unspecified gestational age Procedures US [facility] Sacha Avelar MD [address] [place] [address] Phone: tel: fax: [facility] US PER DIAG CTR [address] [place] [address] Phone: tel: Referral ID Status Reason Start Date Expiration Date Visits Re quested Visits Authorized [id number] Closed 09/27/2024 12/27/2025 1 1 Reason for Visit * Diagnostic Imaging (Routine) - Closed Specialty Diagnoses / Procedures Referred By Contac t Referred To Contact Radiology Diagnoses IUGR (intrauterine growth restriction) affecting care of mother, third trimester, fetus 1 , unspecified gestational age Procedures [facility] Sacha Avelar MD [address] [place] [address] Phone: tel: fax: [facility] US PER DIAG CTR [address] [place] [address] Phone: tel: Referral ID Status Reason Start Date Expiration Date Visits Re quested Visits Authorized [id number] Closed 09/27/2024 12/27/2025 1 1 Encounter Details Date Type Department Care Team (Latest Contact Info) Description 09/28/2024 11:32 AM EDT - 09/28/2024 11:59 PM EDT Hospital Encounter [facility] US PER DIAG CTR [address] [place] [address] Sacha Avelar MD [address] [facility] [address] [place] [address] IUGR (intrauterine growth restriction) affecting care of [...] this encounter Medications at Time of Discharge [place]-3 Fatty Acids (fish oil) 1000 MG capsule capsule Take 1 capsule by mouth Daily With Breakfast. Vit-Fe Fumarate-FA ( vitamin 27-0.8) 27-0.8 MG tablet tablet Take 1 tablet by mouth Daily. terconazole (TERAZOL 7) 0.4 % vaginal cream Insert 1 applicator into the vagina Every Night. 09/15/2024 documented as of this encounter Plan of Treatment Upcoming Encounters Date Type Department Care Team ( Contact Info) Description 10/26/2024 8:45 AM EDT Office Visit [facility] [address] [facility] [address] [place] [address] 10/26/2024 8:45 AM EDT Appointment [facility] US PER DIAG CTR [address] [place] [address] 11/09/2024 7:30 AM EDT Office Visit [facility] MEDICAL [facility] MED[facility] [address] [facility] [address] [place] [address] 11/09/2024 7:30 AM EDT Appointment [facility] US PER DIAG CTR [address] [place] [address] documented as of this encounter Procedures Procedure Name Priority Date/Time Associated Diagnosis Comments [facility] Routine 09/28/2024 1:22 PM EDT IUGR (intrauterine growth restriction) affecting care of mother, third trimester, fetus 1 , unspecified gestational age documented in this encounter Results * [facility] (09/28/2024 1:22 PM EDT) Anatomical Region Laterality Modality Ultrasound 09/28/2024 12:3 4 PM EDT Narrative 09/28/2024 1:40 PM EDT PAT NAME: DAVID KHAN [facility] REC#: [id number] DA: [id number] PAT GEND: F PAT TYPE: O EXAM JOSSY: [id number] REF PHYS SACHA AVELAR Comparison Studies There are no relevant prior [...] EFW (oz) 4 oz EFW by: Hadlock (QUE-WO-OA-FL) Extended Tibia 51.5 mm 30w 5d 1% Cheryl Fibula 50.1 mm 30w 4d 19% Cheryl Foot 64.2 mm 10% Chitty Radius 44.5 mm 31w 4d 34% Cheryl Ulna 47.1 mm 30w 0d <1% Cheryl Cav. septi pel. tr 6.7 mm Tax Audit Manager 5.1 mm CM 6.4 mm 23% Nicolaides [...] normal IVC: normal 3-vessel view: Appears normal 1-nnsfxa-helhccl view: Appears normal Rt lung: Appears normal [...] movements 2: tone 2: Amniotic fluid volume 8/8 Biophysical profile score Maternal Structures Uterus / [...] testing in your office. Coding ======= Description: 66587-28 Detailed Ultrasound Description: 44027-14 BPP without NST Description: 60249-16 Doppler Umbilical Artery Nuclear Criticality Safety Engineer: Xiomara Garcia RDMS Physician: Luigi Ramos MD, FACOG Electronically signed by: Luigi Ramos MD, FACOG at: 13:40 Procedure Note Luigi Ramos MD - 09/28/2024 PAT NAME: DAVID KHAN [facility] REC#: [id number] DA: [id number] PAT GEND: F PAT TYPE: O EXAM JOSSY: [id number] REF PHYS SACHA AVELAR Comparison Studies There are no relevant prior studies to which this study is beingcompared Patient Status Outpatient Indication ======== IUGR Maternal Assessment Apzhje936 cm Height (ft)5 ft Height (in)3 in Jkulzg30 kg Weight (lb)172 lb BMI30.09 kg/m Method ======= Transabdominal ultrasound examination. View: Adequate view ========= Aguirre . Number of fetuses: 1 Dating ====== Method of dating:based on stated GEOVANNA GA by prior [id number] w + 0 d GEOVANNA by prior assessment:11/09/2024 Ultrasound examination on:09/28/2024 GA by U/S based upon:AC, BPD, Femur, HC GA by U/S31 w + 6 d GEOVANNA by U/S:11/24/2024 Assigned:based on stated GEOVANNA, selected on 09/28/2024 Assigned GA34 w + 0 d Assigned GEOVANNA:11/09/2024 d Biometry Standard BPD78.8 mm 31w 4d 3% Hadlock AYO627.1 mm 33w 4d 42% Cheryl HC289.0 mm 31w 6d <1% Hadlock Cerebellum tr45.0 mm 34w 4d 41% Hill AC288.4 mm 32w 6d 21% Hadlock Femur60.2 mm 31w 2d 1% Hadlock Yenjlpx20.1 mm 29w 6d <1% Cheryl HC / AC1.00 EFW1,920 g 31w 6d 7% Hadlock EFW (lb)4 lb EFW (oz)4 oz EFW by:Hadlock (QCE-NA-TH-FL) Extended Tibia51.5 mm 30w 5d 1% Cheryl Rcldvu07.1 mm 30w 4d 19% Cheryl Foot64.2 mm 10% Chitty Qtzywf83.5 mm 31w 4d 34% Cheryl Ulna47.1 mm 30w 0d <1% Cheryl Cav. septi pel. tr6.7 mm Vp5.1 mm CM6.4 mm 23% Nicolaides Nasal bone12.1 mm Head / Face / Neck Cephalic index0.76 12% Nicolaides Extremities / Bony Struc FL / BPD0.76 FL / HC0.21 FL / AC0.21 Other Structures WFL197 bpm General Evaluation Cardiac activity present. FHR [...] view:Appears normal SVC:normal IVC:normal 3-vessel view:Appears normal 6-uwqxmt-vntdccj view:Appears normal Rt lung:Appears normal Lt lung:normal [...] Structures Uterus / Cervix Cervix:Visualized Approach:Transabdominal Cervical hrjxik00.9 mm Ovaries / Tubes / Adnexa Rt [...] twice weekly testing inyour office. Coding ======= Description:25724-16 Detailed Ultrasound Description:24692-95 BPP without NST Description:54537-23 Doppler Umbilical Artery Nuclear Criticality Safety Engineer: Xiomara Garcia RDMS Physician: Luigi Ramos MD, FACOG Electronically signed by: Luigi Ramos MD, FACOG at: 13:40 us Sacha Avelar MD G US ORDERABLES Final Resul t documented in this encounter Visit Diagnoses Diagnosis IUGR (intrauterine growth restriction) affecting care of mother, third trimester, fetus 1 , unspecified gestational age documented in this encounter Care Teams Plunger Shovel Operator Relationship Specialty Start Date End Date Provider, [place] [address] PCP - General 09/27/24 documented as of this encounter
--- OUTSIDE RECORDS SUMMARY | 2024-09-28 12:30 | XMS_ITS | Encounter Summary ---
Author Organization [facility] Address [address] [place] [id number] Care Team Providers Care Loan Consultant Name Role Phone Provider, No Known Primary Care Provider Unavail able Reason for Referral * Diagnostic Imaging (Routine) - Closed Specialty Diagnoses / Procedures Referred By Contac t Referred To Contact Radiology Diagnoses Poor growth affecting management of mother in third trimester, single or unspecified fetus Procedures [facility] Casie Ramos MD [address] [facility] [address] [place], [place] [phone] Phone: tel: fax: Referral ID Status Reason Start Date Expiration Date Visits Re quested Visits Authorized Closed 09/28/2024 12/28/2025 1 1 Reason for Visit * Reason Comments IUGR Encounter Details Date Type Department Care Team (Late Contact Info) Description 09/28/2024 12:30 PM EDT Office Visit [facility] [address] [place] [address] Casie Ramos MD [address] [place] [address] Poor growth affecting management of mother in [...] reports she has had a lot of [place]- Nails contractions,but nothing regular. Pt endorses normal movement. NIPT declined. Next OB follow-up appointment with Dr. Avelar on 09/30/2024. * Casie Ramos MD - 09/28/2024 12:30 PM EDT Images from the original note were not included. Maternal/ Medicine Consult Note Date: 09/28/2024 Name: David Khan : 2000 Referring Provider: Sacha Avelar MD Chief Complaint IUGR Subjective History of Present Illness: David Khan is a 24 y.o. 34w0d who [...] tablet by mouth Daily., Disp: , Rfl: [place]-3 Fatty Acids (fish oil) 1000 MG capsule [...] Ultrasound Impression: See Viewpoint Assessment and Plan David Khan is a 24 y.o. 34w0d who [...] CVS. Casie Ramos MD, FACOG Maternal Medicine, [facility] documented in this encounter Plan of Treatment Upcoming Encounters Date Type Department Care Team (Late st Contact Info) Description 10/26/2024 8:45 AM EDT Office Visit [facility] [address] [facility] [address] [place] [phone] 10/26/2024 8:45 AM EDT Appointment [facility] [address] [place] [address] 11/09/2024 7:30 AM EDT Office Visit [facility] [address] [facility] [address] [place] [address] 11/09/2024 7:30 AM EDT Appointment [facility] [address] [place] [address] documented as of this encounter Results * [facility] (10/12/2024 7:55 AM EDT) Anatomical Region Laterality Modality Ultrasound 10/12/2024 7:36 AM EDT Narrative 10/12/2024 8:18 AM EDT PAT NAME: DAVID KHAN [facility] REC#: [id number] DA: [id number] PAT GEND: F PAT TYPE: O EXAM JOSSY: [id number] REF PHYS SACHA AVELAR Comparison Studies The findings of this study are compared to the prior ultrasound study dated 09/28/24 Patient Status Outpatient Indication ======== IUGR Maternal Assessment Height 161 cm Height (ft) 5 ft Height (in) 3 in Weight 76 kg Weight (lb) 168 lb BMI 29.32 kg/m Method ======= Transabdominal ultrasound examination. View: Suboptimal view: limited by position ========= Aguirre . Number of fetuses: 1 Dating ====== GA by prior assessment 36 w + 0 d GEOVANNA by prior assessment: 11/09/2024 Ultrasound examination on: 10/12/2024 GA by U/S based upon: AC, BPD, Femur, HC GA by U/S 32 w + 6 d GEOVANNA by U/S: 12/01/2024 Method of dating: Restore dating from previous exam Previous dating: based on stated GEOVANNA, selected on 09/28/2024 Agreed GEOVANNA of previous datin11/09/2024 Assigned: based on stated GEOVANNA, selected on 09/28/2024 Assigned GA 36 w + 0 d Assigned GEOVANNA: 11/09/2024 length 280 d Biometry Standard BPD 80.1 mm 32w 1d <1% Hadlock OFD 98.2 mm 31w 5d <1% Cheryl HC 285.2 mm 31w 2d <1% Hadlock Cerebellum tr 45.6 mm 34w 6d 22% Hill AC 301.2 mm 34w 1d 12% Hadlock Femur 65.7 mm 33w 6d 5% Hadlock Humerus 52.8 mm 30w 5d <1% Cheryl HC / AC 0.95 EFW 2,217 g 33w 2d 5% Hadlock EFW (lb) 4 lb EFW (oz) 14 oz EFW by: Hadlock ([id number]) Extended Cav. septi pel. tr 8.6 mm CM 7.5 mm 49% Nicolaides Head / Face / Neck Cephalic index 0.82 53% Nicolaides Extremities / Bony Struc FL / BPD 0.82 FL / HC 0.23 FL / AC 0.22 Other Structures FHR 129 bpm General Evaluation Cardiac activity present. FHR 129 bpm. movements present. Presentation cephalic. Placenta Placental site: posterior. Umbilical cord Cord vessels: 3 vessel cord. Amniotic fluid Amount of AF: normal. MVP 6.9 cm. DANO 19.5 cm. Q1 5.7 cm, Q2 2.8 cm, Q3 4.1 cm, Q4 6.9 cm. Anatomy Cranium: Normal Cavum septi pellucidi: Normal Cerebellum: Normal Cisterna magna: Normal Head / Neck Rt lateral ventricle: Normal Lt lateral ventricle: Normal Profile: suboptimal 4-chamber view: Appears normal RVOT view: Normal LVOT view: Normal Heart / Thorax 3-vessel view: Normal 2-cmnjqy-lhlccyq view: normal Cord insertion: Normal Stomach: Appears normal Kidneys: Appears normal Bladder: Appears normal Gender: female Wants to know gender: yes Doppler Arterial Umbilical artery: abnormal Umbilical A details: elevated Umbilical A PI 1.58 >99% Get Umbilical A RI 0.82 >99% Get Umbilical A PS 50.19 cm/s 54% Ebbing Umbilical A ED 8.47 cm/s Umbilical A TAmax 25.64 cm/s 9% Ebbing Umbilical A MD 7.72 cm/s Umbilical A S / D 5.64 >99% Get Umbilical A HR 117 bpm Biophysical Profile 2: breathing movements 2: Gross body movements 2: tone 2: Amniotic fluid volume 10/08 Biophysical profile score Consultation / Office Visit Office note to follow Impression Today's exam reveals a SIUP in cephalic presentation with biometry inconsistent with dates, EFW at the 5%ile and AC at the 12%ile, primarily given by head and extremity measurements. Limited anatomic survey appears normal. The DANO and BPP are normal. UA dopplers are elevated though with continuous forward flow. Recommendation Recommend delivery at 37 weeks. Recommend continued NSTs in your office. If patient presents with decreased movement would recommend proceeding with delivery. Coding ======= Description: 47005-65 Follow Up Ultrasound Description: 23647-61 BPP without NST Description: 58346-40 Doppler Umbilical Artery Script Coordinator: Xiomara Garcia RDMS Physician: Casie Ramos MD, FACOG Electronically signed by: Casie Ramos MD, FACOG at: 08:18 Procedure Note Casie Ramos MD - 10/12/2024 PAT NAME: DAVID KHAN [facility] REC#: [id number] DA: 2000 PAT GEND: F PAT TYPE: O EXAM JOSSY: [id number] REF PHYS SACHA AVELAR Comparison Studies The findings of this study are compared to the prior ultrasound studydated 09/28/24 Patient Status Outpatient Indication ======== IUGR Maternal Assessment Xbdmid212 cm Height (ft)5 ft Height (in)3 in Majztv22 kg Weight (lb)168 lb BMI29.32 kg/m Method ======= Transabdominal ultrasound examination. View: Suboptimal view: limited byfetal position ========= Aguirre . Number of fetuses: 1 Dating ====== GA by prior adpunygskh55 w + 0 d GEOVANNA by prior assessment:11/09/2024 Ultrasound examination on:10/12/2024 GA by U/S based upon:AC, BPD, Femur, HC GA by U/S32 w + 6 d GEOVANNA by U/S:12/01/2024 Method of dating:Restore dating from previous exam Previous dating:based on stated GEOVANNA, selected on 09/28/2024 Agreed GEOVANNA of previous datin11/09/2024 Assigned:based on stated GEOVANNA, selected on 09/28/2024 Assigned GA36 w + 0 d Assigned GEOVANNA:11/09/2024 d Biometry Standard BPD80.1 mm 32w 1d <1% Hadlock OFD98.2 mm 31w 5d <1% Cheryl HC285.2 mm 31w 2d <1% Hadlock Cerebellum tr45.6 mm 34w 6d 22% Hill AC301.2 mm 34w 1d 12% Hadlock Femur65.7 mm 33w 6d 5% Hadlock Lzbdknd59.8 mm 30w 5d <1% Cheryl HC / AC0.95 EFW2,217 g 33w 2d 5% Hadlock EFW (lb)4 lb EFW (oz)14 oz EFW by:Hadlock ([id number]) Extended Cav. septi pel. tr8.6 mm CM7.5 mm 49% Nicolaides Head / Face / Neck Cephalic index0.82 53% Nicolaides Extremities / Bony Struc FL / BPD0.82 FL / HC0.23 FL / AC0.22 Other Structures EAH073 bpm General Evaluation Cardiac activity present. FHR 129 bpm. movements present. Presentation cephalic. Placenta Placental site: posterior. Umbilical cord Cord vessels: 3 vessel cord. Amniotic fluid Amount of AF: normal. MVP 6.9 cm. DANO 19.5 cm. Q1 5.7 cm,Q2 2.8 cm, Q3 4.1 cm, Q4 6.9 cm. Anatomy Cranium:Normal Cavum septi pellucidi:Normal Cerebellum:Normal Cisterna magna:Normal Head / Neck Rt lateral ventricle:Normal Lt lateral ventricle:Normal Profile:suboptimal 4-chamber view:Appears normal RVOT view:Normal LVOT view:Normal Heart / Thorax 3-vessel view:Normal 6-fspbsf-tmsqwil view:normal Cord insertion:Normal Stomach:Appears normal Kidneys:Appears normal Bladder:Appears normal Gender:female Wants to know gender:yes Doppler Arterial Umbilical artery:abnormal Umbilical A details:elevated Umbilical A PI1.58 >99% Get Umbilical A RI0.82 >99% Get Umbilical A PS50.19 cm/s 54% Ebbing Umbilical A ED8.47 cm/s Umbilical A TAmax25.64 cm/s 9% Ebbing Umbilical A MD7.72 cm/s Umbilical A S / D5.64 >99% Get Umbilical A HR117 bpm Biophysical Profile 2: breathing movements 2: Gross body movements 2: tone 2: Amniotic fluid volume 10/08 Biophysical profile score Consultation / Office Visit Office note to follow Impression Today's exam reveals a SIUP in cephalic presentation with biometryinconsistent with dates, EFW at the 5%ile and AC at the 12%ile, primarilygiven by head and extremity measurements. Limited anatomic survey appears normal. TheAFI and BPP are normal. UA dopplers are elevated though with continuousforward flow. Recommendation Recommend delivery at 37 weeks. Recommend continued NSTs in your office.If patient presents with decreased movement would recommendproceeding with delivery. Coding ======= Description:61451-99 Follow Up Ultrasound Description:95352-99 BPP without NST Description:24562-49 Doppler Umbilical Artery Script Coordinator: Xiomara Garcia RDMS Physician: Casie Ramos MD, FACOG Electronically signed by: Casie Ramos MD, FACOG at: 08:18 us Casie Ramos MD IMG US ORDERABLES Final Result documented in this encounter Visit Diagnoses Diagnosis Poor growth affecting management of mother in third trimester, single or unspecified fetus- Primary Poor growth affecting management of mother in third trimester, single or unspecified fetus documented in this encounter Care Teams Loan Consultant Relationship Specialty Start Date End Date Provider, [place] [address] PCP - General 09/27/24 documented as of this encounter
--- OUTSIDE RECORDS SUMMARY | 2024-10-12 07:11 | XMS_ITS | Encounter Summary ---
Author Organization [facility] Address [address] [place] [address] Care Team Providers Care Entry Level Management Name Role Phone Provider, No Known Primary Care Provider Unavail able Reason for Referral * Diagnostic Imaging (Routine) - Closed Specialty Diagnoses / Procedures Referred By Contac t Referred To Contact Radiology Diagnoses Poor growth affecting management of mother in third trimester, single or unspecified fetus Procedures [facility] Diagnostic [place] Luigi Ramos MD [facility] [address] [place] [address] Phone: tel: fax: Referral ID Status Reason Start Date Expiration Date Visits Re quested Visits Authorized Closed 09/28/2024 12/28/2025 1 1 Reason for Visit * Diagnostic Imaging (Routine) - Closed Specialty Diagnoses / Procedures Referred By Contac t Referred To Contact Radiology Diagnoses Poor growth affecting management of mother in third trimester, single or unspecified fetus Procedures [facility] Diagnostic [place] Luigi Ramos MD [address] [facility] [address] [place] [address] Phone: tel: fax: Referral ID Status Reason Start Date Expiration Date Visits Re quested Visits Authorized Closed 09/28/2024 12/28/2025 1 1 Encounter Details Date Type Department Care Team (Late st Contact Info) Description 10/12/2024 7:11 AM EDT - 10/12/2024 11:59 PM EDT Hospital Encounter [facility] PER DI[facility] [address] [place] [address] Luigi Ramos MD [address] [place] [address] Poor growth affecting management of mother in [...] this encounter Medications at Time of Discharge [place]-3 Fatty Acids (fish oil) 1000 MG capsule [...] Description 10/26/2024 8:45 AM EDT Office Visit [facility] [address] [facility] [address] [place] [address] 10/26/2024 8:45 AM EDT Appointment [facility] PER [facility] [address] [place] [address] 11/09/2024 7:30 AM EDT Office Visit [facility]NAL MEDICINE [address] [facility] [address] [place] [address] 11/09/2024 7:30 AM EDT Appointment [facility] PER DI[facility] [address] [place] [address] documented as of this encounter Procedures Procedure Name Priority Date/Time Associated Diagnosis Comments [facility] Routine 10/12/2024 7:55 AM EDT Poor growth affecting management of mother in third trimester, single or unspecified fetus documented in this encounter Results * [facility] (10/12/2024 7:55 AM EDT) Anatomical Region Laterality Modality Ultrasound 10/12/2024 7:36 AM EDT Narrative 10/12/2024 8:18 AM EDT PAT NAME: DAVID KHAN [facility] REC#: [id number] DA: [id number] PAT GEND: F PAT TYPE: O EXAM JOSSY: [id number] REF PHYS AVELARSACHA Comparison Studies The findings [...] EFW (oz) 14 oz EFW by: Hadlock (ILS-IC-UV-FL) Extended Cav. septi pel. tr 8.6 mm [...] Normal Heart / Thorax 3-vessel view: Normal 2-ruggsv-ahmahst view: normal Cord insertion: Normal Stomach: Appears [...] recommend proceeding with delivery. Coding ======= Description: 28803-63 Follow Up Ultrasound Description: 33278-21 BPP without NST Description: 46295-12 Doppler Umbilical Artery Reed Man: Xiomara Garcia RDMS Physician: Luigi Ramos MD, FACOG Electronically signed by: Luigi Ramos MD, FACOG at: 08:18 Procedure Note Luigi Ramos MD - 10/12/2024 PAT NAME: DAVID KHAN [facility] REC#: [id number] DA: 2000 PAT GEND: F PAT TYPE: O EXAM JOSSY: [id number] REF PHYS SACHA AVELAR Comparison Studies The findings of this study are compared to the prior ultrasound studydated 09/28/24 Patient Status Outpatient Indication ======== IUGR Maternal Assessment Hxuvba785 cm Height (ft)5 ft Height (in)3 in Gyipsr61 kg Weight (lb)168 lb BMI29.32 kg/m Method ======= Transabdominal ultrasound examination. View: Suboptimal view: limited byfetal position ========= Aguirre . Number of fetuses: 1 Dating ====== GA by prior fxqwcgvbaa49 w + 0 d GEOVANNA by prior [...] GA36 w + 0 d Assigned GEOVANNA:11/09/2024 bkrxci725 d Biometry Standard BPD80.1 mm 32w 1d <1% Hadlock OFD98.2 mm 31w 5d <1% Cheryl HC285.2 mm 31w 2d <1% Hadlock Cerebellum tr45.6 mm 34w 6d 22% Hill AC301.2 mm 34w 1d 12% Hadlock Femur65.7 mm 33w 6d 5% Hadlock Ciubxbe14.8 mm 30w 5d <1% Cheryl HC / AC0.95 EFW2,217 g 33w 2d 5% Hadlock EFW (lb)4 lb EFW (oz)14 oz EFW by:Hadlock (JTC-AZ-HN-FL) Extended Cav. septi pel. tr8.6 mm CM7.5 mm 49% Nicolaides Head / Face / Neck Cephalic index0.82 53% Nicolaides Extremities / Bony Struc FL / BPD0.82 FL / HC0.23 FL / AC0.22 Other Structures AII663 bpm General Evaluation Cardiac activity present. FHR [...] LVOT view:Normal Heart / Thorax 3-vessel view:Normal 0-fqyqgy-ynjbhsw view:normal Cord insertion:Normal Stomach:Appears normal Kidneys:Appears normal [...] movement would recommendproceeding with delivery. Coding ======= Description:38958-55 Follow Up Ultrasound Description:84525-73 BPP without NST Description:36147-11 Doppler Umbilical Artery Reed Man: Xiomara Garcia RDMS Physician: Luigi Ramos MD, FACOG Electronically signed by: Luigi Ramos MD, SETHOG at: 08:18 us Luigi Ramos MD IMChloé US ORDERABLES Final Result documented in this encounter Visit Diagnoses Diagnosis Poor growth affecting management of mother in third trimester, single or unspecified fetus documented in this encounter Care Teams Entry Level Management Relationship Specialty Start Date End Date Provider, [place] [address] PCP - General 09/27/24 documented as of this encounter
--- OUTSIDE RECORDS SUMMARY | 2024-10-12 07:30 | XMS_ITS | Encounter Summary ---
Author Organization [facility] Address [address] [place] [address] Care Team Providers Care Professional Fighter Name Role Phone Provider, No Known Primary Care Provider Unavail able Reason for Visit * Reason Comments IUGR, short extr. & HC Encounter Details Date Type Department Care Team (Late st Contact Info) Description 10/12/2024 7:30 AM EDT Office Visit [facility] MATERNAL MEDICINE [address] [place] [phone] Luigi Ramos MD [address] [facility] [address] [place] [address] Poor growth affecting management of mother in [...] vaginal bleeding, leaking fluid. Patient reports frequent Bland-Nails contractions. Endorses normal movement. NIPT declined. Next [...] Otherwise Noted in HPI Current Outpatient Medications: [place]-3 Fatty Acids (fish oil) 1000 MG capsule [...] CVS. Luigi Ramos MD, FACOG Maternal Medicine, [facility] documented in this encounter Plan of Treatment Upcoming Encounters Date Type Department Care Team (Late st Contact Info) Description 10/26/2024 8:45 AM EDT Office Visit [facility] MATERNAL MEDICINE [address] [address] 10/26/2024 8:45 AM EDT Appointment [facility] US PER DIAG CTR [address] [place] [address] 11/09/2024 7:30 AM EDT Office Visit [facility] MATERNAL MEDICINE [address] [address] 11/09/2024 7:30 AM EDT Appointment [facility] US PER DIAG CTR [address] [place] [address] documented as of this encounter Visit Diagnoses Diagnosis Poor growth affecting management of mother in third trimester, single or unspecified fetus- Primary documented in this encounter Care Teams Professional Fighter Relationship Specialty Start Date End Date Provider, [place] [address] PCP - General 09/27/24 documented as of this encounter
[2024-10-20] VITALS (7 sets, daily range): BP systolic 100–118; BP diastolic 58–91; PULSE 68–97; RESP 16–18; TEMP 36.1–36.8; O2SAT 94–100; BMI 30.4
--- OUTSIDE RECORDS SUMMARY | 2024-10-20 05:01 | XMS_ITS | Referral Summary ---
Author Organization [facility] Address [address] [place] [address] Phone Care Team Providers Care Merchandising Coordinator Name Role Phone Unavailable Primary Care Provider [...]
--- OUTSIDE RECORDS SUMMARY | 2024-10-20 05:01 | XMS_ITS | Clinical Summary ---
Author Organization [facility] Address [address] [place] [address] Care Team Providers Care Staffing And Scheduling Coordinator Name Role Phone Unavailable Primary Care Provider Unavailabl e Source Comments is fully rolled out with thefollowing exceptions:General Clinical Research [facility] Social History Tobacco Use Types Packs/Day [...] season) 2023 AMB SEASONAL FLU VACCINE (#1) 01/01/2025 HIB IMMUNIZATION Aged Out No longer e [...]
--- OUTSIDE RECORDS SUMMARY | 2024-10-20 05:01 | XMS_ITS | Encounter Summary ---
[facility] Organization [facility] Address [address] [place] [id number] Care Team Providers Care Resident Associate Name Role Phone Provider, No Known Primary [...] Description 10/26/2024 8:45 AM EDT Office Visit [facility] MATERNAL MEDICINE [address] [address] 10/26/2024 8:45 AM EDT Appointment [facility] US PER DIAG CTR [address] [place] [address] 11/09/2024 7:30 AM EDT Office Visit [facility]ERNAL MEDICINE [address] [address] 11/09/2024 7:30 AM EDT Appointment [facility] US PER DIAG CTR [address] [place] [address] documented as of this encounter Visit Diagnoses Not on filedocumented in this encounter Care Teams Resident Associate Relationship Specialty Start Date End Date Provider, [place] [address] PCP - General 09/27/24 documented as of this encounter
--- OUTSIDE RECORDS SUMMARY | 2024-10-20 05:01 | XMS_ITS | Encounter Summary ---
[facility] Organization [facility] Address [address] [place] [phone] Care Team Providers Care Assistant Manager Pt Name Role Phone Provider, No Known Primary [...] Description 10/26/2024 8:45 AM EDT Office Visit [facility] MATERNAL MEDICINE [address] [address] 10/26/2024 8:45 AM EDT Appointment [facility] US PER DIAG CTR [address] [place] [address] 11/09/2024 7:30 AM EDT Office Visit [facility]NAL MED[facility]INE [address] [facility] [address] 11/09/2024 7:30 AM EDT Appointment [facility] US PER DIAG CTR [address] [place] [address] documented as of this encounter Visit Diagnoses Not on filedocumented in this encounter Care Teams Assistant Manager Pt Relationship Specialty Start Date End Date Provider, [place] [address] PCP - General 09/27/24 documented as of this encounter
--- OUTSIDE RECORDS SUMMARY | 2024-10-20 05:01 | XMS_ITS | Clinical Summary ---
Author Organization [facility] Address [address] [place] [address] Phone Care Team Providers Care Diesel Service Journeyman Name Role Phone Unavailable Primary Care Provider [...]
--- OUTSIDE RECORDS SUMMARY | 2024-10-20 05:01 | XMS_ITS | Clinical Summary ---
Author Organization [facility] [place] [address] Phone Care Team Providers Care Globe Cleaner Name Role Phone Mary Greer MD Primary Care Provider +1- [phone] Allergies Active Allergy Reactions Criticality Noted Date Comments Diphenhydramine Hcl Ibuprofen Hives High 11/02/2014 Naproxen Hives,Itching,Rash 11/02/2014 Cefdinir Rash Medium 05/12/2010 Penicillins Rash 03/08/2010 Prednisone Rash Medium 11/07/2015 [place] hyper Red Dye 06/16/2009 Olanzapine Nausea Only [...] abnormality -BHCG slightly above normal -MRI pending -city clerk eval -Morphine/Zofran PRN -NPO Bilious vomiting with [...] Department Care Team Description 09/23/2024 Abstract SEP [facility] [address] [place] [address] Monique Ozuna MA 09/05/2024 7:23 PM EDT - 09/05/2024 9:31 PM EDT Hospital Encounter [facility] [address] [place] [id number] Julia Wellington MD Discharge Disposition: Home or Self Care 09/05/2024 7:18 PM EDT - 09/05/2024 7:19 PM EDT Emergency [facility] [place] [address] Discharge Disposition: Left Without Being Seen [...] drink = 0.6 oz pur e alcohol) [facility] Utilities Answer Date Recorded In the past [...] Date Recorded PHQ-2 Total Score 0 09/05/2024 [facility] of Occupat ional Health - Occupational [...] things needed for daily living? No 03/28/2020 [facility] IP Transportation Answer D ate [...] Estimated Date of Delivery 09/05/2024 - Present (10/20/2024) 1 11/08/2024 (set by Lynn Cordova RN [...] :21 PM EDT Screening for chlamydial disease WATER FABRICATOR OPERATOR CYTOLOGY REQUEST (PAP ONLY) Routine 02/11/2019 [...] POC Yellow Color 09/05/2024 7:40 PM EDT [facility] UA Appear POC Clear Clear 09/05/2024 7:40 PM EDT [facility] UA Blood POC Negative Negative 09/05/2024 7:40 PM EDT [facility] UA pH POC 6.0 5.0 - 8.0 pH 09/05/2024 7:40 PM EDT [facility] UA Urobilinogen POC 0.2 0.2, 1.0 09/05/2024 7:40 PM EDT [facility] UA Nitrite POC Negative Negative 09/05/2024 7:40 PM EDT [facility] UA Leuk Est POC Negative Negative 7:40 PM EDT [facility] UA SG POC >=1.030 1.001 - 1.035 no units 09/05/2024 7:40 PM EDT [facility] UA Gluc POC Negative Negative mg/dL 09/05/2024 7:40 PM EDT [facility] UA Protein POC Negative Negative mg/dL 09/05/2024 7:40 PM EDT [facility] UA Ketones POC Negative Negative mg/dL 09/05/2024 7:40 PM EDT [facility] Urine STRUCTURE OF URINARY TRACT PROPER / Unknown 09/05/2024 7:37 PM EDT 09/05/2024 7:40 PM EDT us Julia March MD POINT OF CARE TEST ORDERA BLES Final Result [address] [id number] * CHLAMYDIA/GC BY TMA (08/23/2021 2:21 PM EDT) Chlamydia trachomatis Not Detected Not Detected 08/24/2021 3:50 AM EDT [facility] Neisseria gonorrhoeae Not Detected Not Detected 08/24/2021 3:50 AM EDT [facility] Urine URINE SPECIMEN COLLECTION / Unknown 08/23/2021 2:21 PM EDT 08/23/2021 2:21 PM EDT Narrative [facility] [employer] - 08/24/2021 3:50 AM EDT Testing methodology is corn husker mediated amplification (TMA) using the Aptima Combo 2 assay from [employer]. A negative result does not completely rule [...] Malvin Yeboah MD MICROBIOLOGY - GENERAL ORDERA [facility] Final Result [facility] [address] [facility] , [place] [address] * WATER FABRICATOR OPERATOR CYTOLOGY REQUEST (PAP ONLY) (02/11/2019 2:41 PM EST) CASE REPORT Gynecologic Cytology Report Case: [id number] Authorizing Provider: Myriam Guillen, Collected: 02/11/2019 1441 AGRISCIENCE INSTRUCTOR Ordering Location: [facility] Received: 02/11/2019 1441 First Screen: Neha Lockwood CT Specimen: LIQUID-BASED PAP - CERVICAL/ENDOCERV ICAL, Cervix, Endocervical 02/15/2019 2:21 PM EST [facility] PAP FINAL DIAGNOSIS Negative for intraepithelial lesion or malignancy 02/15/2019 2:21 PM [facility] at 1421 EST MICROSCOPIC DESCRIPTION Microscopic examination is performed and the findings corroborate the diagnosis. 02/15/2019 2:21 PM EST [facility] PAP SMEAR ADEQUACY Satisfactory for evaluation 02/15/2019 2:21 PM EST [facility] PAP ORGANISMS NOTED Fungal organisms present consistent with josesito. 02/15/2019 2:21 PM EST [facility] ENDOCERVICAL T-ZONE Transformation zone present 02/15/2019 2:21 PM EST [facility] EMBEDDED IMAGES 9 2:21 PM EST [facility] PAP DISCLAIMER The Pap Smear is a screening test that aids in the detection of cervical cancer and cancer precursors. Both false positive and false negative results can occur. The test should be used at regular intervals, and positive results should be confirmed before definitive therapy. Processed using the QuidsiPrep Lumber Piler Operator Automated cytology screening device (VinPerfect). 02/15/2019 2:21 PM EST [facility] Thin Prep ENDOCERVICAL STRUCTURE / Unknown 02/11/2019 2:41 PM EST 02/11/2019 2:41 PM EST Myriam Guillen AGRISCIENCE INSTRUCTOR CYTOLOGY ORDERABLES Fi nal Result [facility] [address] [place] [address] from Last 3 Months or Most Recently Relevant to Health Maintenance Advance Directives For more information, please contact: [phone] * Full Code (Latest Code Status on File) Date Activated Date Inactivated Comments 02/27/2024 5:52 AM 02/29/2024 1:40 AM Care Teams Globe Cleaner Relationship Specialty Start Date End Date Mary Greer MD [address] [place] [address] PCP - General Family Medicine 06/14/14
--- OUTSIDE RECORDS SUMMARY | 2024-10-20 05:01 | XMS_ITS | Encounter Summary ---
Author Organization [facility] Address [address] [place] [address] [place] [address] Phone Care Team Providers Care Can Sorter Name Role Phone Unavailable Primary Care Provider Unavailabl e Reason for Referral * Radiology Services (Routine) - Closed Specialty Diagnoses / Procedures Referred By Kwasi roland Referred To Contact Procedures OB US STANDARD [facility] Referral ID Status Reason Start Date Expiration Date V isits Requested Visits Authorized [id number] Closed Specialty Services Required 04/03/2019 04/02/2020 150 150 Encounter Details Date Type Department Care Team (Late st Contact Info) Description 04/03/2019 SCAN [facility] [address] [place] [address] Social History Tobacco Use Types Packs/Day Years [...]
--- OUTSIDE RECORDS SUMMARY | 2024-10-20 05:01 | XMS_ITS | Encounter Summary ---
Author Organization [facility] [place] [address] Care Team Providers Care Talent Buyer Name Role Phone Mary Greer MD Primary Care Provider +1- [phone] Encounter Details Date Type Department Care Team (Late st Contact Info) Description 09/23/2024 Abstract SEP [facility] [address] [facility] [place] [address] Monique Ozuna MA Social History Tobacco Use Types Packs/Day Years Used Date Smoking Tobacco: Former Cigarettes Smokeless Tobacco: Never Alcohol Use Standard Drinks/Week Comments No 0 (1 standard drink = 0.6 oz pur e alcohol) [facility] Utilities Answer Date Recorded In the past 12 months has [employer] electric, gas, oil, or water company threatened to shut off services in your home? No 02/27/2024 Overall Financial Resource Strain (CARDIA) Answe r Date Recorded How hard is it for you to pa y for the very basics like food, housing, medical care, and heating? Not hard at all 02/27/2024 PHQ-2 Answer Date Recorded PHQ-2 Total Score 0 09/05/2024 [facility] [place] of Occupat ional Health - Occupational Stress [...] things needed for daily living? No 03/28/2020 [facility] IP Transportation Answer D ate Recorded In [...] on filedocumented in this encounter Care Teams Talent Buyer Relationship Specialty Start Date End Date Mary Greer MD [address] [facility] [address] PCP - General Family Medicine 06/14/14 documented as of this encounter
[2024-10-20] MEDS: ONDANSETRON 4MG/2ML VIAL 4 MG IV (06:30)
[2024-10-20] MEDS: LACTATED RINGERS 1000ML 1,000 ML 999 ML IV (06:30)
[2024-10-20 06:46] LABS: Hematocrit 28.8 % (37.0-47.0); Hemoglobin 9.5 g/dL (12.2-16.2); Immature Granulocytes % 1.0 %; Mean Corpuscular HGB Conc 33.0 g/dL (31.8-35.4); Mean Corpuscular Hemoglobin 31.3 pg (27.0-31.2); Mean Corpuscular Volume 94.7 fl (81-99); Nucleated Red Blood Cells % 0 %; Platelet Count 226 K/mm3 (142-424); Red Blood Count 3.04 M/mm3 (4.20-5.40); Red Cell Distribution Width-SD 44.4 fL; White Blood Count 9.1 K/mm3 (4.8-10.8)
--- NOTE | 2024-10-20 06:57 | PC.NURSE ---
report given to Alec Mackenzie RN
[2024-10-20 06:59] LABS: Amphetamine/Metha Screen,Urine Negative ng/ml (<1000)
[2024-10-20 07:00] LABS: Barbiturates Screen,Urine Negative ng/ml (<200)
[2024-10-20 07:00] LABS: Albumin Level 3.3 g/dl (3.5-5.0); Chloride 110 mmol/L (98-107); Sodium 136 mmol/L (136-145)
[2024-10-20 07:01] LABS: Benzodiazepines Screen,Urine Negative ng/ml (<200)
[2024-10-20 07:01] LABS: Potassium 3.9 mmoL/L (3.5-5.1)
[2024-10-20 07:03] LABS: Methadone Screen,Urine Negative ng/ml (<300); Opiate Screen,Urine Negative ng/ml (<300)
[2024-10-20 07:03] LABS: Alanine Aminotransferase 11 U/L (12-78); Anion Gap 7.9 mEq/L (5-15); Blood Urea Nitrogen 5 mg/dl (7-17); Carbon Dioxide 22 mmol/L (22.0-30.0); Creatinine Clearance Estimated 210 mL/min (50-200); Creatinine,Serum 0.50 mg/dl (0.52-1.04); Estimated Glomerular Filt Rate 149 ml/min (>60); GFR (African American) 180 ML/MIN (>60)
[2024-10-20 07:04] LABS: Albumin/Globulin Ratio 1.1 (1.1-1.8); Alkaline Phosphatase 139 U/L (38-126); Aspartate Amino Transferase 23 U/L (14-36); Bilirubin,Total 0.3 mg/dl (0.2-1.3); Calcium 8.6 mg/dl (8.4-10.2); Globulin 3.0 g/dL (1.3-3.2); Glucose 90 mg/dl (74-100); Total Protein,Serum 6.3 g/dl (6.3-8.2)
[2024-10-20 07:04] LABS: Phencyclidine Screen,Urine Negative ng/ml (<25)
--- NOTE | 2024-10-20 07:14 | EXP.ANES.CKL ---
[facility] Disclaimer: The information contained in this section may have been updated after the patient was seen, as this information can be updated by other users. Medical History History of maternal fourth degree perineal laceration, currently Small for gestational age fetus affecting management of mother Tobacco use complicating Surgical History No significant past surgical history Family History Other No significant family history Social History Smoking Status: Never smoker alcohol intake: current alcohol intake frequency: holidays/special occasions only substance use type: marijuana current occupational status: unemployed Travel in the last 8 weeks?: None Have you lived/traveled outside US in past 30 days?: No Contact w/someone who lives/traveled outside US past 30 days?: No Exposure to someone with infectious disease in past 14 days?: No Do you have a fever (greater than 100.4 F or 38 C)?: No Have you tested positive for COVID-19?: No Exposed to someone with COVID-19 in past 14 days?: No Do you have a sore throat?: No Do you have a cough?: No Do you have any weakness?: No Do you have any diarrhea?: No Are you experiencing any unusual bleeding?: No Do you have any muscle aches/pain?: No Do you have any abdominal pain?: No Are you experiencing loss of taste or smell?: No [facility] Anesthesia Checklist Patient Identification Patient Identification: Arm Band and Verbal (Name & ) Structural Data Admitted From: Home Planned Operative Procedure/s: Consent for Planned Operative Procedure(s) Verified: Yes Verified Documents: Surgical Consent NPO Status Verified Time NPO: 00:00 Chart Verification Results Verified: CBC Additional verifications Patient : Yes Anesthesia Reactions: No Airway Assessment Mallampati Score:: Class II C-Spine Mobility Assessed: Yes TMJ Mobility Assessed: Yes Dentition: Poor Dentition (Multiple broken and chipped teeth) Neurological Assessment Level of Consciousness: Awake, Alert and Appropriate Hx Seizures: No Numbness or tingling in extremities: No Anesthesia Plan Anesthesia Risk discussed: Yes Anesthesia Plan: Verified ASA Class: II Anesthesia Type: Spinal
--- NOTE | 2024-10-20 07:19 | EXP.HP ---
History of Present Illness *Admission Date: 10/20/24 *Reason for visit:: delivery *History of present illness: Ro Khan is a 24-year-old G2, P1 at 37 weeks and 1 day gestation. She has an GEOVANNA of 11/09/2024 based on first trimester ultrasound. This has been complicated by with growth ultrasound on 10/12/2024 given an EFW in the 5th percentile and THC use. She presents for primary delivery secondary to a short perineum with 1/4 degree tear after forceps delivery with her last delivery. On presentation patient endorsed good movement and denies any leakage of fluid or vaginal bleeding. Patient endorses some contractions O+, antibody negative, rubella immune, hepatitis B negative, hepatitis C negative, RPR negative, HIV negative 1 hour GTT: 105 GBS negative PFSH PFS Disclaimer: The information contained in this section may have been updated after the patient was seen, as this information can be updated by other users. Medical History (Updated 10/20/24 @ 07:28 by Monique Gaines DO) History of maternal fourth degree perineal laceration, currently Small for gestational age fetus affecting management of mother Tobacco use complicating Surgical History No significant past surgical history Family History Other No significant family history Social History Smoking Status: Never smoker alcohol intake: current alcohol intake frequency: holidays/special occasions only substance use type: marijuana current occupational status: unemployed Travel in the last 8 weeks?: None Have you lived/traveled outside US in past 30 days?: No Contact w/someone who lives/traveled outside US past 30 days?: No Exposure to someone with infectious disease in past 14 days?: No Do you have a fever (greater than 100.4 F or 38 C)?: No Have you tested positive for COVID-19?: No Exposed to someone with COVID-19 in past 14 days?: No Do you have a sore throat?: No Do you have a cough?: No Do you have any weakness?: No Do you have any diarrhea?: No Are you experiencing any unusual bleeding?: No Do you have any muscle aches/pain?: No Do you have any abdominal pain?: No Are you experiencing loss of taste or smell?: No Other Medical History Have you received the Flu Vaccine for this season: No Have you received the Pneumonia Vaccine: No Review of Systems Review of Systems Review of systems (narrative): Review of Systems Constitutional: Denies fever, chills, and sweats Eyes: Denies vision change/ pain Respiratory: Denies cough and shortness of breath Cardiovascular: Denies chest pain and lightheadedness Gastrointestinal: Admits abdominal pain with contractions. Denies nausea, vomiting. Genitourinary: Denies dysuria and incontinence Musculoskeletal: Denies shoulder pain and back pain Neurological: Denies change in speech or headaches Meds Home Medications and Allergies Home Medications ?Medication ?Instructions ?Recorded ?Confirmed ?Type ondansetron 4 mg disintegrating 4 mg PO HS #20 tabs 05/31/24 10/18/24 Rx tablet ferrous sulfate 325 mg (65 mg 325 mg PO DAILY #30 tabs 07/07/24 10/18/24 Rx iron) tablet vits no.126-ferrous fum 1 tab PO DAILY #30 tabs 07/07/24 10/18/24 Rx 28 mg iron-folic acid 800 mcg tablet (Classic ) New Prescriptions to Start Prescriptions: Allergies Allergy/AdvReac Type Severity Reaction Status Date / Time ibuprofen Allergy Mild Other Verified 10/18/24 09:37 Penicillins Allergy Mild Anaphylaxis Verified 10/18/24 09:37 prednisone Allergy Mild Hives Verified 10/18/24 09:37 red dye Allergy Mild Hives Verified 10/18/24 09:37 Exam Data for Last 24 hours Vital signs and Labs for Last 24 Hours: Temp Pulse Resp BP Pulse Ox O2 Del Method 97.9 F 68 18 117/64 98 Room Air 10/20/24 06:39 10/20/24 06:39 10/20/24 06:39 10/20/24 06:39 10/20/24 06:39 10/20/24 06:39 Laboratory Results - last 24 hr 10/20/24 05:10: Urine Opiates Screen Negative, Urine Methadone Screen Negative, Ur Barbituates Screen Negative, Ur Phencyclidine Scrn Negative, Ur Amphetamines Screen Negative, U Benzodiazepines Scrn Negative, Urine Cocaine Screen Negative, U Marijuana (THC) Screen Positive H 10/20/24 06:12: WBC 9.1, RBC 3.04 L, Hgb 9.5 L, Hct 28.8 L, MCV 94.7, MCH 31.3 H, MCHC 33.0, RDW 12.9, Plt Count 226, MPV 10.1, Neut % (Auto) 61.5, Lymph % (Auto) 25.9, [place] % (Auto) 8.9, Eos % (Auto) 1.9, Baso % (Auto) 0.8, Neut # (Auto) 5.6, Lymph # (Auto) 2.4, [place] # (Auto) 0.8, Eos # (Auto) 0.2, Baso # (Auto) 0.1, Sodium 136, Potassium 3.9, Chloride 110 H, Carbon Dioxide 22, Anion Gap 7.9, BUN 5 L, Creatinine 0.50 L, Estimated Creat Clear 210, Estimated GFR 149, Est GFR ( Amer) 180, Glucose 90, Calcium 8.6, Total Bilirubin 0.3, AST 23, ALT 11 L, Alkaline Phosphatase 139 H, Total Protein 6.3, Albumin 3.3 L, Globulin 3.0, Albumin/Globulin Ratio 1.1 I & O for Last 24 hours: Intake & Output 10/17/24 10/18/24 10/19/24 10/20/24 23:59 23:59 23:59 23:59 Weight 172 lb Narrative: General: patient is alert oriented. HEENT: NCAT, EOMI, moist mucous membranes, neck supple with full ROM Cardiovascular: RRR +S1/S2, no murmurs or rubs Pulmonary: Clear to auscultation bilaterally, nonlabored breathing, symmetric chest rise Abdominal: Gravid abdomen appropriate for gestation. No guarding, rebound, or tenderness noted. Extremities: trace edema, no tenderness or cyanosis noted Skin: Normal turgor, intact, warm. Negative for erythema, pallor, petechia, or lesions Neurologic: Negative for sensory or motor deficit Psychiatric: Patient is very anxious and tearful *Routine HEENT Exam Head: Present normocephalic and atraumatic Eye: Present EOMI, PERRL and normal accommodation; Absent conjunctival icterus, scleral injection, nystagmus or exophthalmos ENT: Present mucous membranes moist *Routine Respiratory Exam Respiratory: Present CTA bilaterally, normal respiratory effort, able to speak in complete sentences and symmetric chest movement; Absent accessory muscle use, decreased breath sounds, rales, respiratory distress, wheezes, distant breath sounds or diminished air movement *Routine Cardiovascular Exam Cardiovascular: Present RRR, Normal S1 and Normal S2; Absent murmur or gallop *Routine Abdominal Exam Abdominal: Present soft and normoactive bowel sounds; Absent tenderness, distended, rebound or guarding *Routine Rectal Exam Rectal:: deferred *Routine Genitalia Exam Genitalia:: normal female Assessment and Plan *Assessment and plan (1) History of maternal fourth degree perineal laceration, currently : Status: Acute Category: Medical Code(s): O09.299 - Supervision of with other poor reproductive or obstetric history, unspecified trimester (2) Asymmetric IUGR affecting , antepartum: Status: Acute Category: Medical Code(s): O36.5990 - Maternal care for other known or suspected poor growth, unspecified trimester, not applicable or unspecified (3) Tobacco use complicating : Status: Acute Qualifiers: Trimester: third trimester Qualified Code(s): O99.333 - Smoking (tobacco) complicating , third trimester Category: Medical Code(s): O99.330 - Smoking (tobacco) complicating , unspecified trimester (4) delivery due to previous obstetrical trauma, delivered, current hospitalization: Status: Acute Category: Medical Code(s): O34.90 - Maternal care for abnormality of pelvic organ, unspecified, unspecified trimester (5) delivery due to previous difficult delivery, delivered, current hospitalization: Status: Acute Category: Medical Code(s): O82 - Encounter for delivery without indication; Z87.59 - Personal history of other complications of , childbirth and the puerperium Plan - Monitor vitals - Admit to L&D for scheduled delivery - External FHR and TOCO monitor - GBS neg/ Blood type: O+ - Hemoglobin: 9.5, Plt: 226 - Plan for spinal anesthesia - Anticipate delivery #Anemia Normocytic anemia noted we will follow closely for blood loss and initiate workup and management in the period. Reviewed the risks benefits and alternatives to primary delivery. Patient continued to request delivery. Discussed the risk of bleeding, infection injury to the surrounding structures. Patient consented to blood transfusion to medically necessary. Reviewed the rare risk of hysterectomy if bleeding is unable to be controlled. Discussed risk of infection, the patient has no allergies and will receive clindamycin and gentamicin preoperatively. Reviewed the risk of injury to surrounding structures including the bowel, bladder, reproductive organs, and neurovascular bundles. Patient voiced understanding. Discussed the increased risk with prior surgery and scarring. Patient and significant other voiced understanding desire to proceed
[2024-10-20] MEDS: CLINDAMYCIN PHOSPHATE/D5W 900 MG/50 ML PIGGYBACK 100 MG IV (07:21)
[2024-10-20] MEDS: GENTAMICIN SULFATE 400 MG in 0.9 % SODIUM CHLORIDE 100 ML 100 MG IV (07:46)
--- NOTE | 2024-10-20 08:34 | EXP.OP.NOTE ---
Date of procedure: 10/20/24 Pre-op Diagnosis:: 1. 37 weeks 1days gestation, [place] 2. Intrauterine growth restriction 3. Hx of forceps delivery and fourth degree perineal laceration 4. Desires primary delivery 5. THC use throughout 6. GBS negative 7. Rh Positive Post-op Diagnosis:: 1. 37 weeks 1days gestation, [place] 2. Intrauterine growth restriction 3. Hx of forceps delivery and fourth degree perineal laceration 4. Desires primary delivery 5. THC use throughout 6. GBS negative 7. Rh Positive Procedure performed:: Primary Delivery Surgeon:: Monique Gaines DO Interior Decorator Painting(s):: Benoit Rose DO FRONT DESK SPECIALIST:: Harlan Crowe Anesthesia: spinal Estimated blood loss (mL): 300 Clinical Note:: Noemi Piedra is a 24-year-old G2, P1 who presented at 37 weeks and 1 day gestation for primary delivery. She requested delivery set to a history of 1/4 degree perineal surgery and after forceps delivery. Her has been complicated by IUGR and THC. Operative findings:: 1. Live viable Female : Nitesh. Weight: 5pounds 10ounces. Apgars 8 and 9 at 1 and 5 minutes respectively 2. Normal-appearing fallopian tubes and ovaries bilaterally Operative note:: Medications: Gentamicin and clindamycin Summary: Procedure explained in its entirety. The patient was counseled on the risks and benefits of section including bleeding, vascular injury, infection, and injury to the surrounding structures. Hemorrhage requiring life saving blood transfusion resulting in blood born viral infection or allergic reaction was explained and the patient consented to blood transfusion. Possible need for further operative measures prolonging recovery time and hospitalization reviewed to include hysterectomy. Procedure explained in its entirety and patient had no further questions. Consented to procedure. The patient was taken back to the operating room where adequate spinal anesthesia was obtained. Pneumatic compression stockings applied to lower extremities. Above listed antibiotics were administered for infection prophylaxis. She was placed in the dorsal supine position Urinary catheter was placed and found to be draining clear urine. The patient was prepped and draped in sterile fashion. Anesthesia was tested and and found to be adequate. A Pfannenstiel skin incision was made with the scalpel. Subcutaneous bleeding vessels were cauterized with the bovie. The incision was taken down to the fascia with the bovie. The fascia was incised in the midline and sharply extended laterally. The superior aspect of the fascia was grasped with Cameron clamps and the rectus muscle was taken down with the Bovie. The rectus muscle was sharply dissected from the midline with Mayos. This process was repeated inferiorly. The rectus muscles were in the midline, peritoneum was identified and entered bluntly. Sheldon O retractor was placed and the bladder was noted to be out of the operative field. A bladder flap was created with Metzenbaum scissors and [place] pickups. The lower uterine segment was easily identified, sharply incised, and entered bluntly with the surgeon's index finger. Incision was then extended in a superior and inferior fashion by blunt separation. Membranes were ruptured revealing clear fluid. The fetus was in cephalic presentation. The head was carefully elevated out of the pelvis. Fundal pressure was applied when head was brought into incision. The infants head was delivered without difficulty. The shoulder and body followed without complication. Delivery occurred at 0751. The mouth and nose were suctioned with a bulb. The umbilical cord was clamped and cut, cord left long for patient's aunt to cut at the warmer. Infant was taken to warmer for evaluation by the clinical engineering director. Cord blood was collected. The placenta was delivered via fundal massage. IV Pitocin was initiated. Inside of the uterus was gently cleared of blood and clots with lap sponge. The hysterotomy was closed with 0 Vicryl in a running locked fashion. There was bleeding at the edges and a second 0 Vicryl was used to imbricate the hysterotomy. There were 2 areas of bleeding which were made hemostatic with a [id number]. The lower uterine segment was visualized and noted to be hemostatic. The ovaries and tubes were found to be normal. The posterior aspect of the uterus was cleared of blood clot with a damp lap sponge. The gutters were inspected bilaterally and cleared of blood and clots with lap sponges. The uterine incision was reinspected and hemostasis noted. Sheldon O retractor was removed. The peritoneum was reapproximated using a 2-0 Monocryl in a nonlocked running fashion. The fascia was closed in a running nonlocked fashion using 0 PDS x2 meeting right of midline. Fascia was noted as not having gaps or defects. The subcutaneous fat was closed with 2-0 Monocryl interrupted sutures x3. Skin was closed with the INSORB suture in a subcuticular fashion. Patient tolerated the procedure well and all counts were correct x3, per nursing. Patient will receive tap blocks and then be transported to the OB PACU for recovery and infant bonding. Condition: stable Disposition: floor Specimens:: Live viable female Cord blood Placenta Complications:: None
--- NOTE | 2024-10-20 08:52 | EXP.ANES.I ---
[facility] Anesthesia Record Part I Anesthesia Record I Intake, IV Amount: 1,600 Hydration: Adequate Estimated blood loss (mL): 400 Urine output (mL): 0 Blood Products used (#): none Blood Pressure: 103/59 SaO2: 100 Pulse Rate: 81 Airway Patency: Patent Respiratory Rate: 16 Temperature: 97.0 F Patient is:: Awake and Drowsy Stable to PACU at:: 08:45
[2024-10-20] MEDS: LACTATED RINGERS 1000ML 1,000 ML 125 ML IV (09:23)
[2024-10-20] MEDS: OXYTOCIN/RINGERS LACTATE 30 UNITS/500 ML BAG 40 UNITS IV (09:24)
[2024-10-20] MEDS: ACETAMINOPHEN 500MG TAB 1000 MG PO (09:25)
[2024-10-20] MEDS: OXYCODONE 5MG IMMEDIATE RELEASE TABLET 10 MG PO ×2 (09:42→15:43)
[2024-10-20 11:41] LABS: Microscopic,Cath URINE MICROSCOPIC (MICROSCOPIC)
[2024-10-20 13:55] LABS: Appearance,Urine/Cath CLEAR (Clear); Bilirubin,Cath Negative (Negative); Blood, Urine/Cath Negative (Negative); Color,Urine/Cath YELLOW (Yellow); Glucose,Urine/Cath (UA) Negative (Negative); Ketones,Urine/Cath Negative (Negative); Leukocyte Esterase,Cath Negative (Negative); Nitrate,Cath Negative (Negative); PH,Urine/Cath 7.5 (5.0-8.5); Protein,Urine/Cath Negative (Negative); Specific Gravity, Urine/Cath 1.010 (1.005-1.030); Urobilinogen,Cath 0.2 EU/dl (0.2)
[2024-10-20] MEDS: SIMETHICONE 80MG CHEWABLE TABLET 160 MG PO ×2 (14:00→23:55)
[2024-10-20 14:49] LABS: Squamous Epithelial Ur./Cath Occasional #/hpf (0-5); WBC,Urine/Cath Occasional #/hpf (0-3)
[2024-10-20] MEDS: PRENATAL MULTIVITAMIN W/IRON 1 EACH PO (15:45)
[2024-10-20] MEDS: SENNA 8.6MG TABLET 8.6 MG PO (15:47)
[2024-10-20] MEDS: KETOROLAC 30MG/ML VIAL 30 MG IV (19:48)
[2024-10-20] MEDS: OXYCODONE 7.5MG W/APAP 325MG TABLET 1 EACH PO ×2 (19:48→23:55)
[2024-10-21] MEDS: KETOROLAC 30MG/ML VIAL 30 MG IV (01:58)
[2024-10-21] MEDS: OXYCODONE 7.5MG W/APAP 325MG TABLET 1 EACH PO ×5 (04:09→20:36)
[2024-10-21 05:50] LABS: Hematocrit 27.9 % (37.0-47.0); Hemoglobin 9.4 g/dL (12.2-16.2); Immature Granulocytes % 0.7 %; Mean Corpuscular HGB Conc 33.7 g/dL (31.8-35.4); Mean Corpuscular Hemoglobin 32.2 pg (27.0-31.2); Mean Corpuscular Volume 95.5 fl (81-99); Nucleated Red Blood Cells % 0 %; Platelet Count 251 K/mm3 (142-424); Red Blood Count 2.92 M/mm3 (4.20-5.40); Red Cell Distribution Width-SD 45.0 fL; White Blood Count 11.9 K/mm3 (4.8-10.8)
[2024-10-21] MEDS: SENNA 8.6MG TABLET 8.6 MG PO ×2 (08:15→20:36)
[2024-10-21 08:18] VITALS: BP 103/54; PULSE 74; RESP 17; TEMP 36.4; O2SAT 98
[2024-10-21 08:31] LABS: RPR W/RFX Titers Nonreactive (Nonreactive)
[2024-10-21] MEDS: IRON SUCROSE COMPLEX 200 MG in 0.9 % SODIUM CHLORIDE 100 ML 220 MG IV (09:36)
--- NOTE | 2024-10-21 11:05 | P.PN_ITS ---
Subjective *Date: 10/21/24 *Time: 11:05 Interval history: Ro Khan is a 24-year-old G2, P2 day #1 from a primary delivery. Reports that she is having some pain but refusing to take ibuprofen or Toradol. She is taking Percocet 7.5 (at 815 this morning, 409 this morning, 2355 yesterday, 1948 yesterday and oxycodone 10 at 1543) -Reports she is tolerating p.o. without nausea or vomiting. -Reports her lochia is scant. -Considering the IUD for contraception -She is bottle-feeding her female infant - Endorses flatus and a bowel movement -Ambulating, voiding difficulty or dysuria. Denies chest pain shortness of breath or pain in her legs. No further complaints at this time. Exam Data for Last 24 hours Vital signs and Labs for Last 24 Hours: Temp Pulse Resp BP Pulse Ox O2 Del Method 97.6 F 74 17 103/54 L 98 Room Air 10/21/24 08:18 10/21/24 08:18 10/21/24 08:18 10/21/24 08:18 10/21/24 08:18 10/21/24 08:18 Laboratory Results - last 24 hr 10/20/24 06:12: RPR w/Rflx to Titer Nonreactive 10/20/24 07:30: Urine Color Yellow, Urine Appearance Clear, Urine pH 7.5, Ur Specific [place] 1.010, Urine Protein Negative, Urine Glucose (UA) Negative, Urine Ketones Negative, Urine Blood Negative, Urine Nitrate Negative, Urine Bilirubin Negative, Urine Urobilinogen 0.2, Ur Leukocyte Esterase Negative, Urine RBC None, Urine WBC Occasional, Ur Squamous Epith Cells Occasional, Urine Bacteria None 10/21/24 05:31: WBC 11.9 H D, RBC 2.92 L, Hgb 9.4 L, Hct 27.9 L, MCV 95.5, MCH 32.2 H, MCHC 33.7, RDW 13.0, Plt Count 251, MPV 10.1, Neut % (Auto) 65.2, Lymph % (Auto) 25.9, [place] % (Auto) 7.4, Eos % (Auto) 0.4, Baso % (Auto) 0.4, Neut # (Auto) 7.8, Lymph # (Auto) 3.1, [place] # (Auto) 0.9, Eos # (Auto) 0.1, Baso # (Auto) 0.1 I & O for Last 24 hours: Intake & Output 10/18/24 10/19/24 10/20/24 10/21/24 23:59 23:59 23:59 23:59 Intake Total 3649.5 / 3649.5 110 / 110 Balance 3649.5 / 3649.5 110 / 110 Weight 172 lb Narrative: General: patient is alert oriented in no acute distress and responds a ppropriately to questions. Appears to be in minimal pain. Sitting up in the chair and doing well HEENT: NCAT, EOMI, moist mucous membranes, neck supple with full ROM Cardiovascular: RRR +S1/S2, no murmurs or rubs Pulmonary: Clear to auscultation bilaterally, nonlabored breathing, symmetric chest rise Abdominal: Fundus at the umbilicus, firm, and tenderness appropriate for the period. Extremities: trace edema, no tenderness or cyanosis noted Skin: Normal turgor, intact, warm. Negative for erythema, pallor, petechia, or lesions Neurologic: Negative for sensory or motor deficit Psychiatric: Normal affect, normal thought process, good judgment and insight, no depression or anxious mood appreciated. Assessment and Plan *Assessment and plan (1) delivery due to previous difficult delivery, delivered, current hospitalization: Status: Acute Category: Medical Code(s): O82 - Encounter for delivery without indication; Z87.59 - Personal history of other complications of , childbirth and the puerperium (2) delivery due to previous obstetrical trauma, delivered, current hospitalization: Status: Acute Category: Medical Code(s): O34.90 - Maternal care for abnormality of pelvic organ, unspecified, unspecified trimester (3) History of maternal fourth degree perineal laceration, currently : Status: Acute Category: Medical Code(s): O09.299 - Supervision of with other poor reproductive or obstetric history, unspecified trimester (4) Asymmetric IUGR affecting , antepartum: Status: Acute Category: Medical Code(s): O36.5990 - Maternal care for other known or suspected poor growth, unspecified trimester, not applicable or unspecified (5) High risk sexual behavior: Status: Acute Qualifiers: High risk sexual behavior type: heterosexual Qualified Code(s): Z72.51 - High risk heterosexual behavior Category: Social Hx Code(s): Z72.51 - High risk heterosexual behavior (6) Tobacco use complicating : Status: Acute Qualifiers: Trimester: third trimester Qualified Code(s): O99.333 - Smoking (tobacco) complicating , third trimester Category: Medical Code(s): O99.330 - Smoking (tobacco) complicating , unspecified trimester (7) Anemia: Status: Acute Qualifiers: Other causes of anemia: nutritional, other Category: Medical Code(s): D64.9 - Anemia, unspecified Plan Stable. POD#1 s/p primary low-transverse delivery -Doing well. VSS. Serial lochia and fundal checks. -Hemoglobin: 9.5--> 9.4. Patient on arrival had normocytic anemia. She will receive an IV iron infusion today prior to discontinuation of her IV - asymptomatic anemia noted. Vitals stable. Continue monitoring. DC with Fe -O+/antibody negative -Bottle feeding, female -Contraception: undecided -Follow-up 2 weeks for routine visit -Dispo: home in 1-3 days pending mother/infant status
--- NOTE | 2024-10-21 14:17 | SW/DCPLANNER ---
Addendum entered by Subha Latif RN 10/26/24 15:17: Cord screen positive. Attempted to contact Jadyn, but no VM option. Sent email to [employer]. 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 Addendum entered by Molly Bar 10/21/24 15:44: Jadyn miller/ [facility] [phone] did call regarding this case. Per Jadyn she will follow up w/ patient and infant once they return home. Addendum entered by Molly Bar 10/21/24 15:09: Per [facility] this case DOES meet criteria for investigation. Addendum entered by Molly Bar 10/21/24 14:30: Web Id # [id number]. Original Note: I received a referral for this patient regarding THC use during . Patient tested positive for THC on the following dates: 04/05/24, 05/27/24, 06/07/24, 08/23/24, 10/15/24 and at admission 10/20/24. urine drug screen is positive for THC. Patient admits to THC use stating it increased her appetite. Infant is currently scoring a 2 for tremors. female (Nitesh Chavez) was born on 10/20/24. Per patient 's father is not present (Rebecca Chavez 04/15/96). This is patient's second child (Ap Chavez 09/20/19), Per patient no past Social Service involvement. Patient, infant, Ap, her aunt and brother will reside at [address] [place] [address] in [place] [address]. Patient's contact number is [phone]. Patient is currently established w/ WIC. Patient has the following items at home: crib, car seat, clothing, diapers and will be bottle feeding. PED MD will be Dr Michaels and patient confirmed she will have transportation to all follow up appointments. Per nursing (Cary) patient is appropriate w/ and expected to discharge tomorrow 10/22 pending no setbacks. I will make a referral to [facility] regarding positive UDS for patient and .
[2024-10-21] MEDS: SIMETHICONE 80MG CHEWABLE TABLET 160 MG PO ×2 (16:32→20:36)
[2024-10-21 20:50] VITALS: BP 116/54; PULSE 90; RESP 18; TEMP 36.7; O2SAT 99
[2024-10-22] MEDS: OXYCODONE 7.5MG W/APAP 325MG TABLET 1 EACH PO ×3 (00:51→09:17)
[2024-10-22] MEDS: SIMETHICONE 80MG CHEWABLE TABLET 160 MG PO (05:04)
[2024-10-22 05:43] VITALS: BP 105/50; PULSE 75; RESP 16; TEMP 37.1; O2SAT 98
[2024-10-22 09:16] VITALS: BP 115/55; PULSE 81; RESP 18; TEMP 36.9; O2SAT 98
[2024-10-22] MEDS: SENNA 8.6MG TABLET 8.6 MG PO (09:17)
--- NOTE | 2024-10-22 10:51 | P.DS_ITS ---
General Admission date:: 10/20/24 Discharge date: 10/22/24 HPI HPI HPI: Ro Khan is a 24-year-old G2, P1 at 37 weeks and 1 day gestation. She has an GEOVANNA of 11/09/2024 based on first trimester ultrasound. This has been complicated by with growth ultrasound on 10/12/2024 given an EFW in the 5th percentile and THC use. She presents for primary delivery secondary to a short perineum with 1/4 degree tear after forceps delivery with her last delivery. On presentation patient endorsed good movement and denies any leakage of fluid or vaginal bleeding. Patient endorses some contractions O+, antibody negative, rubella immune, hepatitis B negative, hepatitis C negative, RPR negative, HIV negative 1 hour GTT: 105 GBS negative Hospital Course Hospital Course Hospital Course: Ro Khan is a 24-year-old G2, P2 day #2 from a primary low- transverse delivery. Primary was performed secondary to a history of a 4 degree perineal laceration following a forceps assisted vaginal delivery. This has been complicated by with growth ultrasound on 10/12/2024 given an EFW in the 5th percentile and THC use. is also complicated by normocytic anemia. Patient received an IV iron infusion on day #1. Patient delivered a live viable female , Nitesh on 10/20/2024 at 0 751. weighed 5 pounds 10 ounces and had Apgars of 8 and 9 at 1 and 5 minutes respectively She has done well and has remained afebrile with her at her hospitalization. She is eating and drinking and ambulating. She is bottlefeeding. Her lochia is normal. She has O Rh+ blood, she is rubella immune and was group B streptococcus negative. She will be discharged home to follow-up with Dr. Gaines in 2 weeks time. She will continue with her vitamins and iron. She has a prescription for Percocet and will continue these at home. She was given the usual instructions with respect to limiting her activity, driving and sexual activity. She was given instructions with respect to wound care. Her condition on discharge is stable and improved. Exam Data for Last 24 hours Vital signs and Labs for Last 24 Hours: Temp Pulse Resp BP Pulse Ox O2 Del Method 98.7 F 75 16 105/50 L 98 Room Air 10/22/24 05:43 08/22/25 05:43 10/22/24 05:43 10/22/24 05:43 10/22/24 05:43 10/22/24 05:43 I & O for Last 24 hours: Intake & Output 10/19/24 10/20/24 10/21/24 10/22/24 23:59 23:59 23:59 23:59 Intake Total 3649.5 / 3649.5 110 / 110 Balance 3649.5 / 3649.5 110 / 110 Weight 172 lb Narrative: General: patient is alert oriented in no acute distress and responds ap propriately to questions. Appears to be in minimal pain. walking around the room and doing well HEENT: NCAT, EOMI, moist mucous membranes, neck supple with full ROM Cardiovascular: RRR +S1/S2, no murmurs or rubs Pulmonary: Clear to auscultation bilaterally, nonlabored breathing, symmetric chest rise Abdominal: Fundus below the umbilicus, firm, and tenderness appropriate for the period. Extremities: trace edema, no tenderness or cyanosis noted Skin: Normal turgor, intact, warm. Negative for erythema, pallor, petechia, or lesions. incision covered wtih steri strips and healing well Neurologic: Negative for sensory or motor deficit Psychiatric: Normal affect, normal thought process, good judgment and insight, no depression or anxious mood appreciated. DS: Diagnosis Discharge Diagnosis (1) delivery due to previous difficult delivery, delivered, current hospitalization: Status: Acute Code(s): O82 - Encounter for delivery without indication; Z87.59 - Personal history of other complications of , childbirth and the puerperium (2) delivery due to previous obstetrical trauma, delivered, current hospitalization: Status: Acute Code(s): O34.90 - Maternal care for abnormality of pelvic organ, unspecified, unspecified trimester (3) History of maternal fourth degree perineal laceration, currently : Status: Acute Code(s): O09.299 - Supervision of with other poor reproductive or obstetric history, unspecified trimester (4) Asymmetric IUGR affecting , antepartum: Status: Acute Code(s): O36.5990 - Maternal care for other known or suspected poor growth, unspecified trimester, not applicable or unspecified (5) High risk sexual behavior: Status: Acute Code(s): Z72.51 - High risk heterosexual behavior Qualifiers: High risk sexual behavior type: heterosexual Qualified Code(s): Z72.51 - High risk heterosexual behavior (6) Tobacco use complicating : Status: Acute Code(s): O99.330 - Smoking (tobacco) complicating , unspecified trimester Qualifiers: Trimester: third trimester Qualified Code(s): O99.333 - Smoking (tobacco) complicating , third trimester (7) Anemia: Status: Acute Code(s): D64.9 - Anemia, unspecified Qualifiers: Other causes of anemia: nutritional, other Meds Home Medications and Allergies Home Medications ?Medication ?Instructions ?Recorded ?Confirmed ?Type ferrous sulfate 325 mg (65 mg 325 mg PO DAILY #30 tabs 07/07/24 10/20/24 Rx iron) tablet vits no.126-ferrous fum 1 tab PO DAILY #30 ta bs 07/07/24 10/20/24 Rx 28 mg iron-folic acid 800 mcg tablet (Classic ) acetaminophen 500 mg tablet 500 mg PO Q6H PRN fever or pain 10/22/24 Rx #30 tabs ferrous sulfate 325 mg (65 mg 325 mg PO DAILY #30 tabs 10/22/24 Rx iron) tablet,delayed release oxycodone-acetaminophen 7.5 mg-325 1 tab PO Q4HP PRN M oderate To 10/22/24 Rx mg tablet Severe Pain (4-10) #20 tabs sennosides 8.6 mg tablet (Senna 8.6 mg PO BIDP PRN Con stipation 10/22/24 Rx Lax) #60 tabs simethicone 125 mg tablet 125 mg PO DAILY PRN abdomina l 10/22/24 Rx distention #60 tabs New Prescriptions to Start Prescriptions: oxycodone-acetaminophen Monique Gaines acetaminophen EderMonique ferrous sulfate Monique Gaines sennosides [Senna Lax] Monique Gaines simethicone Monique Gaines Allergies Allergy/AdvReac Type Severity Reaction Status Date / Time ibuprofen Allergy Intermediate Hives Verified 10/20/24 08:53 Penicillins Allergy Mild Anaphylaxis Verified 10/18/24 09:37 prednisone Allergy Mild Hives Verified 10/18/24 09:37 red dye Allergy Mild Hives Verified 10/18/24 09:37 Discharge Plan Disposition Patient Disposition: Home, Self-Care Discharge Order Discharge Orders: Discharge Order (Routine); Ordered 10/22/24 Ordered By: Monique Gaines Follow up Plan Follow up with: Monique Gaines DO [Staff Physician, [employer] [facility]] - Enter time for follow up Prescriptions/Medication Reconciliation: New sennosides [Senna Lax] 8.6 mg Tablet 8.6 mg PO BIDP PRN (Reason: Constipation) Qty: 60 2RF acetaminophen 500 mg tablet 500 mg PO Q6H PRN (Reason: fever or pain) Qty: 30 3RF simethicone 125 mg tablet 125 mg PO DAILY PRN (Reason: abdominal distention) Qty: 60 2RF ferrous sulfate 325 mg (65 mg iron) tablet,delayed release (DR/EC) 325 mg PO DAILY Qty: 30 3RF oxycodone-acetaminophen 7.5-325 mg Tablet 1 tab PO Q4HP PRN (Reason: Moderate To Severe Pain (4-10)) Qty: 20 0RF Continued ferrous sulfate 325 mg (65 mg iron) tablet 325 mg PO DAILY Qty: 30 5RF Classic 28 mg iron- 800 mcg tablet 1 tab PO DAILY Qty: 30 5RF Problem Reconciliation Problems Reviewed?: Yes Patient Discharge Instructions ACTIVITY: Continue current activity DIET: regular diet Additional Instructions: Congratulations on the delivery of your sweet baby girl. It is my privilege to be your doctor and I am so thankful I could be a part of your special day. Discharge: 1. Take 800 mg Ibuprofen every 8 hours as needed for pain. You can also take 500-1000mg of Tylenol in between doses, every 6-8 hours. Use prescription pain medicine for pain you feel in between 8 hour interval. -No driving while taking narcotic pain medications. In order to drive you should be able to slam on the brakes without significant abdominal pain. 2. Wean from prescription pain medicine first. Do not drive while taking it. 3. Prescription pain medicine can make you constipated. Colace can be taken 1-2 times per day as you need. Make sure to drink at least 8 cups of water per day. 4. Iron supplements can make you constipated. Colace can be taken 1-2 times per day as you need. You can take iron tablets every other day if constipation is too bad. 5. Nothing in the vagina for 6 weeks - no intercourse, douching, tampons. No tub baths or swimming pools 6. Do not lift greater than 15 pounds for 6 weeks, this is the equivalent of 2 gallons of milk. 7. Reasons to return to L&D or call On-Call doctor - fever (greater than 100.4) - heavy vaginal bleeding (soaking through 1 pad in less than 2 hours or passing clots that are egg sized) - vaginal discharge (malodorous and/or purulent) - bleeding or discharge from her incision - severe headaches, leg tenderness/edema, or any other symptoms that warrant immediate medical attention. 8. depression/blues - Normal to feel anxious/overwhelmed for first 2 weeks - Talk to your doctor if: anxiety lasts over 2 weeks, trouble bonding with baby, withdrawing from other family members, thoughts of harming yourself or others Blood pressure and preeclampsia instructions -Please call if greater than 2 values are higher than: 150 systolic (the top number) or 100 diastolic (the bottom number). -Please go to the emergency room or labor and delivery triage if any value is higher than: 160 systolic (the top number) or 110 diastolic (the bottom number). -Please call if unrelenting headache (does not go away with rest or Tylenol or ibuprofen), changes in vision (spots, floaters, flashes of light), chest pain, shortness of breath, or right upper quadrant (liver) abdominal pain. Monique Gaines DO [facility] [phone] *Nothing in the Vagina for 6 weeks* *No strenuous activity* *No heavy lifting* *No tub baths until okay's by * Print Language: Czech Providers Primary Care Provider: Provider,Referral Admit Provider: Monique Gaines Attending Provider: Monique Gaines
--- NOTE | 2024-10-22 12:40 | P.PNANES_ITS ---
[facility] Anesthesia Record Part II Anesthesia Record Part II Discharge Time: 09:15 Destination: Obstetric PACU nurse assessment reviewed?: Yes Patient Condition:: Good Anesthesia Complications:: None Swallowing reflex intact?: Yes Airway Patency: Patent Cyanosis?: No Blood Pressure: 103/64 SaO2: 100 Respiratory Rate: 16 Pulse Rate: 83 Temperature: 97.8 F Mental Status: Alert & Oriented Pain level:: 3 Nausea and/or vomitting:: None Intake, IV Amount: 0 Hydration: Adequate
[2024-10-22 12:41] VITALS: BP 103/64; PULSE 83; RESP 16; TEMP 36.6; O2SAT 100
== END 2024-10-22 13:11 | disposition home or self-care (01) | DRG 787 ==
PROVIDERS: Admitting Provider Obstetrics & Gynecology; Visit Provider Obstetrics & Gynecology
PROC: 10D00Z1 Extraction of Products of Conception, Low, Open Approach (ICD-10-PCS; CPT 59514; principal; 2024-10-20 07:30)
DX: O34.73 Maternal care for abnormality of vulva and perineum, third trimester (principal); O99.324 Drug use complicating childbirth; O36.5930 Maternal care for other known or suspected poor fetal growth, third trimester, not applicable or unspecified; Z37.0 Single live birth; Z3A.37 37 weeks gestation of pregnancy; O99.02 Anemia complicating childbirth; O99.334 Smoking (tobacco) complicating childbirth; O99.03 Anemia complicating the puerperium; D53.8 Other specified nutritional anemias; F12.90 Cannabis use, unspecified, uncomplicated; F17.200 Nicotine dependence, unspecified, uncomplicated; Z23 Encounter for immunization; Z87.59 Personal history of other complications of pregnancy, childbirth and the puerperium; Z72.51 High risk heterosexual behavior; Z88.6 Allergy status to analgesic agent; Z88.0 Allergy status to penicillin; Z88.8 Allergy status to other drugs, medicaments and biological substances; Z91.02 Food additives allergy status; Z79.899 Other long term (current) drug therapy
CPT/HCPCS: 51702; 59025; 80053; 80307; 81001; 85025; 86592; 86850; 96360; 99212; G0463; J0665; J0666; J0736; J1100; J1580; J1756; J1885; J2250; J2371; J2405; J3010; J7120

== ENCOUNTER 2024-10-27 07:19 | Emergency (ER) | payer MEDICAID, SELFPAY ==
--- OUTSIDE RECORDS SUMMARY | 2003-09-02 | XMS_ITS | Encounter Summary ---
Author Organization [facility] Address [address] [place] [address] Care Team Providers Care Sand Cutter Operator Name Role Phone Unavailable Primary Care Provider Unavailabl e Encounter Details Date Type Department Care Team (Late st Contact Info) Description 09/02/2003 Hospital Encounter [facility] Department of Radiology [address] [place] [phone] Social History Tobacco Use Types Packs/Day [...]
--- OUTSIDE RECORDS SUMMARY | 2024-09-05 19:18 | XMS_ITS | Encounter Summary ---
Author Organization [place] [address] Care Team Providers Care Chiller Tender Name Role Phone Mary Greer MD Primary Care Provider +1- [phone] Reason for Visit * Reason Comments Abdominal Pain Encounter Details Date Type Department Care Team (Late st Contact Info) Description 09/05/2024 7:18 PM EDT - 09/05/2024 7:19 PM EDT Emergency [facility] [place] [id number] Discharge Disposition: Left Without Being Seen Social History Tobacco Use Types Packs/Day Years Used Date Smoking Tobacco: Former Cigarettes Smokeless Tobacco: Never Alcohol Use Standard Drinks/Week Comments No 0 (1 standard drink = 0.6 oz pur e alcohol) [facility] Utilities Answer Date Recorded In the past 12 months has [employer] electric, gas, oil, or water company threatened to shut off services in your home? No 02/27/2024 Overall Financial Resource Strain (CARDIA) Answe r Date Recorded How hard is it for you to pa y for the very basics like food, housing, medical care, and heating? Not hard at all 02/27/2024 PHQ-2 Answer Date Recorded PHQ-2 Total Score 0 09/05/2024 [facility] [place] of Occupat ional Health - Occupational Stress [...] things needed for daily living? No 03/28/2020 [facility] IP Transportation Answer D ate Recorded In the past 12 months, has l ack of reliable transportation kept you from medical appointments, meetings, work or from getting things needed for daily living? No 02/27/2024 Sexually Active Control Partners Comments Yes Male Comments Yes Sex and Gender Information Value Date Recorded Sex Assigned at Not on file Legal Sex Female 12:49 AM EDT Gender Identity Not on file Sexual Orientation Not on file documented as of this encounter Functional Status * Is the person deaf or does he/she have serious difficulty hearing? Answer Date of Assessment Author No 08/23/2021 2:16 PM Jacklyn Daigle MA * Is the person blind or does he/she have serious difficulty seeing even when wearing glasses? Answer Date of Assessment Author No 08/23/2021 2:16 PM ROHANT Jacklyn Bennett MA * Does this person have serious difficulty walking or climbing stairs? Answer Date of Assessment Author No 08/23/2021 2:16 PM Jacklyn Daigle MA * Does this person have difficulty dressing or bathing? Answer Date of Assessment Author No 08/23/2021 2:16 PM Jacklyn Daigle MA * Because of a physical, mental or emotional condition, does this person have difficulty doing errands alone such as visiting a doctor's office or shopping? Answer Date of Assessment Author No 08/23/2021 2:16 PM Jacklyn Daigle MA documented as of this encounter Mental [...] an ideal body weight General No Monique Weston RMA Stay Tobacco Free Lifestyle No Monique Weston RMA documented as of this encounter Visit Diagnoses Not on filedocumented in this encounter Care Teams Chiller Tender Relationship Specialty Start Date End Date Mary Greer MD [address] [place] [address] PCP - General Family Medicine 06/14/14 documented as of this encounter
--- OUTSIDE RECORDS SUMMARY | 2024-09-05 19:23 | XMS_ITS | Encounter Summary ---
Author Organization [place] [address] Care Team Providers Care Nurse Sane Name Role Phone Mary Greer MD Primary Care Provider +1- [phone] Reason for Visit * Reason Comments Abdominal Pain [address] Carrillo at [facility] Encounter Details Date Type Department Care Team (Latest Contact Info) Description 09/05/2024 7:23 PM EDT - 09/05/2024 9:31 PM EDT Hospital [facility] [place] [address] Julia Wellington MD [address] [place] [address] Discharge Disposition: Home or Self Care Social History Tobacco Use Types Packs/Day Years Used Date Smoking Tobacco: Former Cigarettes Smokeless Tobacco: Never Alcohol Use Standard Drinks/Week Comments No 0 (1 standard drink = 0.6 oz pur e alcohol) [facility] Utilities Answer Date Recorded In the past 12 months has [employer], gas, oil, or water [employer] threatened to shut off services in your home? No 02/27/2024 Overall Financial Resource Strain (CARDIA) Answe r Date Recorded How hard is it for you to pa y for the very basics like food, housing, medical care, and heating? Not hard at all 02/27/2024 PHQ-2 Answer Date Recorded PHQ-2 Total Score 0 09/05/2024 [facility] [place] of Occupat ional Health - Occupational Stress [...] things needed for daily living? No 03/28/2020 [facility] IP Transportation Answer D ate Recorded [...] Author 0 09/05/2024 7:46 PM EDT Lynn Cordova RN * Drug Screening Score Answer Date of Assessment Author 0 09/05/2024 7:46 PM EDT Lynn Cordova RN * Question [...] on one occasion? 0 09/05/2024 7:46 PM ROHANT Lynn Cordova RN AUDIT-C to Determine Rows [...] About Different Things 0 09/05/2024 7:47 PM EDT Lynn Cordova RN Trouble Relaxing 0 09/05/2024 7:47 PM EDT Lynn Sesay RN Being so Restless That it is Hard to Sit Still 0 09/05/2024 7:47 PM EDT Lynn Cordova RN Becoming Easily Annoyed or Irritable 0 09/05/2024 7:47 PM EDT Lynn Cordova RN Feeling Afraid as if Something Awful Might Happen 0 09/05/2024 7:47 PM EDT Lynn Cordova RN CARRIE-7 Total Score 0 09/05/2024 7:47 PM EDT Lynn oCrdova RN * Suicide Severity Rating Answer Date of Assessment Author No Risk 09/05/2024 7:47 PM ROHANT Lynn Cordova RN * [place] Suicide Severity Rating Scale (Q shift for moderate and high) Question Answer Date of Assessment Author 1. In the past month, have you wished you were or wished you could go to sleep and not wake up? 0 09/05/2024 7:47 PM ROHANT Lynn Cordova RN 2. In the past month, have you actually had any thoughts of killing yourself? (If no, skip to question 6) 0 09/05/2024 7:47 PM ROHANT Lynn Cordova RN 6. Have you ever done anything, started to do anything, or prepared to do anything to end your life? 0 09/05/2024 7:47 PM EDT Jacklyn Cordova RN documented as of this [...] Yes Multiple births? N Uterine Activity Mode Palpation;[place] Contraction Frequency 0 Contraction Intensity N/A Resting [...] at , triage anytime prn. Martha Rosario CNM [facility] OB Triage Progress Note S: [...] OB office visit upcoming on 09/08/24 at [facility] OBGYN. Denies LOF and VB. 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 Moodand affect are [...] and discomfort after PO meds. records from [facility] not available in CareEverywhere. Pt seems to be a reliable historian, and does not display drug-seeking behaviors. Reviewed warnings, strongly encouraged to make dietary changes to lessen incidence of acute episodes - she understands the importance of non-fatty and plain, bland foods until surgery . Keep appointment at [facility] 09/08/24 as scheduled. Return to triage [...] POC Yellow Color 09/05/2024 7:40 PM EDT [facility] UA Appear POC Clear Clear 09/05/2024 7:40 PM EDT [facility] UA Blood POC Negative Negative 09/05/2024 7:40 PM EDT [facility] UA pH POC 6.0 5.0 - 8.0 pH 09/05/2024 7:40 PM EDT [facility] UA Urobilinogen POC 0.2 0.2, 1.0 09/05/2024 7:40 PM EDT [facility] UA Nitrite POC Negative Negative 09/05/2024 7:40 PM EDT [facility] UA Leuk Est POC Negative Negative 7:40 PM EDT [facility] UA SG POC >=1.030 1.001 - 1.035 no units 09/05/2024 7:40 PM EDT [facility] UA Gluc POC Negative Negative mg/dL 09/05/2024 7:40 PM EDT [facility] UA Protein POC Negative Negative mg/dL 09/05/2024 7:40 PM EDT [facility] UA Ketones POC Negative Negative mg/dL 09/05/2024 7:40 PM EDT [facility] Urine STRUCTURE OF URINARY TRACT PROPER / Unknown 09/05/2024 7:37 PM EDT 09/05/2024 7:40 PM EDT us Julia March MD POINT OF CARE TEST ORDERA [place] [address] documented in this encounter Visit Diagnoses Not [...] 2014 2024 (Given - Provid er: Lynn Cordova, NIDA) documented in this encounter Orders Discharge Count Last Ordered Date First Orde red Date DISCHARGE PATIENT 1 09/05/2024 documented in this encounter Care Teams Nurse Sane Relationship Specialty Start Date End Date Mary Greer MD [address] [place] [id number] PCP - General Family Medicine 06/14/14 documented as of this encounter
--- OUTSIDE RECORDS SUMMARY | 2024-09-28 11:32 | XMS_ITS | Encounter Summary ---
Author Organization [facility] Address [address] [place] [address] Care Team Providers Care Electrical Subcontractor Name Role Phone Provider, No Known Primary Care Provider Unavail able Reason for Referral * Diagnostic Imaging (Routine) - Closed Specialty Diagnoses / Procedures Referred By Contac t Referred To Contact Radiology Diagnoses IUGR (intrauterine growth restriction) affecting care of mother, third trimester, fetus 1 , unspecified gestational age Procedures US [facility] Sacha Avelar MD [address] [place] [address] Phone: tel: fax: [facility] US PER DIAG CTR [address] [place] [address] Phone: tel: Referral ID Status Reason Start Date Expiration Date Visits Re quested Visits Authorized [id number] Closed 09/27/2024 12/27/2025 1 1 Reason for Visit * Diagnostic Imaging (Routine) - Closed Specialty Diagnoses / Procedures Referred By Contac t Referred To Contact Radiology Diagnoses IUGR (intrauterine growth restriction) affecting care of mother, third trimester, fetus 1 , unspecified gestational age Procedures [facility] Sacha Avelar MD [address] [place] [address] Phone: tel: fax: [facility] US PER DIAG CTR [address] [place] [address] Phone: tel: Referral ID Status Reason Start Date Expiration Date Visits Re quested Visits Authorized [id number] Closed 09/27/2024 12/27/2025 1 1 Encounter Details Date Type Department Care Team (Latest Contact Info) Description 09/28/2024 11:32 AM EDT - 09/28/2024 11:59 PM EDT Hospital Encounter [facility] US PER DIAG CTR [address] [place] [address] Sacha Avelar MD [address] [facility] [address] [address] IUGR (intrauterine growth restriction) affecting care of mother, third trimester, fetus 1; , unspecified gestational age Discharge Disposition: Home or Self Care Social History Tobacco Use Types Packs/Day Years Used Date Smoking Tobacco: Every Day Cigarettes 1 13.7 Started: 03/03/2011 Smokeless Tobacco: Never Alcohol Use [...] this encounter Medications at Time of Discharge [place]-3 Fatty Acids (fish oil) 1000 MG capsule [...] Procedure Name Priority Date/Time Associated Diagnosis Comments [facility] Routine 09/28/2024 1:22 PM EDT IUGR (intrauterine growth restriction) affecting care of mother, third trimester, fetus 1 , unspecified gestational age documented in this encounter Results * [facility] (09/28/2024 1:22 PM EDT) Anatomical Region Laterality Modality Ultrasound 09/28/2024 12:3 4 PM EDT Narrative 09/28/2024 1:40 PM EDT PAT NAME: RO KHAN [facility] REC#: [id number] DA: 2000 PAT GEND: F PAT TYPE: O EXAM JOSSY: [id number] REF PHYS SACHA AVELAR Comparison Studies There [...] EFW (oz) 4 oz EFW by: Hadlock (VHX-SP-XK-FL) Extended Tibia 51.5 mm 30w 5d 1% Cheryl Fibula 50.1 mm 30w 4d 19% Cheryl Foot 64.2 mm 10% Chitty Radius 44.5 mm 31w 4d 34% Cheryl Ulna 47.1 mm 30w 0d <1% Cheryl Cav. septi pel. tr 6.7 mm Baling Machine Tender 5.1 mm CM 6.4 mm 23% Nicolaides [...] normal IVC: normal 3-vessel view: Appears normal 9-kcmsbq-qiobzca view: Appears normal Rt lung: Appears normal [...] testing in your office. Coding ======= Description: 93789-67 Detailed Ultrasound Description: 62429-72 BPP without NST Description: 69596-48 Doppler Umbilical Artery Energy Risk Management Analyst: Xiomara Garcia RDMS Physician: Luigi Ramos MD, FACOG Electronically signed by: Luigi Ramos MD, FACOG at: 13:40 Procedure Note Luigi Ramos MD - 09/28/2024 PAT NAME: RO KHAN [facility] REC#: [id number] DA: 2000 PAT GEND: F PAT TYPE: O EXAM JOSSY: [id number] REF PHYS SACHA AVELAR Comparison Studies There are no relevant prior studies to which this study is beingcompared Patient Status Outpatient Indication ======== IUGR Maternal Assessment Hfegqt934 cm Height (ft)5 ft Height (in)3 in Dtxovp86 kg Weight (lb)172 lb BMI30.09 kg/m Method ======= Transabdominal ultrasound examination. View: Adequate view ========= Aguirre . Number of fetuses: 1 Dating ====== Method of dating:based on stated GEOVANNA GA by prior lygxeotloa87 w + 0 d GEOVANNA by prior assessment:11/09/2024 Ultrasound examination on:09/28/2024 GA by U/S based upon:AC, BPD, Femur, HC GA by U/S31 w + 6 d GEOVANNA by U/S:11/24/2024 Assigned:based on stated GEOVANNA, selected on 09/28/2024 Assigned GA34 w + 0 d Assigned GEOVANNA:11/09/2024 zixtlj315 d Biometry Standard BPD78.8 mm 31w 4d 3% Hadlock TBO031.1 mm 33w 4d 42% Cheryl HC289.0 mm 31w 6d <1% Hadlock Cerebellum tr45.0 mm 34w 4d 41% Hill AC288.4 mm 32w 6d 21% Hadlock Femur60.2 mm 31w 2d 1% Hadlock Jjslcfy57.1 mm 29w 6d <1% Cheryl HC / AC1.00 EFW1,920 g 31w 6d 7% Hadlock EFW (lb)4 lb EFW (oz)4 oz EFW by:Hadlock (VUR-DV-HY-FL) Extended Tibia51.5 mm 30w 5d 1% Cheryl Rpqroc28.1 mm 30w 4d 19% Cheryl Foot64.2 mm 10% Chitty Iqemqk87.5 mm 31w 4d 34% Cheryl Ulna47.1 mm 30w 0d <1% Cheryl Cav. septi pel. tr6.7 mm Vp5.1 mm CM6.4 mm 23% Nicolaides Nasal bone12.1 mm Head / Face / Neck Cephalic index0.76 12% Nicolaides Extremities / Bony Struc FL / BPD0.76 FL / HC0.21 FL / AC0.21 Other Structures WXK098 bpm General Evaluation Cardiac activity present. FHR [...] view:Appears normal SVC:normal IVC:normal 3-vessel view:Appears normal 8-phuzof-owexrxv view:Appears normal Rt lung:Appears normal Lt lung:normal [...] Structures Uterus / Cervix Cervix:Visualized Approach:Transabdominal Cervical .9 mm Ovaries / Tubes / Adnexa Rt [...] twice weekly testing inyour office. Coding ======= Description:62399-65 Detailed Ultrasound Description:34466-19 BPP without NST Description:10760-92 Doppler Umbilical Artery Energy Risk Management Analyst: Xiomara Garcia RDMS Physician: Luigi Ramos MD, FACOG Electronically signed by: Luigi Ramos MD, FACOG at: 13:40 us Sacha Avelar MD IMG US ORDERABLES Final Resul t documented in this encounter Visit Diagnoses Diagnosis IUGR (intrauterine growth restriction) affecting care of mother, third trimester, fetus 1 , unspecified gestational age documented in this encounter Care Teams Electrical Subcontractor Relationship Specialty Start Date End Date Provider, [place] [address] PCP - General 09/27/24 documented as of this encounter
--- OUTSIDE RECORDS SUMMARY | 2024-09-28 12:30 | XMS_ITS | Encounter Summary ---
Author Organization [facility] Address [address] [place] [address] Care Team Providers Care Tone Regulator Name Role Phone Provider, No Known Primary Care Provider Unavail able Reason for Referral * Diagnostic Imaging (Routine) - Closed Specialty Diagnoses / Procedures Referred By Contac t Referred To Contact Radiology Diagnoses Poor growth affecting management of mother in third trimester, single or unspecified fetus Procedures [facility] Casie Ramos MD [address] [facility] [address] [place], [place] [address] Phone: tel: fax: Referral ID Status Reason Start Date Expiration Date Visits Re quested Visits Authorized Closed 09/28/2024 12/28/2025 1 1 Reason for Visit * Reason Comments IUGR Encounter Details Date Type Department Care Team (Late Contact Info) Description 09/28/2024 12:30 PM EDT Office Visit [facility] MATERNAL MEDICINE [address] [place] [address] Casie Ramos MD [address] [place] [address] Poor growth affecting management of mother in third trimester, single or unspecified fetus (Primary Dx) Social History Tobacco Use Types Packs/Day Years Used Date Smoking Tobacco: Every Day Cigarettes 1 13.7 Started: 03/03/2011 Smokeless Tobacco: Never Tobacco Cessation:Ready [...] reports she has had a lot of [place]- Nails contractions,but nothing regular. Pt endorses normal [...] tablet by mouth Daily., Disp: , Rfl: [place]-3 Fatty Acids (fish oil) 1000 MG capsule [...] [facility] Casie Ramos MD, FACOG Maternal Medicine, [facility] documented in this encounter Plan of Treatment Not on file documented as of this encounter Results * [facility] (10/12/2024 7:55 AM EDT) Anatomical Region Laterality Modality Ultrasound 10/12/2024 7:36 AM EDT Narrative 10/12/2024 8:18 AM EDT PAT NAME: DAVID KHAN [facility] REC#: [id number] DA: 2000 PAT GEND: F PAT TYPE: O EXAM JOSSY: [id number] REF PHYS SACHA AVELAR Comparison Studies The [...] EFW (oz) 14 oz EFW by: Hadlock (VVZ-FN-IH-FL) Extended Cav. septi pel. tr 8.6 mm [...] Normal Heart / Thorax 3-vessel view: Normal 4-qwvmum-qwlofda view: normal Cord insertion: Normal Stomach: Appears [...] recommend proceeding with delivery. Coding ======= Description: 09571-97 Follow Up Ultrasound Description: 09868-67 BPP without NST Description: 87531-37 Doppler Umbilical Artery [employer] Sales Representative: Xiomara Garcia RDMS Physician: Casie Ramos MD, FACOG Electronically signed by: Casie Ramos MD, FACOG at: 08:18 Procedure Note Casie Ramos MD - 10/12/2024 PAT NAME: DAVID KHAN [facility] REC#: [id number] DA: [id number] PAT GEND: F PAT TYPE: O EXAM JOSSY: [id number] REF PHYS SACHA AVELAR Comparison Studies The findings of this study are compared to the prior ultrasound studydated 09/28/24 Patient Status Outpatient Indication ======== IUGR Maternal Assessment Zifhez420 cm Height (ft)5 ft Height (in)3 in Hpowfp38 kg Weight (lb)168 lb BMI29.32 kg/m Method ======= Transabdominal ultrasound examination. View: Suboptimal view: limited byfetal position ========= Aguirre . Number of fetuses: 1 Dating ====== GA by prior [id number] w + 0 d GEOVANNA by prior [...] Hadlock Femur65.7 mm 33w 6d 5% Hadlock Rnfkawp51.8 mm 30w 5d <1% Cheryl HC / AC0.95 EFW2,217 g 33w 2d 5% Hadlock EFW (lb)4 lb EFW (oz)14 oz EFW by:Hadlock (KKV-YM-IC-FL) Extended Cav. septi pel. tr8.6 mm CM7.5 mm 49% Nicolaides Head / Face / Neck Cephalic index0.82 53% Nicolaides Extremities / Bony Struc FL / BPD0.82 FL / HC0.23 FL / AC0.22 Other Structures SAI296 bpm General Evaluation Cardiac activity present. FHR [...] LVOT view:Normal Heart / Thorax 3-vessel view:Normal 4-nzzodh-wtvaphk view:normal Cord insertion:Normal Stomach:Appears normal Kidneys:Appears normal [...] movement would recommendproceeding with delivery. Coding ======= Description:04046-47 Follow Up Ultrasound Description:18786-65 BPP without NST Description:47326-43 Doppler Umbilical Artery [employer] Sales Representative: Xiomara Garcia RDMS Physician: Casie Ramos MD, [...] fetus documented in this encounter Care Teams Tone Regulator Relationship Specialty Start Date End Date Provider, [place] [address] PCP - General 09/27/24 documented as of this encounter
--- OUTSIDE RECORDS SUMMARY | 2024-10-12 07:11 | XMS_ITS | Encounter Summary ---
Author Organization [facility] Address [address] [place] [address] Care Team Providers Care Natural Gas Trader Name Role Phone Provider, No Known Primary Care Provider Unavail able Reason for Referral * Diagnostic Imaging (Routine) - Closed Specialty Diagnoses / Procedures Referred By Contac t Referred To Contact Radiology Diagnoses Poor growth affecting management of mother in third trimester, single or unspecified fetus Procedures [facility] Diagnostic [place] Luigi Ramos MD [address] [facility] [address] [place] [address] Phone: tel: fax: Referral ID Status Reason Start Date Expiration Date Visits Re quested Visits Authorized Closed 09/28/2024 12/28/2025 1 1 Reason for Visit * Diagnostic Imaging (Routine) - Closed Specialty Diagnoses / Procedures Referred By Contac t Referred To Contact Radiology Diagnoses Poor growth affecting management of mother in third trimester, single or unspecified fetus Procedures [facility] Diagnostic [place] Luigi Ramos MD [address] [facility] [address] [place] [address] Phone: tel: fax: Referral ID Status Reason Start Date Expiration Date Visits Re quested Visits Authorized Closed 09/28/2024 12/28/2025 1 1 Encounter Details Date Type Department Care Team (Late st Contact Info) Description 10/12/2024 7:11 AM EDT - 10/12/2024 11:59 PM EDT Hospital Encounter [facility] US PER DIAG CTR [address] [address] Luigi Ramos MD [address] [place] [id number] Poor growth affecting management of mother in [...] this encounter Medications at Time of Discharge [place]-3 Fatty Acids (fish oil) 1000 MG capsule [...] Procedure Name Priority Date/Time Associated Diagnosis Comments [facility] Routine 10/12/2024 7:55 AM EDT Poor growth affecting management of mother in third trimester, single or unspecified fetus documented in this encounter Results * [facility] (10/12/2024 7:55 AM EDT) Anatomical Region Laterality Modality Ultrasound 10/12/2024 7:36 AM EDT Narrative 10/12/2024 8:18 AM EDT PAT NAME: DAVID KHAN [facility] REC#: [id number] DA: [id number] PAT GEND: F PAT TYPE: O EXAM JOSYS: [id number] REF PHYS SACHA AVELAR Comparison Studies The [...] EFW (oz) 14 oz EFW by: Hadlock (NXQ-BI-BR-FL) Extended Cav. septi pel. tr 8.6 mm [...] Normal Heart / Thorax 3-vessel view: Normal 6-yxfkbg-sanxigo view: normal Cord insertion: Normal Stomach: Appears [...] recommend proceeding with delivery. Coding ======= Description: 37424-47 Follow Up Ultrasound Description: 25358-42 BPP without NST Description: 12669-20 Doppler Umbilical Artery Parking Regulation Enforcement Officer: Xiomara Garcia RDMS Physician: Luigi Ramos MD, FACOG Electronically signed by: Luigi Ramos MD, FACOG at: 08:18 Procedure Note Luigi Ramos MD - 10/12/2024 PAT NAME: DAVID KHAN [facility] REC#: [id number] DA: [id number] PAT GEND: F PAT TYPE: O EXAM JOSSY: [id number] REF PHYS TORREY AVELARK Comparison Studies The findings of this study are compared to the prior ultrasound studydated 09/28/24 Patient Status Outpatient Indication ======== IUGR Maternal Assessment Cvhrap342 cm Height (ft)5 ft Height (in)3 in Wlowzs93 kg Weight (lb)168 lb BMI29.32 kg/m Method ======= Transabdominal ultrasound examination. View: Suboptimal view: limited byfetal position ========= Aguirre . Number of fetuses: 1 Dating ====== GA by prior lhznuhjtja31 w + 0 d GEOVANNA by prior [...] Hadlock Femur65.7 mm 33w 6d 5% Hadlock Wgegrdu95.8 mm 30w 5d <1% Cheryl HC / AC0.95 EFW2,217 g 33w 2d 5% Hadlock EFW (lb)4 lb EFW (oz)14 oz EFW by:Hadlock (IGI-BN-UA-FL) Extended Cav. septi pel. tr8.6 mm CM7.5 mm 49% Nicolaides Head / Face / Neck Cephalic index0.82 53% Nicolaides Extremities / Bony Struc FL / BPD0.82 FL / HC0.23 FL / AC0.22 Other Structures XJK494 bpm General Evaluation Cardiac activity present. FHR [...] LVOT view:Normal Heart / Thorax 3-vessel view:Normal 6-dtnqmy-qktwrsd view:normal Cord insertion:Normal Stomach:Appears normal Kidneys:Appears normal [...] movement would recommendproceeding with delivery. Coding ======= Description:07460-46 Follow Up Ultrasound Description:11353-63 BPP without NST Description:42620-82 Doppler Umbilical Artery Parking Regulation Enforcement Officer: Xiomara Garcia RDMS Physician: Luigi Ramos MD, FACOG Electronically signed by: Luigi Ramos MD, FACOG at: 08:18 us Luigi Ramos MD IMG US ORDERABLES Final Result documented in this encounter Visit Diagnoses Diagnosis Poor growth affecting management of mother in third trimester, single or unspecified fetus documented in this encounter Care Teams Natural Gas Trader Relationship Specialty Start Date End Date Provider, [place] [address] PCP - General 09/27/24 documented as of this encounter
--- OUTSIDE RECORDS SUMMARY | 2024-10-12 07:30 | XMS_ITS | Encounter Summary ---
Author Organization [facility] Address [address] [place] [address] Care Team Providers Care Physical Aerodynamicist Name Role Phone Provider, No Known Primary Care Provider Unavail able Reason for Visit * Reason Comments IUGR, short extr. & HC Encounter Details Date Type Department Care Team (Late st Contact Info) Description 10/12/2024 7:30 AM EDT Office Visit [facility] MATERNAL MEDICINE [address] [place] [phone] Luigi Ramos MD [address] [facility] [address] [place] [address] Poor growth affecting management of mother in [...] vaginal bleeding, leaking fluid. Patient reports frequent Bledsoe-Nails contractions. Endorses normal movement. NIPT declined. Next [...] Otherwise Noted in HPI Current Outpatient Medications: [place]-3 Fatty Acids (fish oil) 1000 MG capsule [...] CVS. Luigi Ramos MD, FACOG Maternal Medicine, [facility] documented in this encounter Plan of Treatment Not on file documented as of this encounter Visit Diagnoses Diagnosis Poor growth affecting management of mother in third trimester, single or unspecified fetus- Primary documented in this encounter Care Teams Physical Aerodynamicist Relationship Specialty Start Date End Date Provider, [place] [address] PCP - General 09/27/24 documented as of this encounter
--- OUTSIDE RECORDS SUMMARY | 2024-10-23 13:18 | XMS_ITS | Encounter Summary ---
Author Organization [place] [address] Care Team Providers Care Community Health Coordinator Name Role Phone Mary Greer MD Primary Care Provider [phone]- [phone] Reason for Visit * Reason Comments Breast Problem Discharged home yest nuryay from [facility] s/p delivery with her 37 week / reports she is not breast feeding and now my milk has come in and it's uncomfortable. I need help to either get it out or a shot to dry it up states there was no education given about this Tried cabbage to breasts CUSTOMER CARE VOICE CONSULTANT Encounter Details Date Type Department Care Team (Late st Contact Info) Description 10/23/2024 1:18 PM EDT - 10/23/2024 2:04 PM EDT [facility] [address] [facility] [place] [address] Jose Elliott MD [address] [place] [address] Breast engorgement (Primary Dx) Discharge Disposition: Home or Self Care Social History Tobacco Use Types Packs/Day Years Used Date Smoking Tobacco: Former Cigarettes Smokeless Tobacco: Never Alcohol Use Standard Drinks/Week Comments No 0 (1 standard drink = 0.6 oz pur e alcohol) [facility] Utilities Answer Date Recorded In the past 12 months has [employer] electric, gas, oil, or water company threatened to shut off services in your home? No 02/27/2024 Overall Financial Resource Strain (CARDIA) Answe r Date Recorded How hard is it for you to pa y for the very basics like food, housing, medical care, and heating? Not hard at all 02/27/2024 PHQ-2 Answer Date Recorded PHQ-2 Total Score 0 09/05/2024 [facility] - Occupational Stress Questionnaire Answer Date Recorded [...] things needed for daily living? No 03/28/2020 [facility] IP Transportation Answer D ate Recorded In the past 12 months, has l ack of reliable transportation kept you from medical appointments, meetings, work or from getting things needed for daily living? No 02/27/2024 Sexually Active Control Partners Comments Yes Male Comments No Sex and Gender Information Value Date Recorded Sex Assigned at Not on file Legal Sex Female 12:49 AM EDT Gender Identity Not on file Sexual Orientation Not on file documented as of this encounter Last Filed Vital Signs Vital Sign Reading Time Taken Comments Blood Pressure 126/54 10/23/2024 1:21 PM EDT Pulse 100 10/23/2024 1:15 PM EDT Temperature 36.8 C (98.3 F) 10/23/2024 1:21 PM EDT Respiratory Rate 19 10/23/2024 1:15 PM EDT Oxygen Saturation 99% 10/23/2024 1:15 PM EDT Inhaled Oxygen Concentration - - Weight 65.8 kg (145 lb) 10/23/2024 1:15 PM EDT Height 160 cm (5' 3 ) 10/23/2024 1:15 PM EDT Body Mass Index 25.69 10/23/2024 1:15 PM EDT documented in this encounter Functional Status * Is the [...] 2:16 PM EDT Jacklyn Bennett MA * Suicide Severity Rating Answer Date of Assessment Author No Risk 10/23/2024 1:16 PM EDT Rona Chacon RN * [place] Suicide Severity Rating Scale (Q shift for moderate and high) Question Answer Date of Assessment Author 1. In the past month, have y ou wished you were or wished you could go to sleep and not wake up? 0 10/23/2024 1:16 PM EDT Rona Martinez RN 2. In the past month, have y ou actually had any thoughts of killing yourself? (If no, skip to question 6) 0 10/23/2024 1:16 PM ROHANT Rona Martinez RN 6. Have you ever done anythi ng, started to do anything, or prepared to do anything to end your life? 0 10/23/2024 1:16 PM EDT Rona Martinez RN documented as of this encounter Mental Status * Because of a physical, mental or emotional condition, does this person have serious difficulty concentrating, remembering or making decisions? Answer Entry Date Author No 08/23/2021 2:16 PM EDT Jacklyn Bennett MA documented in this encounter Discharge Instructions * Discharge Instructions* Latanya Toth APRN - 10/23/2024 1:37 PM EDT Use ice packs. Continue your home pain medications. Massage any lumps. Take warm showers and massage any lumps to allow some of the milk to flow. Avoid stimulating them otherwise. Watch for redness, or signs of infection. Make follow up appointment with your OB doctor. * Attachments The following attachments cannot be sent through Care Everywhere. * Common problems (Algerian) * Weaning from (Algerian) documented in this encounter Medications at Time of Discharge acetaminophen (TYLENOL) 500 mg Oral Tablet TAKE ONE TABLET BY MOUTH EVERY 6 HOURS NEEDED FOR PAIN OR FEVER 10/22/2024 ferrous sulfate 325 mg (65 mg iron) Oral Tablet, Delayed Release (E.C.) Take 1 Tablet by mouth daily. 10/22/2024 oxyCODONE-acetami nophen (PERCOCET) 7.5-325 mg Oral Tablet Take 1 Tablet by mouth every 6 hours as needed. for pain 10/22/2024 SENNA 8.6 mg Oral Tablet TAKE ONE TABLET BY MOUTH TWICE DAILY NEEDED FOR constipation 10/22/2024 simethicone (MYLICON) 125 mg Oral Tablet, Chewable CHEW ONE TABLET BY MOUTH EVERY DAY NEEDED FOR abdominal distention 10/22/2024 albuterol (PROVENTIL HFA;VENTOLIN HFA) 90 mcg/actuation Inhl HFA Aerosol InhalerIndication s:Mild persistent asthma with acute exacerbation Inhale 2 Puffs into the lungs every 6 hours as needed. for wheezing 18 g 5 05/15/2022 BREO ELLIPTA 200-25 mcg/dose Inhl Disk with DeviceIndications :Mild persistent asthma with acute exacerbation INHALE 1 PUFF INTO THE LUNGS ONCE DAILY 60 Each 06/03/2019 buPROPion (WELLBUTRIN XL) 150 mg Oral Tablet Sustained Release 24 hrIndications:Str ess Take 1 Tablet by mouth every morning. 90 Tablet 1 05/15/2022 diclofenac sodium (VOLTAREN) 50 mg Oral Tablet, Delayed Release (E.C.) Take 1 Tablet by mouth 3 times daily (with meals). 40 Tablet 1 08/23/2021 loratadine (CLARITIN) 10 mg Oral TabletIndications :Mild persistent asthma with acute exacerbation Take 1 Tablet by mouth daily as needed (allergies). 30 Tablet 5 05/15/2022 montelukast (SINGULAIR) 10 mg Oral TabletIndications :Seasonal allergic rhinitis due to pollen,Mild persistent asthma without complication Take 1 Tablet by mouth nightly. 30 Tablet 5 05/15/2022 omeprazole (PRILOSEC OTC) 20 mg Oral Tablet, Delayed Release (E.C.)Indications :Abdominal pain, RUQ (right upper quadrant) Take 1 Tab by mouth daily. 30 Tab 2 03/11/2020 documented as of this encounter Discharge Disposition Disposition Code Departure Means Destination Comment s Home or Self Correction documented in this encounter ED Notes * Latanya Toth, CYLINDER HONER - 10/23/2024 1:10 PM EDT CHIEF COMPLAINT Chief Complaint Patient presents with Breast Problem Discharged home yesterday from [facility] s/p delivery with her 37 week / reports she is not breast feeding and now my milk has come in and it's uncomfortable. I need help to either get it out or a shot to dry it up states there was no education given about this Tried cabbage to breasts CUSTOMER CARE VOICE CONSULTANT HPI Ro Khan, 24 y.o. presents for painful engorged breasts. Patient states she had a on 10/20/2024 at [facility]. She is not planning to breast-feed. And reports that she was discharged from the hospital yesterday. She started having breast engorgement, she has been trying not to stimulate her breasts, but she has been having increasing discomfort and engorgement. She says shetried standing in a shower but nothing came out. She tried putting cabbage leaves without anything coming out. She denies any redness, denies any fever. Denies any nipple discharge. She reports that her incision is painful but does not seem to be bothering her otherwise.She has been having flatulence, stools and is voiding without dysuria or difficulty. She denies anynausea or vomiting. Patient states that she called her OB who recommended she come to a nearby ED for evaluation to make sure that there is no infection in her breasts. She reports she has been taking narcotic pain medication and Tylenol for her C- section that seems to help slightly Significant co-morbidities: ADHD, recent . Significant social/determinants of health: Currently vapes History is from the patient and chart review. REVIEW OF SYSTEMS See HPI for further details. Review of systems otherwise negative. PAST MEDICAL HISTORY Past Medical History: Diagnosis Date ADD (attention deficit disorder) FAMILY HISTORY Family History Problem Relation Age of Onset Other Maternal Aunt PTSD No Known Problems Father Cancer Maternal Grandfather Heart Failure Maternal Grandfather Kidney Disease Maternal Grandfather SOCIAL HISTORY Social History Socioeconomic History Marital status: Single Spouse name: None Number of children: None Years of education: None Highest education level: None Tobacco Use Smoking status: Former Current packs/day: 0.25 Types: Cigarettes Smokeless tobacco: Never Vaping Use Vaping status: Former Substance and Sexual Activity Alcohol use: No Alcohol/week: 0.0 oz Drug use: Yes Frequency: 2.0 times per week Types: Marijuana Sexual activity: Yes Partners: Male Social Drivers of Health Financial Resource Strain: Low Risk (02/27/2024) Overall Financial Resource Strain (CARDI) Difficulty of Paying Living Expenses: Not hard at all Food Insecurity: No Food Insecurity (02/27/2024) Hunger Vital Sign Worried About Running Out of Food in the Last Year: Never true Ran Out of Food in the Last Year: Never true Transportation Needs: No Transportation Needs (02/27/2024) [facility] IP Transportation In the past 12 months, has lack of reliable transportation kept you from medical appointments, meetings, work or from getting things needed for daily living?: No Physical Activity: Insufficiently Active (02/27/2024) Exercise Vital Sign Days of Exercise per Week: 3 days Minutes of Exercise per Session: 20 min Stress: No Stress Concern Present (02/27/2024) [facility] [place] [facility] - Occupational Stress Questionnaire Feeling of Stress : Only a little Social Drivers of Health with Concerns Tobacco Use: High Risk (09/28/2024) Received from [facility] Patient History Smoking Tobacco Use: Every Day Smokeless Tobacco Use: Never Passive Exposure: Not on file Alcohol Use: Not on file Physical Activity: Insufficiently Active (02/27/2024) Exercise Vital Sign Days of Exercise per Week: 3 days Minutes of Exercise per Session: 20 min Social Connections: Not on file Intimate Partner Violence: Not on file Housing Stability: Not on file Health Literacy: Not on file SURGICAL HISTORY Past Surgical History: Procedure Laterality Date MOUTH SURGERY CURRENT MEDICATIONS No current facility-administered medications on file prior to encounter. Current Outpatient Medications on File Prior to Encounter Medication Sig Dispense Refill acetaminophen (TYLENOL) 500 mg Oral Tablet TAKE ONE TABLET BY MOUTH EVERY 6 HOURS NEEDED FOR PAIN OR FEVER ferrous sulfate 325 mg (65 mg iron) Oral Tablet, Delayed Release (E.C.) Take 1 Tablet by mouth daily. oxyCODONE-acetaminophen (PERCOCET) 7.5-325 mg Oral Tablet Take 1 Tablet by mouth every 6 hours as needed. for pain SENNA 8.6 mg Oral Tablet TAKE ONE TABLET BY MOUTH TWICE DAILY NEEDED FOR constipation simethicone (MYLICON) 125 mg Oral Tablet, Chewable CHEW ONE TABLET BY MOUTH EVERY DAY NEEDED FORabdominal distention albuterol (PROVENTIL HFA;VENTOLIN HFA) 90 mcg/actuation Inhl HFA Aerosol Inhaler Inhale 2 Puffs into the lungs every 6 hours as needed. for wheezing (Patient not taking: Reported on 06/02/2024) 18 g 5 BREO ELLIPTA 200-25 mcg/dose Inhl Disk with Device INHALE 1 PUFF INTO THE LUNGS ONCE DAILY (Patientnot taking: Reported on 06/02/2024) 60 Each 0 buPROPion (WELLBUTRIN XL) 150 mg Oral Tablet Sustained Release 24 hr Take 1 Tablet by mouth every morning. (Patient not taking: Reported on 06/02/2024) 90 Tablet 1 diclofenac sodium (VOLTAREN) 50 mg Oral Tablet, Delayed Release (E.C.) Take 1 Tablet by mouth 3 times daily (with meals). (Patient not taking: Reported on 10/15/2023) 40 Tablet 1 loratadine (CLARITIN) 10 mg Oral Tablet Take 1 Tablet by mouth daily as needed (allergies). (Patient not taking: Reported on 06/02/2024) 30 Tablet 5 montelukast (SINGULAIR) 10 mg Oral Tablet Take 1 Tablet by mouth nightly. (Patient not taking: Reported on 06/02/2024) 30 Tablet 5 omeprazole (PRILOSEC OTC) 20 mg Oral Tablet, Delayed Release (E.C.) Take 1 Tab by mouth daily. (Patient not taking: Reported on 06/02/2024) 30 Tab 2 ALLERGIES Allergies as of 10/23/2024 - Verified 10/23/2024 Allergen Reaction Noted Ibuprofen Hives 11/02/2014 Omnicef [cefdinir] Rash 05/12/2010 Prednisone Rash 11/07/2015 Antihist [diphenhydramine hcl] Naproxen Hives, Itching, and Rash 11/02/2014 Penicillins Rash 03/08/2010 Red dye 06/16/2009 Zyprexa [olanzapine] Nausea Only 07/25/2015 PHYSICAL EXAM VITAL SIGNS: Vitals: 10/23/24 1315 10/23/24 1321 BP: 126/54 Pulse: 100 Resp: 19 Temp: 98.3 ??F (36.8 ??C) TempSrc: Oral SpO2: 99% Weight: 145 lb (65.8 kg) Height: 5' 3 (1.6 m) Body mass index is 25.69 kg/m??. Constitutional: Well developed, Well nourished, No acute distress, Non-toxic appearance. HENT: Normocephalic, Atraumatic, Bilateral external ears normal, Oropharynx moist, No oral exudates, Nose normal. Eyes: PERRLA, EOMI, Conjunctiva normal, No discharge. Neck: Normal range of motion, Supple, No stridor. Cardiovascular: Normal heart rate Breasts: Symmetric, engorged, No nipple discharge, no redness. Thorax & Lungs: Normal respiratory effort, No respiratory distress, No wheezing, No cough Abdomen: No tenderness , mildly distended, low abdominal incision intact with edges well-approximated with intact Steri-Strips, no redness, no exudate, no edema. Skin: Warm, Dry, No erythema, No rash. Back: No tenderness, No CVA tenderness. Extremities: Intact distal pulses, No edema, No tenderness, No cyanosis, No clubbing, Musculoskeletal: Good range of motion in all major joints. No tenderness to palpation or major deformities noted. Neurologic: Alert & oriented, Normal motor function, Normal sensory function, No focal deficitsnoted. COURSE & MEDICAL DECISION MAKING Pertinent Labs & Imaging studies reviewed. (See chart for details) Ro Khan , 24 y.o., presents for painful breast engorgement 3 days after delivery of infant, as described above Patient is afebrile, non-toxic, with no increased work of breathing, is oxygenating well and is hemodynamically stable. Breasts are engorged without signs of significant clogged milk ducts and without evidence of cellulitis. Exam is consistent with: Breast engorgement This is an acute condition. Patient advised to begin ice packs to the area, to continue to try to release some milk in the shower, and to massage any areas that appear to be plugged ducts to help prevent infections. She is advised to keep an eye out for signs of cellulitis/mastitis, redness, fever, or increasing pain. Patient is advised on home care and to follow up with her OB in next 3-4 days. The patient is advised to return for worsening symptoms; is in agreement with treatment plan. FINAL IMPRESSION 1. Breast engorgement Patient's condition at disposition: stable This chart was completed using voice recognition technology and may contain unintended errors Latanya Toth APRN 10/23/24 1357 Cosigned by Jose Elliott MD at 10/25/2024 10:56 AM EDT Associated attestation - Jose Elliott MD - 10/25/2024 10:56 AM EDT I was personally available for consultation or request for evaluation at the discretion of the midlevel provider in the Emergency Department. No orders to display documented in this encounter Plan of Treatment Not on file documented as of this encounter Goals Goal Patient Goal Type Associated Problems Recent Progress Patient-Stated? Author Maintain a healthy diet, exercise regularly and maintain an ideal body weight General No Monique Weston RMA Stay Tobacco Free Lifestyle No Monique Weston RMA documented as of this encounter Visit Diagnoses Diagnosis Breast engorgement- Primary Other sign and symptom in breast documented in this encounter Historical Medications * This list may reflect changes made after this encounter. simethicone (MYLICON) 125 mg Oral Tablet, Chewable CHEW ONE TABLET BY MOUTH EVERY DAY NEEDED FOR abdominal distention 10/22/2024 SENNA 8.6 mg Oral Tablet TAKE ONE TABLET BY MOUTH TWICE DAILY NEEDED FOR constipation 10/22/2024 oxyCODONE-acetam inophen (PERCOCET) 7.5-325 mg Oral Tablet Take 1 Tablet by mouth every 6 hours as needed. for pain 10/22/2024 ferrous sulfate 325 mg (65 mg iron) Oral Tablet, Delayed Release (E.C.) Take 1 Tablet by mouth daily. 10/22/2024 acetaminophen (TYLENOL) 500 mg Oral Tablet TAKE ONE TABLET BY MOUTH EVERY 6 HOURS NEEDED FOR PAIN OR FEVER 10/22/2024 added in this encounter Care Teams Community Health Coordinator Relationship Specialty Start Date End Date Mary Greer MD [address] [place] [address] PCP - General Family Medicine 06/14/14 documented as of this encounter
[2024-10-27 07:29] VITALS: BP 134/84; PULSE 87; RESP 20; TEMP 36.7; O2SAT 100; BMI 29.5
--- OUTSIDE RECORDS SUMMARY | 2024-10-27 07:35 | XMS_ITS | Encounter Summary ---
Author Organization [facility] Address [address] [place] [address] Care Team Providers Care Loop Machine Operator Name Role Phone Provider, No [...] on filedocumented in this encounter Care Teams Loop Machine Operator Relationship Specialty Start Date End Date Provider, [place] [address] PCP - General 09/27/24 documented as of this encounter
--- OUTSIDE RECORDS SUMMARY | 2024-10-27 07:35 | XMS_ITS | Clinical Summary ---
Author Organization [facility] Address [address] [place] [address] Phone Care Team Providers Care Db2 Developer Name Role Phone Unavailable Primary Care Provider [...]
--- OUTSIDE RECORDS SUMMARY | 2024-10-27 07:35 | XMS_ITS | Encounter Summary ---
Author Organization [facility] Address [address] [place] [address] Care Team Providers Care Locker Operator Name Role Phone Provider, No Known [...] on filedocumented in this encounter Care Teams Locker Operator Relationship Specialty Start Date End Date Provider, [place] [address] PCP - General 09/27/24 documented as of this encounter
--- OUTSIDE RECORDS SUMMARY | 2024-10-27 07:35 | XMS_ITS | Encounter Summary ---
Author Organization [place] [address] Care Team Providers Care Aircraft Body Repairer Name Role Phone Mary Greer MD Primary Care Provider [phone]- [phone] Encounter Details Date Type Department Care Team (Late st Contact Info) Description 09/23/2024 Abstract [facility] [address] [facility] [place] [id number] Monique Ozuna MA Social History Tobacco Use Types Packs/Day Years Used Date Smoking Tobacco: Former Cigarettes Smokeless Tobacco: Never Alcohol Use Standard Drinks/Week Comments No 0 (1 standard drink = 0.6 oz pur e alcohol) [facility] Utilities Answer Date Recorded In the past 12 months has [employer] electric, gas, oil, or water company threatened to shut off services in your home? No 02/27/2024 Overall Financial Resource Strain (CARDIA) Answe r Date Recorded How hard is it for you to pa y for the very basics like food, housing, medical care, and heating? Not hard at all 02/27/2024 PHQ-2 Answer Date Recorded PHQ-2 Total Score 0 09/05/2024 [facility] - Occupational Stress [...] things needed for daily living? No 03/28/[facility] IP Transportation Answer D [...] Jacklyn Bennett MA documented in this encounter Plan of [...] on filedocumented in this encounter Care Teams Aircraft Body Repairer Relationship Specialty Start Date End Date Mary Greer MD [address] [place] [address] PCP - General Family Medicine 06/14/14 documented as of this encounter
--- OUTSIDE RECORDS SUMMARY | 2024-10-27 07:35 | XMS_ITS | Clinical Summary ---
Author Organization [facility] Address [address] [place] [address] Care Team Providers Care Transitions Manager Name Role Phone Unavailable Primary Care Provider Unavailabl e Source Comments [facility] is fully rolled out with thefollowing exceptions:General Clinical Research [facility] Social History Tobacco Use Types Packs/Day [...]
--- OUTSIDE RECORDS SUMMARY | 2024-10-27 07:35 | XMS_ITS | Clinical Summary ---
Author Organization [facility] Address [address] [place] [id number] Care Team Providers Care Moshgiach Name Role Phone Provider, No Known Primary [...] Take 1 tablet by mouth Daily. Active [place]-3 Fatty Acids (fish oil) 1000 MG capsule [...] Description 10/12/2024 7:30 AM EDT Office Visit [facility] [address] [place] [address] Luigi Ramos MD Poor growth affecting management of mother in third trimester, single or unspecified fetus (Primary Dx) 10/12/2024 7:11 AM EDT - 10/12/2024 11:59 PM EDT [facility] [address] [place] [address] Luigi Ramos MD Poor growth affecting management of mother in third trimester, single or unspecified fetus Discharge Disposition: Home or Self Care 10/12/2024 Travel 09/28/2024 12:30 PM EDT Office Visit [facility] MAT[facility] [address] [place] [address] Luigi Ramos MD Poor growth affecting management of mother in third trimester, single or unspecified fetus (Primary Dx) 09/28/2024 11:32 AM EDT - 09/28/2024 11:59 PM EDT [facility] [address] [place] [address] Sacha Avelar MD IUGR (intrauterine growth restriction) [...] 09/28/2024 12:25 PM EDT Plan of Treatment Health Maintenance Due Date Last Done Comments Annual Gynecologic Pelvic an d Breast Exam 1998 Pneumococcal Vaccine 0-49 (1 of 2 - PCV) 2017 TDAP/TD VACCINES (2 - Td or Tdap) 09/26/2020 011 PAP SMEAR 02/11/2022 02/11/2019 COVID-19 Vaccine (2023-2 5 season) 2023 ANNUAL PHYSICAL 09/27/2024 HEPATITIS C SCREENING 09/27/2024 INFLUENZA VACCINE 12/01/2024 03/12/2014, , 01/05/2011, Additional history exists HPV VACCINES Completed 02/19/2016, 09/26/2010 RSV Vaccine - Adults (No Dos es Required) Completed Procedures Procedure Name Priority Date/Time Associated Diagnosis Comments [facility] Routine 10/12/2024 7:55 AM EDT Poor growth affecting management of mother in third trimester, single or unspecified fetus [facility] Routine 09/28/2024 1:22 PM EDT IUGR (intrauterine growth restriction) affecting care of mother, third trimester, fetus 1 , unspecified gestational age from Last 3 Months Results * [facility] (10/12/2024 7:55 AM EDT) Only the most recent of2 resultswithin the time period is included. Anatomical Region Laterality Modality Ultrasound 10/12/2024 7:36 AM EDT Narrative 10/12/2024 8:18 AM EDT PAT NAME: [facility] REC#: [id number] DA: [id number] PAT GEND: F PAT TYPE: O EXAM JOSSY: [id number] REF PHYS AVELAR, SACHA Comparison Studies The findings of this study [...] EFW (oz) 14 oz EFW by: Hadlock (OKV-VH-ZL-FL) Extended Cav. septi pel. tr 8.6 mm [...] Normal Heart / Thorax 3-vessel view: Normal 8-yqxwvw-xmmxtsc view: normal Cord insertion: Normal Stomach: Appears [...] recommend proceeding with delivery. Coding ======= Description: 18020-02 Follow Up Ultrasound Description: 87426-31 BPP without NST Description: 44083-42 Doppler Umbilical Artery Product Safety Compliance Leader: Xiomara Garcia RDMS Physician: Luigi Ramos MD, FACOG Electronically signed by: Luigi Ramos MD, FACOG at: 08:18 Procedure Note Luigi Ramos MD - 10/12/2024 PAT NAME: [facility] REC#: [id number] DA: 2000 PAT GEND: F PAT TYPE: O EXAM JOSSY: [id number] REF PHYS SACHA AVELAR Comparison Studies The findings of this study are compared to the prior ultrasound studydated 09/28/24 Patient Status Outpatient Indication ======== IUGR Maternal Assessment Upzism107 cm Height (ft)5 ft Height (in)3 in Xjkjou75 kg Weight (lb)168 lb BMI29.32 kg/m Method ======= Transabdominal ultrasound examination. View: Suboptimal view: limited byfetal position ========= Aguirre . Number of fetuses: 1 Dating ====== GA by prior [id number] w + 0 d GEOVANNA by prior [...] GA36 w + 0 d Assigned GEOVANNA:11/09/2024 [id number] d Biometry Standard BPD80.1 mm 32w 1d <1% Hadlock OFD98.2 mm 31w 5d <1% Cheryl HC285.2 mm 31w 2d <1% Hadlock Cerebellum tr45.6 mm 34w 6d 22% Hill AC301.2 mm 34w 1d 12% Hadlock Femur65.7 mm 33w 6d 5% Hadlock Rcpbead66.8 mm 30w 5d <1% Cheryl HC / AC0.95 EFW2,217 g 33w 2d 5% Hadlock EFW (lb)4 lb EFW (oz)14 oz EFW by:Hadlock (VRO-JY-GI-FL) Extended Cav. septi pel. tr8.6 mm CM7.5 mm 49% Nicolaides Head / Face / Neck Cephalic index0.82 53% Nicolaides Extremities / Bony Struc FL / BPD0.82 FL / HC0.23 FL / AC0.22 Other Structures GSH900 bpm General Evaluation Cardiac activity present. FHR [...] LVOT view:Normal Heart / Thorax 3-vessel view:Normal 6-gwcdqu-oxufkpc view:normal Cord insertion:Normal Stomach:Appears normal Kidneys:Appears normal [...] movement would recommendproceeding with delivery. Coding ======= Description:92709-88 Follow Up Ultrasound Description:82786-87 BPP without NST Description:17025-85 Doppler Umbilical Artery Product Safety Compliance Leader: Xiomara Garcia RDMS Physician: Luigi Ramos MD, FACOG Electronically signed by: Luigi Ramos MD, FACOG at: 08:18 us Luigi Ramos MD [facility] ORDERABLES Final Result from Last 3 Months Insurance [employer] [place] Care Teams Moshgiach Relationship Specialty Start Date End Date Provider, No Known [facility] [place] [address] PCP - General 09/27/24
--- OUTSIDE RECORDS SUMMARY | 2024-10-27 07:35 | XMS_ITS | Referral Summary ---
Author Organization [facility] Address [address] [place] [phone] Phone Care Team Providers Care Division Supervisor Name Role Phone Unavailable Primary Care [...]
--- OUTSIDE RECORDS SUMMARY | 2024-10-27 07:35 | XMS_ITS | Encounter Summary ---
Author Organization [facility] Address [address] [place] [address] [place] [address] Phone Care Team Providers Care Sap Enterprise Portal Consultant Name Role Phone Unavailable Primary Care Provider Unavailabl e Reason for Referral * Radiology Services (Routine) - Closed Specialty Diagnoses / Procedures Referred By Kwasi roland Referred To Contact Procedures OB US STANDARD [facility] Referral ID Status Reason Start Date Expiration Date V isits Requested Visits Authorized [id number] Closed Specialty Services Required 04/03/2019 04/02/2020 150 150 Encounter Details Date Type Department Care Team (Late st Contact Info) Description 04/03/2019 [facility] [address] [place] [phone] Social History Tobacco Use Types Packs/Day Years [...]
--- OUTSIDE RECORDS SUMMARY | 2024-10-27 07:35 | XMS_ITS | Clinical Summary ---
Author Organization [facility] [place] [address] Phone Care Team Providers Care Senior It Specialist Name Role Phone Mary Greer MD Primary Care Provider [phone] Allergies Active Allergy Reactions Criticality Noted Date Comments Diphenhydramine Hcl Ibuprofen Hives High 11/02/2014 Naproxen Hives,Itching,Rash 11/02/2014 Cefdinir Rash Medium 05/12/2010 Penicillins Rash 03/08/2010 Prednisone Rash Medium 11/07/2015 [place] hyper Red Dye 06/16/2009 Olanzapine Nausea Only [...] by mouth every morning. 90 Tablet 1 3 Active Additional Information Patient not taking.Reported on 06/02/2024 acetaminophen (TYLENOL) 500 mg Oral Tablet TAKE ONE TABLET BY MOUTH EVERY 6 HOURS NEEDED FOR PAIN OR FEVER 5 Active ferrous sulfate 325 mg (65 mg iron) Oral Tablet, Delayed Release (E.C.) Take 1 Tablet by mouth daily. 5 Active oxyCODONE-acetam inophen (PERCOCET) 7.5-325 mg Oral Tablet Take 1 Tablet by mouth every 6 hours as needed. for pain 5 Active SENNA 8.6 mg Oral Tablet TAKE ONE TABLET BY MOUTH TWICE DAILY NEEDED FOR constipation 5 Active simethicone (MYLICON) 125 mg Oral Tablet, Chewable CHEW ONE TABLET BY MOUTH EVERY DAY NEEDED FOR abdominal distention 5 Active Active Problems Patient Care Coordination No te [...] abnormality -BHCG slightly above normal -MRI pending -indian blanket weaver eval -Morphine/Zofran PRN -NPO Bilious vomiting with [...] AM EDT): Doing well even off medication Resolved Problems Problem Noted Date Diagnosed Date [...] pt GS:undecided PNLs not done GEOVANNA by [facility] LMP - changed to US GEOVANNA Anatomy normal GCT ordered related nausea, antepartum 02/11/2019 06/21/2019 Overview (02/11/2019): Phenergan Rx'd PRN Seasonal allergic rhinitis due to pollen 05/29/2017 06/21/2019 Encounter for surveillance o f injectable contraceptive 07/18/2016 02/11/2019 Allergy to NSAIDs 11/02/2014 06/21/2019 ADD (attention deficit disorder) 12/07/2011 Encounters Date Type Department Care Team Description 10/23/2024 1:18 PM EDT - 10/23/2024 2:04 PM EDT [facility] [address] [place] [address] Jose Elliott MD Breast engorgement (Primary Dx) Discharge Disposition: Home or Self Care 09/23/2024 Abstract SEP [facility] [address] [place] [address] Monique Ozuna MA 09/05/2024 7:23 PM EDT - 09/05/2024 9:31 PM EDT Hospital Encounter [facility] [place] [address] Julia Wellington MD Discharge Disposition: Home or Self Care 09/05/2024 7:18 PM EDT - 09/05/2024 7:19 PM EDT Emergency [facility] [place] [address] Discharge Disposition: Left [...] Recorded In the past 12 months has e electric, gas, oil, or water company threatened to shut off services in your home? No 02/27/2024 Overall Financial Resource Strain (CARDIA) Answe r Date Recorded How hard is it for you to pa y for the very basics like food, housing, medical care, and heating? Not hard at all 02/27/2024 PHQ-2 Answer Date Recorded PHQ-2 Total Score 0 09/05/2024 [facility] Occupat ional Health - Occupational Stress [...] things needed for daily living? No 03/28/2020 [facility] IP Transportation Answer D ate Recorded In [...] A1 A5 Name Clin 2020 Vag-Spo nt Summary Episode Dates Number of Fetuses Estimated Date of Delivery 09/05/2024 - Present (10/27/2024) 1 11/08/2024 (set by Lynn Cordova, NIDA on 09/05/2024 based on Other Basis) Dating [...] Mass Index 25.69 10/23/2024 1:15 PM EDT Plan of Treatment Health Maintenance Due Date Last Done Comments Annual Wellness Exam 2001 Pneumococcal Vaccine 0-49 (1 of 2 - PCV) 2017 Cervical Cancer Screening 02/11/2022 Pap Smear 02/11/2022 02/11/2019 COVID-19 Vaccine ( - season) 2023 Influenza Vaccine (#1) 2024 7 (Declined), 12/06/2015 (Declined), 03/12/2014, Additional history exists DTaP/TDaP/Td (8 - Td or Tdap) 08/18/2034 08/18/2024, 09/26/2010, 10/13/2002, Additional history exists Hepatitis B Vaccine Completed 03/08/1999, 03/08/1999, 1998, Additional history exists HPV Completed 02/19/2016, 09/26/2010 Chlamydia Screening Discontinued 08/23/2021, 02/11/2019, 03/12/2016, Additional history exists Meningococcal B Vaccine Aged Out No l onger eligible based on patient's age to complete this topic Goals Goal Patient Goal Type Associated Problems [...] :21 PM EDT Screening for chlamydial disease PROJECT MANAGER ENTERTAINMENT AND MEDIA CYTOLOGY REQUEST (PAP ONLY) Routine 02/11/2019 2:41 [...] POC Yellow Color 09/05/2024 7:40 PM EDT [facility] Appear POC Clear Clear 09/05/2024 7:40 PM EDT [facility] Blood POC Negative Negative 09/05/2024 7:40 PM EDT [facility] pH POC 6.0 5.0 - 8.0 pH 09/05/2024 7:40 PM EDT [facility] Urobilinogen POC 0.2 0.2, 1.0 09/05/2024 7:40 PM EDT [facility] Nitrite POC Negative Negative 09/05/2024 7:40 PM EDT [facility] Leuk Est POC Negative Negative 7:40 PM EDT [facility] SG POC >=1.030 1.001 - 1.035 no units 09/05/2024 7:40 PM EDT [facility] Gluc POC Negative Negative mg/dL 09/05/2024 7:40 PM EDT [facility] Protein POC Negative Negative mg/dL 09/05/2024 7:40 PM EDT [facility] Ketones POC Negative Negative mg/dL 09/05/2024 7:40 PM EDT [facility] Urine STRUCTURE OF URINARY TRACT PROPER / Unknown 09/05/2024 7:37 PM EDT 09/05/2024 7:40 PM EDT Julia March MD POINT OF CARE TEST ORDERA BLES Final Result Performing Organization Address City/[facility]/ZIP Co de Phone Number [facility] [address] [place] [address] * CHLAMYDIA/GC BY TMA (08/23/2021 2:21 PM EDT) Chlamydia trachomatis Not Detected Not Detected 08/24/2021 3:50 AM EDT PREFERRED LAB [facility] Neisseria gonorrhoeae Not Detected Not Detected 08/24/2021 3:50 AM EDT PREFERRED [employer] Urine URINE SPECIMEN COLLECTION / Unknown 08/23/2021 2:21 PM EDT 08/23/2021 2:21 PM EDT Narrative [facility]REFERRED [facility] - 08/24/2021 3:50 AM EDT Testing methodology is archivist nonprofit foundation mediated amplification (TMA) using the Aptima Combo 2 assay from [employer]. A negative result does not completely rule [...] specimens. Detailed methodology is available upon request. us Malvin Yeboah MD MICROBIOLOGY - GENERAL ORDERA BLES Final Result [facility] [address], [place] [address] * PROJECT MANAGER ENTERTAINMENT AND MEDIA CYTOLOGY REQUEST (PAP ONLY) (02/11/2019 2:41 PM EST) CASE REPORT Gynecologic Cytology Report Case: [id number] Authorizing Provider: Myriam Guillen Collected: 02/11/2019 1441 STAMP CLASSIFIER Ordering Location: [facility] Received: 02/11/2019 1441 First Screen: Neha Lockwood CT Specimen: LIQUID-BASED PAP - CERVICAL/ENDOCERV ICAL, Cervix, Endocervical 02/15/2019 2:21 PM EST [facility] PAP FINAL DIAGNOSIS Negative for intraepithelial lesion or malignancy 02/15/2019 2:21 PM EST [facility] at 1421 EST MICROSCOPIC DESCRIPTION Microscopic examination is performed and the findings corroborate the diagnosis. 02/15/2019 2:21 PM EST [facility] PAP SMEAR ADEQUACY Satisfactory for evaluation 02/15/2019 2:21 PM EST [facility] PAP ORGANISMS NOTED Fungal organisms present consistent with josesito. 02/15/2019 2:21 PM EST [facility] ENDOCERVICAL T-ZONE Transformation zone present 02/15/2019 2:21 PM EST [facility] EMBEDDED IMAGES 9 2:21 PM EST [facility] PAP DISCLAIMER The Pap Smear is a screening test that aids in the detection of cervical cancer and cancer precursors. Both false positive and false negative results can occur. The test should be used at regular intervals, and positive results should be confirmed before definitive therapy. Processed using the ThinPrep Crop Or Grain Farmworker Automated cytology screening device ([employer]iPix[employer]). 02/15/2019 2:21 PM EST [facility] Thin Prep ENDOCERVICAL STRUCTURE / Unknown 02/11/2019 2:41 PM EST 02/11/2019 2:41 PM EST us Myriam Guillen STAMP CLASSIFIER CYTOLOGY ORDERABLES Fi nal Result [facility] [address] [place] [address] from Last 3 Months or Most Recently Relevant to Health Maintenance Insurance [employer] [facility] MDR Advance Directives For more information, please contact: [phone] * Full Code (Latest Code Status on File) Date Activated Date Inactivated Comments 02/27/2024 5:52 AM 02/29/2024 1:40 AM Care Teams Senior It Specialist Relationship Specialty Start Date End Date Mary Greer MD [address] [place] [address] PCP - General Family Medicine 06/14/14
--- NOTE | 2024-10-27 07:38 | ED_ITS ---
Discharge Plan Disposition Patient Disposition: Home, Self-Care Prescriptions Prescriptions: No Action ferrous sulfate 325 mg (65 mg iron) tablet 325 mg PO DAILY Qty: 30 5RF Classic 28 mg iron- 800 mcg tablet 1 tab PO DAILY Qty: 30 5RF sennosides [Senna Lax] 8.6 mg Tablet 8.6 mg PO BIDP PRN (Reason: Constipation) Qty: 60 2RF acetaminophen 500 mg tablet 500 mg PO Q6H PRN (Reason: fever or pain) Qty: 30 3RF simethicone 125 mg tablet 125 mg PO DAILY PRN (Reason: abdominal distention) Qty: 60 2RF ferrous sulfate 325 mg (65 mg iron) tablet,delayed release (DR/EC) 325 mg PO DAILY Qty: 30 3RF oxycodone-acetaminophen 7.5-325 mg tablet 1 tab PO Q6H PRN (Reason: pain) Qty: 20 0RF Referrals Follow up/Referrals: Provider,Referral, MD [Primary Care Provider, Medical] - See instructions Activity Restrictions/Add. Instructions Additional Instructions/Restrictions: Continue to take your medications and brace continue to take your medications as prescribed and use your brace at home to help with your symptoms. I do feel that most of your pain is likely secondary to scarring from your incision. If you develop any new or worsening symptoms, such as uncontrolled pain, fever, vaginal discharge, worsening vaginal bleeding, malodorous vaginal discharge/bleeding, return to the emergency department and/or call Dr. Gaines's office for further recommendations. Clinical Impressions Clinical Impression: Abdominal pain Print Language Print Language: Upper Sorbian Discharge ED Provider: Aric Joiner Adult HPI General Chief complaint: PAIN Stated complaint: Csection 10/19/24 extreme pain in Abd Time Seen by Provider: 10/27/24 07:25 Mode of Arrival: Ambulatory Source of Information: Patient Description of Symptoms (Recalled from ER Triage Doc. by RN): Patient presents to ED for pain at her incision site with nausea for approx. 2 hours. Patient is 1 week s/p , no c/o discharge, is only bleeding when she wipes. History of Present Illness HPI narrative: Ro Khan is a 24y female with a past medical history of on 10/19/2024 who is currently 1 week from her , tobacco use, THC use who presents to the emergency department for complaints of sudden onset lower abdominal pain. Patient states that she was woken from sleep at approximately 3 AM this morning with pain around her abdominal incision was very sharp. She took a hydrocodone which did not relieve the pain. She also has felt chills but did not take her temperature at home. She has had an episode of nausea and vomiting as well. She reports that she is still having a mild amount of vaginal bleeding, however it is present when she wipes and has not increased recently. No vaginal odor or other discharge. She states that she feels pressure when she needs to urinate but does not have any dysuria. Patient states that she has been having regular bowel movements. Patient has noted a small amount of drainage from her incision but states that she was told this is expected. Related Data Previous Rx's ?Medication ?Instructions ?Recorded ferrous sulfate 325 mg (65 mg 325 mg PO DAILY #30 tabs 07/07/24 iron) tablet vits no.126-ferrous fum 1 tab PO DAILY #30 ta bs 07/07/24 28 mg iron-folic acid 800 mcg tablet (Classic ) acetaminophen 500 mg tablet 500 mg PO Q6H PRN fever or pain 10/22/24 #30 tabs ferrous sulfate 325 mg (65 mg 325 mg PO DAILY #30 tabs 10/22/24 iron) tablet,delayed release oxycodone-acetaminophen 7.5 mg-325 1 tab PO Q6H PRN pa in #20 tabs 10/22/24 mg tablet sennosides 8.6 mg tablet (Senna 8.6 mg PO BIDP PRN Con stipation 10/22/24 Lax) #60 tabs simethicone 125 mg tablet 125 mg PO DAILY PRN abdomina l 10/22/24 distention #60 tabs Allergies Allergy/AdvReac Type Severity Reaction Status Date / Time ibuprofen Allergy Intermediate Hives Verified 10/27/24 07:39 Penicillins Allergy Mild Anaphylaxis Verified 10/27/24 07:39 prednisone Allergy Mild Hives Verified 10/27/24 07:39 red dye Allergy Mild Hives Verified 10/27/24 07:39 [facility] Disclaimer: The information contained in this section may have been updated after the patient was seen, as this information can be updated by other users. Medical History (Updated 10/27/24 @ 09:37 by Aric Joiner MD) History of maternal fourth degree perineal laceration, currently Small for gestational age fetus affecting management of mother Tobacco use complicating Surgical History No significant past surgical history Family History Other No significant family history Social History Smoking Status: Current every day smoker alcohol intake: current alcohol intake frequency: holidays/special occasions only substance use type: marijuana current occupational status: unemployed Travel in the last 8 weeks?: None Have you lived/traveled outside [place] in past 30 days?: No Contact w/someone who lives/traveled outside US past 30 days?: No Exposure to someone with infectious disease in past 14 days?: No Do you have a fever (greater than 100.4 F or 38 C)?: No Have you tested positive for COVID-19?: No Exposed to someone with COVID-19 in past 14 days?: No Do you have a sore throat?: No Do you have a cough?: No Do you have any weakness?: No Do you have any diarrhea?: No Are you experiencing any unusual bleeding?: No Do you have any muscle aches/pain?: No Do you have any abdominal pain?: No Are you experiencing loss of taste or smell?: No Other Medical History Have you received the Flu Vaccine for this season: No Have you received the Pneumonia Vaccine: No ROS Obtained: Yes Systems reviewed as appropriate & no additional complaints except as documented Physical Exam General General appearance: alert and in no apparent distress Comment: Appears uncomfortable Head Head exam: atraumatic Eye Eye exam: Present normal appearance ENT ENT exam: Present normal external ear exam Neck Neck exam: Present full ROM Chest Chest inspection: Present symmetric chest wall rise Respiratory Respiratory exam: Present normal lung sounds bilaterally; Absent respiratory distress Cardiovascular Cardiovascular exam: Present regular rate and normal rhythm Abdominal Exam Abdominal exam: Present soft, tenderness (Tenderness to palpation with guarding in the left lower quadrant, periumbilical, suprapubic and right lower quadrants) and guarding; Absent distention or rigidity Comment: Horizontal incision appears to be healing well with Steri-Strips in place. No dehiscence. No drainage. Extremities Exam Extremities exam: Present normal inspection Back Exam Back exam: Present normal inspection Neurological Exam Neurological exam: Present alert and oriented X3 Psychiatric Psychiatric exam: Present normal affect Skin Skin exam: Present warm and dry Medical Decision Making Medical Records Screening: Per USPSTF and CDC recommendations, given the prevalence of disease in our region, it is our hospital?s policy to screen for HIV and viral Hepatitis for all patients aged 18 and over and those with ongoing risk factors. Chuck Inquiry Pt receiving controlled substance: No Vital Signs: 10/27/24 07:29 10/27/24 07:29 Temperature 98.0 F 98.0 F Temperature Source Oral Pulse Rate 87 Pulse Rate [Right] 87 Respiratory Rate 20 20 Blood Pressure 134/84 Blood Pressure [Right Arm] 134/84 Blood Pressure Mean [Right Arm] 100 02 Sat by Pulse Oximetry 100 100 Lab Data Lab Results 10/27/24 07:30: WBC 8.3, RBC 3.73 L, Hgb 11.9 L, Hct 35.6 L, MCV 95.4, MCH 31.9 H, MCHC 33.4, RDW 12.9, Plt Count 297, MPV 9.3, Neut % (Auto) 63.0, Lymph % (Auto) 26.4, Mccone % (Auto) 6.8, Eos % (Auto) 2.6, Baso % (Auto) 0.7, Neut # (Auto) 5.2, Lymph # (Auto) 2.2, Mccone # (Auto) 0.6, Eos # (Auto) 0.2, Baso # (Auto) 0.1, PT 10.4, INR 0.93, APTT 25.6, Sodium 139, Potassium 3.8, Chloride 106, Carbon Dioxide 27, Anion Gap 9.8, BUN 12, Creatinine 0.70, Estimated Creat Clear 146, Estimated GFR 101, Est GFR ( Amer) 122, Glucose 92, Calcium 9.1, Total Bilirubin 0.3, AST 34, ALT 23, Alkaline Phosphatase 85, Total Protein 7.2, Albumin 3.9, Globulin 3.3 H, Albumin/Globulin Ratio 1.2, Lipase 20 L, HCG, Quant 74 H 10/27/24 08:00: Urine Color Yellow, Urine Appearance Clear, Urine pH 6.5, Ur Specific [place] 1.025, Urine Protein Negative, Urine Glucose (UA) Negative, Urine Ketones Negative, Urine Blood 3+ A, Urine Nitrate Negative, Urine Bilirubin Negative, Urine Urobilinogen 0.2, Ur Leukocyte Esterase Trace 10/27/24 07:30 10/27/24 07:30 Orders (Tests/Meds): ED MEDICATIONS Generic Name Dose Route Start Last Admin Trade Name Freq PRN Reason Stop Dose Admin Sodium Chloride 10 ml 10/27/24 08:09 10/27/24 08:10 Sodium Chloride 0.9% 10ml Syr (Rad Only) IV 11/26/24 08:08 10 ml NEEDED PRN Administration Maintain IV Site Discontinued Medications Generic Name Dose Route Start Last Admin Trade Name Freq PRN Reason Stop Dose Admin Iopamidol 75 ml 10/27/24 08:09 10/27/24 08:09 Iopamidol-370 (76%);100ml Bottle IV 10/27/24 08:10 75 ml ONCE ONE Administration Morphine Sulfate 4 mg 10/27/24 07:46 10/27/24 08:03 Morphine 4mg/Ml Syringe IV 10/27/24 07:47 4 mg ONCE ONE Administration Ondansetron HCl 4 mg 10/27/24 07:46 10/27/24 08:03 Ondansetron 4mg/2ml Vial IV 10/27/24 07:47 4 mg ONCE ONE Administration ORDERS Category Date Time Status CT abdomen pelvis w con Stat Cat Scan 10/27/24 07:43 Completed US transvaginal Stat Exams 10/27/24 07:43 Completed CBC w/Auto Diff [Complete Blood Count Auto Diff] Stat Lab 10/27/24 07:30 Completed CMP [Comprehensive Metabolic Panel] Stat Lab 10/27/24 07:30 Completed HCG,Quantitative Stat Lab 10/27/24 07:30 Completed Lipase Stat Lab 10/27/24 07:30 Completed PT INR [Prothrombin Time INR] Stat Lab 10/27/24 07:30 Completed PTT [Activated Partial Thrombo Time] Stat Lab 10/27/24 07:30 Completed UA [Urinalysis and Microscopic] Stat Lab 10/27/24 08:00 Results Urine Chlam/Gono/Trich ([facility]) Stat Lab 10/27/24 08:00 Received Medical Decision Narrative: Ro Khan is a 24y female with a past medical history of on 10/19/2024 who is currently 1 week from her , tobacco use, THC use who presents to the emergency department for complaints of sudden onset lower abdominal pain. Patient states that she was woken from sleep at approximately 3 AM this morning with pain around her abdominal incision was very sharp. She took a hydrocodone which did not relieve the pain. She also has felt chills but did not take her temperature at home. She has had an episode of nausea and vomiting as well. She reports that she is still having a mild amount of vaginal bleeding, however it is present when she wipes and has not increased recently. No vaginal odor or other discharge. She states that she feels pressure when she needs to urinate but does not have any dysuria. Patient states that she has been having regular bowel movements. Patient has noted a small amount of drainage from her incision but states that she was told this is expected. On arrival, patient is normotensive, heart rate within normal limits, afebrile. Oxygen saturation 100% SpO2. Physical exam, as stated above, revealed uncomfortable. Female in no respiratory distress. She is speaking in full sentences, answering questions appropriately. Abdomen is soft and nonperitonitic. She does have tenderness with guarding in the left lower quadrant, lower periumbilical region, suprapubic region and right lower quadrants. Her horizontal abdominal incision appears to be healing well with Steri-Strips in place. No dehiscence. No drainage appreciated. Differential diagnosis includes, but is not limited to: Endometritis, intra- abdominal abscess, acute pancreatitis, acute appendicitis, ovarian torsion, constipation, among others. The most morbid conditions were considered and workup was based on these. Workup in the Emergency Department included: CT abdomen pelvis with IV contrast, transvaginal ultrasound, CBC with differential, CMP, quantitative beta-hCG, lipase, PT/INR, PTT, urinalysis, urine and chlamydia/gonorrhea/trichomonas. Discharge summary on 10/20/2024 shows the patient was rubella immune, hepatitis B negative, hepatitis C negative, RPR negative, GBS negative. Laboratory studies showed no leukocytosis, hemoglobin improving to 11.9, hematocrit 35.6, coagulation studies unremarkable, CMP unremarkable and nonactionable with normal liver enzymes and bilirubin. Lipase normal. Quantitative hCG appropriate at 74. Urinalysis with 3+ blood but no evidence of infection, blood likely secondary to continued mild vaginal bleeding less likely to represent hemorrhagic cystitis. CT imaging interpreted by me personally and consistent with radiology read of a uterus. There is enhancement along the posterior endometrial/myometrial junction but no obvious abscess. Transvaginal ultrasound showed a small amount of blood within the uterus but otherwise no evidence of retained products of conception. She does have a seroma at the level of the P fannenstiel incision. Given the patient has not had any fevers, increased vaginal discharge/malodorous vaginal discharge, there is low concern for endometritis given these factors as well as reassuring ultrasound. On reassessment, patient is sleeping comfortably and reports improvement in her pain. Is felt that she is likely starting to scar along her incision site that that is causing her pain. I encouraged her to follow-up with Dr. Gaines's office if her symptoms worsen or are uncontrolled at home. I gave strict return precautions for any fever, worsening vaginal discharge/bleeding, worsening abdominal pain. All questions were answered. She demonstrated understanding and was in agreement this plan. She was then discharged from the emergency department in stable condition. Critical Care Critical Care Time Critical Care Time: No
--- NOTE | 2024-10-27 07:43 | US_ITS ---
PROCEDURE INFORMATION: Exam: US Pelvis, Transvaginal, Non-Obstetric Exam date and time: 10/27/2024 8:21 AM Age: 24 years old Clinical indication: Other: Lower abd pain at c section scar; Prior surgery; Surgery date: 3-7 days post-operative; Additional info: 1 week post , lower abdominal pain TECHNIQUE: Imaging protocol: Real-time transvaginal pelvic (non-obstetric) ultrasound with image documentation. Transvaginal imaging was used for better evaluation of the endometrium, adnexa, and/or cervix. COMPARISON: US OB BIOPHYSICAL PROFILE 09/29/2024 4:04 PM FINDINGS: Uterus: The uterus measures 12.6 x 7.5 cm. There is a linear shadowing in the lower uterine segment in this patient with recent Pfannenstiel incision. Otherwise, no focal myometrial lesions. There is minimal amount of fluid within the endometrial canal. Heterogeneous appearance can reflect residual blood products. Right ovary/adnexa: Right ovary is not visualized. Left ovary/adnexa: Left ovary is not visualized. Urinary bladder: Urinary bladder is limited. Intraperitoneal space: No free fluid. Soft tissues: There is a 0.8 x 4.5 x 4.0 cm multi septated collection in the abdominal wall at the level of the Pfannenstiel incision. IMPRESSION: 1. Minimal amount of fluid within the endometrium favored residual blood products. 2. There is a 0.8 x 4.5 x 4.0 cm seroma at the level of the Pfannenstiel incision. 3. Nonvisualization of the ovaries.
--- NOTE | 2024-10-27 07:43 | CT_ITS ---
FINAL REPORT TECHNIQUE: Thin section axial images are obtained through the abdomen and pelvis after intravenous contrast. Reconstruction images were obtained from the axial data. Exam was performed using dose reduction techniques. CLINICAL HISTORY: 1 week post , lower abdominal pain COMPARISON: None FINDINGS: LUNG BASES: Lung bases are clear. Heart size is normal. LIVER: Homogeneous. No focal lesion. GALLBLADDER/BILIARY SYSTEM: Gallbladder is present. No gallstones. No biliary dilatation. SPLEEN: Unremarkable. PANCREAS: Unremarkable. ADRENALS: Unremarkable. KIDNEYS/URETERS/BLADDER: No hydronephrosis, renal mass, or renal stone. Unremarkable urinary bladder. GI TRACT: No small bowel obstruction or dilatation. Normal appendix. No acute colon abnormality. PELVIC ORGANS: Uterus is enlarged consistent with state. There is an area of enhancement along the posterior myometrium and along the margin of the endometrial cavity. Retained products is difficult to exclude. No endometrial air. LYMPH NODES/RETROPERITONEUM/MESENTERY: No lymphadenopathy. No abdominal aortic aneurysm. No free intraperitoneal air seen. ABDOMINAL WALL: There is subcutaneous air within the anterior abdominal wall, likely postoperative. Small amount of fluid within the anterior abdominal wall is also likely postoperative.. FREE FLUID: No ascites. BONES: No acute osseous abnormality. IMPRESSION: uterus with enhancement along the posterior endometrial/myometrial junction, nonspecific. If there is concern for retained products, consider transvaginal ultrasound and correlation with beta hCG. Fluid and subcutaneous air in the abdominal wall, likely postoperative. Reviewed, Interpreted and Dictated by Dia Tam MD Transcribed by Karely Carrillo Authenticated and [facility]
[2024-10-27 07:58] LABS: Hematocrit 35.6 % (37.0-47.0); Hemoglobin 11.9 g/dL (12.2-16.2); Immature Granulocytes % 0.5 %; Mean Corpuscular HGB Conc 33.4 g/dL (31.8-35.4); Mean Corpuscular Hemoglobin 31.9 pg (27.0-31.2); Mean Corpuscular Volume 95.4 fl (81-99); Nucleated Red Blood Cells % 0 %; Platelet Count 297 K/mm3 (142-424); Red Blood Count 3.73 M/mm3 (4.20-5.40); Red Cell Distribution Width-SD 44.6 fL; White Blood Count 8.3 K/mm3 (4.8-10.8)
[2024-10-27] MEDS: MORPHINE 4MG/ML SYRINGE 4 MG IV (08:03)
[2024-10-27] MEDS: ONDANSETRON 4MG/2ML VIAL 4 MG IV (08:03)
[2024-10-27 08:07] LABS: Activated Partial Thrombo Time 25.6 seconds (22.8-30.6); INR 0.93 (0.9-1.1); Prothrombin Time 10.4 seconds (10.1-12.5)
[2024-10-27 08:09] LABS: Albumin Level 3.9 g/dl (3.5-5.0); Chloride 106 mmol/L (98-107); Potassium 3.8 mmoL/L (3.5-5.1); Sodium 139 mmol/L (136-145)
[2024-10-27] MEDS: IOPAMIDOL-370 (76%);100ML BOTTLE 75 ML IV (08:09)
[2024-10-27] MEDS: SODIUM CHLORIDE 0.9% 10ML SYR (RAD ONLY) 10 ML IV (08:10)
[2024-10-27 08:11] LABS: Microscopic, Urine URINE MICROSCOPIC (MICROSCOPIC)
[2024-10-27 08:12] LABS: Alanine Aminotransferase 23 U/L (12-78); Albumin/Globulin Ratio 1.2 (1.1-1.8); Alkaline Phosphatase 85 U/L (38-126); Anion Gap 9.8 mEq/L (5-15); Aspartate Amino Transferase 34 U/L (14-36); Bilirubin,Total 0.3 mg/dl (0.2-1.3); Blood Urea Nitrogen 12 mg/dl (7-17); Carbon Dioxide 27 mmol/L (22.0-30.0); Creatinine Clearance Estimated 146 mL/min (50-200); Creatinine,Serum 0.70 mg/dl (0.52-1.04); Estimated Glomerular Filt Rate 101 ml/min (>60); GFR (African American) 122 ML/MIN (>60); Globulin 3.3 g/dL (1.3-3.2); Lipase 20 U/L (23-300); Total Protein,Serum 7.2 g/dl (6.3-8.2)
[2024-10-27 08:13] LABS: Calcium 9.1 mg/dl (8.4-10.2); Glucose 92 mg/dl (74-100)
[2024-10-27 08:17] LABS: Bilirubin,Urine Negative (Negative); Color,Urine YELLOW (Yellow); Glucose,Urine (UA) Negative (Negative); Ketones,Urine Negative (Negative); Leukocyte Esterase,Urine TRACE (Negative); PH,Urine 6.5 (5.0-8.5); Protein,Urine Negative (Negative); Specific Gravity, Urine 1.025 (1.005-1.030); Urobilinogen,Urine 0.2 EU/dl (0.2)
[2024-10-27 09:38] VITALS: BP 96/59; PULSE 60; PULSE 65; RESP 16; TEMP 36.7; O2SAT 100
[2024-10-27 22:48] LABS: Calcium Oxalate Crystals,Urine 1+ /lpf
[2024-10-27 22:49] LABS: Bacteria,Urine 3+ /lpf
--- NOTE | 2024-10-29 06:51 | PC.NURSE ---
spoke with patient regarding urine culture, informed patient of antibiotic prescription sent to [facility] pharmacy in [place]. 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
--- NOTE | 2024-10-30 07:59 | PC.NURSE ---
Reviewing culture list, previously taken care of by shift engineer charge and an antibiotic was sent that was susceptible.
== END 2024-10-27 09:44 | disposition home or self-care (01) ==
PROVIDERS: Emergency Provider Student in an Organized Health Care Education/Training Program
DX: R10.84 Generalized abdominal pain (principal); N39.0 Urinary tract infection, site not specified; R11.2 Nausea with vomiting, unspecified
CPT/HCPCS: 74177; 76830; 80053; 81001; 83690; 84702; 85025; 85610; 85730; 87086; 87088; 87186; 87491; 87591; 87661; 96374; 96375; 99283; 99285; J2270; J2405; Q9967

== ENCOUNTER 2025-01-04 14:07 | Emergency (ER) | payer OTHER, SELFPAY ==
--- OUTSIDE RECORDS SUMMARY | 2003-09-01 23:00 | XMS_ITS | Encounter Summary ---
Author Organization [facility] Address [address] [place] [id number] Care Team Providers Care Public Health Advisor Name Role Phone Unavailable Primary Care Provider Unavailabl e Encounter Details Date Type Department Care Team (Late st Contact Info) Description 09/02/2003 Hospital Encounter [facility] Department of Radiology [address] [place] [phone] Social History Tobacco Use Types Packs/Day Years Used Date Smoking Tobacco: Never Assessed Comments Unknown Sex and Gender Information Value Date Recorded Sex Assigned at Not on file Legal Sex Female 5:16 AM EST Gender Identity Not on file Sexual Orientation Not on file documented as of this encounter Plan of Treatment Not on file documented as of this encounter Visit Diagnoses Not on filedocumented in this encounter
--- OUTSIDE RECORDS SUMMARY | 2024-12-02 02:33 | XMS_ITS | Encounter Summary ---
Author Organization [place] [address] Care Team Providers Care Welder/Fitter Name Role Phone Mary Greer MD Primary Care Provider [phone] Reason for Visit * Reason Comments Abdominal Pain I'm having pain whe re my gallbladder is again Encounter Details Date Type Department Care Team (Late st Contact Info) Description 12/02/2024 3:33 AM EDT - 12/02/2024 5:39 AM EDT [facility] [address] [place] [address] Dane eTjada MD [address] [place], [place] [id number] Abdominal pain, unspecified abdominal location (Primary Dx); Nausea and vomiting, unspecified vomiting type Discharge Disposition: Home or Self Care Social History Tobacco Use Types Packs/Day Years Used Date Smoking Tobacco: Former Cigarettes Smokeless Tobacco: Never Alcohol Use Standard Drinks/Week Comments No 0 (1 standard drink = 0.6 oz pur e alcohol) [facility] Utilities Answer Date Recorded In the past 12 months has [employer], gas, oil, or water [employer] threatened to shut off services in your home? No 02/27/2024 Overall Financial Resource Strain (CARDIA) Answe r Date Recorded How hard is it for you to pa y for the very basics like food, housing, medical care, and heating? Not hard at all 02/27/2024 PHQ-2 Answer Date Recorded PHQ-2 Total Score 0 09/05/2024 [facility] [place] of Occupat ional Health - Occupational Stress [...] things needed for daily living? No 03/28/2020 [facility] IP Transportation Answer [...] Sign Reading Time Taken Comments Blood Pressure 124/75 12/02/2024 3:37 AM EDT Pulse 89 12/02/2024 3:32 AM EDT Temperature 36.4 C (97.5 F) 12/02/2024 3:37 AM EDT Respiratory Rate 18 12/02/2024 3:32 AM EDT Oxygen Saturation 99% 12/02/2024 4:54 AM EDT Inhaled Oxygen Concentration - - Weight - [...] Answer Date of Assessment Author No Risk 12/02/2024 3:32 AM EDT Dana Crawford RN * [place] Suicide Severity Rating Scale (Q shift for moderate and high) Question Answer Date of Assessment Author 1. In the past month, have y ou wished you were or wished you could go to sleep and not wake up? 0 12/02/2024 3:32 AM EDT Dana Conrad RN 2. In the past month, have y ou actually had any thoughts of killing yourself? (If no, skip to question 6) 0 12/02/2024 3:32 AM ROHANT Dana Crawford RN 6. Have you ever done anythi ng, started to do anything, or prepared to do anything to end your life? 0 12/02/2024 3:32 AM EDT Dana Crawford RN documented as of this encounter Mental Status * Because of a physical, mental or emotional condition, does this person have serious difficulty concentrating, remembering or making decisions? Answer Entry Date Author No 08/23/2021 2:16 PM EDT Jcaklyn Bennett MA documented in this encounter Discharge Instructions * Attachments The following attachments cannot be sent through Care Everywhere. * Abdominal pain (Swazi) * Nausea and vomiting in adults (Swazi) documented in this encounter Medications at Time of Discharge acetaminophen (TYLENOL) 500 mg Oral Tablet TAKE ONE TABLET BY MOUTH EVERY 6 HOURS NEEDED FOR PAIN OR FEVER 10/22/2024 albuterol (PROVENTIL HFA;VENTOLIN HFA) 90 mcg/actuation [...] daily (with meals). 40 Tablet 1 08/23/2021 ferrous sulfate 325 mg (65 mg iron) Oral Tablet, Delayed Release (E.C.) Take 1 Tablet by mouth daily. 10/22/2024 loratadine (CLARITIN) 10 mg Oral TabletIndications :Mild persistent asthma with acute exacerbation Take 1 Tablet by mouth daily as needed (allergies). 30 Tablet 5 05/15/2022 montelukast (SINGULAIR) 10 mg Oral TabletIndications :Seasonal allergic rhinitis due to pollen,Mild persistent asthma without complication Take 1 Tablet by mouth nightly. 30 Tablet 5 05/15/2022 oxyCODONE-acetami nophen (PERCOCET) 7.5-325 mg Oral Tablet Take 1 Tablet by mouth every 6 hours as needed. for pain 10/22/2024 SENNA 8.6 mg Oral Tablet TAKE ONE TABLET BY MOUTH TWICE DAILY NEEDED FOR constipation 10/22/2024 simethicone (MYLICON) 125 mg Oral Tablet, Chewable CHEW ONE TABLET BY MOUTH EVERY DAY NEEDED FOR abdominal distention 10/22/2024 omeprazole (PRILOSEC) 20 mg Oral Capsule, Delayed Release(E.C.) Take 1 Capsule by mouth every morning (before breakfast) for 14 days. 14 Capsule 12/02/2024 ondansetron (ZOFRAN-ODT) 4 mg Oral Tablet, Rapid Dissolve Dissolve 1 Tablet by mouth every 8 hours as needed for Nausea for up to 3 days. 9 Tablet 12/02/2024 documented as of this encounter Ordered Prescriptions Prescription Sig Dispense Quantity Refills Last Filled Start Date End Date omeprazole (PRILOSEC) 20 mg Oral Capsule, Delayed Release(E.C.) Take 1 Capsule by mouth every morning (before breakfast) for 14 days. 14 Capsule 12/02/2024 ondansetron (ZOFRAN-ODT) 4 mg Oral Tablet, Rapid Dissolve Dissolve 1 Tablet by mouth every 8 hours as needed for Nausea for up to 3 days. 9 Tablet 12/02/2024 5 documented in this encounter Discharge Disposition Disposition Code Departure Means Destination Comment s Home or Self Senior Living documented in this encounter ED Notes * Danielle Echols RN - 12/02/2024 4:35 AM EDT Patient Transported to [place] * Danielle Echols RN - 12/02/2024 4:11 AM EDT Pt placed on 2L O2 due to O2 sats dropping to mid 80's after receiving morphine * Dane Tejada MD - 12/02/2024 3:30 AM EDT Chief Complaint Patient presents with Abdominal Pain I'm having pain where my gallbladder is again This is a 24-year-old female with history of cholelithiasis presenting today for evaluation of abdominal pain. She reports having a recurrent abdominal pain every time she eats for quite some time. She states she has previously been diagnosed with gallstones. She states she wanted to have her gallbladder removed, but never followed up. She states this plan was delayed by . Her pain is recently worse over the past 5 hours. It is constant. She has had nausea and vomiting. She denies diarrhea and fever. Abdominal Pain Patient History Allergies[1] Home Medications: Prior to Admission medications Medication Sig Start Date End Date Last Dose Authorizing Provider acetaminophen (TYLENOL) 500 mg Oral Tablet TAKE ONE TABLET BY MOUTH EVERY 6 HOURS NEEDED FOR PAIN OR FEVER 10/22/24 Provider, Historical albuterol (PROVENTIL HFA;VENTOLIN HFA) 90 mcg/actuation Inhl [...] Reported on 10/15/2023 08/23/21 Malvin Yeboah MD ferrous sulfate 325 mg (65 mg iron) Oral Tablet, Delayed Release (E.C.) Take 1 Tablet by mouth daily. 10/22/24 Provider, Historical loratadine (CLARITIN) 10 mg Oral Tablet Take [...] Reported on 06/02/2024 03/11/20 Mary Greer MD oxyCODONE-acetaminophen (PERCOCET) 7.5-325 mg Oral Tablet Take 1 Tablet by mouth every 6 hours as needed. for pain 10/22/24 Provider, Historical SENNA 8.6 mg Oral Tablet TAKE ONE TABLET BY MOUTH TWICE DAILY NEEDED FOR constipation 10/22/24 Provider, Historical simethicone (MYLICON) 125 mg Oral Tablet, Chewable CHEW ONE TABLET BY MOUTH EVERY DAY NEEDED FORabdominal distention 10/22/24 Provider, Historical Past Medical History: Past Medical History[2] Social History: reports that she has quit smoking. Her smoking use included cigarettes. She has never used smokeless tobacco. She reports current drug use. Frequency: 2.00 times per week. Drug: Marijuana. She reports being sexually active and has had partner(s) who are male. She reports that she does not drink alcohol. E-Cigarettes (such as Vapes or Juul) E-Cigarette Use Former User Family History: Family History[3] Surgical History: Surgical History[4] Review of Systems Review of Systems Gastrointestinal: Positive for abdominal pain. All other systems reviewed and are negative. Physical Exam Blood pressure 124/75, pulse 89, temperature 97.5 ??F (36.4 ??C), temperature source Oral, resp. rate 18, last menstrual period 11/30/2024, SpO2 99%, not currently . Physical Exam Constitutional: Comments: General: Awake, alert, no acute distress Head: Normocephalic, atraumatic HEENT: Conjunctiva clear, mucosa is moist Cardiac: Normal rate, regular rhythm Pulmonary: Normal respiratory effort, equal breath sounds bilaterally, clear to auscultation bilaterally Abdominal: Soft, nondistended. Patient has pain with palpation of the right abdomen. No rigidity, guarding or rebound tenderness Musculoskeletal: no deformities, no noted effusions Neuro: Awake, alert, moving all 4 extremities spontaneously Procedures Results for orders placed or performed during the hospital encounter of 12/02/24 CT ABD PEL ED FAST W CONTRAST Narrative CLINICAL HISTORY: -Right sided abdominal pain, nausea, vomiting. COMPARISON: 02/27/2024. TECHNIQUE: CT ABD PEL ED FAST W CONTRAST on 12/02/2024 4:46 AM. Isovue 370 IV contrast as recorded in EPIC. Dose 1 : CT DLP Total : 297.99 mGycm DLP Spiral Max : 293.95 mGycm Maximum CTDI Vol : 6.16 mGy FINDINGS: Abdomen: The lung bases are clear. The visualized portions of the heart are normal. The liver, gallbladder, spleen, pancreas, adrenal glands, and kidneys are normal. The stomach and caliber of the small bowel are normal. There are no enlarged abdominal lymph nodes or free fluid. The caliber of the abdominal aorta is normal. The spine is unremarkable. Pelvis: The caliber of the colon is normal. The appendix is unremarkable. There are no enlarged pelvic lymph nodes or free fluid. The urinary bladder, uterus, and adnexa are normal. The bony pelvis is unremarkable. Impression No acute findings or abnormalities to explain the patient's symptoms Note: Radiology results need to be interpreted within a comprehensive clinical context. If you have questions about the radiology report, please contact the office of the ordering clinician. CBC WITH DIFF Result Value Ref Range WBC 7.5 3.7 - 10.3 x10(3)/mcL RBC 3.81 (L) 3.90 - 5.20 x10(6)/mcL Hgb 12.0 11.2 - 15.7 g/dL Hct 36.4 34.0 - 45.0 % MCV 95.5 80.0 - 100.0 fL MCH 31.5 26.0 - 34.0 pg MCHC 33.0 30.7 - 35.5 g/dL RDW 12.7 <=14.9 % Platelet 275 155 - 369 x10(3)/mcL MPV 9.1 8.8 - 12.5 fL Neut Percent 56.3 % Imm Gran% 0.3 % Lymph Percent 31.2 % [place] Percent 7.0 % Eos Percent 4.8 % Baso Percent 0.4 % Neut # 4.2 1.6 - 6.1 x10(3)/mcL IMMGRAN# 0.0 0.0 - 0.1 x10(3)/mcL Lymph # 2.4 1.2 - 3.9 x10(3)/mcL [place] # 0.5 0.3 - 0.9 x10(3)/mcL Eos# 0.4 0.0 - 0.5 x10(3)/mcL Baso # 0.0 0.0 - 0.1 x10(3)/mcL COMPREHENSIVE METABOLIC PANEL Result Value Ref Range Sodium 140 136 - 145 mmol/L Potassium 3.5 3.5 - 5.0 mmol/L Chloride 105 98 - 107 mmol/L Total CO2 21 (L) 22 - 29 mmol/L Anion Gap 14 7 - 16 mmol/L Calcium 9.3 8.6 - 10.4 mg/dL Glucose Lvl 114 (H) 70 - 99 mg/dL BUN 8 6 - 20 mg/dL Creatinine 0.71 0.51 - 1.30 mg/dL Albumin 4.2 3.5 - 5.2 gm/dL Total Protein 7.1 6.4 - 8.3 gm/dL Bili Total 0.3 0.2 - 1.3 mg/dL ALT 16 <=41 U/L AST 15 <=40 U/L Alk Phos 68 36 - 123 U/L eGFR (CKD-EPIcr 2020) 120 >=60 mL/min/1.73 m2 LIPASE LEVEL Result Value Ref Range Lipase Lvl 17 13 - 60 U/L HUMAN CHORIONIC GONADOTROPIN QUANTITATIVE Result Value Ref Range Hcg Quant <1 <5 mIU/mL Narrative Female (non-): 0-4.9 mIU/mL Female (postmenopausal): 0-8.1 mIU/mL Indeterminate values for (e.g., 5-25 mIU/mL) may be confirmed with a repeat test in 48-72hours. Values in should double every 2-3 days for the first six weeks. Ingestion of lori doses of biotin (>5 mg/day) taken within 8 hours of drawing blood sample can interfere with this immunoassay test. UA W/REFLEX TO CULTURE Specimen: Urine, Clean Catch Narrative The following orders were created for panel order UA W/REFLEX TO CULTURE. Procedure Abnormality Status --------- ------ URINALYSIS REFLEX[[id number]] Abnormal Final result EXTRA SOLER URINE CX[[id number]] In process Please view results for these tests on the individual orders. URINALYSIS REFLEX Result Value Ref Range UA Color Yellow UA Appear Clear Clear UA Glucose Negative Negative mg/dL UA Ketones Negative Negative mg/dL UA Blood Large (A) Negative UA pH 6.0 5.0 - 8.0 pH UA Protein Negative Negative mg/dL UA Urobilinogen 0.2 <=1 mg/dL UA Bili Negative Negative UA Nitrite Negative Negative UA Leuk Est Negative Negative UA Spec Grav 1.015 1.001 - 1.035 no units UA WBC 0 0 - 4 /HPF UA RBC 5 (H) 0 - 3 /HPF UA Squam Epi Rare /LPF UA Amorph Trace /HPF Critical Care time MDM Medical Decision Making This is a 24-year-old female with history of cholelithiasis presenting today for evaluation of abdominal pain. She reports having a recurrent abdominal pain every time she eats for quite some time. She states she has previously been diagnosed with gallstones. She states she wanted to have her gallbladder removed, but never followed up. She states this plan was delayed by . Her pain is recently worse over the past 5 hours. It is constant. She has had nausea and vomiting. She denies diarrhea and fever. On exam, the patient appears to be in pain. Her abdomen is soft but she reports pain with palpationof the right abdomen. There is no rigidity, guarding or rebound tenderness. Plan for IV access. Will administer IV fluids, morphine, Zofran. Labs and imaging have been ordered. Ultrasound is unavailable at this time at night. The only imaging modality available CT scan Labs: There is no leukocytosis. Hemoglobin is 12.0. Comprehensive metabolic panel does not reveal any acute abnormality requiring invention. Specifically bilirubin, ALT, AST are normal. test is negative. Lipase is normal. Urinalysis is not indicative of urinary tract infection. CT scan: No acute findings are identified. Specifically the liver and gallbladder have normal appearance. The caliber of the intestines is normal. No evidence of bowel obstruction. The appendix is unremarkable. On reassessment, after receiving morphine, Zofran, Reglan, the patient is asymptomatic. She reportsher pain is resolved. On repeat exam her abdomen is soft without rigidity, guarding, or signs of peritonitis. I did notify the patient of workup findings thus far. Etiology of her pain is not clear, but I do not find evidence of emergency today. I do not believe she is suffering from process such as acute cholecystitis, appendicitis, bowel obstruction, visceral ischemia, atypical presentation of acute coronary syndrome among other considered emergencies. She will be sent home with nausea medication to take as needed. I will also provide PPI for potential gastritis versus ulceration given symptoms related to food intake. I do not believe she is suffering from a bleeding ulceration or visceral perforation. I recommend she follow-up with her doctor for reassessment in the outpatient setting.I did review return precautions with her at bedside and advise return to the ER for worsening of sym ptoms. Problems Addressed: Abdominal pain, unspecified abdominal location: complicated acute illness or injury Nausea and vomiting, unspecified vomiting type: complicated acute illness or injury Amount and/or Complexity of Data Reviewed Labs: ordered. Radiology: ordered. Risk Prescription drug management. This chart was completed using voice recognition technology and may contain unintended errors Dane Tejada MD 12/02/2428 [1] Allergies Allergen Reactions Ibuprofen Hives Omnicef [Cefdinir] Rash Prednisone Rash [place] hyper Antihist [Diphenhydramine Hcl] Naproxen Hives, Itching and Rash Penicillins Rash Red Dye Zyprexa [Olanzapine] Nausea Only [2] Past Medical History: Diagnosis Date ADD (attention deficit disorder) [3] Family History Problem Relation Age of Onset Other Maternal Aunt PTSD No Known Problems Father Cancer Maternal Grandfather Heart Failure Maternal Grandfather Kidney Disease Maternal Grandfather [4] Past Surgical History: Procedure Laterality Date MOUTH SURGERY Dane Tejada MD 12/02/24531 documented in this encounter Plan of Treatment [...] Name Priority Date/Time Associated Diagnosis Comments URINALYSIS REFLEX STAT 12/02/2024 5:0 1 AM EDT UA W/REFLEX TO CULTURE STAT 5:01 AM EDT EXTRA SOLER URINE CX STAT 12/02/2024 5 :[address] ABD PEL ED FAST W CONTRAST STAT 12/02/2024 4:46 AM EDT CBC WITH DIFF STAT 12/02/2024 3:57 AM EDT HUMAN CHORIONIC GONADOTROPIN QUANTITATIVE STAT 12/02/2024 3:57 AM EDT LIPASE LEVEL STAT 12/02/2024 3:57 AM EDT COMPREHENSIVE METABOLIC PANEL STAT 12/02/2024 3:57 AM EDT SALINE LOCK IV STAT 12/02/2024 3:40 AM EDT documented in this encounter Results * EXTRA SOLER URINE CX (12/02/2024 5:01 AM EDT) Urine STRUCTURE OF URINARY TRACT PROPER / Unknown 12/02/2024 5:01 AM EDT 12/02/2024 5:05 AM EDT Dane Tejada MD MICROBIOLOGY - GENERAL ORDERAB LES Final Result [facility] [address] [place] [address] * (ABNORMAL) URINALYSIS REFLEX (12/02/2024 5:01 AM EDT) UA Color Yellow 12/02/2024 5:20 AM EDT [facility] UA Appear Clear Clear 12/02/2024 5:20 AM EDT [facility] UA Glucose Negative Negative mg/dL 12/02/2024 5:20 AM EDT [facility] UA Ketones Negative Negative mg/dL 12/02/2024 5:20 AM EDT [facility] UA Blood Large(A) Negative 12/02/2024 5:20 AM EDT [facility] UA pH 6.0 5.0 - 8.0 pH 12/02/2024 5:20 AM EDT [facility] UA Protein Negative Negative mg/dL 12/02/2024 5:20 AM EDT [facility] UA Urobilinogen 0.2 <=1 mg/dL 5:20 AM EDT [facility] UA Bili Negative Negative 12/02/2024 5:20 AM EDT [facility] UA Nitrite Negative Negative 12/02/2024 5:20 AM EDT [facility] UA Leuk Est Negative Negative 12/02/2024 5:20 AM EDT [facility] UA Spec Grav 1.015 1.001 - 1.035 no units 12/02/2024 5:20 AM EDT [facility] Comment:Reference range stu d for random specimens only. UA WBC 0 0 - 4 /HPF 12/02/2024 5:20 AM EDT [facility] UA RBC 5(H) 0 - 3 /HPF 12/02/2024 5:20 AM EDT [facility] UA Squam Epi Rare /LPF 12/02/2024 5:20 AM EDT [facility] UA Amorph Trace /HPF 12/02/2024 5:20 AM EDT [facility] Urine STRUCTURE OF URINARY TRACT PROPER / Unknown 12/02/2024 5:01 AM EDT 12/02/2024 5:05 AM EDT us Dane Tejada MD URINE ORDERABLES Final Result [facility] [address] [place] [id number] * CT ABD PEL ED FAST W CONTRAST (12/02/2024 4:46 AM EDT) Anatomical Region Laterality Modality Abdomen, Pelvis Computed Tomogra phy 12/02/2024 4:46 AM EDT Impressions 12/02/2024 4:50 AM EDT No acute findings or abnormalities to explain the patient's symptoms Note: Radiology results need to be interpreted within a comprehensive clinical context. If you have questions about the radiology report, please contact the office of the ordering clinician. Narrative 12/02/2024 4:50 AM EDT CLINICAL HISTORY: -Right sided abdominal pain, nausea, vomiting. COMPARISON: 02/27/2024. TECHNIQUE: CT ABD PEL ED FAST W CONTRAST on 12/02/2024 4:46 AM. Isovue 370 IV contrast as recorded in EPIC. Dose 1 : CT DLP Total : 297.99 mGycm DLP Spiral Max : 293.95 mGycm Maximum CTDI Vol : 6.16 mGy FINDINGS: Abdomen: The lung bases are clear. The visualized portions of the heart are normal. The liver, gallbladder, spleen, pancreas, adrenal glands, and kidneys are normal. The stomach and caliber of the small bowel are normal. There are no enlarged abdominal lymph nodes or free fluid. The caliber of the abdominal aorta is normal. The spine is unremarkable. Pelvis: The caliber of the colon is normal. The appendix is unremarkable. There are no enlarged pelvic lymph nodes or free fluid. The urinary bladder, uterus, and adnexa are normal. The bony pelvis is unremarkable. Procedure Note Doron Nolen MD - 12/02/2024 CLINICAL HISTORY: -Right sided abdominal pain, nausea, vomiting. COMPARISON: 02/27/2024. TECHNIQUE: CT ABD PEL ED FAST W CONTRAST on 12/02/2024 4:46 AM. Isovue 370IV contrast as recorded in EPIC. Dose 1 : CT DLP Total : 297.99 mGycm DLP Spiral Max : 293.95 mGycm Maximum CTDI Vol : 6.16 mGy FINDINGS: Abdomen: The lung bases are clear. The visualized portions of the heartare normal. The liver, gallbladder, spleen, pancreas, adrenal glands, and kidneysare normal. The stomach and caliber of the small bowel are normal. There areno enlarged abdominal lymph nodes or free fluid. The caliber of the abdominalaorta is normal. The spine is unremarkable. Pelvis: The caliber of the colon is normal. The appendix is unremarkable.There are no enlarged pelvic lymph nodes or free fluid. The urinary bladder,uterus, and adnexa are normal. The bony pelvis is unremarkable. IMPRESSION: No acute findings or abnormalities to explain the patient's symptoms Note: Radiology results need to be interpreted within a comprehensiveclinical context. If you have questions about the radiology report, please contactthe office of the ordering clinician. us Dane Tejada MD IM CT ORDERABLES Final Result * HUMAN CHORIONIC GONADOTROPIN QUANTITATIVE (12/02/2024 3:57 AM EDT) Hcg Quant <1 <5 mIU/mL 12/02/2024 4:21 AM EDT [facility] Blood VENOUS BLOOD / Unknown Venipuncture / Unknown 12/02/2024 3:57 AM EDT 12/02/2024 4:00 AM EDT Narrative [facility] - 12/02/2024 4:21 AM EDT Female (non-): 0-4.9 mIU/mL Female (postmenopausal): 0-8.1 mIU/mL Indeterminate values for (e.g., 5-25 mIU/mL) may be confirmed with a repeat test in 48-72 hours. Values in should double every 2-3 days for the first six weeks. Ingestion of lori doses of biotin (>5 mg/day) taken within 8 hours of drawing blood sample can interfere with this immunoassay test. Dane Tejada MD CHEMISTRY ORDERABLES Final Res ult Performing Organization Address [facility]/ZIP Co de Phone Number [facility] [address] [place] [address] * LIPASE LEVEL (12/02/2024 3:57 AM EDT) Lipase Lvl 17 13 - 60 U/L 12/02/2024 4:26 AM EDT [facility] Blood VENOUS BLOOD / Unknown Venipuncture / Unknown 12/02/2024 3:57 AM EDT 12/02/2024 4:00 AM EDT Dane Tejada MD CHEMISTRY ORDERABLES Final Res ult Performing Organization Address [facility]/ZIP Co de Phone Number [facility] [address] [place] [address] * (ABNORMAL) COMPREHENSIVE METABOLIC PANEL (12/02/2024 3:57 AM EDT) Sodium 140 136 - 145 mmol/L 12/02/2024 4:26 AM EDT [facility] Potassium 3.5 3.5 - 5.0 mmol/L 12/02/2024 4:26 AM EDT [facility] Chloride 105 98 - 107 mmol/L 12/02/2024 4:26 AM EDT [facility] Total CO2 21(L) 22 - 29 mmol/L 12/02/2024 4:26 AM EDT [facility] Anion Gap 14 7 - 16 mmol/L 12/02/2024 4:26 AM EDT [facility] Calcium 9.3 8.6 - 10.4 mg/dL 12/02/2024 4:[facility] Glucose Lvl 114(H) 70 - 99 mg/dL 12/02/2024 4:26 AM [facility] BUN 8 6 - 20 mg/dL 12/02/2024 4:26 AM [facility] Creatinine 0.71 0.51 - 1.30 mg/dL 12/02/2024 4:26 AM [facility] Albumin 4.2 3.5 - 5.2 gm/dL 12/02/2024 4:26 AM [facility] Total Protein 7.1 6.4 - 8.3 gm/dL 12/02/2024 4:26 AM [facility] Bili Total 0.3 0.2 - 1.3 mg/dL 12/02/2024 4:26 AM [facility] ALT 16 <=41 U/L 12/02/2024 4:26 AM [facility] AST 15 <=40 U/L 12/02/2024 4:26 AM [facility] Alk Phos 68 36 - 123 U/L 12/02/2024 4:26 AM [facility] eGFR (CKD-EPIcr 2020) 120 >=60 mL/min/1.7 3 m2 12/02/2024 4:26 AM [facility] Comment:Estimated GFR was ca lculated using the CKD-EPIcr (2020) equation refit without race. The equation is recommended by the [employer] - [employer] Nephrology Task Force. Blood VENOUS BLOOD / Unknown Venipuncture / Unknown 12/02/2024 3:57 AM EDT 12/02/2024 4:00 AM EDT us Dane Tejada MD CHEMISTRY ORDERABLES Final Res ult [facility] [address] [place] [address] * (ABNORMAL) CBC WITH DIFF (12/02/2024 3:57 AM EDT) [facility] WBC 7.5 3.7 - 10.3 x10(3)/mcL 12/02/2024 4:03 AM EDT [facility] RBC 3.81(L) 3.90 - 5.20 x10(6)/mcL 12/02/2024 4:03 AM [facility] Hgb 12.0 11.2 - 15.7 g/dL 12/02/2024 4:03 AM [facility] Hct 36.4 34.0 - 45.0 % 12/02/2024 4:03 AM [facility] MCV 95.5 80.0 - 100.0 fL 12/02/2024 4:03 AM [facility] MCH 31.5 26.0 - 34.0 pg 12/02/2024 4:03 AM [facility] MCHC 33.0 30.7 - 35.5 g/dL 12/02/2024 4:03 AM [facility] RDW 12.7 <=14.9 % 12/02/2024 4:03 AM [facility] Platelet 275 155 - 369 x10(3)/mcL 12/02/2024 4:03 AM [facility] MPV 9.1 8.8 - 12.5 fL 12/02/2024 4:03 AM [facility] Neut Percent 56.3 % 12/02/2024 4:03 AM [facility] Comment:Neutrophils equals s egs plus bands Imm Gran% 0.3 % 12/02/2024 4:03 AM [facility] Comment:Automated count of m etamyelocytes, myelocytes and promyelocytes. Lymph Percent 31.2 % 12/02/2024 4:03 AM [facility] [place] Percent 7.0 % 12/02[facility]24 [facility] Eos Percent 4.8 % 12/02/2024 4:03 AM [facility] Baso Percent 0.4 % 12/02/2024 4:03 AM [facility] Neut # 4.2 1.6 - 6.1 x10(3)/mcL 12/02/2024 4:03 AM EDT [facility] Comment:Neutrophils equals s egs plus bands IMMGRAN# 0.0 0.0 - 0.1 x10(3)/[facility] 12/02/2024 4:03 AM EDT [facility] Comment:Automated count of m etamyelocytes, myelocytes and promyelocytes. An absolute IG <0.1 is reported as 0.0. Lymph # 2.4 1.2 - 3.9 x10(3)/[facility] 12/02/2024 4:03 AM EDT [facility] [place] # 0.5 0.3 - 0.9 x10(3)/[facility] 12/02/2024 4:03 AM EDT [facility] Eos# 0.4 0.0 - 0.5 x10(3)/[facility] 12/02/2024 4:03 AM EDT [facility] Baso # 0.0 0.0 - 0.1 x10(3)/[facility] 12/02/2024 4:03 AM EDT [facility] Blood VENOUS BLOOD / Unknown Venipuncture / Unknown 12/02/2024 3:57 AM EDT 12/02/2024 4:00 AM EDT us Dane Tejada MD HEMATOLOGY ORDERABLES Final Re sult [facility] [address] [place] [address] documented in this encounter Visit Diagnoses Diagnosis Abdominal pain, unspecified abdominal location- Primary Nausea and vomiting, unspecified vomiting type documented in this encounter Administered Medications Inactive Administered Medications - up to 1 most recent administrations Medication Order MAR Action Action Date Dose Rate Site iopamidoL (ISOVUE-370) 370 mg iodine /mL (76 %) injection (LOW) 100 mL 100 mL, Intravenous, ONCE PRN, 1 dose, Starting on Sarah 12/02/24 at 0415, Until Sarah 12/02/24 at 0446, Radiography/Imaging, Radiology Procedure, VESICANT , CT (Contrasts) Given 12/02/2024 4:46 AM EDT 100 mL Right Arm metoclopramide HCl (REGLAN) injection 10 mg 10 mg, Intravenous, ONCE, 1 dose, On Sarah 12/02/24 at 0515 Given 12/02/2024 5:09 AM EDT 10 mg morphine injection 4 mg 4 mg, Intravenous, ONCE, 1 dose, On Sarah 12/02/24 at 0345 Given 12/02/2024 3:56 AM EDT 4 mg ondansetron (ZOFRAN) injection 4 mg 4 mg, Intravenous, ONCE, 1 dose, On Sarah 12/02/24 at 0345 Given 12/02/2024 3:56 AM EDT 4 mg sodium chloride 0.9% IV line flush 50 mL 50 mL, Intravenous, at 999 mL/hr, PRN, Starting on Sarah 12/02/24 at 0339, Until Sarah 12/02/24 at 0944, Line Care, Flush with 50 mL after IVPB to insure complete administration of the dose. May use the saline infusion to back flush IVPB tubing as needed., Use this order to document priming and flushing IV line after medication administration. sodium chloride 0.9% syringe 5-10 mL 5-10 mL, Intravenous, PRN, Starting on Sarah 12/02/24 at 0339, Until Sarah 12/02/24 at 0944, Line Care, Flush with 5 mL saline pre/post IVP, and 5 mL prior to IVPB or blood product administration. Protocol for PERIPHERAL IV saline lock maintenance, flush with 3-5 mL saline syringe every 8 hours., Flush peripheral lines every 12 hours, central lines every 8 hours, and after IV medication sodium chloride 0.9% syringe Intravenous, ONCE PRN, 1 dose, Starting on Sarah 12/02/24 at 0415, Until Sarah 12/02/24 at 0446, Line Care, Flush peripheral lines every 12 hours, central lines every 8 hours, and after IV medication, CT (Contrasts) Given 12/02/2024 4:46 AM EDT 20 mL Right Arm documented in this encounter Discontinued Medications Medication Sig Discontinue Reason Start Date End Da te omeprazole (PRILOSEC OTC) 20 mg Oral Tablet, Delayed Release (E.C.)Indications:Abdomin al pain, RUQ (right upper quadrant) Take 1 Tab by mouth daily. DELETE-Duplicate 03/11/2020 12/02/2024 documented as of this encounter Active and Recently Administered Medications Times are shown in EDT. Scheduled Medication Order 11/30/2024 12/01/2024 12/02/2024 metoclopramide HCl (REGLAN) injection 10 mg (COMPLETED) 10 mg, Intravenous, ONCE, 1 dose, On Sarah 12/02/24 at 0515 0509 (Given - Provid er: Danielle Echols RN) morphine injection 4 mg (COMPLETED) 4 mg, Intravenous, ONCE, 1 dose, On Sarah 12/02/24 at 0345 0356 (Given - Provid er: Danielle Echols RN) ondansetron (ZOFRAN) injection 4 mg (COMPLETED) 4 mg, Intravenous, ONCE, 1 dose, On Sarah 12/02/24 at 0345 0356 (Given - Provid er: Danielle Echols RN) PRN Medication Order 11/30/2024 12/01/2024 12/02/2024 iopamidoL (ISOVUE-370) 370 mg iodine /mL (76 %) injection (LOW) 100 mL (COMPLETED) 100 mL, Intravenous, ONCE PRN, 1 dose, Starting on Sarah 12/02/24 at 0415, Until Sarah 12/02/24 at 0446, Radiography/Imaging, Radiology Procedure, VESICANT , CT (Contrasts) 0446 (Given - Provid er: Alana Etienne, RT) sodium chloride 0.9% IV line flush 50 mL 50 mL, Intravenous, at 999 mL/hr, PRN, Starting on Sarah 12/02/24 at 0339, Until Sarah 12/02/24 at 0944, Line Care, Flush with 50 mL after IVPB to insure complete administration of the dose. May use the saline infusion to back flush IVPB tubing as needed., Use this order to document priming and flushing IV line after medication administration. sodium chloride 0.9% syringe 5-10 mL 5-10 mL, Intravenous, PRN, Starting on Sarah 12/02/24 at 0339, Until Sarah 12/02/24 at 0944, Line Care, Flush with 5 mL saline pre/post IVP, and 5 mL prior to IVPB or blood product administration. Protocol for PERIPHERAL IV saline lock maintenance, flush with 3-5 mL saline syringe every 8 hours., Flush peripheral lines every 12 hours, central lines every 8 hours, and after IV medication sodium chloride 0.9% syringe (COMPLETED) Intravenous, ONCE PRN, 1 dose, Starting on Sarah 12/02/24 at 0415, Until Sarah 12/02/24 at 0446, Line Care, Flush peripheral lines every 12 hours, central lines every 8 hours, and after IV medication, CT (Contrasts) 0446 (Given - Provid er: Alana Etienne, RT) documented in this encounter Orders Medications Ordered That Terrence ht Not Have Been Administered Count Last Ordered Date First Ordered Date sodium chloride 0.9% IV line flush 50 mL 1 12/02/2024 sodium chloride 0.9% syringe 5-10 mL 1 04/2024 Nursing Count Last Ordered Date First Orde red Date PULSE OXIMETRY - NURSING 1 12/02/2024 IV Count Last Ordered Date First Orde red Date SALINE LOCK IV 1 12/02/2024 documented in this encounter Care Teams Welder/Fitter Relationship Specialty Start Date End Date Mary Greer MD [address] [place] [address] PCP - General Family Medicine 06/14/14 documented as of this encounter
[2025-01-04] VITALS (9 sets, daily range): BP systolic 118–158; BP diastolic 58–93; PULSE 60–76; RESP 16–20; TEMP 36.4; O2SAT 96–100; BMI 25.2
--- OUTSIDE RECORDS SUMMARY | 2025-01-04 14:18 | XMS_ITS | Encounter Summary ---
Author Organization [facility] Address [address] [place] [address] [place] [address] Phone Care Team Providers Care Hvac Maintenance Technician Name Role Phone Unavailable Primary Care Provider Unavailabl e Reason for Referral * Radiology Services (Routine) - Closed Specialty Diagnoses / Procedures Referred By Kwasi roland Referred To Contact Procedures OB US STANDARD FIRST [facility] Referral ID Status Reason Start Date Expiration Date V isits Requested Visits Authorized [id number] Closed Specialty Services Required 04/03/2019 04/02/2020 150 150 Encounter Details Date Type Department Care Team (Late st Contact Info) Description 04/03/2019 SCAN [facility] [id number] [place] [id number] Social History Tobacco Use Types Packs/Day Years [...]
--- OUTSIDE RECORDS SUMMARY | 2025-01-04 14:18 | XMS_ITS | Clinical Summary ---
Author Organization [facility] Address [address] [place] [address] Phone Care Team Providers Care Five Roll Refiner Batch Mixer Name Role Phone Unavailable Primary Care Provider [...]
--- OUTSIDE RECORDS SUMMARY | 2025-01-04 14:18 | XMS_ITS | Clinical Summary ---
Author Organization [facility] Address [address] [place] [id number] Care Team Providers Care Financial Officer Name Role Phone Unavailable Primary Care Provider Unavailabl e Source Comments [facility] is fully rolled out with thefollowing exceptions:General Clinical Research [facility] Social History Tobacco Use Types Packs/Day Years [...] of 3 - 19+ 3-dose series) 2017 AMB SEASONAL FLU VACCINE (#1) 11/01/2024 COVID-19 Vaccine (1 - 2023-2 5 season) 2024 HIB IMMUNIZATION Aged Out No longer e [...]
--- OUTSIDE RECORDS SUMMARY | 2025-01-04 14:18 | XMS_ITS | Clinical Summary ---
Author Organization [facility] [place] [address] Phone Care Team Providers Care Tax Representative Name Role Phone Mary Greer MD Primary Care Provider [phone] Allergies Active Allergy Reactions Criticality Noted Date Comments Diphenhydramine Hcl Ibuprofen Hives High 11/02/2014 Naproxen Hives,Itching,Rash 11/02/2014 Cefdinir Rash Medium 05/12/2010 Penicillins Rash 03/08/2010 Prednisone Rash Medium 11/07/2015 Beverly hyper Red Dye 06/16/2009 Olanzapine Nausea Only 07/25/2015 Medications BREO ELLIPTA 200-25 mcg/dose Inhl Disk with DeviceIndication s:Mild persistent asthma with acute exacerbation INHALE 1 PUFF INTO THE LUNGS ONCE DAILY 60 Each 06/03/19 20 Active Additional Information Patient not taking.Reported on 06/02/2024 diclofenac sodium (VOLTAREN) 50 mg Oral Tablet, Delayed Release (E.C.) Take 1 Tablet by mouth 3 times daily (with meals). 40 Tablet 1 08/24/19 22 Active Additional Information Patient not taking.Reason: Therapy Completed, Reported on 06/02/2024 albuterol (PROVENTIL HFA;VENTOLIN HFA) 90 mcg/actuation Inhl HFA Aerosol InhalerIndicatio ns:Mild persistent asthma with acute exacerbation Inhale 2 Puffs into the lungs every 6 hours as needed. for wheezing 18 g 5 05/16/19 23 Active Additional Information Patient not taking.Reason: Pt electing to not take the medication, Reported on 06/02/2024 loratadine (CLARITIN) 10 mg Oral TabletIndication s:Mild persistent asthma with acute exacerbation Take 1 Tablet by mouth daily as needed (allergies). 30 Tablet 5 05/16/19 Active Additional Information Patient not taking.Reported on 06/02/2024 montelukast (SINGULAIR) 10 mg Oral TabletIndication s:Seasonal allergic rhinitis due to pollen,Mild persistent asthma without complication Take 1 Tablet by mouth nightly. 30 Tablet 5 05/16/19 Active Additional Information Patient not taking.Reported on 06/02/2024 buPROPion (WELLBUTRIN XL) 150 mg Oral Tablet Sustained Release 24 hrIndications:St ress Take 1 Tablet by mouth every morning. 90 Tablet 1 05/16/19 Active Additional Information Patient not taking.Reported on 06/02/2024 acetaminophen (TYLENOL) 500 mg Oral Tablet TAKE ONE TABLET BY MOUTH EVERY 6 HOURS NEEDED FOR PAIN OR FEVER 10/23/19 Active ferrous sulfate 325 mg (65 mg iron) Oral Tablet, Delayed Release (E.C.) Take 1 Tablet by mouth daily. 10/23/19 25 Active oxyCODONE-acetam inophen (PERCOCET) 7.5-325 mg Oral Tablet Take 1 Tablet by mouth every 6 hours as needed. for pain 10/23/19 25 Active SENNA 8.6 mg Oral Tablet TAKE ONE TABLET BY MOUTH TWICE DAILY NEEDED FOR constipation 10/23/19 25 Active simethicone (MYLICON) 125 mg Oral Tablet, Chewable CHEW ONE TABLET BY MOUTH EVERY DAY NEEDED FOR abdominal distention 10/23/19 25 Active ondansetron (ZOFRAN-ODT) 4 mg Oral Tablet, Rapid Dissolve Dissolve 1 Tablet by mouth every 8 hours as needed for Nausea for up to 3 days. 9 Tablet 12/03/19 25 025 omeprazole (PRILOSEC) 20 mg Oral Capsule, Delayed Release(E.C.) Take 1 Capsule by mouth every morning (before breakfast) for 14 days. 14 Capsule 12/03/19 25 025 Active Problems Patient Care Coordination No te [...] abnormality -BHCG slightly above normal -MRI pending -thrasher feeder eval -Morphine/Zofran PRN -NPO Bilious vomiting with [...] Encounters Date Type Department Care Team Description 12/02/2024 3:33 AM EDT - 12/02/2024 5:39 AM EDT [facility] [address] [facility] [place] [address] Dane Tejada MD Abdominal pain, unspecified abdominal location (Primary Dx); Nausea and vomiting, unspecified vomiting type Discharge Disposition: Home or Self Care 10/23/2024 1:18 PM EDT - 10/23/2024 2:04 PM EDT [facility] [address] [facility] [place] [address] Jose Elliott MD Breast engorgement (Primary Dx) Discharge Disposition: Home or Self Care from Last 3 Months Immunizations Immunization Administration [...] drink = 0.6 oz pur e alcohol) [facility] Utilities Answer Date Recorded In the past 12 months has [employer] electric, gas, oil, or water company threatened to shut off services in your home? No 02/27/2024 Overall Financial Resource Strain (CARDIA) Answe r Date Recorded How hard is it for you to pa y for the very basics like food, housing, medical care, and heating? Not hard at all 02/27/2024 PHQ-2 Answer Date Recorded PHQ-2 Total Score 0 09/05/2024 [facility] of Occupat ional Health - Occupational Stress [...] things needed for daily living? No 03/28/2020 [facility] IP Transportation Answer D ate Recorded In [...] Estimated Date of Delivery 09/05/2024 - Present (01/04/2025) 1 11/08/2024 (set by Lynn Cordova, RN on 09/05/2024 based on Other Basis) [...] - GA:30w6d 09/06/2024 - 31w0d - Lynn Cordova, RN After completion of the Medical Screening [...] 02/11/2022 02/11/2019 COVID-19 Vaccine ( - season) 2024 Influenza Vaccine (#1) 2024 7 (Declined), 12/06/2015 (Declined), 03/12/2014, Additional history exists DTaP/TDaP/Td (8 - Td or Tdap) 08/18/2034 08/18/2024, 09/26/2010, 10/13/2002, Additional history exists Hepatitis B Vaccine Completed 03/08/1999, 03/08/1999, 1998, Additional history exists HPV Completed 02/19/2016, 09/26/2010 Chlamydia Screening Discontinued 08/23/2021, 02/11/2019, 03/12/2016, Additional history exists Meningococcal B Vaccine Aged Out No gorge hastingsger eligible based on patient's age to complete [...] W CONTRAST STAT 12/02/2024 4:46 AM EDT HUMAN CHORIONIC GONADOTROPIN QUANTITATIVE STAT 12/02/2024 3:57 AM EDT LIPASE LEVEL STAT 12/02/2024 3:57 AM EDT COMPREHENSIVE METABOLIC PANEL STAT 12/02/2024 3:57 AM EDT CBC WITH DIFF STAT 12/02/2024 3:57 AM EDT SALINE LOCK IV STAT 12/02/2024 3:40 AM EDT SCANNED LABS 10/05/2024 10:12 PM EDT SCANNED LABS 10/05/2024 9:31 PM EDT SCANNED LABS 10/05/2024 7:02 PM EDT CHLAMYDIA/GC BY TMA Routine 08/23/2021 2 :21 PM EDT Screening for chlamydial disease MAIL CALLER CYTOLOGY REQUEST (PAP ONLY) Routine 02/11/2019 2:41 PM EST Encounter for supervision of normal first in first trimester from Last 3 Months or Most Recently Relevant to Health Maintenance Results * (ABNORMAL) URINALYSIS REFLEX (12/02/2024 5:01 AM EDT) UA Color Yellow 12/02/2024 5:20 AM EDT [facility] UA Appear Clear Clear 12/02/2024 5:20 AM EDT [facility] UA Glucose Negative Negative mg/dL 12/02/2024 5:20 AM EDT [facility] UA Ketones Negative Negative mg/dL 12/02/2024 5:20 AM EDT [facility] UA Blood Large(A) Negative 12/02/2024 5:20 AM EDT [facility] UA pH 6.0 5.0 - 8.0 pH 12/02/2024 5:20 AM EDT [facility] UA Protein Negative Negative mg/dL 12/02/2024 5:20 AM EDT [facility] UA Urobilinogen 0.2 <=1 mg/dL 5:20 AM EDT [facility] UA Bili Negative Negative 12/02/2024 5:20 AM EDT [facility] UA Nitrite Negative Negative 12/02/2024 5:20 AM EDT [facility] UA Leuk Est Negative Negative 12/02/2024 5:20 AM EDT [facility] UA Spec Grav 1.015 1.001 - 1.035 no units 12/02/2024 5:20 AM T [facility] Comment:Reference range stu d for random specimens only. UA WBC 0 0 - 4 /HPF 12/02/2024 5:20 AM EDT [facility] UA RBC 5(H) 0 - 3 /HPF 12/02/2024 5:20 AM EDT [facility] UA Squam Epi Rare /LPF 12/02/2024 5:20 AM EDT [facility] UA Amorph Trace /HPF 12/02/2024 5:20 AM T [facility] Urine STRUCTURE OF URINARY TRACT PROPER / Unknown 12/02/2024 5:01 AM EDT 12/02/2024 5:05 AM EDT Dane Tejada MD URINE ORDERABLES Final Result [facility] [address] [place] [address] * EXTRA SOLER URINE CX (12/02/2024 5:01 AM EDT) Urine STRUCTURE OF URINARY TRACT PROPER / Unknown 12/02/2024 5:01 AM EDT 12/02/2024 5:05 AM EDT Dane Tejada MD MICROBIOLOGY - GENERAL ORDERAB LES Final Result Performing Organization Address [facility] Co de Phone Number [facility] [address] [place] [address] * CT ABD PEL ED FAST W [...] The bony pelvis is unremarkable. Procedure Note Guluzian, Doron Krikor, MD - 12/02/2024 CLINICAL HISTORY: -Right sided [...] MD IM CT ORDERABLES Final Result * (ABNORMAL) CBC WITH DIFF (12/02/2024 3:57 AM EDT) WBC 7.5 3.7 - 10.3 x10(3)/mcL 12/02/2024 4:03 AM EDT [facility] RBC 3.81(L) 3.90 - 5.20 x10(6)/mcL 12/02/2024 4:03 AM EDT [facility] Hgb 12.0 11.2 - 15.7 g/dL 12/02/2024 4:03 AM EDT [facility] Hct 36.4 34.0 - 45.0 % 12/02/2024 4:03 [facility] MCV 95.5 80.0 - 100.0 fL 12/02/2024 4:03 AM [facility] MCH 31.5 26.0 - 34.0 pg 12/02/2024 4:03 AM [facility] MCHC 33.0 30.7 - 35.5 g/dL 12/02/2024 4:03 AM [facility] RDW 12.7 <=14.9 % 12/02/2024 4:03 AM [facility] Platelet 275 155 - 369 x10(3)/[facility] 12/02/2024 4:03 AM [facility] MPV 9.1 8.8 - 12.5 fL 12/02/2024 4:03 AM [facility] Neut Percent 56.3 % 12/02/2024 4:03 AM [facility] Comment:Neutrophils equals s egs plus bands Imm Gran% 0.3 % 12/02/2024 4:03 AM [facility] Comment:Automated count of m etamyelocytes, myelocytes and promyelocytes. Lymph Percent 31.2 % 12/02/2024 4:03 AM [facility] [place] Percent 7.0 % 12/02/2024 4:03 AM [facility] Eos Percent 4.8 % 12/02/2024 4:03 AM [facility] Baso Percent 0.4 % 12/02/2024 4:03 AM [facility] Neut # 4.2 1.6 - 6.1 x10(3)/mcL 12/02/2024 4:03 AM [facility] Comment:Neutrophils equals s egs plus bands IMMGRAN# 0.0 0.0 - 0.1 x10(3)/mcL 12/02/2024 4:03 AM [facility] Comment:Automated count of m etamyelocytes, myelocytes and promyelocytes. An absolute IG <0.1 is reported as 0.0. Lymph # 2.4 1.2 - 3.9 x10(3)/mcL 12/02/2024 4:03 AM [facility] [place] # 0.5 0.3 - 0.9 x10(3)/mcL 12/02/2024 4:03 AM [facility] Eos# 0.4 0.0 - 0.5 x10(3)/mcL 12/02/2024 4:03 AM EDT [facility] Baso # 0.0 0.0 - 0.1 x10(3)/mcL 12/02/2024 4:03 AM EDT [facility] Blood VENOUS BLOOD / Unknown Venipuncture / Unknown 12/02/2024 3:57 AM EDT 12/02/2024 4:00 AM EDT Dane Tejada MD HEMATOLOGY ORDERABLES Final Re sult Performing Organization Address [facility] Co de Phone Number [facility] [address] [place] [address] * HUMAN CHORIONIC GONADOTROPIN QUANTITATIVE (12/02/2024 3:57 AM EDT) Hcg Quant <1 <5 mIU/mL 12/02/2024 4:21 AM EDT [facility] Blood VENOUS BLOOD / Unknown Venipuncture / Unknown 12/02/2024 3:57 AM EDT 12/02/2024 4:00 AM EDT Narrative [facility] - 12/02/2024 4:21 AM EDT Female [...] ORDERABLES Final Res ult Performing Organization Address [facility]/ZIP Co de Phone Number [facility] [address] [place] [address] * LIPASE LEVEL (12/02/2024 3:57 AM EDT) Lipase Lvl 17 13 - 60 U/L 12/02/2024 4:26 AM T [facility] Blood VENOUS BLOOD / Unknown Venipuncture / Unknown 12/02/2024 3:57 AM EDT 12/02/2024 4:00 AM EDT us Dane Tejada MD CHEMISTRY ORDERABLES Final Res ult [facility] [address] [place] [address] * (ABNORMAL) COMPREHENSIVE METABOLIC PANEL (12/02/2024 3:57 AM EDT) Sodium 140 136 - 145 mmol/L 12/02/2024 4:26 AM EDT [facility] Potassium 3.5 3.5 - 5.0 mmol/L 12/02/2024 4:26 AM T [facility] Chloride 105 98 - 107 mmol/L 12/02/2024 4:26 AM EDT [facility] Total CO2 21(L) 22 - 29 mmol/L 12/02/2024 4:26 AM T [facility] Anion Gap 14 7 - 16 mmol/L 12/02/2024 4:26 AM T [facility] Calcium 9.3 8.6 - 10.4 mg/dL 12/02/2024 4:26 AM T [facility] Glucose Lvl 114(H) 70 - 99 mg/dL 12/02/2024 4:26 AM EDT [facility] BUN 8 6 - 20 mg/dL 12/02/2024 4:26 AM EDT [facility] Creatinine 0.71 0.51 - 1.30 mg/dL 12/02/2024 4:26 AM T [facility] Albumin 4.2 3.5 - 5.2 gm/dL 12/02/2024 4:26 AM EDT [facility] Total Protein 7.1 6.4 - 8.3 gm/dL 12/02/2024 4:26 AM [facility] Bili Total 0.3 0.2 - 1.3 mg/dL 12/02/2024 4:26 AM T [facility] ALT 16 <=41 U/L 12/02/2024 4:26 AM EDT [facility] AST 15 <=40 U/L 12/02/2024 4:26 AM EDT [facility] Alk Phos 68 36 - 123 U/L 12/02/2024 4:26 AM EDT [facility] eGFR (CKD-EPIcr 2020) 120 >=60 mL/min/1.7 3 m2 12/02/2024 4:26 AM EDT [facility] Comment:Estimated GFR was ca lculated using the CKD-EPIcr (2020) equation refit without race. The equation is recommended by the National Kidney Foundation - [place] Society of Nephrology Task Force. Blood VENOUS BLOOD / Unknown Venipuncture / Unknown 12/02/2024 3:57 AM EDT 12/02/2024 4:00 AM EDT us Dane Tejada MD CHEMISTRY ORDERABLES Final Res ult [facility] [address] [place] [address] * SCANNED LABS (10/05/2024 10:12 PM EDT) Only the most recent of3 resultswithin the time period is included. 10/05/2024 10:1 2 PM EDT us Unknown Provider HEMATOLOGY ORDERABLES Final Res ult * CHLAMYDIA/GC BY TMA (08/23/2021 2:21 PM EDT) Chlamydia trachomatis Not Detected Not Detected 08/24/2021 3:50 AM EDT [facility] prime Neisseria gonorrhoeae Not Detected Not Detected 08/24/2021 3:50 AM EDT [facility] Urine URINE SPECIMEN COLLECTION / Unknown 08/23/2021 2:21 PM EDT 08/23/2021 2:21 PM EDT Narrative [facility] - 08/24/2021 3:50 AM EDT Testing methodology is rotary drill operator helper mediated amplification (TMA) using the [place] [employer] 2 assay from [employer]. A negative result does not completely rule [...] MICROBIOLOGY - GENERAL ORDERA BLES Final Result [facility] [employer] [address] , [place] [address] * MAIL CALLER CYTOLOGY REQUEST (PAP ONLY) (02/11/2019 2:41 PM EST) CASE REPORT Gynecologic Cytology Report Case: [id number] Authorizing Provider: Myriam Guillen, Collected: 02/11/2019 1441 PROFESSOR OF LITERATURE Ordering Location: [facility] Received: 02/11/2019 1441 First Screen: Neha Lockwood CT Specimen: LIQUID-BASED PAP - CERVICAL/ENDOCERV ICAL, Cervix, Endocervical 02/15/2019 2:21 PM EST [facility] PAP FINAL DIAGNOSIS Negative for intraepithelial lesion or malignancy 02/15/2019 2:21 PM [facility] at 1421 EST MICROSCOPIC DESCRIPTION Microscopic examination is performed and the findings corroborate the diagnosis. 02/15/2019 2:21 PM EST [facility] PAP SMEAR ADEQUACY Satisfactory for evaluation 02/15/2019 2:21 PM [facility] PAP ORGANISMS NOTED Fungal organisms present consistent with josesito. 02/15/2019 2:21 PM [facility] ENDOCERVICAL T-ZONE Transformation zone present 02/15/2019 2:21 PM [facility] EMBEDDED IMAGES 9 2:21 PM EST [facility] PAP DISCLAIMER The Pap Smear is a screening test that aids in the detection of cervical cancer and cancer precursors. Both false positive and false negative results can occur. The test should be used at regular intervals, and positive results should be confirmed before definitive therapy. Processed using the [employer] Automated cytology screening device ([employer]). 02/15/2019 2:21 PM EST [facility] [employer] ENDOCERVICAL STRUCTURE / Unknown 02/11/2019 2:41 PM EST 02/11/2019 2:41 PM EST us Myriam Guillen PROFESSOR OF LITERATURE CYTOLOGY ORDERABLES Fi nal Result [facility] [address] [place], [place] [id number] from Last 3 Months or Most Recently Relevant to Health Maintenance Insurance [employer] [facility] [place] [address] Advance Directives For more information, please contact: [phone] * Full Code (Latest Code Status on File) Date Activated Date Inactivated Comments 02/27/2024 5:52 AM 02/29/2024 1:40 AM Care Teams Tax Representative Relationship Specialty Start Date End Date Mary Greer MD [address] [place] [id number] PCP - General Family Medicine 06/14/14
--- OUTSIDE RECORDS SUMMARY | 2025-01-04 14:18 | XMS_ITS | Clinical Summary ---
Author Organization [facility] Address [address] [place] [id number] Care Team Providers Care Silica Filter Operator Name Role Phone Provider, No Known [...] Take 1 tablet by mouth Daily. Active [place]-3 Fatty Acids (fish oil) 1000 MG capsule [...] Description 10/12/2024 7:30 AM EDT Office Visit [facility] [address] [place] [address] Luigi Ramos MD Poor growth affecting management of mother in third trimester, single or unspecified fetus (Primary Dx) 10/12/2024 7:11 AM EDT - 10/12/2024 11:59 PM EDT Hospital Encounter [facility] [address] [place] [address] Luigi Ramos MD Poor growth affecting management of mother in third trimester, single or unspecified fetus Discharge Disposition: Home or Self Care 10/12/2024 Travel from Last 3 Months Social History Tobacco Use Types Packs/Day Years Used Date Smoking Tobacco: Every Day Cigarettes 1 13.8 Started: 03/03/2011 Smokeless Tobacco: Never Tobacco Cessation:Ready [...] Tdap) 09/26/2020 011 PAP SMEAR 02/11/2022 02/11/2019 ANNUAL PHYSICAL 09/27/2024 HEPATITIS C SCREENING 09/27/2024 INFLUENZA VACCINE 10/01/2024 03/12/2014, , 01/05/2011, Additional history exists HPV VACCINES Completed 02/19/2016, 09/26/2010 RSV Vaccine - Adults (No Dos es Required) Completed Procedures Procedure Name Priority Date/Time Associated Diagnosis Comments [facility] Routine 10/12/2024 7:55 AM EDT Poor growth affecting management of mother in third trimester, single or unspecified fetus from Last 3 Months Results * [facility] (10/12/2024 7:55 AM EDT) Anatomical Region Laterality Modality Ultrasound 10/12/2024 7:36 AM EDT Narrative 10/12/2024 8:18 AM EDT PAT NAME: DAVID KHAN [facility] REC#: [id number] DA: 2000 PAT GEND: F PAT TYPE: O EXAM JOSSY: [id number] REF PHYS SACHA AVELAR Comparison Studies The [...] EFW (oz) 14 oz EFW by: Hadlock ([id number]) Extended Cav. septi pel. tr 8.6 mm [...] Normal Heart / Thorax 3-vessel view: Normal 3-uawccw-hknacgn view: normal Cord insertion: Normal Stomach: Appears [...] movements 2: tone 2: Amniotic fluid volume 8 Biophysical profile score Consultation / Office Visit [...] recommend proceeding with delivery. Coding ======= Description: 90899-83 Follow Up Ultrasound Description: 53324-03 BPP without NST Description: 55916-28 Doppler Umbilical Artery Antique Finisher: Xiomara Garcia RDMS Physician: Luigi Ramos MD, FACOG Electronically signed by: Luigi Ramos MD, FACOG at: 08:18 Procedure Note Luigi Ramos MD - 10/12/2024 PAT NAME: DAVID KHAN [facility] REC#: [id number] DA: [id number] PAT GEND: F PAT TYPE: O EXAM JOSSY: [id number] REF PHYS SACHA AVELAR Comparison Studies The findings of this study are compared to the prior ultrasound studydated 09/28/24 Patient Status Outpatient Indication ======== IUGR Maternal Assessment [id number] cm Height (ft)5 ft Height (in)3 in Pwmpdw29 kg Weight (lb)168 lb BMI29.32 kg/m Method ======= Transabdominal ultrasound examination. View: Suboptimal view: limited byfetal position ========= Aguirre . Number of fetuses: 1 Dating ====== GA by prior [id number] w + 0 d GEOVANNA by prior [...] GA36 w + 0 d Assigned GEOVANNA:11/09/2024 [id number] d Biometry Standard BPD80.1 mm 32w 1d <1% Hadlock OFD98.2 mm 31w 5d <1% Cheryl HC285.2 mm 31w 2d <1% Hadlock Cerebellum tr45.6 mm 34w 6d 22% Hill AC301.2 mm 34w 1d 12% Hadlock Femur65.7 mm 33w 6d 5% Hadlock Cvxpjdz86.8 mm 30w 5d <1% Cheryl HC / AC0.95 EFW2,217 g 33w 2d 5% Hadlock EFW (lb)4 lb EFW (oz)14 oz EFW by:Hadlock ([id number]) Extended Cav. septi pel. tr8.6 mm CM7.5 mm 49% Nicolaides Head / Face / Neck Cephalic index0.82 53% Nicolaides Extremities / Bony Struc FL / BPD0.82 FL / HC0.23 FL / AC0.22 Other Structures [id number] bpm General Evaluation Cardiac activity present. FHR [...] LVOT view:Normal Heart / Thorax 3-vessel view:Normal 4-lqdurp-hldpbpy view:normal Cord insertion:Normal Stomach:Appears normal Kidneys:Appears normal [...] movement would recommendproceeding with delivery. Coding ======= Description:97904-79 Follow Up Ultrasound Description:77073-59 BPP without NST Description:62995-37 Doppler Umbilical Artery Antique Finisher: Xiomara Garcia RDMS Physician: Luigi Ramos MD, FACOG Electronically signed by: Luigi Ramos MD, FACOG at: 08:18 us Luigi Ramos MD [facility] ORDERABLES Final Result from Last 3 Months Insurance [employer] [place] Care Teams Silica Filter Operator Relationship Specialty Start Date End Date Provider, [place] [address] PCP - General 09/27/24
--- NOTE | 2025-01-04 14:34 | ED_ITS ---
<Statement entered by Elaine Wilks DO - 01/05/25 00:31> I was consulted by the LILIBETH, and we discussed the complexity of problems being addressed. I approve the treatment and management plan for this patient's care in the emergency department, thus performing a substantial portion of the medical decision making. Elaine Wilks DO Discharge Plan Disposition Patient Disposition: Home, Self-Care Condition: Good Prescriptions Prescriptions: New ondansetron 4 mg tablet,disintegrating 4 mg PO Q6H PRN (Reason: nausea and vomiting) Qty: 10 0RF No Action medroxyprogesterone 150 mg/mL suspension 150 mg IM [id number] Qty: 1 3RF nitrofurantoin monohyd/m-cryst [Macrobid] 100 mg capsule 100 mg PO BID 7 Days Qty: 14 0RF Rx Instructions: must administer with a meal/food Referrals Follow up/Referrals: Edi Alexandra II, MD [Staff Physician, Gastroenterology] - See instructions Provider,MD Hellen [Referring, Medical] - See instructions Activity Restrictions/Add. Instructions Additional Instructions/Restrictions: Please return to the emergency department with any worsening signs or symptoms. Please follow-up with your PCP and GI doctor in the upcoming days/weeks. Please utilize antinausea medicine as prescribed/needed. Clinical Impressions Clinical Impression: Enteritis Instructions Patient Instructions: DI for Acute Abdominal Pain, DI for Colitis Print Language Print Language: French Discharge ED Provider: Elaine Wilks General Adult HPI General Chief complaint: Abdominal Pain Stated complaint: Abdominal Pain Time Seen by Provider: 01/04/25 14:09 Mode of Arrival: EMS Source of Information: Patient and Medical Record Limitations: No Limitations History of Present Illness HPI narrative: 24-year-old female presents to the emergency department via EMS for right-sided abdominal pain that started around 4 AM , this morning, she endorses nausea and vomiting and poor p.o. intake, however patient states that her abdominal pain has been going on for quite some time, she states at least for the last 1 or 2 years . Patient tells me she has gallbladder issues , has no history of cholecystectomy, only surgical history is section, patient denies any fever chills chest pain shortness of breath, denies any hematuria melena hematochezia hematemesis or hemoptysis, no vaginal discharge vaginal bleeding or other vaginal type symptomatology, patient denies any constipation diarrhea, of note patient has been on outpatient antibiotic which appears to be Macrobid for the last several days for urinary tract infection she has been taking medication as prescribed. Patient is a current everyday smoker denies any alcohol or drug use initial triage vitals are unremarkable. Of note per EMS patient received approximately 50 mcg of IV fentanyl and 4 mg IV Zofran for pain and nausea en route. Please note that above description of symptoms, in this electronic medical record under categorization of recalled from ER triage doctor by RN are reflective of an initial nursing assessment, however, is not reflective of my full history and physical exam that was personally taken and clarified. Consequentially, this preceding description of symptoms, which may include the patient's categorized chief complaint in the EMR, do not reflect my personal clinical impression, and the ultimate description of history of present illness and patient stated complaints should be deferred to this section of the note. Unless stated otherwise or congruent with this section of the note, additional signs, symptoms, or incongruence should be interpreted as inaccurate with my clinical impression. Onset (ago): hour(s) Related Data Previous Rx's ?Medication ?Instructions ?Recorded medroxyprogesterone 150 mg/mL 150 mg IM [id number] #1 mL 12/24/24 intramuscular suspension nitrofurantoin 100 mg PO BID 7 days #14 cap s 12/29/24 monohydrate/macrocrystals 100 mg capsule (Macrobid) ondansetron 4 mg disintegrating 4 mg PO Q6H PRN nausea and 01/04/25 tablet vomiting #10 tabs Allergies Allergy/AdvReac Type Severity Reaction Status Date / Time ibuprofen Allergy Intermediate Hives Verified 12/24/24 14:12 Penicillins Allergy Mild Anaphylaxis Verified 12/24/24 14:12 prednisone Allergy Mild Hives Verified 12/24/24 14:12 red dye Allergy Mild Hives Verified 12/24/24 14:12 [facility] Disclaimer: The information contained in this section may have been updated after the patient was seen, as this information can be updated by other users. Medical History (Updated 01/04/25 @ 17:23 by ARCENIO Whitney) Hematuria with proteinuria UTI (urinary tract infection) Contraceptive management History of maternal fourth degree perineal laceration, currently Small for gestational age fetus affecting management of mother Tobacco use complicating Surgical History History of No significant past surgical history Family History Other No significant family history Social History Smoking Status: Current every day smoker alcohol intake: current alcohol intake frequency: holidays/special occasions only substance use type: marijuana current occupational status: unemployed Travel in the last 8 weeks?: None Have you lived/traveled outside [place] in past 30 days?: No Contact w/someone who lives/traveled outside [place] past 30 days?: No Exposure to someone with infectious disease in past 14 days?: No Do you have a fever (greater than 100.4 F or 38 C)?: No Have you tested positive for COVID-19?: No Exposed to someone with COVID-19 in past 14 days?: No Do you have a sore throat?: No Do you have a cough?: No Do you have any weakness?: No Do you have any diarrhea?: No Are you experiencing any unusual bleeding?: No Do you have any muscle aches/pain?: No Do you have any abdominal pain?: No Are you experiencing loss of taste or smell?: No Other Medical History Have you received the Flu Vaccine for this season: No Have you received the Pneumonia Vaccine: No ROS Obtained: Yes All systems reviewed & no additional complaints except as documented Physical Exam General General appearance: alert and in no apparent distress Head Head exam: atraumatic and normocephalic Eye Eye exam: Present PERRL and EOMI ENT ENT exam: Present mucous membranes moist Neck Neck exam: Present normal inspection Chest Chest inspection: Present normal inspection and symmetric chest wall rise Respiratory Respiratory exam: Present normal lung sounds bilaterally; Absent respiratory distress, wheezes or stridor Cardiovascular Cardiovascular exam: Present regular rate and normal rhythm Abdominal Exam Abdominal exam: Present soft and tenderness; Absent guarding, rebound or rigidity Abdominal tenderness: Present RUQ, RLQ, diffuse and mild Extremities Exam Extremities exam: Present normal inspection Neurological Exam Neurological exam: Present alert and oriented X3 Psychiatric Psychiatric exam: Present normal affect Skin Skin exam: Present warm and dry Medical Decision Making Medical Records Medical records reviewed: Yes I reviewed the patient's medical records. Screening: Per USPSTF and CDC recommendations, given the prevalence of disease in our region, it is our hospital?s policy to screen for HIV and viral Hepatitis for all patients aged 18 and over and those with ongoing risk factors. Chuck Inquiry Pt receiving controlled substance: Yes Chuck was queried for this patient: No Reason not queried -: Emergent pt cond-no time Risks and benefits of using a controlled substance: were discussed with pt by me Vital Signs: 01/04/25 14:10 01/04/25 14:10 01/04/25 14:31 Temperature 97.5 F L 97.5 F L Temperature Source Oral Oral Pulse Rate 76 62 Pulse Rate [Right] 76 Respiratory Rate 20 20 16 Blood Pressure 138/58 L 144/61 H Blood Pressure [Right Arm] 138/58 L Blood Pressure Mean 97 Blood Pressure Mean [Right Arm] 84 Blood Pressure Source Automatic Cuff Blood Pressure Source [Right Arm] Automatic Cuff Blood Pressure Position Supine Blood Pressure Position [Right Arm] Supine 02 Sat by Pulse Oximetry 98 98 99 Oxygen Delivery Method Room Air Room Air 01/04/25 14:45 01/04/25 15:00 01/04/25 15:15 Temperature Temperature Source Pulse Rate 65 60 61 Pulse Rate [Right] Respiratory Rate 16 16 16 Blood Pressure 139/93 H 158/72 H 151/81 H Blood Pressure [Right Arm] Blood Pressure Mean 104 97 101 Blood Pressure Mean [Right Arm] Blood Pressure Source Blood Pressure Source [Right Arm] Blood Pressure Position Blood Pressure Position [Right Arm] 02 Sat by Pulse Oximetry 98 97 98 Oxygen Delivery Method 01/04/25 15:31 01/04/25 15:45 01/04/25 16:00 Temperature Temperature Source Pulse Rate 75 75 66 Pulse Rate [Right] Respiratory Rate Blood Pressure 118/64 121/65 129/83 Blood Pressure [Right Arm] Blood Pressure Mean 82 81 92 Blood Pressure Mean [Right Arm] Blood Pressure Source Blood Pressure Source [Right Arm] Blood Pressure Position Blood Pressure Position [Right Arm] 02 Sat by Pulse Oximetry 100 100 96 Oxygen Delivery Method Lab Data Lab results reviewed: Yes I reviewed the patient's lab results. Lab Results 01/04/25 14:15: WBC 8.7, RBC 4.55, Hgb 13.9, Hct 42.2, MCV 92.7, MCH 30.5, MCHC 32.9, RDW 12.0, Plt Count 300, MPV 10.5 H, Neut % (Auto) 52.6, Lymph % (Auto) 36.4, [place] % (Auto) 5.9, Eos % (Auto) 4.1, Baso % (Auto) 0.7, Neut # (Auto) 4.6, Lymph # (Auto) 3.2, [place] # (Auto) 0.5, Eos # (Auto) 0.4, Baso # (Auto) 0.1, Sodium 137, Potassium 4.6, Chloride 106, Carbon Dioxide 21 L, Anion Gap 14.6, BUN 10, Creatinine 0.70, Estimated Creat Clear 128, Estimated GFR 101, Est GFR ( Amer) 122, Glucose 97, Calcium 8.9, Magnesium 1.9, Total Bilirubin 0.7, AST 45 H, ALT 41, Alkaline Phosphatase 59, Total Protein 8.2, Albumin 4.6, G lobulin 3.6 H, Albumin/Globulin Ratio 1.3, Lipase 44, Serum HCG, Qual Negative 01/04/25 15:00: Lactate 0.8, HCV Ab RUDOLPH w/Rflx PCR Qn Negative, HIV Ag/Ab Combo Qual Negative 01/04/25 16:47: Urine Color Yellow, Urine Appearance Clear, Urine pH 7.0, Ur Specific [place] <= 1.005, Urine Protein Negative, Urine Glucose (UA) Negative, Urine Ketones Negative, Urine Blood Negative, Urine Nitrate Negative, Urine Bilirubin Negative, Urine Urobilinogen 0.2, Ur Leukocyte Esterase Negative 01/04/25 14:15 01/04/25 14:15 Orders (Tests/Meds): ED MEDICATIONS Discontinued Medications Generic Name Dose Route Start Last Admin Trade Name Aydee PRN Reason Stop Dose Admin Iopamidol 75 ml 01/04/25 15:22 01/04/25 15:22 Iopamidol-370 (76%);100ml Bottle IV 01/04/25 15:23 75 ml ONCE ONE Administration Morphine Sulfate 4 mg 01/04/25 14:46 01/04/25 14:52 Morphine 4mg/Ml Syringe IV 01/04/25 14:47 4 mg ONCE ONE Administration Ondansetron HCl 4 mg 01/04/25 14:46 01/04/25 14:52 Ondansetron 4mg/2ml Vial IV 01/04/25 14:47 4 mg ONCE ONE Administration Sodium Chloride 10 ml 01/04/25 15:22 01/04/25 15:22 Sodium Chloride 0.9% 10ml Syr (Rad Only) IV 01/04/25 15:23 10 ml ONCE ONE Administration ORDERS Category Date Time Status CT abdomen pelvis w con Stat Cat Scan 01/04/25 14:45 Completed Complete Blood Count Auto Diff Stat Lab 01/04/25 14:15 Completed Comprehensive Metabolic Panel Stat Lab 01/04/25 14:15 Completed HCG Qualitative, Serum Stat Lab 01/04/25 14:15 Completed HIV Combo Stat Lab 01/04/25 15:00 Completed Hepatitis C Ab Qual. W/ RFX Stat Lab 01/04/25 15:00 Completed Lactic Acid Stat Lab 01/04/25 15:00 Completed Lipase Stat Lab 01/04/25 14:15 Completed Magnesium Stat Lab 01/04/25 14:15 Completed Urinalysis and Microscopic Stat Lab 01/04/25 16:47 Results Medical Decision Narrative: 24-year-old female presents to the emergency department with right-sided abdominal pain/diffuse abdominal pain that started around 4 AM, but is somewhat chronic for her with nausea and vomiting for dry nose including not limited to, ileus, bowel obstruction, constipation, gastroenteritis, ileitis, colitis, acute UTI, acute pyelonephritis, cholelithiasis, cholecystitis, choledocholithiasis, appendicitis, diverticulitis among others. I discussed this patient's case with the attending physician Dr. Wilks Will obtain basic laboratory studies, CT ab pelvis with contrast, lactic acid lipase level magnesium level urinalysis, hCG qualitative, will give 4 mg of morphine and 4 mg of Zofran for pain and nausea. CBC grossly unremarkable hCG qualitative negative CMP is notable for minimal AST elevation 45 lipase within normal limits, bilirubin within normal limits. I reviewed the patient's CT abdomen pelvis with contrast along the corresponding radiologic report, nonspecific fluid-filled small bowel loops which can be seen with enteritis no bowel obstruction. UA is grossly unremarkable I discussed the results with the patient at bedside patient is resting company in the bed sleeping. Patient is in agreement with current discharge plan/treatment plan. Patient was given strict ED return precautions. Patient follow-up PCP and GI physician in the upcoming days/weeks. Patient voiced understanding and agreement with current treatment plan/discharge plan. I will prescribe the patient sublingual Zofran 4 mg as needed for nausea and vomiting. Critical Care Critical Care Time Critical Care Time: No
--- NOTE | 2025-01-04 14:45 | CT_ITS ---
FINAL REPORT TECHNIQUE: Thin section axial images were obtained through the abdomen after intravenous contrast. Reconstruction images were obtained from the axial data. Exam was performed using dose reduction techniques. CLINICAL HISTORY: Right sided abdominal pain, nausea, vomiting COMPARISON: 10/27/2024 FINDINGS: The lung bases are clear. The liver is homogeneous. The gallbladder is present. The spleen, adrenal glands, and pancreas are unremarkable. There is no hydronephrosis or solid renal mass. Abdominal GI tract is without acute abnormality. There is no abdominal lymphadenopathy or ascites. There is no evidence of bowel obstruction. There is nonspecific fluid-filled small bowel loops which can be seen with enteritis. The appendix is normal. There is a moderate mount of stool throughout the colon. The uterus is present. There is no evidence of lymphadenopathy. Physiologic free fluid is identified.. No acute osseous abnormalities identified. IMPRESSION: Nonspecific fluid-filled small bowel loops which can be seen with enteritis. No bowel obstruction. Reviewed, Interpreted and Dictated by Dia Tam MD Transcribed by Noemi Bell Authenticated and [facility]
[2025-01-04] MEDS: MORPHINE 4MG/ML SYRINGE 4 MG IV (14:52)
[2025-01-04] MEDS: ONDANSETRON 4MG/2ML VIAL 4 MG IV (14:52)
[2025-01-04 15:05] LABS: Hematocrit 42.2 % (37.0-47.0); Hemoglobin 13.9 g/dL (12.2-16.2); Immature Granulocytes % 0.3 %; Mean Corpuscular HGB Conc 32.9 g/dL (31.8-35.4); Mean Corpuscular Hemoglobin 30.5 pg (27.0-31.2); Mean Corpuscular Volume 92.7 fl (81-99); Nucleated Red Blood Cells % 0 %; Platelet Count 300 K/mm3 (142-424); Red Blood Count 4.55 M/mm3 (4.20-5.40); Red Cell Distribution Width-SD 40.9 fL; White Blood Count 8.7 K/mm3 (4.8-10.8)
[2025-01-04 15:10] LABS: HCG Qualitative, Serum Negative (Negative)
[2025-01-04 15:13] LABS: Alanine Aminotransferase 41 U/L (12-78); Albumin Level 4.6 g/dl (3.5-5.0); Albumin/Globulin Ratio 1.3 (1.1-1.8); Alkaline Phosphatase 59 U/L (38-126); Anion Gap 14.6 mEq/L (5-15); Aspartate Amino Transferase 45 U/L (14-36); Bilirubin,Total 0.7 mg/dl (0.2-1.3); Blood Urea Nitrogen 10 mg/dl (7-17); Calcium 8.9 mg/dl (8.4-10.2); Carbon Dioxide 21 mmol/L (22.0-30.0); Chloride 106 mmol/L (98-107); Creatinine Clearance Estimated 128 mL/min (50-200); Creatinine,Serum 0.70 mg/dl (0.52-1.04); Estimated Glomerular Filt Rate 101 ml/min (>60); GFR (African American) 122 ML/MIN (>60); Globulin 3.6 g/dL (1.3-3.2); Glucose 97 mg/dl (74-100); Lipase 44 U/L (23-300); Magnesium 1.9 mg/dl (1.6-2.3); Potassium 4.6 mmoL/L (3.5-5.1); Sodium 137 mmol/L (136-145); Total Protein,Serum 8.2 g/dl (6.3-8.2)
[2025-01-04] MEDS: SODIUM CHLORIDE 0.9% 10ML SYR (RAD ONLY) 10 ML IV (15:22)
[2025-01-04] MEDS: IOPAMIDOL-370 (76%);100ML BOTTLE 75 ML IV (15:22)
[2025-01-04 16:49] LABS: Hepatitis C Ab Qual. W/ RFX NEGATIVE (Negative)
[2025-01-04 16:58] LABS: Microscopic, Urine URINE MICROSCOPIC (MICROSCOPIC)
[2025-01-04 17:01] LABS: Bilirubin,Urine Negative (Negative); Color,Urine YELLOW (Yellow); Glucose,Urine (UA) Negative (Negative); Ketones,Urine Negative (Negative); Leukocyte Esterase,Urine Negative (Negative); PH,Urine 7.0 (5.0-8.5); Protein,Urine Negative (Negative); Specific Gravity, Urine <= 1.005 (1.005-1.030); Urobilinogen,Urine 0.2 EU/dl (0.2)
[2025-01-04 17:32] LABS: Bacteria,Urine 1+ /lpf; Squamous Epithelial Cell,Urine 50-100 #/hpf (0-5); WBC,Urine 20-50 #/hpf (0-3)
== END 2025-01-04 17:52 | disposition home or self-care (01) ==
PROVIDERS: Physician Assistant; Student in an Organized Health Care Education/Training Program; Emergency Provider Student in an Organized Health Care Education/Training Program; PCP Family Medicine
DX: R10.84 Generalized abdominal pain (principal); K52.9 Noninfective gastroenteritis and colitis, unspecified; F17.210 Nicotine dependence, cigarettes, uncomplicated
CPT/HCPCS: 74177; 80053; 81001; 83605; 83690; 83735; 84703; 85025; 86803; 87086; 87088; 87186; 87389; 96374; 96375; 99285; J2270; J2405; Q9967